=== PATIENT | male | born 1990 | race Caucasian/White ===

== ENCOUNTER 2016-11-21 09:02 | Inpatient (IN) | payer MEDICAID ==
[~2016-11-21] VITALS: Ht 162.6 cm; Wt 73.5 kg
[2016-11-21] VITALS (7 sets, daily range): BP systolic 91–124; BP diastolic 43–75
[~2016-11-21 09:02] MED LIST: ALBUTEROL1.25 MG/3; BACL GT; BACLOFEN10 MG; COLACE100 MG GT; FLEET ENEMA135 ML; KEPPRA1000 M1 GT; LAC PO; LAXATIVE5 M1 PO; LEVAQUIN750 MG GT; METOCLOPRAM5 MG/5 M1 GT; MONTELUKAST SOD10 M1 PO; MYL80 PO; NEXIUM40 MG GT; OCENS; PHECLUD GT; POLYETHYLENE GL1 PO1 GT; PROVENTIL0.09 MG/A1; ROB1 GT; SYMBICORT1 AE2; TYLENOL EXTRA500 M2 PO; VAL250 GT
[2016-11-21] MEDS ORDERED: ALBUTEROL SULFAT3 ML NEB ×2 (09:26→09:33)
[2016-11-21] MEDS ORDERED: BACLOFEN10 MG GT (09:27)
[2016-11-21] MEDS ORDERED: GLYCOPYRROLATE1 M1 GT (09:27)
[2016-11-21] MEDS ORDERED: KEPPRA1000 M1 GT (09:28)
[2016-11-21] MEDS ORDERED: LACTULOSE10 GM/152 PO (09:28)
[2016-11-21] MEDS ORDERED: METOCLOPRAM5 MG/5 M3 GT (09:29)
[2016-11-21] MEDS ORDERED: NEXIUM40 MG GT (09:30)
[2016-11-21] MEDS ORDERED: SINGULAIR10 MG GT (09:30)
[2016-11-21] MEDS ORDERED: POLYETHYLE17 GM/Dos4 PO (09:30)
[2016-11-21] MEDS ORDERED: SYMBICORT1 AE3 INH (09:31)
[2016-11-21] MEDS ORDERED: SALINE MIST45 ML (09:31)
[2016-11-21] MEDS ORDERED: VALPROIC ACID250 MG GT (09:32)
[2016-11-21] MEDS ORDERED: TYLENOL EXTRA500 M3 GT (09:32)
[2016-11-21] MEDS ORDERED: BISAC-EVAC10 MG RC (09:33)
[2016-11-21] MEDS ORDERED: FLEET ENEMA135 ML RC (09:33)
[2016-11-21] MEDS ORDERED: PROVENTIL0.09 MG/A1 (09:34)
[2016-11-21] MEDS ORDERED: EXPECTORAN100 MG/5 M GT (09:34)
[2016-11-21] MEDS ORDERED: GAS RELIEF 8080 MG PO (09:35)
[2016-11-21] MEDS ORDERED: NUTREN (09:36)
[2016-11-21 10:14] LABS: CARBON DIOXIDE 25.7 mmol/L (21-32); CHLORIDE SERUM 102 mmol/L (98-107); CREATININE SERUM 0.9 mg/dL (0.7-1.3); GFR1 > 60 mL/min; GLUCOSE SERUM 96 mg/dL (74-106); POTASSIUM SERUM 3.8 mmol/L (3.5-5.1); SODIUM SERUM 140 mmol/L (136-145)
[2016-11-21 10:18] LABS: RED CELL DISTRIBUTION WIDTH 13.2 % (11.5-14.5)
[2016-11-21 10:20] LABS: UA SPECIFIC GRAVITY 1.015 (1.005-1.035); microscopic required? YES; urine erythrocyte TRACE (NEGATIVE)
[2016-11-21 10:24] LABS: ALBUMIN 3.4 g/dL (3.4-5.0); ALKALINE PHOSPHATASE 115 U/L (46-116); ALT/SGPT 164 U/L (16-63); AST/SGOT 110 U/L (15-37); BILIRUBIN TOTAL 0.7 mg/dL (0.20-1.00); TOTAL PROTEIN, SERUM 7.8 g/dL (6.4-8.2)
[2016-11-21 10:26] LABS: BASOPHIL % 0 % (0-2); PLATELET COUNT 127 x10^3mcL (130-400)
[2016-11-21 10:31] LABS: CK-MB < 0.5 ng/mL (0-3.6); CREATINE KINASE 51 U/L (39-308)
[2016-11-21 13:59] LABS: CHOLESTEROL/HDL RATIO 1.9
[2016-11-21 14:04] LABS: FREE T4 1.23 ng/dL (0.76-1.46); FREE THYROXINE INDEX 2.8 ug/dL (1.4-4.5); T3 TOTAL 0.81 ng/mL; T4(THYROXINE) 8.6 ug/dL (4.7-13.3)
[2016-11-22 05:50] VITALS: BP 91/54
[2016-11-22 06:39] VITALS: BP 110/52
[2016-11-22 07:11] LABS: CALCIUM 8.1 mg/dL (8.5-10.1); CARBON DIOXIDE 25.2 mmol/L (21-32); CHLORIDE SERUM 107 mmol/L (98-107); CREATININE SERUM 0.6 mg/dL (0.7-1.3); GFR1 > 60 mL/min; GLUCOSE SERUM 121 mg/dL (74-106); MAGNESIUM 1.8 mg/dL (1.8-2.4); PHOSPHOROUS 2.5 mg/dL (2.5-4.9); POTASSIUM SERUM 3.5 mmol/L (3.5-5.1); SODIUM SERUM 138 mmol/L (136-145)
[2016-11-22 07:56] LABS: BASOPHIL % 0.3 % (0-2); RED CELL DISTRIBUTION WIDTH 13.2 % (11.5-14.5)
[2016-11-22 08:11] LABS: PLATELET COUNT 95 x10^3mcL (130-400)
[2016-11-22 09:16] VITALS: BP 102/64
[2016-11-22 13:36] VITALS: BP 98/59
[2016-11-22 17:01] VITALS: BP 100/64
[2016-11-22 21:22] VITALS: BP 104/67
[2016-11-23 05:46] VITALS: BP 111/70
[2016-11-23 07:03] LABS: BASOPHIL % 0.4 % (0-2); RED CELL DISTRIBUTION WIDTH 13.1 % (11.5-14.5)
[2016-11-23 07:09] LABS: PLATELET COUNT 102 x10^3mcL (130-400)
[2016-11-23 07:15] LABS: CALCIUM 8.7 mg/dL (8.5-10.1); CHLORIDE SERUM 108 mmol/L (98-107); CREATININE SERUM 0.6 mg/dL (0.7-1.3); GFR1 > 60 mL/min; GLUCOSE SERUM 129 mg/dL (74-106); POTASSIUM SERUM 3.6 mmol/L (3.5-5.1); SODIUM SERUM 144 mmol/L (136-145)
[2016-11-23 10:00] VITALS: BP 107/69
[2016-11-23 14:42] VITALS: BP 100/62
[2016-11-23 18:08] VITALS: BP 96/55
[2016-11-23 21:01] VITALS: BP 119/72
[2016-11-24 06:27] LABS: CALCIUM 8.4 mg/dL (8.5-10.1); CARBON DIOXIDE 28.7 mmol/L (21-32); CHLORIDE SERUM 109 mmol/L (98-107); CREATININE SERUM 0.5 mg/dL (0.7-1.3); GFR1 > 60 mL/min; GLUCOSE SERUM 119 mg/dL (74-106); PHOSPHOROUS 3.9 mg/dL (2.5-4.9); POTASSIUM SERUM 3.4 mmol/L (3.5-5.1); SODIUM SERUM 144 mmol/L (136-145)
[2016-11-24 06:35] VITALS: BP 93/59
[2016-11-24 06:48] LABS: BASOPHIL % 0.4 % (0-2); PLATELET COUNT 110 x10^3mcL (130-400); RED CELL DISTRIBUTION WIDTH 13.1 % (11.5-14.5)
[2016-11-24 10:54] VITALS: BP 102/68
[2016-11-24 17:23] VITALS: BP 107/65
[2016-11-24 20:59] VITALS: BP 102/70
[2016-11-25 06:30] VITALS: BP 106/59
[2016-11-25 06:39] LABS: BASOPHIL % 0.6 % (0-2); RED CELL DISTRIBUTION WIDTH 13.1 % (11.5-14.5)
[2016-11-25 06:55] LABS: PLATELET COUNT 121 x10^3mcL (130-400)
[2016-11-25 07:06] LABS: CALCIUM 8.6 mg/dL (8.5-10.1); CARBON DIOXIDE 27.1 mmol/L (21-32); CHLORIDE SERUM 106 mmol/L (98-107); CREATININE SERUM 0.5 mg/dL (0.7-1.3); GFR1 > 60 mL/min; GLUCOSE SERUM 101 mg/dL (74-106); PHOSPHOROUS 3.5 mg/dL (2.5-4.9); POTASSIUM SERUM 3.5 mmol/L (3.5-5.1); SODIUM SERUM 144 mmol/L (136-145)
[2016-11-25 09:47] VITALS: BP 106/68
[2016-11-25 13:21] VITALS: BP 107/65
[2016-11-25 17:50] VITALS: BP 108/76
[2016-11-25 21:40] VITALS: BP 115/67
[2016-11-26 05:30] LABS: BASOPHIL % 0.6 % (0-2); PLATELET COUNT 148 x10^3mcL (130-400); RED CELL DISTRIBUTION WIDTH 12.7 % (11.5-14.5)
[2016-11-26 05:46] LABS: CALCIUM 9.2 mg/dL (8.5-10.1); CHLORIDE SERUM 105 mmol/L (98-107); CREATININE SERUM 0.6 mg/dL (0.7-1.3); GFR1 > 60 mL/min; GLUCOSE SERUM 113 mg/dL (74-106); MAGNESIUM 2.1 mg/dL (1.8-2.4); PHOSPHOROUS 3.8 mg/dL (2.5-4.9); POTASSIUM SERUM 3.9 mmol/L (3.5-5.1); SODIUM SERUM 141 mmol/L (136-145)
[2016-11-26 05:56] VITALS: BP 100/56
[2016-11-26 21:49] VITALS: BP 102/61
[2016-11-27 05:56] VITALS: BP 96/62
[2016-11-27 06:23] LABS: BASOPHIL % 0.2 % (0-2); PLATELET COUNT 179 x10^3mcL (130-400); RED CELL DISTRIBUTION WIDTH 12.9 % (11.5-14.5)
[2016-11-27 08:01] LABS: CALCIUM 9.5 mg/dL (8.5-10.1); CARBON DIOXIDE 29.8 mmol/L (21-32); CHLORIDE SERUM 104 mmol/L (98-107); CREATININE SERUM 0.6 mg/dL (0.7-1.3); GFR1 > 60 mL/min; GLUCOSE SERUM 84 mg/dL (74-106); MAGNESIUM 2.1 mg/dL (1.8-2.4); PHOSPHOROUS 3.6 mg/dL (2.5-4.9); POTASSIUM SERUM 4.5 mmol/L (3.5-5.1); SODIUM SERUM 142 mmol/L (136-145)
[2016-11-27 10:16] VITALS: BP 93/41
[2016-11-27 14:06] VITALS: BP 99/64
[2016-11-27 19:07] VITALS: BP 91/63
[2016-11-27 21:13] VITALS: BP 98/58
[2016-11-28 05:34] VITALS: BP 103/55
[2016-11-28 07:16] LABS: BASOPHIL % 0.4 % (0-2); PLATELET COUNT 175 x10^3mcL (130-400); RED CELL DISTRIBUTION WIDTH 13.1 % (11.5-14.5)
[2016-11-28 07:22] LABS: CALCIUM 9.2 mg/dL (8.5-10.1); CHLORIDE SERUM 104 mmol/L (98-107); CREATININE SERUM 0.7 mg/dL (0.7-1.3); GFR1 > 60 mL/min; GLUCOSE SERUM 93 mg/dL (74-106); PHOSPHOROUS 3.1 mg/dL (2.5-4.9); POTASSIUM SERUM 4.1 mmol/L (3.5-5.1); SODIUM SERUM 141 mmol/L (136-145)
[2016-11-28 09:55] VITALS: BP 89/67
[2016-11-28 18:40] VITALS: BP 121/50
[2016-11-28 21:25] VITALS: BP 102/55
[2016-11-29 05:57] VITALS: BP 106/61
[2016-11-29 06:40] LABS: CALCIUM 8.9 mg/dL (8.5-10.1); CARBON DIOXIDE 25.4 mmol/L (21-32); CHLORIDE SERUM 105 mmol/L (98-107); CREATININE SERUM 0.5 mg/dL (0.7-1.3); GFR1 > 60 mL/min; GLUCOSE SERUM 115 mg/dL (74-106); POTASSIUM SERUM 3.7 mmol/L (3.5-5.1); SODIUM SERUM 139 mmol/L (136-145)
[2016-11-29 07:20] LABS: BASOPHIL % 0.3 % (0-2); PLATELET COUNT 169 x10^3mcL (130-400); RED CELL DISTRIBUTION WIDTH 12.8 % (11.5-14.5)
[2016-11-29 08:00] VITALS: BP 99/60
[2016-11-29 17:20] VITALS: BP 144/49
[2016-11-29 21:35] VITALS: BP 117/73
[2016-11-30] VITALS (7 sets, daily range): BP systolic 86–126; BP diastolic 51–68; Ht 162.6 cm; Wt 73.5 kg
[2016-12-01 06:36] VITALS: BP 105/56
[2016-12-01 07:22] LABS: CARBON DIOXIDE 26.6 mmol/L (21-32); CHLORIDE SERUM 105 mmol/L (98-107); CREATININE SERUM 0.5 mg/dL (0.7-1.3); GFR1 > 60 mL/min; GLUCOSE SERUM 96 mg/dL (74-106); MAGNESIUM 2.2 mg/dL (1.8-2.4); PHOSPHOROUS 3.3 mg/dL (2.5-4.9); POTASSIUM SERUM 4.4 mmol/L (3.5-5.1); SODIUM SERUM 138 mmol/L (136-145)
[2016-12-01 07:30] LABS: BASOPHIL % 0.9 % (0-2); PLATELET COUNT 188 x10^3mcL (130-400); RED CELL DISTRIBUTION WIDTH 13.1 % (11.5-14.5)
[2016-12-01 10:06] VITALS: BP 130/61
[2016-12-01 17:59] VITALS: BP 98/66
[2016-12-01 19:50] VITALS: BP 124/76
[2016-12-02 06:24] VITALS: BP 104/69
[2016-12-02 06:53] LABS: BASOPHIL % 0.7 % (0-2); PLATELET COUNT 187 x10^3mcL (130-400); RED CELL DISTRIBUTION WIDTH 13.2 % (11.5-14.5)
[2016-12-02 07:00] LABS: CALCIUM 8.9 mg/dL (8.5-10.1); CARBON DIOXIDE 28.9 mmol/L (21-32); CHLORIDE SERUM 105 mmol/L (98-107); CREATININE SERUM 0.6 mg/dL (0.7-1.3); GFR1 > 60 mL/min; GLUCOSE SERUM 95 mg/dL (74-106); MAGNESIUM 2.1 mg/dL (1.8-2.4); PHOSPHOROUS 3.5 mg/dL (2.5-4.9); SODIUM SERUM 141 mmol/L (136-145)
[2016-12-02 10:55] VITALS: BP 96/49
[2016-12-02 17:39] VITALS: BP 177/80
[2016-12-02 18:40] VITALS: BP 86/57
[2016-12-02 21:07] VITALS: BP 97/62
[2016-12-03 05:38] VITALS: BP 103/55
[2016-12-03 06:29] LABS: CALCIUM 8.9 mg/dL (8.5-10.1); CARBON DIOXIDE 27.5 mmol/L (21-32); CHLORIDE SERUM 105 mmol/L (98-107); CREATININE SERUM 0.5 mg/dL (0.7-1.3); GFR1 > 60 mL/min; GLUCOSE SERUM 80 mg/dL (74-106); PHOSPHOROUS 2.9 mg/dL (2.5-4.9); POTASSIUM SERUM 4.3 mmol/L (3.5-5.1); SODIUM SERUM 140 mmol/L (136-145)
[2016-12-03 07:45] LABS: PLATELET COUNT 194 x10^3mcL (130-400); RED CELL DISTRIBUTION WIDTH 12.2 % (11.5-14.5)
[2016-12-03 09:55] LABS: BAND NEUTROPHIL 0 % (0-10); BASOPHIL 0 % (0-2); MONOCYTE 11 % (0-7); SEGMENTED NEUTROPHILS 22 % (37-75)
[2016-12-03 09:57] LABS: PLATELET MORPHOLOGY LARGE PLATELET SEEN; rbc morphology (normal/abnorm) NORMAL (NORMAL)
[2016-12-03 10:00] VITALS: BP 100/56
[2016-12-03 17:45] VITALS: BP 102/61
[2016-12-03 21:55] VITALS: BP 98/58
[2016-12-04 06:24] LABS: BASOPHIL % 0.4 % (0-2); PLATELET COUNT 185 x10^3mcL (130-400); RED CELL DISTRIBUTION WIDTH 13.1 % (11.5-14.5)
[2016-12-04 06:39] LABS: CALCIUM 8.8 mg/dL (8.5-10.1); CHLORIDE SERUM 105 mmol/L (98-107); CREATININE SERUM 0.5 mg/dL (0.7-1.3); GFR1 > 60 mL/min; GLUCOSE SERUM 88 mg/dL (74-106); MAGNESIUM 2.2 mg/dL (1.8-2.4); PHOSPHOROUS 2.9 mg/dL (2.5-4.9); SODIUM SERUM 140 mmol/L (136-145)
[2016-12-04 07:12] VITALS: BP 103/67
[2016-12-04 09:18] VITALS: BP 98/55
[2016-12-04] MEDS ORDERED: PROVENTIL0.09 MG/A1 INH (11:18)
[2016-12-04] MEDS ORDERED: TYLENOL EXTRA500 M3 GT (11:19)
[2016-12-04] MEDS ORDERED: SALINE MIST45 ML NS (11:20)
[2016-12-04] MEDS ORDERED: NUTREN 1.5250 ML PO (11:21)
[2016-12-04 13:13] VITALS: BP 98/55
== END 2016-12-04 15:45 | DRG 720 ==
LOC: ED 09:02 → DU 12:41 → MU 12:41 → DU 13:53 → MU 11-27 06:49
PROVIDERS: Emergency Medicine; Family Medicine; ADMIT Family Medicine
DX: A41.51 Sepsis due to Escherichia coli [E. coli] (principal); J96.01 Acute respiratory failure with hypoxia; N17.0 Acute kidney failure with tubular necrosis; R65.21 Severe sepsis with septic shock; N31.9 Neuromuscular dysfunction of bladder, unspecified; G80.0 Spastic quadriplegic cerebral palsy; R13.10 Dysphagia, unspecified; G40.909 Epilepsy, unspecified, not intractable, without status epilepticus; H50.00 Unspecified esotropia; E87.6 Hypokalemia; F79 Unspecified intellectual disabilities; Z16.12 Extended spectrum beta lactamase (ESBL) resistance; Z16.24 Resistance to multiple antibiotics
CPT/HCPCS: 36600; 82962; 83880; 84439; J1885; J2185; J2543; J3490; J7030; J7042; J7620; J8597

== ENCOUNTER 2016-12-19 12:31 | Inpatient (IN) | payer MEDICAID ==
[~2016-12-19] VITALS: Ht 162.6 cm; Wt 69.9 kg
[~2016-12-19 12:31] MED LIST changes: +ALBUTEROL SULFAT3 ML NEB; +BACLOFEN10 MG GT; +BISAC-EVAC10 MG RC; +EXPECTORAN100 MG/5 M GT; +FLEET ENEMA135 ML RC; +GAS RELIEF 8080 MG PO; +GLYCOPYRROLATE1 M1 GT; +LACTULOSE10 GM/152 PO; +METOCLOPRAM5 MG/5 M3 GT; +NUTREN; +NUTREN 1.5250 ML PO; +POLYETHYLE17 GM/Dos4 PO; +PROVENTIL0.09 MG/A1 INH; +SALINE MIST45 ML; +SALINE MIST45 ML NS; +SINGULAIR10 MG GT; +SYMBICORT1 AE3 INH; +TYLENOL EXTRA500 M3 GT; +VALPROIC ACID250 MG GT
[2016-12-19 13:33] LABS: BASOPHIL % 0.2 % (0-2); RED CELL DISTRIBUTION WIDTH 13.1 % (11.5-14.5)
[2016-12-19 13:39] LABS: PLATELET COUNT 116 x10^3mcL (130-400)
[2016-12-19 13:42] LABS: CALCIUM 9.6 mg/dL (8.5-10.1); CARBON DIOXIDE 28.1 mmol/L (21-32); CHLORIDE SERUM 101 mmol/L (98-107); CREATININE SERUM 0.9 mg/dL (0.7-1.3); GFR1 > 60 mL/min; GLUCOSE SERUM 163 mg/dL (74-106); POTASSIUM SERUM 4.2 mmol/L (3.5-5.1); SODIUM SERUM 138 mmol/L (136-145)
[2016-12-19 13:47] LABS: ALBUMIN 3.7 g/dL (3.4-5.0); ALKALINE PHOSPHATASE 122 U/L (46-116); ALT/SGPT 54 U/L (16-63); AST/SGOT 31 U/L (15-37); BILIRUBIN TOTAL 0.49 mg/dL (0.20-1.00); C REACTIVE PROTEIN 3.5 mg/dL (<=0.9); FREE T4 1.18 ng/dL (0.76-1.46); FREE THYROXINE INDEX 2.7 ug/dL (1.4-4.5); T4(THYROXINE) 8.5 ug/dL (4.7-13.3); TOTAL PROTEIN, SERUM 8.2 g/dL (6.4-8.2)
[2016-12-19 13:49] LABS: T3 TOTAL 1.09 ng/mL
[2016-12-19 14:08] LABS: CK-MB < 0.5 ng/mL (0-3.6); CREATINE KINASE 172 U/L (39-308)
[2016-12-19 14:25] LABS: ERYTHROCYTE SED RATE 12 mm/hr (0-15)
[2016-12-19 14:31] LABS: microscopic required? YES; urine erythrocyte TRACE (NEGATIVE)
[2016-12-19 17:39] VITALS: BP 90/62
[2016-12-19 17:56] LABS: AMYLASE 84 U/L (25-115); LIPASE 133 IU/L (73-393)
[2016-12-19 18:04] VITALS: BP 90/62
[2016-12-19 19:00] VITALS: BP 100/60
[2016-12-19 21:33] VITALS: BP 95/71
[2016-12-19 23:55] VITALS: BP 95/71
[2016-12-20] VITALS (9 sets, daily range): BP systolic 94–107; BP diastolic 48–80
[2016-12-20 06:26] LABS: RED CELL DISTRIBUTION WIDTH 13.5 % (11.5-14.5)
[2016-12-20 07:08] LABS: CALCIUM 7.9 mg/dL (8.5-10.1); CARBON DIOXIDE 22.8 mmol/L (21-32); CHLORIDE SERUM 107 mmol/L (98-107); CREATININE SERUM 0.6 mg/dL (0.7-1.3); GFR1 > 60 mL/min; GLUCOSE SERUM 88 mg/dL (74-106); MAGNESIUM 1.5 mg/dL (1.8-2.4); PHOSPHOROUS 3.1 mg/dL (2.5-4.9); POTASSIUM SERUM 3.2 mmol/L (3.5-5.1); SODIUM SERUM 143 mmol/L (136-145)
[2016-12-20 07:36] LABS: PLATELET COUNT 83 x10^3mcL (130-400)
[2016-12-20 10:36] LABS: BAND NEUTROPHIL 13 % (0-10); BASOPHIL 0 % (0-2); MONOCYTE 5 % (0-7); SEGMENTED NEUTROPHILS 75 % (37-75)
[2016-12-20 10:37] LABS: PLATELET MORPHOLOGY PLATELETS DECREASED; rbc morphology (normal/abnorm) NORMAL (NORMAL)
[2016-12-21] VITALS (8 sets, daily range): BP systolic 89–108; BP diastolic 54–64
[2016-12-21 07:14] LABS: RED CELL DISTRIBUTION WIDTH 13.5 % (11.5-14.5)
[2016-12-21 08:00] LABS: CALCIUM 8.1 mg/dL (8.5-10.1); CARBON DIOXIDE 24.8 mmol/L (21-32); CHLORIDE SERUM 108 mmol/L (98-107); CREATININE SERUM 0.6 mg/dL (0.7-1.3); GFR1 > 60 mL/min; GLUCOSE SERUM 118 mg/dL (74-106); MAGNESIUM 2.3 mg/dL (1.8-2.4); PHOSPHOROUS 1.7 mg/dL (2.5-4.9); POTASSIUM SERUM 3.5 mmol/L (3.5-5.1); SODIUM SERUM 140 mmol/L (136-145)
[2016-12-21 08:46] LABS: PLATELET COUNT 52 x10^3mcL (130-400)
[2016-12-21 11:02] LABS: BAND NEUTROPHIL 4 % (0-10); METAMYELOCTE 2 % (0-2); MONOCYTE 15 % (0-7); SEGMENTED NEUTROPHILS 58 % (37-75)
[2016-12-21 11:03] LABS: PLATELET MORPHOLOGY PLATELETS DECREASED; rbc morphology (normal/abnorm) NORMAL (NORMAL)
[2016-12-22 05:39] VITALS: BP 106/72
[2016-12-22 06:27] LABS: RED CELL DISTRIBUTION WIDTH 13.6 % (11.5-14.5)
[2016-12-22 06:39] LABS: PLATELET COUNT 58 x10^3mcL (130-400)
[2016-12-22 06:44] LABS: CALCIUM 8.2 mg/dL (8.5-10.1); CARBON DIOXIDE 29.6 mmol/L (21-32); CHLORIDE SERUM 107 mmol/L (98-107); CREATININE SERUM 0.5 mg/dL (0.7-1.3); GFR1 > 60 mL/min; GLUCOSE SERUM 90 mg/dL (74-106); POTASSIUM SERUM 3.3 mmol/L (3.5-5.1); SODIUM SERUM 141 mmol/L (136-145)
[2016-12-22 08:30] LABS: MONOCYTE 16 % (0-7); SEGMENTED NEUTROPHILS 65 % (37-75); rbc morphology (normal/abnorm) NORMAL (NORMAL)
[2016-12-22 10:00] VITALS: BP 97/70
[2016-12-22 14:34] VITALS: BP 97/70
[2016-12-22 18:08] VITALS: BP 94/46
[2016-12-22 23:07] VITALS: BP 141/54
[2016-12-23 05:34] VITALS: BP 117/75
[2016-12-23 06:25] LABS: CALCIUM 7.9 mg/dL (8.5-10.1); CARBON DIOXIDE 25.5 mmol/L (21-32); CHLORIDE SERUM 108 mmol/L (98-107); CREATININE SERUM 0.6 mg/dL (0.7-1.3); GFR1 > 60 mL/min; GLUCOSE SERUM 89 mg/dL (74-106); POTASSIUM SERUM 3.4 mmol/L (3.5-5.1); SODIUM SERUM 143 mmol/L (136-145)
[2016-12-23 08:35] LABS: PLATELET COUNT 89 x10^3mcL (130-400); RED CELL DISTRIBUTION WIDTH 13.9 % (11.5-14.5)
[2016-12-23 08:58] VITALS: BP 107/63
[2016-12-23 09:56] LABS: BAND NEUTROPHIL 3 % (0-10); BASOPHIL 0 % (0-2); MONOCYTE 23 % (0-7); SEGMENTED NEUTROPHILS 40 % (37-75)
[2016-12-23 09:57] LABS: rbc morphology (normal/abnorm) NORMAL (NORMAL)
[2016-12-23 13:37] VITALS: BP 101/62
[2016-12-23 16:36] VITALS: BP 112/74
[2016-12-23 16:44] LABS: MAGNESIUM 1.7 mg/dL (1.8-2.4); PHOSPHOROUS 2.4 mg/dL (2.5-4.9)
[2016-12-23 19:30] VITALS: BP 120/82
[2016-12-24 05:43] VITALS: BP 126/57
[2016-12-24 06:09] LABS: CALCIUM 8.5 mg/dL (8.5-10.1); CARBON DIOXIDE 27.6 mmol/L (21-32); CHLORIDE SERUM 104 mmol/L (98-107); CREATININE SERUM 0.5 mg/dL (0.7-1.3); GFR1 > 60 mL/min; GLUCOSE SERUM 92 mg/dL (74-106); MAGNESIUM 2.3 mg/dL (1.8-2.4); POTASSIUM SERUM 3.7 mmol/L (3.5-5.1); SODIUM SERUM 141 mmol/L (136-145)
[2016-12-24 06:24] LABS: RED CELL DISTRIBUTION WIDTH 13.6 % (11.5-14.5)
[2016-12-24 07:52] LABS: PLATELET COUNT 123 x10^3mcL (130-400)
[2016-12-24 10:14] VITALS: BP 114/66
[2016-12-24 12:25] VITALS: BP 101/64
[2016-12-24 13:51] LABS: BAND NEUTROPHIL 3 % (0-10); SEGMENTED NEUTROPHILS 40 % (37-75)
[2016-12-24 13:52] LABS: METAMYELOCTE 1 % (0-2); MONOCYTE 22 % (0-7); PLATELET MORPHOLOGY PLATELETS DECREASED; rbc morphology (normal/abnorm) NORMAL (NORMAL)
[2016-12-24 17:26] VITALS: BP 110/75
[2016-12-24 21:45] VITALS: BP 107/70
[2016-12-25 05:52] VITALS: BP 109/76
[2016-12-25 06:03] LABS: CARBON DIOXIDE 28.1 mmol/L (21-32); CHLORIDE SERUM 104 mmol/L (98-107); CREATININE SERUM 0.5 mg/dL (0.7-1.3); GFR1 > 60 mL/min; GLUCOSE SERUM 101 mg/dL (74-106); POTASSIUM SERUM 4.1 mmol/L (3.5-5.1); SODIUM SERUM 140 mmol/L (136-145)
[2016-12-25 06:10] LABS: BASOPHIL % 0.3 % (0-2); PLATELET COUNT 173 x10^3mcL (130-400); RED CELL DISTRIBUTION WIDTH 13.8 % (11.5-14.5)
[2016-12-25 09:35] VITALS: BP 96/64
[2016-12-25 17:14] VITALS: BP 91/61
[2016-12-25 21:38] VITALS: BP 104/60
[2016-12-26 05:39] VITALS: BP 101/57
[2016-12-26 09:19] VITALS: BP 122/76; BP 151/64
[2016-12-26 17:34] VITALS: BP 129/78
[2016-12-26 21:59] VITALS: BP 91/55
[2016-12-27 06:50] VITALS: BP 94/45
[2016-12-27 06:56] LABS: BASOPHIL % 0.5 % (0-2); PLATELET COUNT 199 x10^3mcL (130-400); RED CELL DISTRIBUTION WIDTH 13.6 % (11.5-14.5)
[2016-12-27 07:24] LABS: CALCIUM 8.7 mg/dL (8.5-10.1); CARBON DIOXIDE 27.1 mmol/L (21-32); CHLORIDE SERUM 106 mmol/L (98-107); CREATININE SERUM 0.4 mg/dL (0.7-1.3); GFR1 > 60 mL/min; GLUCOSE SERUM 92 mg/dL (74-106); MAGNESIUM 2.3 mg/dL (1.8-2.4); POTASSIUM SERUM 4.6 mmol/L (3.5-5.1); SODIUM SERUM 140 mmol/L (136-145)
[2016-12-27 10:25] VITALS: BP 97/57
[2016-12-27 17:21] VITALS: BP 94/60
[2016-12-27 20:37] VITALS: BP 103/66
[2016-12-28 05:24] VITALS: BP 101/61
[2016-12-28 06:20] LABS: BASOPHIL % 0.6 % (0-2); PLATELET COUNT 317 x10^3mcL (130-400); RED CELL DISTRIBUTION WIDTH 13.5 % (11.5-14.5)
[2016-12-28 06:27] LABS: CARBON DIOXIDE 27.7 mmol/L (21-32); CHLORIDE SERUM 106 mmol/L (98-107); CREATININE SERUM 0.5 mg/dL (0.7-1.3); GFR1 > 60 mL/min; GLUCOSE SERUM 87 mg/dL (74-106); MAGNESIUM 2.2 mg/dL (1.8-2.4); PHOSPHOROUS 3.6 mg/dL (2.5-4.9); POTASSIUM SERUM 4.3 mmol/L (3.5-5.1); SODIUM SERUM 140 mmol/L (136-145)
[2016-12-28 09:38] VITALS: BP 100/55
[2016-12-28 11:28] LABS: BILIRUBIN DIRECT 0.08 mg/dL (0.0-0.2); BILIRUBIN TOTAL 0.2 mg/dL (0.20-1.00); TOTAL PROTEIN, SERUM 7.5 g/dL (6.4-8.2)
[2016-12-28 11:30] LABS: ALBUMIN 2.8 g/dL (3.4-5.0)
[2016-12-28 13:00] VITALS: BP 112/68
[2016-12-28 18:14] VITALS: BP 112/69
[2016-12-28 22:21] VITALS: BP 103/59
[2016-12-29] VITALS (7 sets, daily range): BP systolic 93–109; BP diastolic 44–69
[2016-12-29 06:16] LABS: BASOPHIL % 0.3 % (0-2); PLATELET COUNT 303 x10^3mcL (130-400); RED CELL DISTRIBUTION WIDTH 13.3 % (11.5-14.5)
[2016-12-29 06:38] LABS: CALCIUM 8.5 mg/dL (8.5-10.1); CARBON DIOXIDE 29.3 mmol/L (21-32); CHLORIDE SERUM 104 mmol/L (98-107); CREATININE SERUM 0.6 mg/dL (0.7-1.3); GFR1 > 60 mL/min; GLUCOSE SERUM 85 mg/dL (74-106); MAGNESIUM 1.7 mg/dL (1.8-2.4); PHOSPHOROUS 3.4 mg/dL (2.5-4.9); POTASSIUM SERUM 4.1 mmol/L (3.5-5.1); SODIUM SERUM 140 mmol/L (136-145)
[2016-12-30 05:54] VITALS: BP 115/60
[2016-12-30 06:12] LABS: PLATELET COUNT 328 x10^3mcL (130-400); RED CELL DISTRIBUTION WIDTH 13.6 % (11.5-14.5)
[2016-12-30 07:28] LABS: BAND NEUTROPHIL 0 % (0-10); BASOPHIL 0 % (0-2); MONOCYTE 5 % (0-7); SEGMENTED NEUTROPHILS 84 % (37-75)
[2016-12-30 09:10] VITALS: BP 123/78
[2016-12-30 17:40] VITALS: BP 108/73
[2016-12-30 20:22] VITALS: BP 106/66
[2016-12-30 22:20] VITALS: BP 100/57
[2016-12-31 05:37] VITALS: BP 112/68
[2016-12-31 06:26] LABS: CALCIUM 8.4 mg/dL (8.5-10.1); CARBON DIOXIDE 31.7 mmol/L (21-32); CHLORIDE SERUM 103 mmol/L (98-107); CREATININE SERUM 0.5 mg/dL (0.7-1.3); GFR1 > 60 mL/min; GLUCOSE SERUM 86 mg/dL (74-106); PHOSPHOROUS 2.8 mg/dL (2.5-4.9); POTASSIUM SERUM 3.9 mmol/L (3.5-5.1); SODIUM SERUM 140 mmol/L (136-145)
[2016-12-31 06:28] LABS: BASOPHIL % 0.3 % (0-2); PLATELET COUNT 330 x10^3mcL (130-400); RED CELL DISTRIBUTION WIDTH 13.6 % (11.5-14.5)
[2016-12-31 09:20] VITALS: BP 108/72
[2016-12-31 13:27] LABS: microscopic required? YES; urine erythrocyte 1+ (NEGATIVE)
[2016-12-31 18:00] VITALS: BP 121/69
[2016-12-31 21:09] VITALS: BP 115/77
[2017-01-01] VITALS (11 sets, daily range): BP systolic 87–115; BP diastolic 56–69; Ht 162.6 cm; Wt 69.9 kg
[2017-01-01 06:03] LABS: BASOPHIL % 0.4 % (0-2); PLATELET COUNT 355 x10^3mcL (130-400); RED CELL DISTRIBUTION WIDTH 13.2 % (11.5-14.5)
[2017-01-01 06:09] LABS: CALCIUM 8.1 mg/dL (8.5-10.1); CARBON DIOXIDE 30.7 mmol/L (21-32); CHLORIDE SERUM 105 mmol/L (98-107); CREATININE SERUM 0.5 mg/dL (0.7-1.3); GFR1 > 60 mL/min; GLUCOSE SERUM 111 mg/dL (74-106); MAGNESIUM 2.1 mg/dL (1.8-2.4); PHOSPHOROUS 3.2 mg/dL (2.5-4.9); POTASSIUM SERUM 3.5 mmol/L (3.5-5.1); SODIUM SERUM 140 mmol/L (136-145)
[2017-01-02 06:17] LABS: CALCIUM 8.6 mg/dL (8.5-10.1); CARBON DIOXIDE 31.1 mmol/L (21-32); CHLORIDE SERUM 105 mmol/L (98-107); CREATININE SERUM 0.5 mg/dL (0.7-1.3); GFR1 > 60 mL/min; GLUCOSE SERUM 129 mg/dL (74-106); PHOSPHOROUS 3.5 mg/dL (2.5-4.9); POTASSIUM SERUM 3.8 mmol/L (3.5-5.1); SODIUM SERUM 142 mmol/L (136-145)
[2017-01-02 06:33] VITALS: BP 92/55
[2017-01-02 06:33] LABS: BASOPHIL % 0.6 % (0-2); PLATELET COUNT 350 x10^3mcL (130-400); RED CELL DISTRIBUTION WIDTH 13.2 % (11.5-14.5)
[2017-01-02 09:42] VITALS: BP 92/63
[2017-01-02 11:56] LABS: BILIRUBIN DIRECT 0.14 mg/dL (0.0-0.2); BILIRUBIN TOTAL 0.48 mg/dL (0.20-1.00); TOTAL PROTEIN, SERUM 6.5 g/dL (6.4-8.2)
[2017-01-02 11:57] LABS: ALBUMIN 2.2 g/dL (3.4-5.0)
[2017-01-02 13:53] VITALS: BP 91/59
[2017-01-02 17:32] VITALS: BP 103/68
[2017-01-02 19:35] VITALS: BP 109/55
[2017-01-02 21:34] VITALS: BP 104/71
[2017-01-03 05:56] VITALS: BP 106/65
[2017-01-03 06:07] LABS: BASOPHIL % 0.5 % (0-2)
[2017-01-03 06:39] LABS: PLATELET COUNT 431 x10^3mcL (130-400)
[2017-01-03 06:44] LABS: CALCIUM 8.9 mg/dL (8.5-10.1); CARBON DIOXIDE 27.8 mmol/L (21-32); CHLORIDE SERUM 103 mmol/L (98-107); CREATININE SERUM 0.5 mg/dL (0.7-1.3); GFR1 > 60 mL/min; GLUCOSE SERUM 119 mg/dL (74-106); MAGNESIUM 2.5 mg/dL (1.8-2.4); PHOSPHOROUS 3.6 mg/dL (2.5-4.9); SODIUM SERUM 142 mmol/L (136-145)
[2017-01-03 10:19] VITALS: BP 106/63
[2017-01-03 14:33] VITALS: BP 105/64
[2017-01-03 17:56] VITALS: BP 91/47
[2017-01-03 19:42] VITALS: BP 96/63
[2017-01-04 05:01] VITALS: BP 96/63
[2017-01-04 07:26] LABS: BASOPHIL % 0.7 % (0-2); RED CELL DISTRIBUTION WIDTH 13.6 % (11.5-14.5)
[2017-01-04 07:40] LABS: CALCIUM 9.3 mg/dL (8.5-10.1); CARBON DIOXIDE 32.8 mmol/L (21-32); CHLORIDE SERUM 102 mmol/L (98-107); CREATININE SERUM 0.5 mg/dL (0.7-1.3); GFR1 > 60 mL/min; GLUCOSE SERUM 106 mg/dL (74-106); MAGNESIUM 2.1 mg/dL (1.8-2.4); PHOSPHOROUS 4.9 mg/dL (2.5-4.9); PLATELET COUNT 455 x10^3mcL (130-400); POTASSIUM SERUM 4.1 mmol/L (3.5-5.1); SODIUM SERUM 140 mmol/L (136-145)
[2017-01-04 08:55] VITALS: BP 96/63
[2017-01-04 10:08] VITALS: BP 106/56
[2017-01-04 13:26] VITALS: BP 100/66
[2017-01-04 17:56] VITALS: BP 101/66
[2017-01-04 21:08] VITALS: BP 98/63
[2017-01-05 05:30] VITALS: BP 92/50
[2017-01-05 06:18] LABS: BASOPHIL % 0.9 % (0-2); RED CELL DISTRIBUTION WIDTH 13.3 % (11.5-14.5)
[2017-01-05 06:29] LABS: CALCIUM 9.2 mg/dL (8.5-10.1); CARBON DIOXIDE 31.8 mmol/L (21-32); CHLORIDE SERUM 102 mmol/L (98-107); CREATININE SERUM 0.5 mg/dL (0.7-1.3); GFR1 > 60 mL/min; GLUCOSE SERUM 99 mg/dL (74-106); MAGNESIUM 2.2 mg/dL (1.8-2.4); PHOSPHOROUS 3.9 mg/dL (2.5-4.9); POTASSIUM SERUM 3.8 mmol/L (3.5-5.1); SODIUM SERUM 139 mmol/L (136-145)
[2017-01-05 06:33] LABS: PLATELET COUNT 415 x10^3mcL (130-400)
[2017-01-05 10:20] VITALS: BP 98/56
[2017-01-05 17:27] VITALS: BP 92/60
[2017-01-05 20:37] VITALS: BP 96/58
[2017-01-06 05:56] VITALS: BP 91/59
[2017-01-06 09:38] VITALS: BP 96/54
[2017-01-06 15:56] VITALS: BP 96/54
[2017-01-06] MEDS ORDERED: TYLENOL EXTRA500 M3 GT (16:15)
== END 2017-01-06 17:50 | DRG 710 ==
LOC: ED 12:31 → DU 15:05 → MU 16:43 → DU 17:05 → MU 12-22 09:35
PROVIDERS: Family Medicine; Specialist; Surgery; ADMIT Family Medicine
PROC: 0FT44ZZ Resection of Gallbladder, Percutaneous Endoscopic Approach (ICD-10-PCS; principal; 2016-12-28 13:30)
PROC: 0F9030Z Drainage of Liver with Drainage Device, Percutaneous Approach (ICD-10-PCS; 2017-01-01)
DX: A41.51 Sepsis due to Escherichia coli [E. coli] (principal); N17.0 Acute kidney failure with tubular necrosis; J96.00 Acute respiratory failure, unspecified whether with hypoxia or hypercapnia; E43 Unspecified severe protein-calorie malnutrition; K75.0 Abscess of liver; K80.10 Calculus of gallbladder with chronic cholecystitis without obstruction; E83.42 Hypomagnesemia; K82.1 Hydrops of gallbladder; N31.9 Neuromuscular dysfunction of bladder, unspecified; R65.20 Severe sepsis without septic shock; K44.9 Diaphragmatic hernia without obstruction or gangrene; G80.1 Spastic diplegic cerebral palsy; G40.909 Epilepsy, unspecified, not intractable, without status epilepticus; H50.00 Unspecified esotropia; E87.6 Hypokalemia; K21.9 Gastro-esophageal reflux disease without esophagitis; Z93.1 Gastrostomy status; Z16.12 Extended spectrum beta lactamase (ESBL) resistance; Z68.23 Body mass index [BMI] 23.0-23.9, adult
CPT/HCPCS: 32557; 36600; 78226; 83880; 84439; 87804; 97110-GP; 97530-GP; A9537; C1729; C9113; G0378; J0278; J0696; J1642; J1644; J1885; J1940; J2001; J2060; J2185; J2250; J2270; J2405; J2543; J2704; J2710; J3010; J3370; J3475; J3490; J3535; J7030; J7040; J7050; J7120; J7620; J8597; P9045; Q0092

== ENCOUNTER 2017-04-17 00:45 | Inpatient (IN) | payer MEDICAID ==
[2017-04-17] VITALS (7 sets, daily range): BP systolic 85–117; BP diastolic 38–61
[~2017-04-17] VITALS: Ht 157.5 cm; Wt 64.9 kg
--- NOTE | 2017-04-17 01:26 | NUR ---
PT BIB [facility] AND [facility] GARCIA FROM [facility] WITH C/O PT WITH FEVER AND COUGH. PER MEDICS, FACILITY REPORTED TO PT WITH HX OF PNA AND HAS BEEN ADMITTED TO HOSPITAL FOR PNA IN THE PAST. PER MEDICS, FACILITY CALLED WHEN PT NOTED WITH FEVER BEGINNING AROUND 10PM AND CALLED 911 WHEN PT FEVER REACHED 100.4. MEDICS REPORT, PT WITH TEMP OF 100.9 EN [address], WITH TACHY 130, HYPOTENSIVE, RONCHI TO ALL JONES, WITH BS OF 130. PER MEDICS, FACILITY STAFF STATE TO PT MENTATION WNL.
[2017-04-17 02:29] LABS: CALCIUM 8.5 mg/dL (8.5-10.1); CARBON DIOXIDE 24.7 mmol/L (21-32); CHLORIDE SERUM 101 mmol/L (98-107); CREATININE SERUM 0.6 mg/dL (0.7-1.3); GFR1 > 60 mL/min; GLUCOSE SERUM 95 mg/dL (74-106); SODIUM SERUM 136 mmol/L (136-145)
[2017-04-17 02:33] LABS: ALKALINE PHOSPHATASE 122 U/L (46-116); ALT/SGPT 23 U/L (16-63); AST/SGOT 28 U/L (15-37); BILIRUBIN TOTAL 0.27 mg/dL (0.20-1.00); LIPASE 194 IU/L (73-393); MAGNESIUM 1.8 mg/dL (1.8-2.4); TOTAL PROTEIN, SERUM 7.9 g/dL (6.4-8.2)
[2017-04-17 02:35] LABS: ALBUMIN 3.1 g/dL (3.4-5.0)
--- NOTE | 2017-04-17 02:57 | NUR ---
SPOKE WITH DESIREE MERAZ (PHARMACEUTICAL ANALYST) REGARDING CARE OF PT.
[2017-04-17 03:04] LABS: BASOPHIL % 0.2 % (0-2); RED CELL DISTRIBUTION WIDTH 14.4 % (11.5-14.5)
[2017-04-17 03:05] LABS: PLATELET COUNT 92 x10^3mcL (130-400)
--- NOTE | 2017-04-17 03:32 | NUR ---
PT OFF OF FLOOR WITH RADIOLOGY.
--- NOTE | 2017-04-17 04:55 | NUR ---
PT GIVEN BED BATH AFTER LARGE LOOSE STOOL NOTED ASSISTED BY MARCELLA PALMER AND CHARACTER IMPERSONATOR.
--- NOTE | 2017-04-17 05:25 | NUR ---
REPORT GIVEN TO JADE NORTON.
[2017-04-17 05:28] LABS: microscopic required? YES; urine erythrocyte TRACE (NEGATIVE)
[2017-04-17 05:56] LABS: T3 TOTAL 1.11 ng/mL
--- NOTE | 2017-04-17 06:15 | NUR ---
PT SUCTIONED AFTER NOTING CLEAR PHLEGM WHEN PT WAS COUGHING.
--- NOTE | 2017-04-17 06:15 | NUR ---
PT AWAKE AND NON VERBAL. DOES NOT FOLLOW COMMANDS. ON 4L NC, SPO2 94%. PATIENTS TEMP 102.4 COOLING MEASURES IMPLEMENTED. ON TELE # 19, SINUS TACHYCARDIA ON THE MONITOR. BUE AND BLE CONTRACTED. MADE PT COMFORTABLE. PLACED CALL LIGHT WITH IN REACH. WILL ENDORSE TO THE AM NURSE ACCORDINGLY.
[2017-04-17 06:23] LABS: CHOLESTEROL/HDL RATIO 6.6
[2017-04-17 06:26] LABS: FREE T4 1.02 ng/dL (0.76-1.46); FREE THYROXINE INDEX 2.4 ug/dL (1.4-4.5); T4(THYROXINE) 6.8 ug/dL (4.7-13.3)
--- NOTE | 2017-04-17 07:48 | NUR ---
RECEIVED PT LAYING IN BED AWAKE. PT IS NONVERBAL AND EYES CLOSED. HAS 4L VIA NC FLOWING. IV TO L HAND APPEARS PATNENT AND IS INFUSING WELL. NO APPARENT SIGNS OF ACUTE DISTRESS NOTED AT THIS TIME. BED IN LOWEST POSITION. WILL CONTINUE TO MONITOR FREQUENTLY FOR SAFETY.
--- NOTE | 2017-04-17 10:57 | NUR ---
MORNIGN MEDS GIVEN. GT TUBE APPEARS PATENT AND FLUSHING WELL. GIVEN 240ML FOR MEDICATION, AND AN ADDITIONAL 240 FOR FLUSH. <10ML OF RESIDUAL PRIOR TO FLUSH AND MEDICATION. PT APPEARS TO HAVE TOLERATED IT WELL. HOB ELEVATED 45 DEGREES AT THIS TIME TO DECREASE RISK OF ASPIRATION. IV ZOSYN INFUSING WELL. WILL CONTINUE TO MONITOR
[2017-04-17 11:32] LABS: RED CELL DISTRIBUTION WIDTH 14.3 % (11.5-14.5)
[2017-04-17 11:38] LABS: BASOPHIL % 0 % (0-2); PLATELET COUNT 106 x10^3mcL (130-400)
[2017-04-17 11:55] LABS: CALCIUM 8.4 mg/dL (8.5-10.1); CHLORIDE SERUM 102 mmol/L (98-107); CREATININE SERUM 0.6 mg/dL (0.7-1.3); GFR1 > 60 mL/min; GLUCOSE SERUM 83 mg/dL (74-106); SODIUM SERUM 139 mmol/L (136-145)
[2017-04-17 12:06] LABS: POTASSIUM SERUM 3.7 mmol/L (3.5-5.1)
--- NOTE | 2017-04-17 13:00 | NUR ---
PT BP WAS 85/[address] WHITESIDE WAS PAGED. WAS GIVEN 250 BOLUS FLUSH WITH NOON MEDICATION. <10ML OF RESIDUAL. GT TUBE APPEARS PATENT AND IS FLUSHING WELL. DIET ORDER ALSO NEEDED FOR PT. WILL PAGE GATE DR. WHITESIDE
--- NOTE | 2017-04-17 13:12 | NUR ---
D/T CT ABD AND PELVIS RESULTS STATING RECTAL FECAL IMPACTION, PT WILL BE GIVEN LACTULOSE PRN VIA GT TUBE, WITH 240ML FLUID BOLUS. PAGE GATED DR. WHITESIDE IN REGARDS TO BP AND DIET ORDER. AWAITING RESPONSE. CHARGE NURSE AWARE. WILL CONTINUE TO MONITOR
--- NOTE | 2017-04-17 13:22 | NUR ---
RECEIVED CALL BACK FROM DR. WHITESIDE AND HE IS AWARE OF BP AND THE NEED FOR GT TUBE DIET ORDER.
--- NOTE | 2017-04-17 14:50 | NUR ---
PT HAD A LARGE BM. WAS CLEANED UP BY PRIMARY NURSE AND STORE CONSULTANT. PT WAS REPOSITIONED, AND IS CURRENTLY RESTING CALMLY, NO APPARENT SIGNS OF ACUTE DISTRESS NOTED. WILL CONTINUE TO MONITOR
--- NOTE | 2017-04-17 17:30 | NUR ---
PT BP 82/38. PT GIVEN 250ML FLUSH VIA GT TUBE. AWAITING FEEDING FROM KITCHEN TO START ISOSOURCE. PAGED DR. WHITESIDE
--- NOTE | 2017-04-17 17:50 | NUR ---
PT HAS TEMP OF 101. COOLING MEASURES INITIATED (COLD PACKS, COOL WASH CLOTH, TOOK OFF EXCESS COVERS, TURNED AC ON) CALLED OVER TO PHARMACY TO CONVERT PO TYLENOL TABS TO LIQUID FORM.
--- NOTE | 2017-04-17 18:17 | NUR ---
PT GIVEN TYLENOL PRN VIA GT TUBE FEEDING FOR TEMP OF 101. COOLING MEASURES IN PLACE. WILL CONTINUE TO MONITOR
--- NOTE | 2017-04-17 18:54 | NUR ---
PT RESTING IN BED. FEEDING RUNNING AT 10ML/HR. IV INFUSING WELL. COOLING [id number] IN PLACE. BED IN LOWEST POSITION. WILL ENDORSE CARE TO ON COMING NURSE
--- NOTE | 2017-04-17 19:15 | NUR ---
RECEIVED THE REPORT FROM AM RN, PT START THE FEEDING AT 1800, AT 10ML/HR, WILL INCREASE THE FEEDING RATE AT 2200 PER ORDER. WILL CONTINUE TO MONITOR THE PT.
--- NOTE | 2017-04-17 20:25 | NUR ---
PT OPEN EYE, BUT NON VERBAL, UNABLE TO FOLLOW COMMAND, LUNG SOUND RHONCHI FARRAH, PT IS ON 3L/MIN O2 VIA NC. PO2 94%, PT APPEAR HYPERVENTILATION, PT IS ON TELE 19, ST, NO S/S OF CHEST PAIN, BOWEL SOUND PRESENT ALL 4 QUADRANTS, G-TUBE IS IN PLACE, PT IS ON G TUBE FEEDING, ISOSOURCE RUN AT 10ML/HR, HOB IS ELEVATED, PEDAL PULS PRESENT BOTH FEET, NO EDEMA, PT ALL EXTREMITIES ARE CONTACTED, PT NEED TOTAL CARE, IV AT LEFT HAND, NO LEAKING, NO INFILTRATION. CHECKED THE B/P 99/46 MAP 64, PER REQUEST, MADE AWARE, WILL CONTINUE TO MONITOR THE PT.
--- NOTE | 2017-04-17 22:18 | NUR ---
PT RESIDUAL IS 50ML AT THIS MOMENT, INCREAES THE FEEDING RATE TO 20ML/HR. WILL CONTINUE TO MONITOR THE PT.
--- NOTE | 2017-04-18 02:00 | NUR ---
RECHECK PT RESIDUAL, 40 ML RESIDUAL NOTED, INCREASE THE FEEDING RATE TO 30ML/HR, PER ORDER, WILL CONTINUE TO MONITOR THE PT.
--- NOTE | 2017-04-18 05:05 | NUR ---
PT IS AWAKE, NON VERBAL, NO S/S OF RESPIRATORY DISTRESS, NO S/S OF PAIN, PT STILL ON G TUBE FEED AT 30ML/HR AT THIS MOMENT, HOB IS ELEVATED, IV AT LEFT HAND, NO LEAKING, NO INFILTRATION. ALL ADLS ASSIST, ALL NEED MET, CALL LIGHT IN REACH, WILL CONTINUE TO MONITOR.
--- NOTE | 2017-04-18 06:10 | NUR ---
RECHECK PT RESIDUAL, 0 ML RESIDUAL AT THIS TIME, INCREASE THE FEEDING RATE TO 45ML/HR, WILL CONTINUE TO MONITOR THE PT.
[2017-04-18 06:17] VITALS: BP 100/55
[2017-04-18 06:44] LABS: RED CELL DISTRIBUTION WIDTH 14.6 % (11.5-14.5)
--- NOTE | 2017-04-18 07:25 | NUR ---
PT SEEN AWAKE, NO VERBAL. PT STAYED CALM AND COMFORTABLE AT THIS TIME. PT BREATHING ON O2 3L VIA NC, EVEN, MILD HYPERVENTILATED NOTED. PT IS G-TUBE FEEDING: ISOSOURCE, INFUSING AT 45ML/HR, H2O 130ML FLASH Q4HR. IV SITE PATENT, INTACT. IVF INFUSING WELL.
[2017-04-18 07:39] LABS: CALCIUM 7.4 mg/dL (8.5-10.1); CARBON DIOXIDE 23.3 mmol/L (21-32); CHLORIDE SERUM 108 mmol/L (98-107); CREATININE SERUM 0.5 mg/dL (0.7-1.3); GFR1 > 60 mL/min; GLUCOSE SERUM 89 mg/dL (74-106); MAGNESIUM 1.9 mg/dL (1.8-2.4); PHOSPHOROUS 2.1 mg/dL (2.5-4.9); POTASSIUM SERUM 3.4 mmol/L (3.5-5.1); SODIUM SERUM 137 mmol/L (136-145)
[2017-04-18 08:10] LABS: PLATELET COUNT 83 x10^3mcL (130-400)
[2017-04-18 08:36] VITALS: BP 106/49
--- NOTE | 2017-04-18 09:00 | NUR ---
PT IS ON G-TUBE FEEDING. RESIDUAL CHECK < 15 ML. CONTINUE CURRENT FEEDING RATE 45ML/HR WITH 130ML H2O FLUSH Q4H.
[2017-04-18 10:28] LABS: BAND NEUTROPHIL 12 % (0-10); BASOPHIL 0 % (0-2); MONOCYTE 12 % (0-7); SEGMENTED NEUTROPHILS 62 % (37-75)
[2017-04-18 10:29] LABS: PLATELET MORPHOLOGY PLATELETS DECREASED
[2017-04-18 10:30] LABS: rbc morphology (normal/abnorm) ABNORMAL (NORMAL)
--- NOTE | 2017-04-18 12:30 | NUR ---
CHECKED PT'S G-TUB FEEDING RESIDUAL 160ML, HOLD FEEDING. WILL RECHECK IN HOUR.
[2017-04-18 12:55] VITALS: BP 114/64
--- NOTE | 2017-04-18 14:11 | NUR ---
RECHECKED PT'S G-TUBE FEEDING RESIDUAL < 15ML. RESUME FEEDING.
[2017-04-18 17:27] VITALS: BP 103/63
--- NOTE | 2017-04-18 18:22 | NUR ---
PT IS AWAKE, ALERT RESTING ON BED. NO DISTRESSED NOTED. PT BREATHING ON O2 3L VIA NC, EVEN, UNLABORED. CHANGE FEEDING TUBE AND ISOSOURCE BAG. PT'S RESIDUAL CHECKED <15ML. TUBE FEEDING RUNNING AT 45ML/HR. IV SITE PATENT, INTACT. IVF INFUSING WELL.
--- NOTE | 2017-04-18 19:31 | NUR ---
PT IS AWAKE, BUT NON VERBAL, UNABLE TO FOLLOW COMMAND, LUNG SOUND RHONCHI FARRAH, PT IS ON 3L/MIN O2 VIA NC. PO2 95%, NO RESPIRAOTRY DISTRESS AT THIS TIME, PT IS ON TELE 19, ST, NO S/S OF CHEST PAIN, BOWEL SOUND PRESENT ALL 4 QUADRANTS, G-TUBE IS IN PLACE, PT IS ON G TUBE FEEDING, ISOSOURCE RUN AT 45ML/HR, AND FLUSH 130ML H2O EVERY 4 HRS, NO RESIDUAL NOTED AT THIS TIME, HOB IS ELEVATED, PEDAL PULS PRESENT BOTH FEET, NO EDEMA, PT ALL EXTREMITIES ARE CONTACTED, PT NEED TOTAL CARE, TURN AND RESPOSITION PT EVERY 2 HOURS PROTOCAL, IV AT LEFT HAND, NO LEAKING, NO INFILTRATION.WILL CONTINUE TO MONITOR THE PT.
[2017-04-18 20:36] VITALS: BP 122/69
--- NOTE | 2017-04-19 05:02 | NUR ---
PT IS AWAKE, NON VERBAL, NO RESPIRATORY DISTRESS, NO S/S OF PAIN OR DISCOMFORT, CONTINUE ON G TUBE FEED 45ML/HR, NO RESIDUAL NOTED AT THIS TIME, HOB IS ELEVATED, IV AT LEFT HAND, NO LEAKING, NO INFILTRATION. ALL ADLS ASSIST, ALL NEED MET, CALL LIGHT IN REACH, WILL CONTINUE TO MONITOR.
[2017-04-19 05:44] VITALS: BP 107/68
--- NOTE | 2017-04-19 07:26 | NUR ---
PT IS NON VERBAL, AWAKE, UNABLE TO FOLLOW COMMAND, NO RESPIRATORY DISTRESS, LUNG SOUND RHONCHI BLE, PT IS 3L/MIN O2 VIA NC, PO2 95%, PT IS ON TELE 19, ST, NO S/S OF CHEST PAIN, BOWEL SOUND PRESENT ALL 4 QUADRANTS, NO DISTENTION, NO TENDER. PT IS ON G TUBE FEED, 45ML/HR, HOB IS ELEVATED, PEDAL PULSE PRESENT BOTH FEET, NO EDEMA NOTED, IV AT LEFT HAND, NO LEAKING, NO SWELLING, ALL ADLS ASSIST, ALL NEED MET, CALL LIGHT IN REACH, WILL CNOTINUE TO MONITOR.
[2017-04-19 08:02] LABS: RED CELL DISTRIBUTION WIDTH 14.4 % (11.5-14.5)
[2017-04-19 08:20] LABS: CALCIUM 7.8 mg/dL (8.5-10.1); CARBON DIOXIDE 25.6 mmol/L (21-32); CHLORIDE SERUM 106 mmol/L (98-107); CREATININE SERUM 0.5 mg/dL (0.7-1.3); GFR1 > 60 mL/min; GLUCOSE SERUM 89 mg/dL (74-106); MAGNESIUM 1.9 mg/dL (1.8-2.4); PHOSPHOROUS 2.7 mg/dL (2.5-4.9); POTASSIUM SERUM 3.2 mmol/L (3.5-5.1); SODIUM SERUM 141 mmol/L (136-145)
[2017-04-19 08:34] LABS: PLATELET COUNT 80 x10^3mcL (130-400)
[2017-04-19 10:26] VITALS: BP 116/77
[2017-04-19 11:37] LABS: ATYPICAL LYMPH 3 %; BAND NEUTROPHIL 4 % (0-10); BASOPHIL 0 % (0-2); MONOCYTE 27 % (0-7); SEGMENTED NEUTROPHILS 30 % (37-75)
[2017-04-19 11:38] LABS: rbc morphology (normal/abnorm) ABNORMAL (NORMAL)
[2017-04-19 11:39] LABS: PLATELET MORPHOLOGY PLATELETS DECREASED
--- NOTE | 2017-04-19 13:31 | NUR ---
DR. FUNEZ AWARE OF G TUBE WOUND POSITIVE FOR E. COLI, ESBL, MDRO AND MODERATE YEAST. PT ON CONTACT ISOLATION. WILL CONTINUE TO MONITOR.
[2017-04-19 13:48] VITALS: BP 107/64
--- NOTE | 2017-04-19 15:43 | NUR ---
Initial Nutrition Assessment Dx: Sepsis Unknown source, Cough, Hypoxia PMHx: Profound developmental delay, Cerebral Palsy with spactic quadriplegia, G-tube for feeding and medications, Seizure disorder, Esotropia, Asthma, Partial Vision Impairment, Constipation, Neurogenic bladder PSHx: G-Tube placement Labs: K 3.2L, BG 89, BUN 4L, Cr:0.5L, Alb 3.1L, Ca 7.8L, TG 182H, HDL 16L, A1C 5.3, H/H 12.7/38L, Ammonia 45H (same x2 days), WBC: 5.3, Lactic Acid: 1.9, Temp: 99F Meds: Cephulac, Dulcolax, KCl,Lactinex, Mylicon, Prilosec, Reglan, Robinul, NS IV, Zofran, Current Nutrition Support/Diet order: TF Isosource at 45 rate ml/hr via G-tube. Free water flush 130ml q 4hr TF intake: (04/18) 990mL I/O: 4170mL/ 9mL (+4161mL) Residuals: (04/17) 0mL, (04/18) 90mL Ht: 62in Wt: 143lb BMI: 26.2kg/m2 (Overweight) IBW: 118 lb %IBW: 121% Wt history: 137lb (December 2016 admission weight) Age: 26 y/o M Food Allergies: None, per pt chart Skin: Intact. Elvis 15 Edema: None GI: Last BM 04/17-loose(Due to medication) Nurse trigger: Tube feeding Pt admitted with possible aspiration pneumonia masked by dehydration. Per Bed Huddles (04/19) pt has a history of MDRO and ESBL. Per progress note (04/18) pt had several large bowel movements on the night of 04/17, no fever now and stable BP, pt is non-verbal, if pneumonia worsens possible intubation, on aspiration precautions, pt has generalized enteritis. biology intern visited pt who was sleeping, no family members present. TF Isosource was noted to be running at goal rate of 45ml per hour, this regimen provides 1080mL=total volume, 1620 total kcals, 73g total protein, and free water flush 130ml q 4 hr. Problems with: V: No D: Yes C: No Recent wt change: 6 lb (4months) %wt change: 4% weight gain Vitamin/Supplement use: Unable to obtain Diet at home: [facility]-unable to obtain, no information in pt chart Physical activity: Bed bound, bilateral lower extremities contracted Education: Not appropriate due to pt non-verbal and no family in room. Estimated Nutritional Needs Based on: Actual Body Weight 143lb, 65kg Energy: 7823-0658 kcal/d (25-30 kcal/kg for Maintenance) Protein: 65g/d (1.0 g/kg for Maintenance) Fluid: 1625ml/d (1ml/kcal) or per doctor Nutrition Diagnosis: No nutrition diagnosis at this time. Intervention: 1. Continue TF Isosource 1.5, advance 10ml q4hrs to goal rate 45ml/hr per doctor. This regimen provides 1620kcal (99% of kcal needs) and 73g protein (112% of protein needs). Free water flush 135 ml q 4hrs. Monitor/ Evaluate: Goal: TF nutrition support to offer at least 80% of estimated needs, TF tolerance Monitor: Enteral feeding intake, residuals, and tolerance, Labs, GI function F/U in 3-5 days as Moderate risk 04/22-
[2017-04-19 15:49] VITALS: Ht 157.5 cm; Wt 64.9 kg
[2017-04-19 17:45] VITALS: BP 100/63
--- NOTE | 2017-04-19 17:48 | NUR ---
RESIDUAL 200 ML, REPLACED. TUBE FEEDING HELD FOR 1 HOUR. WILL REASSESS IN 1 HOUR.
--- NOTE | 2017-04-19 19:01 | NUR ---
RESIDUAL STILL 200 ML. WILL HOLD TUBE FEEDING 1 MORE HOUR. HOB ELEVATED. PT IN NO ACUTE DISTRESS. WILL ENDORSE TO INCOMING SHIFT.
--- NOTE | 2017-04-19 20:00 | NUR ---
RECEIVED PT FROM PREVIOUS SHIFT NURSE. PT AOX1, NON-VERBAL. MED SURG PT. PULSES PRESENT, NO EDEMA NOTED. CRACKLES HEARD UPON LUNG AUSCULATION, ON 3L NC. NO SOB/ DIFFICULTY BREATHING NOTED. BOWEL SOUNDS ACTIVE. INCONTINENT. GENERALIZED WEAKNESS. B/L UPPER EXTREMITIES CONTRACTED, BED BOUND. REDNESS TO BUTTOCKS. IV IN L.HAND, INTACT AND PATENT. BED IN LOWEST POSITION. CALL LIGHT WITHIN REACH. WILL CONTINUE TO MONITOR.
--- NOTE | 2017-04-19 20:46 | NUR ---
RESIDUAL 50ML, REPLACED. TUBE FEEDING RESTARTED. HOB ELEVATED. NO ACUTE DISTRESS NOTED. WILL CONTINUE TO MONITOR.
[2017-04-19 21:56] VITALS: BP 102/68
--- NOTE | 2017-04-20 02:59 | NUR ---
PT RESTING IN BED. RR EVEN AND UNLABORED. NO ACUTE DISTRESS NOTED. BED IN LOWEST POSITION. CALL LIGHT WITHIN REACH. WILL CONTINUE TO MONITOR.
[2017-04-20 06:06] VITALS: BP 99/63
[2017-04-20 06:12] LABS: CALCIUM 8.3 mg/dL (8.5-10.1); CARBON DIOXIDE 26.9 mmol/L (21-32); CHLORIDE SERUM 110 mmol/L (98-107); CREATININE SERUM 0.5 mg/dL (0.7-1.3); GFR1 > 60 mL/min; GLUCOSE SERUM 79 mg/dL (74-106); POTASSIUM SERUM 3.8 mmol/L (3.5-5.1); SODIUM SERUM 148 mmol/L (136-145)
--- NOTE | 2017-04-20 06:41 | NUR ---
PT HAD LARGE, LOOSE BM DURING NIGHT.
[2017-04-20 06:53] LABS: BASOPHIL % 0.5 % (0-2)
[2017-04-20 06:56] LABS: PLATELET COUNT 100 x10^3mcL (130-400); RED CELL DISTRIBUTION WIDTH 15.1 % (11.5-14.5)
--- NOTE | 2017-04-20 07:35 | NUR ---
RECEIVED PT IN NO ACUTE DISTRESS. AWAKE, NON-VERBAL. RESP EVEN AND UNLABORED ON 3L NC. NO SOB NOTED. G TUBE IN PLACE. TF AT 45 ML/HR. IVF INFUSING. HOB ELEVATED. BED IN LOWEST POSITION, CALL LIGHT WITHIN REACH. WILL CONTINUE TO MONITOR.
[2017-04-20 10:00] VITALS: BP 94/59
[2017-04-20 15:33] VITALS: BP 94/59
[2017-04-20 18:24] VITALS: BP 91/61
--- NOTE | 2017-04-20 19:54 | NUR ---
AWAKE AND ALERT, NON VERBAL. TRACKS. HOB ELEVATED 30 DEG. UPPER SIDE RAILS IN RAISED POSITION. PADDED SIDE RAILS, HX OF SPASTIC QUADRIPLEGIA. BREATHING EVEN AND UNLABORED ON 2LPM OF O2 VIA NC. LUNG SOUNDS DIMINISHED. RR 18/MIN. MED SURG PT. GASTROSTOMY TUBE IN PLACE, SURROUNDING SKIN INTACT. G TUBE SITE DRESSING CDI. ON G TUBE FEEDING AT 45ML/HR. GASTRIC RESIDUAL 10ML, REPLACED. PASSED LOOSE STOOL, ON LACTULOSE. HYGIENE NEEDS ATTENDED TO. SLIGHT REDNESS TO BUTTOCKS AND LEFT INNER THIGH. Z GUARD APPLIED. PLACED ON AIR MATTRESS, TURNED AND REPOSITIONED. IVF OF NS AT 100ML/HR. FEET OFFLOADED FROM BED WITH PILLOWS.
[2017-04-20 21:26] VITALS: BP 91/52
--- NOTE | 2017-04-20 22:44 | NUR ---
PASSED LOOSE STOOL, YELLOW IN COLOR. NO STRONG ODOR. HYGIENE NEEDS ATTENDED TO. Z GUARD APPLIED TO BUTTOCKS AND INNER THIGHS. HOB KEPT ELEVATED 30 DEG. TURNED AND REPOSITIONED.
--- NOTE | 2017-04-20 23:43 | NUR ---
EYES CLOSED, HOB KEPT ELEVATED 30 DEG. SIDE RAILS KEPT PADDED AND RAISED. BREATHING EVEN AND UNLABORED. GASTRIC RESIDUAL CHECKED, 10ML, REPLACED. IV TUBINGS CHANGED.
--- NOTE | 2017-04-21 02:03 | NUR ---
TURNED AND REPOSITIONED. HOB KEPT ELEVATED 30 DEG. GASTRIC RESIDUAL < 5 ML, REPLACED. NO INFILTRATION NOTED TO IV SITE TO LEFT HAND. REMOVED GAUZE DRESSING OVER G TUBE. CLEANSED WITH NS, PATTED DRY WITH STERILE GAUZE. NEW STERILE GAUZE DRESSING APPLIED, SECURE WITH TAPE.
[2017-04-21 05:28] VITALS: BP 124/70
--- NOTE | 2017-04-21 06:45 | NUR ---
PASSED LOOSE STOOL. HYGIENE NEEDS ATTENDED TO, ORAL CARE DONE. TURNED AND REPOSITIONED. HOB KEPT ELEVATED 30 DEG. KEPT ON CONTACT ISOLATION. NO REDNESS NOTED TO HEELS, STILL WITH SLIGHT REDNESS TO BUTTOCKS, Z GUARD APPLIED. STILL ON IVF OF NS 100ML/HR.
[2017-04-21 07:04] LABS: BASOPHIL % 0.6 % (0-2)
[2017-04-21 07:17] LABS: PLATELET COUNT 111 x10^3mcL (130-400); RED CELL DISTRIBUTION WIDTH 14.9 % (11.5-14.5)
--- NOTE | 2017-04-21 07:20 | NUR ---
PT AWAKE NON-VERBAL.NO SIGNS OF PAIN.LUNG SOUND DIM.PT NON-TELE.ON [id number] ISOSOURCE AT 45 ML/HR INFUSING WELL.RESIDUAL CHECKED=0.HOB AT 30 DEG ANGLE FOR ASPIRATION PRECAUTION.SIDE RAILS PADDED FOR SEIZURE PRECATION.IVF NS GOING AT 100 ML/HR INFUSING WELL.ON AIR MATRESS AND Q 2 HOUR TURN TO PROTECT SKIN INTEGRITY.PT QUADRIPLEGIC.BILAT SCD'S ON.ON CONTACT ISOLATION FOR E-COLI,ESBL MDRO AND MOD YEAST ON G-TUBE.WILL CONTINUE TO MONITOR.
[2017-04-21 07:24] LABS: CALCIUM 8.5 mg/dL (8.5-10.1); CARBON DIOXIDE 29.9 mmol/L (21-32); CHLORIDE SERUM 109 mmol/L (98-107); CREATININE SERUM 0.6 mg/dL (0.7-1.3); GFR1 > 60 mL/min; GLUCOSE SERUM 96 mg/dL (74-106); POTASSIUM SERUM 3.8 mmol/L (3.5-5.1); SODIUM SERUM 147 mmol/L (136-145)
--- NOTE | 2017-04-21 08:40 | NUR ---
AND MEDICINE TEAM CAME TO SEE PT.DISCUSS THE PLAN OF CARE AND WILL CONSULT FOR THE FECAL IMPACTION.PT ALREADY HAD A LOOSE AND LARGE BM LAST NIGHT PER NOC RN'S REPORT.
[2017-04-21 10:30] VITALS: BP 108/54
--- NOTE | 2017-04-21 15:00 | NUR ---
PT COMFORTABLE NO SIGNS OF DISCOMFORT.
[2017-04-21 17:31] VITALS: BP 103/46
--- NOTE | 2017-04-21 18:23 | NUR ---
NO SIGNIFICANT CHANGE NOTED.WILL ENDORSE TO NEXT SHIFT.
--- NOTE | 2017-04-21 20:32 | NUR ---
AWAKE NON VERBAL, NOT IN DISTRESS LUNGS DIM BILAT BASES NO COUGHING O2 @ 2L/MIN NC, GTUBE FEEDING ISOSOURCE @ 45CC/HR HOB ELEVATED, ASPIRATION PREC OBSERVED, IVF NS INFUSING @ 100CC/HR IV ACCESS LT HAND PATENT NON INFIL, REPOSITIONED TO COMFORT, PT IS QUADRIPLEGIC, INCONTINENT BOWEL AND BLADDER NO EPISODE OF DIARRHEA DURING THIS ASSESSMENT KEEP DRY AND CLEAN, SCD'S ON FOR DVT PROPHYLAXIS, SHIFT ASSESSMENT DONE, CONT TO MONITOR AND PROCEED TO CURRENT PLAN OF CARE.
[2017-04-21 21:12] VITALS: BP 113/67
--- NOTE | 2017-04-22 01:00 | NUR ---
ASLEEP TOLERATED GTUBE FEEDING WELL NO GASTRIC RESIDUAL, HOB ELEVATED, OBSERVED SEIZURE PREC, NO S/SX OF PAIN, REPOSITIONED TO COMFORT, CHECKED AT INTERVALS.
[2017-04-22 05:52] VITALS: BP 100/58
[2017-04-22 06:38] LABS: BASOPHIL % 0.5 % (0-2)
[2017-04-22 06:41] LABS: PLATELET COUNT 111 x10^3mcL (130-400); RED CELL DISTRIBUTION WIDTH 14.6 % (11.5-14.5)
--- NOTE | 2017-04-22 06:49 | NUR ---
AM CARE DONE, PT HAS NO BM DURING THE SHIFT, DUE MEDS GIVEN, HOB ELEVATED, TOLERATED GTUBE FEEDING, CONT TO MONITOR.
[2017-04-22 07:01] LABS: CALCIUM 8.2 mg/dL (8.5-10.1); CHLORIDE SERUM 111 mmol/L (98-107); CREATININE SERUM 0.5 mg/dL (0.7-1.3); GFR1 > 60 mL/min; GLUCOSE SERUM 96 mg/dL (74-106); SODIUM SERUM 148 mmol/L (136-145)
--- NOTE | 2017-04-22 08:07 | NUR ---
AWAKE AND ALERT, TRACKS, NONVERBAL, UNDER NO APPARENT DISTRESS, G-TUBE INFUSING ISOSOURCE AT 45ML/HR W/FWF 130ML Q4HRS, IV AT L/HAND INFUSING NS AT 100ML/HR, REORIENTED TO ROOM AND CALL LIGHT, WILL CONTINUE TO PROVIDE CARE.
[2017-04-22 09:06] VITALS: BP 116/78
--- NOTE | 2017-04-22 13:17 | NUR ---
NOON MEDS TOLERATED WITHOUT GI DISTRESS, 30ML RESIDUAL NOTED AND REPLACED, PT IS SUPINE AT THIS TIME, UNDER NO APPARENT DISTRESS, WILL CONTINUE TO PROVIDE CARE.
[2017-04-22 17:33] VITALS: BP 102/56
--- NOTE | 2017-04-22 19:18 | NUR ---
POSITIONED FOR COMFORT, NO GRIMMACING OR MOANING NOTED, TRACKS, SMILES INTERMITENTLY WHEN HIS NAME IS CALLED, TOLERATING G-TUBE FEEDINGS WIHTOUT GI DISTRESS, HAD X3 LOOSE BM'S, IS ON LACTULOSE, G-TUBE SITE CLEAN AND DRY, NO OTHER SIGNIFICANT CHANGES NOTED, CARE ENDORSED TO NIGHT NURSE.
--- NOTE | 2017-04-22 20:21 | NUR ---
RECEIVED IN BED AWAKE NON VERBAL DEVELOPMENTALLY DELAYED NOT IN DISTRESS CONTINUOUS 02 @ 2L/MIN NC SATURATING 96% LUNGS DIM AT THE BASES NO COUGHING OR CHEST CONGESTION, ASPIRATION PREC HOB ELEVATED, GTUBE FEEDING ISOSOURCE INFUSING @ 45CC/HR NO GASTRIC RESIDUAL, IVF INFUSING @ 100CC/HR IV ACCESS @ LH PATENT NON INFIL, REPOSITIONED TO COMFORT, NO LOOSE STOOL AT THIS TIME, HAS 3 EPISODES OF LOOSE STOOL FROM PREC SHIFT PER REPORT LACTULOSE STARTED THIS MORNING, PT WITH NO S/SX OF PAIN OR DISCOMFORTS, LOW AIRLOSS MATTRESS UTILIZED SHIFT ASSESSMENT DONE, CONT TO MONITOR AND PROCEED TO CURRENT PLAN OF CARE.
[2017-04-22 21:59] VITALS: BP 98/58
--- NOTE | 2017-04-23 05:52 | NUR ---
NO SIGNIFICANT CHANGES DURING THE SHIFT, AFEBRILE LOLLY GTUBE FEEDING WELL, HOB ELEVATED, IVF INFUSING WELL, STILL ON CONTACT ISOLATION, KEEP DRY AND CLEAN, REPOSITIONED TO COMFORT, NO EPISODES OF LOOSE STOOL, CONT TO MONITOR.
[2017-04-23 06:04] LABS: BASOPHIL % 0.6 % (0-2); PLATELET COUNT 133 x10^3mcL (130-400)
[2017-04-23 06:21] LABS: CALCIUM 8.6 mg/dL (8.5-10.1); CARBON DIOXIDE 25.6 mmol/L (21-32); CHLORIDE SERUM 111 mmol/L (98-107); CREATININE SERUM 0.5 mg/dL (0.7-1.3); GFR1 > 60 mL/min; GLUCOSE SERUM 85 mg/dL (74-106); POTASSIUM SERUM 3.9 mmol/L (3.5-5.1); SODIUM SERUM 147 mmol/L (136-145)
[2017-04-23 06:22] VITALS: BP 109/71
[2017-04-23 06:38] LABS: RED CELL DISTRIBUTION WIDTH 14.9 % (11.5-14.5)
--- NOTE | 2017-04-23 08:00 | NUR ---
AWAKE,ALERT ,NON VERBAL ,PROFOUND MENTALLY DELAYED,TOTAL CARE RENDERED. BEDBOUND CONTRACTED FARRAH. UPPER AND LOWER EXT.ON AIR LOSS MATTRESS,REPOSITION Q 2 HRS FOR COMFORT.CONT. GT- FEEDING ISOSOURCE AT 45 CC/ HR AND LOLLY. WELL CHECKED FOR RESIDUAL NO RESIDUAL NOTED.HOB ELEVATED AT ALL TIMES ASP. PRECAUTIONS.ON SEIZURES PRECAUTIONS,NO SEIZURES ACTIVITY NOTED.INCONT. OF URINE.KEEP CLEAN AND DRY .CONT.IV FLUIDS AND IV ANTIBIOTIC ORDERED.NO ACUTE RESP. DISTRESS NOTED. WILL CONT. PLAN OF CARE.
[2017-04-23 09:05] VITALS: BP 120/63
--- NOTE | 2017-04-23 09:30 | NUR ---
DR. SHAFER HERE W/ OTHER MEDICAL STAFF MADE ROUNDS AND UPDATED PT. PLAN OF CARE.
[2017-04-23 10:27] VITALS: BP 120/63
[2017-04-23 17:22] VITALS: BP 118/66
--- NOTE | 2017-04-23 18:46 | NUR ---
NO SIEZURES ACTIVITY NOTED THE WHOLE DAY. NO ACUTE DISTRESS NOTED. ,GT FEEDING LOLLY. WELL, NO N/V, HOB ELEVATED AT ALL TIMES.REPOSITION Q 2 HRS FOR COMFORT. BM X 3 ON LACTULOSE MEDS. ORDERED .INCONT. OF URINE AND BM KEEP CLEAN AND DRY.
--- NOTE | 2017-04-23 20:03 | NUR ---
RECEIVED PT IN BED,AWAKE AMD ALERT. NON VERBAL. UNABLE TO FOLLOW COMMANDS. ON SEIZURE PREC. NO ACTIVITY NOTED AT THIS TIME. RESP. EVEN AND UNLABORED. ON ROOM AIR, NO DISTRESS NOTED. ON GT FEEDING, ISOSOURCE AT 45ML/HR, LOLLY. WELL. NO N/V NOTED. NO RESIDUAL NOTED AT THIS TIME. IVF, NS AT 100ML/HR, INTACT AND INFUSING VIA RH, SITE CLEAR. TURNED AND REPOSITIONED FOR COMFORT. KEPT COMFORTABLE. NO TELE. NO EVIDENCE OF ANY DISCOMFORT. WILL CONTINUE TO MONITOR.
[2017-04-23 22:21] VITALS: BP 121/65
--- NOTE | 2017-04-23 23:27 | NUR ---
TURNED AND REPOSITIONED Q2HRS AND PRN. DUE MEDS GIVEN ORDERED, LOLLY. WELL. LOLLY. GT FEEDING. WILL CONTINUE TO MONITOR.
[2017-04-24 06:35] VITALS: BP 115/65
--- NOTE | 2017-04-24 06:41 | NUR ---
AFEBRILE AND VITAL SIGNS STABLE.RESP. EVEN AND UNLABORED.NO DISTRESS NOTED. DUE MEDS GIVEN ORDERED, LOLLY. WELL. IVF INTACT AND INFUSING WELL, SITE CLEAR. LOLLY, GT FEEDING, LOLLY. WELL. NO RESIDUAL NOTED.TOTAL CARE, ALL NEEDS ATTENDED TO. TURNED AND REPOSITIONED Q2HRS AND PRN.ISOLATION PREC. MAINTAINED.NO SEIZURE ACTIVITY NOTED. WILL ENDORSE TO INCOMING NURSE.
[2017-04-24 06:45] LABS: CALCIUM 8.9 mg/dL (8.5-10.1); CARBON DIOXIDE 27.8 mmol/L (21-32); CHLORIDE SERUM 109 mmol/L (98-107); CREATININE SERUM 0.5 mg/dL (0.7-1.3); GFR1 > 60 mL/min; GLUCOSE SERUM 106 mg/dL (74-106); POTASSIUM SERUM 3.8 mmol/L (3.5-5.1); SODIUM SERUM 143 mmol/L (136-145)
[2017-04-24 07:02] LABS: BASOPHIL % 0.5 % (0-2); PLATELET COUNT 154 x10^3mcL (130-400); RED CELL DISTRIBUTION WIDTH 14.9 % (11.5-14.5)
--- NOTE | 2017-04-24 07:50 | NUR ---
PATIENT IS AWAKE AND NON VERBAL. PATIENT IS PROFOUND DEVELOPMENTALLY DELAYED. SEIZURE PRECAUTIONS IN PLACE ORDERED. MED SURG PT. PULSES PALPABLE. SCDS ARE APPLIED BILATERALLY TO LOWER EXTREMTIIES. LUNG SOUNDS DIMINISHED IN THE LOWER LOBES. GT IN PLACE WITH DRESSING CDI. GT FEEDING RUNNING ORDERED. NO RESIDUAL. TOLERATING FEEDINGS WELL. PT IS BOWEL AND BLADDER INCONTINENT. LARGE AMOUNT OF URINE VOIDED. PATIENT WAS CHANGED AND IS NOW CLEAN AND DRY. QUAD WITH CONTRACTED UPPER AND LOWER EXTREMITIES BILATERALLY. REDNESS TO THE GROIN AND BUTTOCKS NOTED. WILL CONTINUE TO MONITOR. NO SIGNS OF RESPIRATORY DISTRESS. DENIES CHEST PAIN. IV FLUIDS INFUSING WELL. CALL LIGHT WITHIN REACH. WILL CONTINUE PLAN OF CARE.
--- NOTE | 2017-04-24 09:00 | NUR ---
DR ELDER AND OTHER MEDICAL STAFF MADE ROUNDS. WILL UPDATE PATIENT PLAN OF CARE.
[2017-04-24 09:21] VITALS: BP 130/76
--- NOTE | 2017-04-24 11:26 | NUR ---
PT IS RESTING COMFORTABLY IN BED. PT IS CLEAN AND DRY AT THIS TIME. CALL LIGHT IS WITHIN REACH. WILL CONTINUE TO MONITOR.
--- NOTE | 2017-04-24 11:30 | NUR ---
TURNED AND REPOSITIONED Pt EVERY 2 HRS. G TUBE INTACT AND DRSG CDI. WILL CONT TO MONITOR.
--- NOTE | 2017-04-24 13:52 | NUR ---
Follow-up Nutrition Assessment- Dx: sepsis unknown source, cough, hypoxia. PMHx: profound developmental delay, cerebral palsy with spastic quadriplegia, g-tube for feeding and medications, seizure disorder, estropia, asthma, partial vision impairment, constipation, neurogenic bladder. Labs: (04/24/17) Cr 0.5 L, Ammonia 41 H Meds: norco, reglan, sodium chl 0.9%, zosyn. Current Nutrition Support: TF Isosource 1.5 at 45 mL/hr via gastrostomy tube. Water Flush: 130 mL Q4h. TF Intake: 04/24/17 1080 mL, 04/23/17 990 mL, 04/22/17 810 mL, 04/21/17 1012 mL, 04/19/17 990 mL. I/O: 04/24/17 3980 mL/0 mL (+3980 mL), 04/23/17 4110 mL/0 mL (+4110 mL), 04/22/17 3760 mL/0 mL (+3760 mL), 04/21/17 4092 mL/4 mL (+4088 mL), 04/20/17 2955 mL/9 mL (+2947 mL), 04/19 4170 mL/1 mL (+4169 mL) GTF Residuals: 0 mL (this morning, 04/24/17) Skin: mellissa 13, redness to groin and buttocks Edema: none noted GI: Incontinent Last BM: 04/23/17 x 3, 04/22/17 x 3 + pericare, 04/21/17 x 1 Current TF Regimen provides 1080 mL total volume, 1620 total kcal, 73 total protein. Current enteral feeding meets 99% est kcal, >100% est protein needs; adequate. RDN spoke with RN, RN reports 5 mL residual, pt continues to tolerate current enteral feeding, no distress or discomfort. Estimated Nutritional Needs unchanged from prior assessment: Based on Actual Body Weight of 143 lbs, 65 kg. Energy: 8583-4103 kcal/d (25-30 kcal/kg for maintenance) Protein: 65 gm/d (1 gm/kg for maintenance) Fluid: 1625 mL/d (1 mL/kcal) or per MD Nutrition Diagnosis No new nutrition diagnosis at this time. Intervention 1. Continue current enteral feeding as tolerated. Monitor/Evaluate Goal: TF nutrition support to offer at least 80% of estimated needs, TF tolerance. Monitor: Enteral feeding intake, residuals, and tolerance, labs, GI function. F/U in 3-5 days as MR on 04/27-.
--- NOTE | 2017-04-24 15:15 | NUR ---
PT WAS CLEANED UP OF BOWEL AND URINE INCONTINENCE AND ALL BED LINENS WERE CHANGED. PT IS RESTING COMFORTABLY. WILL CONTINUE TO MONITOR.
--- NOTE | 2017-04-24 16:00 | NUR ---
REPOSITIONED Q 2 HRS FOR COMFORT ,INCONT. OF URINE KEEP CLEAN AND DRY,GT SITE DRESSING CHANGED .CONTACT ISOLATION MAINTAINED .
[2017-04-24 17:46] VITALS: BP 125/65
--- NOTE | 2017-04-24 19:37 | NUR ---
GOT A TELEPHONE ORDER FROM DR SOLITARIO TO P[place] PEREYRA.
--- NOTE | 2017-04-24 19:46 | NUR ---
REC'D PT FROM DAY NURSE. AWAKE, ALERT, AND NONVERBAL. NO SIGNS OF ACUTE DISTRESS NOTED. HOB ELEVATED 30 DEGREE. UPPER SIDE RAILS IN RAISED POSITION WITH PADDED SIDE RAILS FOR SEIZURE PRECAUTION. PT IS QUADRIPLEGIC. LUNG SOUNDS ARE DIMINISHED BUT CTA. BREATH SOUNDS ARE EVEN AND UNLABORED. NO SOB. ON RA. G TUBE IN PLACE. DRSG CDI. REDNESS IN THE GROIN AND BUTTOCKS NOTED. AIR MATTRESS NOTED. IV INTACT AND PATENT INFUSING @ 100 ML/HR. BED IN LOWEST POSITION. CALL LIGHT WITHIN REACH. WILL CONT TO MONITOR AND PROCEED TO CURRENT PLAN OF CARE.
[2017-04-24 20:46] VITALS: BP 106/48
--- NOTE | 2017-04-24 23:30 | NUR ---
TURNED AND REPOSITIONED Pt EVERY 2 HOURS. G TUBE INTACT AND DRSG CDI. WILL CONT TO MONITOR.
--- NOTE | 2017-04-25 01:35 | NUR ---
STARTED ON 2 L OF BOLUS.
[2017-04-25 05:18] VITALS: BP 111/68
--- NOTE | 2017-04-25 06:12 | NUR ---
PT PERIODICALLY SLEPT THROUGHOUT THE SHIFT. NO SIGNS OF ACUTE DISTRESS OR SIGNIFICANT CHANGES NOTED. BREATH SOUND ARE EVEN AND UNLABORED. CLEAN, TURNED AND REPOSTIONED. G TUBE IN PLACE AND DRSG CDI. ALL NEEDS MET AND ATTENDED TO. IV INTACT AND PATENT INFUSING WELL. WILL ENDORSE ALL CONTINUITY CARE TO ONCOMING NURSE.
--- NOTE | 2017-04-25 08:30 | NUR ---
PT. WAS AWAKE AND ALERT; NONVERBAL. CONTINUED G-TUBE FEEDING AT 45CC AND RECEHCK FOR PLACEMENT AND RESIDUAL OBTAIN 10CC AND REPLACED BACK; HOB ELEVATED AT ALL TIMES; NO NAUSEA/VOMITING; PT. INCONTINENT OF URINE AND BM; KEEP CLEAN AND DRY. PT. ON SEIZURE PRECAUTION; NO SEIZURE ACTIVITY NOTED AT THIS TIME; PT.APPEARS CALM AND SHOWS NO SIGNS OF ACUTE DISTRESS. CONTINUE PT. PLAN OF CARE.
--- NOTE | 2017-04-25 09:35 | NUR ---
DR. ELDER AND OTHER MEDICAL STAFF MADE ROUNDS AND UPDATED PT. PLAN OF CARE.
[2017-04-25 10:00] VITALS: BP 99/61
[2017-04-25 12:28] VITALS: BP 90/57
[2017-04-25 12:46] VITALS: BP 99/61
[2017-04-25 12:52] VITALS: BP 99/61
--- NOTE | 2017-04-25 14:00 | NUR ---
DENIES ANY PAIN NO SEIZURES ACTIVITY NOTED. INCONT. OF URINE AND BM KEEP CLEAN AND DRY.DR. ESPARZA HERE AND SEEN THE PT. W/ ORDERS OK PT. TO GO HOME TODAY . AWAITING FOR TRANSPORTATION .
[2017-04-25] MEDS ORDERED: MIRUD PO (15:07)
--- NOTE | 2017-04-25 15:30 | NUR ---
PT. WENT HOME BACK TO BOARD IN CARE FACILITY PER W/C ACC. W/ HIS HIDE WASHER W/ CAR TRANSPORTATION. NO ACUTE DISTRESS NOTED. DISCHARGE INSTRUCTION GIVEN AND DISCUSSED TO PT. BLOW MACHINE TENDER STARCH SPRAYING AND VERBALIZED UNDERSTANDING OF INSTRUCTIONS GIVEN.ESCORTED BY JIMMIE IN THE LOBBY.
== END 2017-04-25 15:19 | DRG 137 ==
LOC: ED 00:45 → MU 04:17 → DU 04:17 → MU 04-19 10:26
PROVIDERS: Emergency Medicine; Student in an Organized Health Care Education/Training Program; ADMIT Family Medicine
DX: J69.0 Pneumonitis due to inhalation of food and vomit (principal); N17.0 Acute kidney failure with tubular necrosis; E44.0 Moderate protein-calorie malnutrition; Z99.81 Dependence on supplemental oxygen; R13.10 Dysphagia, unspecified; E87.5 Hyperkalemia; E86.0 Dehydration; J44.1 Chronic obstructive pulmonary disease with (acute) exacerbation; N31.9 Neuromuscular dysfunction of bladder, unspecified; K56.41 Fecal impaction; G80.1 Spastic diplegic cerebral palsy; K21.9 Gastro-esophageal reflux disease without esophagitis; G40.909 Epilepsy, unspecified, not intractable, without status epilepticus; H50.00 Unspecified esotropia; K52.9 Noninfective gastroenteritis and colitis, unspecified; M62.50 Muscle wasting and atrophy, not elsewhere classified, unspecified site; Z93.1 Gastrostomy status; R62.50 Unspecified lack of expected normal physiological development in childhood; Z68.26 Body mass index [BMI] 26.0-26.9, adult
CPT/HCPCS: 83880; 84439; J2543; J3480; J3490; J3535; J7030; J7040; J7620; J8597; Q0092

== ENCOUNTER 2017-06-23 21:49 | Inpatient (IN) | payer SELFPAY ==
[~2017-06-23] VITALS: Ht 167.6 cm; Wt 68.9 kg
[~2017-06-23 21:49] MED LIST changes: +MIRUD PO
--- NOTE | 2017-06-23 21:59 | NUR ---
PT BIB [facility] AND [facility] TO ED WITH C/O PT SOB FROM CARE FACILITY, [facility]. PER MEDICS, PT WAS NOTED WITH DIFFICULTY BREATHING S/P SHOWER THAT WAS GIVEN TO PATIENT. PT WITH HX OF CP, MR,ASHTMA AND SEIZURE, AND WAS GIVEN 1 BREATHING TX AT FACILITY BY STAFF WITHOUT RELIEF OF SOB. PER MEDICS PT O2 SATURATION AT 84% ON RA AND WAS PLACED ON NON-REBREATHER WHICH INCREASED O2 SATURATION TO 97%. 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 ERICKA COMPETED BY DR MEDINA AT THE BEDSIDE.
--- NOTE | 2017-06-23 22:55 | NUR ---
PT NOTED WITH SOILED DIAPER WITH URINE AND STOOL. CLEANED AND CHANGED INTO CLEAN DRY DIAPER.
[2017-06-23 23:07] LABS: CARBON DIOXIDE 32.2 mmol/L (21-32); CHLORIDE SERUM 102 mmol/L (98-107); CREATININE SERUM 0.5 mg/dL (0.7-1.3); GFR1 > 60 mL/min; GLUCOSE SERUM 79 mg/dL (74-106); POTASSIUM SERUM 3.9 mmol/L (3.5-5.1); SODIUM SERUM 139 mmol/L (136-145)
[2017-06-23 23:11] LABS: ALKALINE PHOSPHATASE 113 U/L (46-116); ALT/SGPT 49 U/L (16-63); AST/SGOT 41 U/L (15-37); BILIRUBIN TOTAL 0.3 mg/dL (0.20-1.00); LIPASE 184 IU/L (73-393); TOTAL PROTEIN, SERUM 7.9 g/dL (6.4-8.2)
[2017-06-23 23:18] LABS: BASOPHIL % 0.3 % (0-2); PLATELET COUNT 130 x10^3mcL (130-400); RED CELL DISTRIBUTION WIDTH 14.1 % (11.5-14.5)
[2017-06-23 23:22] LABS: ALBUMIN 3.2 g/dL (3.4-5.0)
--- NOTE | 2017-06-24 00:16 | NUR ---
BREATHING TREATMENT IN PROGRESS.
--- NOTE | 2017-06-24 01:13 | NUR ---
PT REPOSITIONED TO COMFORT, NO S/S OF PAIN AT THIS TIME. PT WITH O2 SATURATIONS OF 92-93% ON RA.
--- NOTE | 2017-06-24 01:19 | NUR ---
SECOND BAG OF IV FLUIDS STARTED AT THIS TIME.
--- NOTE | 2017-06-24 01:46 | NUR ---
SPOKE WITH [facility] TO UPDATE ON PT STATUS.
--- NOTE | 2017-06-24 02:00 | NUR ---
PT MEDICATED PER ORDER. SEE EMAR. NO S/S OF ADV RXNS AT THIS TIME. PT IS AWAKE AND TRACKS INTERMITTENTLY. PT REMAINS ON MONITOR, NO ACUTE DSITRESS NOTED AT THIS TIME.
--- NOTE | 2017-06-24 02:50 | NUR ---
PT NOTED WITH SOILED DIAPER WITH URINE, PT CLEANED AND CHANGED INTO CLEAN AND DRY DIAPER, REPOSITIONED TO COMFORT, REMAINS ON MONITOR AND IN VIEW FROM NURSES STATION.
--- NOTE | 2017-06-24 03:30 | NUR ---
PT RESTING, NO DISTRESS NOTED, RESP EVEN AND UNLABORED, OPENS EYES TO TACTILE AND VERBAL STIMULI. PT REMAINS ON MONITOR AND IN VIEW FROM NURSES STATION.
--- NOTE | 2017-06-24 04:24 | NUR ---
PT MEDICATED PER ORDER. SEE EMAR
--- NOTE | 2017-06-24 04:45 | NUR ---
REPORT GIVEN TO RN JD TO ASSUME CARE OF PT.
[2017-06-24 05:11] LABS: microscopic required? NO
[2017-06-24 05:17] LABS: urine erythrocyte NEGATIVE (NEGATIVE)
--- NOTE | 2017-06-24 05:20 | NUR ---
PT TRANSFERRED TO TELE BED 212B VIA [facility] ON STAIN [facility]KER WITH CIERRA NOWAK AND EMT MARCELLA AT PT SIDE. PT TRANSFERRED WITHOUT INCIDENCE.
--- NOTE | 2017-06-24 05:30 | NUR ---
PT ADMITTED VIA [facility] ACCOMPANIED BY NURSE. AWAKE AND ALERT. NONVERBAL. ON O2 6L VIA O2 MASK. NOTED WITH SLIGHTLY LABORED BREATHING. RT PROTOCOL. TRANSFERRED TO BED WITH TOTAL ASSIST. HOB ELEVATED. ON SEIZURE PRECAUTIONS. ON TELE 24, ST. ABD SOFT AND FLAT. BOWEL SOUNDS ACTIVE. GT SITE PATENT AND CDI. NO S/S OF INFECTION NOTED. IV TO LEFT HAND PATENT AND INTACT. IV NS INFUSING WELL. NO S/S OF INFECTION NOTED. NOTED BLANCHABLE REDNESS TO RIGHT ELBOW. SKIN INTACT. NO EDEMA NOTED. PULSES PALPABLE. WEDGE IN BETWEEN CONTRACTED BLE. NO S/S OF PAIN AT THIS TIME. WILL CONTINUE TO MONITOR.
--- NOTE | 2017-06-24 06:36 | NUR ---
CALLED [facility] AND SPOKE TO [facility] NEUROSURGERY RESEARCH DIRECTOR TO INQUIRE ABOUT FLU VACCINE, STATED PATIENT DIDNT GET FLU VACCINE YET BUT IS DUE ON June.
[2017-06-24 07:40] VITALS: BP 108/66
--- NOTE | 2017-06-24 07:45 | NUR ---
PATIENT AWAKE AND ALERT, NONVERBAL, SZ PRECAUTIONS IN PLACE. TELE #24, NSR, HR 71. PULSES PRESENT AND EQUAL, NO EDEMA NOTED. LUNG SOUNDS DIMINSHED TO AUSCULTATION, ON 6L OXIMIZER, BREATHING EVEN AND UNLABORED. BS ACTIVE, ABD SOFT AND NONDISTENDED, G TUBE IN PLACE, CDI. INCONTINENT OF URINE. BLE CONTRACTED, WEDGE BETWEEN LEGS, BED BOUND, PLACED ON AIR MATRESS. BLANCHABLE REDNESS TO RIGHT ELBOW. NO INDICATION OF PAIN AT THIS TIME. IV TO L HAND, WNL, INFUSING NS @100
[2017-06-24 10:27] VITALS: BP 102/60
--- NOTE | 2017-06-24 10:58 | NUR ---
TUBE FEEDING INTIATED NEUTRIN 1.5 AT 10 ML/HR. ASPIRATION AND SEIZURE PRECAUTIONS IN PLACE. MEDS GIVEN VIA PEG, RISIDUAL LESS THAN 10 ML
--- NOTE | 2017-06-24 11:30 | NUR ---
SPOKE TO MINI FROM [facility], SAID IT IS OK TO GIVE THE FLU VACCINE FOR THIS PATIENT AND SAID SHE WOULD WOULD LET THE NURSE AT THE FACILITY KNOW
--- NOTE | 2017-06-24 13:58 | NUR ---
MEDS GIVEN VIA G TUBE, RESIDUAL LESS THAN 10. TOLERATED WELL
--- NOTE | 2017-06-24 14:04 | NUR ---
Initial Nutrition Assessment Dx: Hypoxia, Pneuonitis vs aspiratioin pneumonia PMHx: Profound Developmental Delay,Cerebral Palsy with spastic quadriplegia Gastrostomy tube for feeding and medications,Seizure Disorder,Esotropia,Asthma Partial Vision Impairment,Constipation andNeurogenic Bladder, per previous H&P (04/2017) PSHx:G-tube placement Labs: (06/23) B, Alb:3.2L, Meds: Colace, Dulcolax, Keppra, Lactulose, Miralax, Prilosec, Reglan, NS IV, Zofran Current Nutrition Support: Nutren 1.5 at goal 40ml/hr. ProSource 1 packet daily TF intake: TF has not yet been started Residuals: TF has not bneen started I/O:none recorded Ht: 66in, 5'6" Wt: 155#, 70.3kg BMI: 25kg/m2 (normal weight) IBW: 142#, 64.5kg %IBW: 109% Adjusted BW: Quadraplegic:128#58kg UBW:unable to obtain Weight hx: (04/2017 )143# Age:27 y/o Food Allergies:None, per pts chart Skin: blanchable redness to righ elbow Elvis:10 Edema:None GI: active bowel sounds Last BM: none recorded, pt was just admitted Nursing Trigger: TF/TPN Pt admitted with Hypoxia 2/2 Pneumonitis vs aspiration pneumonia. CT of chest and thorax showed no evidence of PE, per H&P. Spoke to Dr. Palomares this morning about TF recommendations and Dr. Palomares input orders. During visit, observed pt laying in bed with TF of IsoSource running at 10ml/hr. Per RN, she just started TF earlier this morning and has not advanced rate yet. Per RN, no N/V/D/C. Problem with: N: No V: No D: No C:No Problems with: Chewing+Swallowing: Yes, pt with G-tube Recent wt change:+12# wt gain in past 2 months %wt change:-8% Vitamin/Supplement use:unable to obtain Special diet at home:[employer]: pt on G-tube feedings Physical activity:Bed bound Education: not appropriate due to pt being non-verbal with no family at bedside. Estimated Nutritional Needs Based on adjusted IBW:58kg Energy: 1450-1740kcal/d (25-30kcal/kg for pneumonia) Protein: 58-70g/d (1-1.2g/kg for pneumonia) Fluid:8686-6387 ml/d (1 ml/kcal) or per doctor Nutrition Diagnosis 1. Inadequate enteral nutrition support related to low TF rate as evidenced by only meeting 21% caloric needs and 23% protein needs. Intervention 1. Recommend IsoSource 1.5, advance 10ml q4hrs to goal rate 50ml/hr, free water flush 130ml q6hr. This provides 1800kcal, 82g pro and 1437ml free water daily. This meets 103% caloric needs and 117% pro needs. Monitor/Evaluate Goal: TF to meet at least 80% of est needs with tolerance Monitor: TF intake/tolerance, GRV Labs, GI function F/U in 2-3 days as high risk:06/26-
--- NOTE | 2017-06-24 14:07 | NUR ---
1. Recommend IsoSource 1.5, advance 10ml q4hrs to goal rate 50ml/hr, free water flush 130ml q6hr. This provides 1800kcal, 82g pro and 1437ml free water daily. This meets 103% caloric needs and 117% pro needs.
--- NOTE | 2017-06-24 15:03 | NUR ---
IV LEAKING TO LEFT AHND, IV D/C, CATHETER INTACT. WILL RESTART NEW IV
--- NOTE | 2017-06-24 15:32 | NUR ---
IV INSERTED TO LEFT HAND, FLUSHES WELL. ADVANCED FEEDING TO 20 ML/HR. CALM AND COOPERATIVE, NO DISTRESS NOTED
[2017-06-24 17:21] VITALS: BP 113/44
--- NOTE | 2017-06-24 18:50 | NUR ---
FLU VACCINE GIVEN TO PATIENT IN RIGHT ARM, IM. PATIENT TURNED AND CLEANED, 1 BM, SOFT AND BROWN. MEDS GIVEN, LES THAN 10 ML RISIDUAL
--- NOTE | 2017-06-24 19:21 | NUR ---
REPORT GIVEN TO ONCOMING NURSE. TUBE FEEDING INCREASED TO 30ML/HR. BREATHING EVEN AND UNLABORED, NO SOB NOTED
[2017-06-24 20:00] VITALS: BP 105/71
--- NOTE | 2017-06-24 20:00 | NUR ---
PATIENT RECEIVED IN BED AWAKE, ALERT, NON VERBAL, MOANS AT TIMES. NO RESP. DISTRESS BREATHING EVEN AND UNLABORED BS FINE CRACKLES BASES, ON 6LVIA OXIMIZER, SAT 98%,NO INDICATION OF CHEST PAINS, TELE#24 NSR ,HR=63BPM, RHYTHM REGULAR. ABDOMEN SOFT NON DISTENDED ACTIVE BS , RECEIVING GTUBE FEEDING OF NUTREN 1.5 RATE NOW AT 30 ML/HR WAS CHANGED AT 1900 BY AM NURSE,GOAL AT 50 ML/HR, FLUSHED WITH WATER 150 ML/HR Q6HRS, CHECKED RESIDULA NEGATIVE, SITE CLEAR WITH DRESSING,TOLERATING FEEDING. INCONTINENT OF B&B PER AM NURSE DRY THIS TIME. PATIENT TOTAL CARE, AIR MATRESS, PADDED RAILS , CONTRACTED BUE AND BLE.WITH HX; SZ NO SZ ACTIVITY THIS TIME. NO S/S OF PAIN. SAFETY/FALL /SZ PRECAUTIONS MAINTAINED. CONTACT ISOLATION FOR HX; ESBL GT SITE OBSERVED. WILL CONTINUE TO MONITOR.
[2017-06-24 21:01] VITALS: BP 101/60
--- NOTE | 2017-06-24 21:43 | NUR ---
SCHEDULED MEDS ADMINISTERED VIA [employer].
--- NOTE | 2017-06-24 22:46 | NUR ---
HS CARE RENDERED, INCONTINENT OF URINE, CLEANED AND KEPT DRY, TURNED AND REPOSITIONED, RE-APPLIED WEDGE IN BETWEEN LEGS. NO S/S OF PAIN NOR DISTRESS. RT CHANGED FROM OXIMIZER TO NASAL CANNULA AT 2LNC, SAT 98%. NO RESP. DISTRESS. GT CARE DONE. SAFETY /SZ/FALL PRECAUTIONS MAINTAINED. WILL CONTINUE TO MONITOR.
--- NOTE | 2017-06-25 | NUR ---
PATIENT REMAINED NON VERBAL BUT AWAKEN WITH TACTILE STIMULI.
--- NOTE | 2017-06-25 00:01 | NUR ---
GTUBE FEEDING AND TUBING CHANGED, ADJUSTED RATE TO 40 ML/HR PER ORDER. CHECKED RESIDUAL HAD 30 ML REPLACED. PATIENT TURNED AND REPOSITIONED. NO RESP. DISTRESS. NSR ON THE MONITOR. NO S/S OF PAIN NO DISTRESS. SAFETY MAINTAINED. WILL CONTINUE TO MONITOR.
--- NOTE | 2017-06-25 02:03 | NUR ---
PATIENT SLEEPING EASILY AWWKEN WITH TACTILE STIMULI, PATIENT INCONTINENT OF UA ,CLEANED AND KEPT DRY, TURNED AND REPOSITIONED. NO RESP. DISTRESS, O2 MAINTAINED, KEPT HOB ELEVATED, TOLERATING FEEDING AT 40 ML/HR. SR ON THE MONITOR. NO SZ ACTIVITY. WILL CONTINUE TO MONITOR.
--- NOTE | 2017-06-25 03:17 | NUR ---
ENDORSED CONTINUITY OF CARE TO CIERRA GOMEZ
--- NOTE | 2017-06-25 03:20 | NUR ---
REPORT RECEIVED FROM MICHELLE-RN, PT SEEN, ASLEEP BUT EASILY AROUSABLE, OPEN EYES BUT NON-VERBAL, SZ PRECAUTION IN PLACE, ON O2 2L VIA NC WITH NO RESP DISTRESS OR SOB NOTED, IVF INFUSING WELL, TOLERATING G-TUBE FEEDING WITH ISOSOURCE @ 40 ML/HR, NO RESIDUAL NOTED, INCREASING TO THE GOAL 50 ML/HR, HOB, SIDE RAILS UP, NO DISTRESS NOTED, WILL KEEP TO MONITOR.
[2017-06-25 05:44] VITALS: BP 92/53
--- NOTE | 2017-06-25 06:50 | NUR ---
PT NO BM DURING THE SHIFT, MORNING BED BATH GIVEN, TOLERATING WELL WITH G-TUBE FEEDING, HOB, PT RE-POSITIONED, SIDE RAILS UP, SZ PRECAUTION IN PLACE, WILL KEEP TO MONITOR.
[2017-06-25 07:07] LABS: BASOPHIL % 0.4 % (0-2); CALCIUM 9.1 mg/dL (8.5-10.1); CARBON DIOXIDE 29.2 mmol/L (21-32); CHLORIDE SERUM 104 mmol/L (98-107); CREATININE SERUM 0.5 mg/dL (0.7-1.3); GFR1 > 60 mL/min; GLUCOSE SERUM 109 mg/dL (74-106); MAGNESIUM 1.8 mg/dL (1.8-2.4); POTASSIUM SERUM 4.1 mmol/L (3.5-5.1); RED CELL DISTRIBUTION WIDTH 13.7 % (11.5-14.5); SODIUM SERUM 140 mmol/L (136-145)
[2017-06-25 07:08] LABS: PLATELET COUNT 115 x10^3mcL (130-400)
--- NOTE | 2017-06-25 08:56 | NUR ---
PATIENT SEEN BY DR MATAMOROS AND STAFF AND PLAN OF CARE CONTINUES INDICATED. PATIENTS BOARD AND MARKETING DIRECTOR ASSISTED LIVING CALLED FOR UPDATE BUT SO FAR NO DISCHARGE PLANNED FOR TODAY YET NOTED. PATIENT IS WITH DIMINISHE BREATH SOUNDS AND BOWEL SOUNDS ARE HYPOACTIVE AT THIS TIME. CONTINUED ON IV ANTIBIOTICS AND G TUBE FEEDING WITH MEDICATIONS GIVEN THROUGH THE G TUBE CRUSHED. PATIENT HAS BEEN INCONTINENT OF URINE AND WITH HISTORY OF SPASICITY AND CONTRACTED UPPER AND LOWER EXTREMITIES WITH WEDGES IN PLACE AND POSITIONED FREQUENTLY INDICATED. PATIENT HAS NO VERBALIZATION AND NEEDS ARE ANTICIPATED. ISOLATION MAINTAINED FOR HISTORY OF MRSA AND ESBL. VITALS AT THIS TIME AT 97.1, 62, 18, 92/53, 69 MAP, 99%. POSSIBLE ATELECTAIS OR PNEUMONIA WAS NOTED ON THE CHEST XRAY. PATIET HAS OPACTICITES TO THE LOWER LUNG. PATIENT AHS NOTED TRIGLYCERIDE OF 182, PHOS AT 5.0, OIS AT 230.7, SA02 AT 98.1. PATIENT DOES NOT APPEAR IN ANY ACUTE REPIRATORY DISTRESS AT THIS TIME.
[2017-06-25 09:39] VITALS: BP 87/54
--- NOTE | 2017-06-25 10:00 | NUR ---
PATIET CONTINUED ON G TUBE FEEDING TOLERATE WELL AND NO SAYDA CAITON OF RESPIRATORY DISTRESS AT THIS TIME.
[2017-06-25 14:00] VITALS: BP 96/56
--- NOTE | 2017-06-25 15:00 | NUR ---
GAVE ALL MEDICATIONS VIA THE G TUBE AND REMAINS PATIENT. NO ADVERSE REACTION TO THE CLEOCIN NOTED. WILL CONTINUE TO MONITOR.
[2017-06-25 17:56] VITALS: BP 96/59
--- NOTE | 2017-06-25 18:20 | NUR ---
PATIENT POSITIONED AND GIVEN HIS MEDICATION VIA THE G TUBE. PATIENT TOLERATED WELL AND MINIMAL RESIDUAL NOTED. PATIENT HAS NO ORDER FOR G TUBE SWAB AT THIS TIME. WILL REQUEST INDICATED.
--- NOTE | 2017-06-25 19:40 | NUR ---
REC'D PT FROM DAY NURSE. PT LAYING IN BED. NONVERBAL. UNABLE TO ASSESS ORIENTATION. REORIENTED TO SELF, PLACE, TIME, AND SITUATION. PERRLA, PUPILS DILATED. NYSTAGMUS. FOLLOWS SOME COMMANDS (OPENED MOUTH AND SQUEEZED FINGERS WHEN ASKED). SZ PREC IN PLACE. TELE 24. NO S/SX OF CP. NO SIGNS OF DISTRESS NOTED. BREATHING EVEN/UNLABORED ON 2L O2 VIA NC, SPO2 95%. ABD SOFT/DISTENDED. BOWEL SOUNDS ACTIVE. GT INSERTION SITE TO LUQ, WNL. TUBE FEEDING INFUSING @ 50 ML/HR. NO GRIMACE WITH PALPATION. NO S/SX OF N/V. INCONTINENT. CONTRACTURES TO BUE/BLE. GEN WEAKNESS. AIR MATTRESS IN PLACE. BUE FLOATED WITH PILLOWS. BLE FLOATED WITH SOFT DEVICES. NO S/SX OF PAIN 0/10 FLACC. PT LAYING CALMLY WATCHING TV. IV TO LH PATENT AND INFUSING, SITE WNL. CALL LIGHT WITHIN REACH, BED AT LOWEST POSITION, BED ALARM ON, CONTACT PREC IN PLACE. WILL CONTINUE TO MONITOR.
[2017-06-25 20:52] VITALS: BP 101/62
--- NOTE | 2017-06-25 21:23 | NUR ---
ISOSOURCE TUBE FEEDING INFUSING @ 50 ML/HR TO GT. HELD. 5ML RESIDUAL REPLACED . DUE MEDS GIVEN. TUBE FEEDING CONTINUED. PT RESTING IN BED WATCHING TV. BREATHING EVEN/UNLABORED ON 2L O2 VIA NC. HOB UP. WILL CONTINUE TO MONITOR.
--- NOTE | 2017-06-26 02:31 | NUR ---
ISOSOURCE TUBE FEEDING CHANGED. 1 ML RESIDUAL, REPLACED. TUBE FEEDING INFUSING AT 50 ML/HR WITH 130 ML H2O FLUSH Q6HR. PT RESTING IN BED WATCHING TV. SMILING. HOB UP. NO SIGNS OF DISTRESS NOTED. BREATHING EVEN/UNLABORED ON 2L O2 VIA NC. CALL LIGHT WITHIN REACH, BED AT LOWEST POSITION, BED ALARM ON. WILL CONTINUE TO MONITOR.
[2017-06-26 05:34] VITALS: BP 99/61
--- NOTE | 2017-06-26 06:25 | NUR ---
PT RESTING IN BED WITH EYES CLOSED. NO SIGNS OF DISTRESS NOTED. BREATHING EVEN/UNLABORED ON 2L O2 VIA NC, SPO2 94%. SHALLOW RESPIRATIONS. PT HAD A LARGE, WATERY, SEEDY STOOL. PT CLEANED, GOWN AND LINENS CHANGED. REPOSITIONED AND MADE COMFORTABLE. BLE FLOATED WITH DEVICES. BUE FLOATED WITH PILLOWS. HOB UP. ISOSOURCE TUBE FEEDING INFUSING @ 50 ML/HR. 2 ML RESIDUAL, REPLACED. NO SIGNFICANT CHANGES DURING SHIFT. CALL LIGHT WITHIN REACH, BED AT LOWEST POSITION, BED ALARM ON. WILL ENDORSE TO DAY NURSE.
[2017-06-26 07:04] LABS: BASOPHIL % 0.3 % (0-2); RED CELL DISTRIBUTION WIDTH 14.1 % (11.5-14.5)
[2017-06-26 07:16] LABS: PLATELET COUNT 121 x10^3mcL (130-400)
[2017-06-26 07:24] LABS: CALCIUM 9.3 mg/dL (8.5-10.1); CARBON DIOXIDE 30.1 mmol/L (21-32); CHLORIDE SERUM 103 mmol/L (98-107); CREATININE SERUM 0.7 mg/dL (0.7-1.3); GFR1 > 60 mL/min; GLUCOSE SERUM 104 mg/dL (74-106); PHOSPHOROUS 4.9 mg/dL (2.5-4.9); POTASSIUM SERUM 4.5 mmol/L (3.5-5.1); SODIUM SERUM 139 mmol/L (136-145)
--- NOTE | 2017-06-26 08:59 | NUR ---
RECEIVED PATIENT WHO IS NOT ANIMATED YESTERDAY AT THIS TIME. PATIENT IS WITH DIMINISHED BREATH SOUNDS AND BOWEL SOUNDS ACTIVE. HE HAD BEEN AWAKE MOST OF THE NIGHT PER THE [employer]DLE SCHOOL READING TEACHER AND HAD NO INDICATION OF RESPIRATORY DISTRESS BUT DID HAVE SEVERAL STOOLS LAST NIGHT AND NOTED INCONTINENCE OF THE URINE WELL. PATIENT HAS BEEN WITH THE WEDGES FOR POSITIONING AND ON AN AIR MATTRESS AND HE HAS NO NEW SKIN BREAKDOWN AND GOOD KJ CARE GIVEN. CONTINUED ON G TUBE FEEDING AND RUNNING AT 50CC PER HOUR AND MINIMAL TO NO RESIDUAL REPORTED. PATIENT DOES NOT APPEAR WITH ANY NAUSEA OR ISSUES WITH ASPIRATION AND HOB UP INDICATED WITH FEEDING AND ON HOLD WHEN CHANGING OR POSITION IS DONE. PATIENT IN ISOLATION FOR ESBL AND E COLI HISTORY. SWAB WAS SENT TO THE LAB FOR CULTURE AND AWAITING RESULTS OF THE G TUBE SWAB. NO COUGH OR NASAL CONGESTION IS HEARD. TRACE EDEMA NOTED TO THE CONTRACTED LOWER EXTREMITES AND UPPER ARE CONTRACTED IN THE SPASTIC POSITION AND HE IS DIFFICULT TO REPOSITION DE TO HIS STIFFNESS. IV INTACT AND PATIENT CONTINUED ON CLEOCIN AND LEVAQUIN AND NO ADVERSE REACTION NOTED. VITALS ARE STABLE AND AT 98.5, 77, 20, 99/61, 91, 71, 95% 2 LITERS. URINE WITH FEW BACTERIA AND PATIENT WITH CHEST XRAY AT BILATERA LUNG OPACITIES, POSSIBLE ASPIRTION PNUEMONIA OR ATELECTASIS. PATIENT AHS BEEN NSR ON THE MONITOR. HX OF REOCCURING ADMISSIONS DUE TO ASPIRATION. FROM [facility]. PATIENT ON RT PROTOCAL INDICATED.
[2017-06-26 09:34] VITALS: BP 106/62
--- NOTE | 2017-06-26 13:56 | NUR ---
IV NOT FLUSHING AND RESTARTED INDICATED. PATIENT TOLERATED WELL.
[2017-06-26 14:06] VITALS: BP 104/61
--- NOTE | 2017-06-26 16:52 | NUR ---
PATIENT IS SLEEPY BUT ARROUSABLE AT THIS TIME. IV RESTARTED AND RUNNING WELL. PATIENT HAS BEEN NPO AND THE FEEDING TOLERATED WELL. CONTINUED ON FEEDING AND FREE FLUIDS AND MEDICATION SAS ORDERED.
[2017-06-26 17:26] VITALS: BP 108/59
--- NOTE | 2017-06-26 20:00 | NUR ---
PT RESTING IN BED WITH FOAM WEDGES SUPPORTING BILAT LE, PT DEMONSTRATING SPASTIC MOVEMENT OF EXTREMITIES. CONTACT ISOLATION FOR E. COLI FOUND ON G TUNE IN PAST. RESP SHALLOW AND SYMMETRICAL, ON 2L NC. LUNG SOUNDS DIMINISHED BILAT NO S/S OF RESP DISTRESS AT THIS TIME. TUBE FEEDING VIZ G TUBE, 50ML ISOSOURCE, FREE H20 FLUSH 130ML Q6H, RESIDUAL 20ML, RETURNED TO PT. TELE #24, NSR W/ PVC HR 85. PT NONVERBAL, UNABLE TO ASSESS ORIENTATION, CALM DEMEANOR. IV TO RT FA @ 100ML/HR, NO REDNESS, SWELLING PRESENT AT THIS TIME. IV SITE COVERED WITH BERTO BANDAGE TO REMAIN STABILIZED. BED IN LOWEST POSITION, FREQUENT ROOM CHECKS CONDUCTED, WILL CONTINUE TO MONITOR.
[2017-06-26 21:36] VITALS: BP 111/59
--- NOTE | 2017-06-26 22:03 | NUR ---
PATIENT CHANGED, CLEANED, AND REPOSITIONED AT THIS TIME. WILL CONTINUE TO MONITOR.
--- NOTE | 2017-06-27 02:49 | NUR ---
PT SLEEPING IN BED, TUBE FEEDING BAG AND TUBING CHANGED. BED IN LOWEST POSITION, CALL LIGHT WITHIN REACH, WILL CONTINUE TO MONITOR.
--- NOTE | 2017-06-27 05:22 | NUR ---
PT SLEEPING IN BED, RESP EVEN AND UNLABORED. NO S/S OF RESP DISTRESS AT THIS TIME. PT ON 2L NC, NO S/S SOB OR COUGH PRESENT DURING SHIFT. IV SITE TO RT FOREARM INFUSING NS AT 100ML/HR. PT RECEIVING TUBE FEEDINGS ISOSOURCE 1.5 VIA G TUBE @ 50ML/HR, FLUSH 130ML/HR Q6H, RESIDUAL REMAINED LESS THAN 20ML THROUGHOUT SHIFT; RETURNED BACK TO PT. FEEDING TUBE BAG AND TUBING CHANGED, IV BAG, TUBING AND SECONDARY TUBING CHANGED. PT SUPPORTED IN BED WITH FOAM WEDGES BROUGHT FROM OUTSIDE CARE FACILITY. PT APPEARED TO BE RELAXED IN BED WITH MINIMAL INTERRUPTIONS. ANTIBIOTICS (LEVAQUIN & CLEOCIN) ADMINISTERED PER ORDER, NO S/S OF ASE. TURNED Q2H, CHANGED REGULARLY. CALL LIGHT WITHIN REACH, PT NEAR NURSING STATION, BED IN LOWEST POSITION, WILL CONTINUE TO MONITOR.
[2017-06-27 06:42] VITALS: BP 99/48
--- NOTE | 2017-06-27 07:20 | NUR ---
PT IS ON ISOLATION FOR HX OF ESBL IN G-TUBE. PT BREATHING ON O2 2L VIA NC, EVEN, UNLABORED. PT IS NON-VERBAL, RESTING COMFORTABLE AT THIS TIME. PT IS ON ISO SOURCE G-TUBE FEEDING. INFUSING AT 50ML/HR. KEEP PT'S HEAD OF BED UP ON 30 DEGREE.IV SITE PATENT,INTACT. IVF INFUSING WELL.
--- NOTE | 2017-06-27 09:00 | NUR ---
PT'S RESIDUAL CHECK 50 ML. RESUME FEEDING.
[2017-06-27 09:50] VITALS: BP 103/50
--- NOTE | 2017-06-27 12:58 | NUR ---
RESIDUAL CHECK <20ML. PT IS AWAKE, ALERT, RESTING COMFORTABLE ON THE BED.
[2017-06-27 14:13] VITALS: BP 111/51; BP 155/56
--- NOTE | 2017-06-27 16:00 | NUR ---
Follow Up Nutrition Assessment Dx: Hypoxia, Pneumonitis PMHx: Profound Developmental Delay, Cerebral Palsy with spastic quadriplegia, Gastrostomy tube for feeding and medications, Seizure Disorder, Esotropia, Asthma, Partial Vision Impairment, Constipation, Neurogenic Bladder (Information obtained per previous H&P documentation 04/2017) Labs: BG 104; (06/23) ALB 3.2 L, AST 41 H Meds: Ativan, Colace, dulcolax, lactinex, lactulose, miralax, Prilosec, reglan, NS IV, Zofran, heparin Current Nutrition Support: TF Isosource 1.5 at 10 ml/hr, increase 10 ml Q4h to goal 50 ml/hr, ProSource, Free Water Flush: 130 ml Q6h via G-tube TF Intakes: (06/25) 960 ml; (06/26) 1200 ml; (06/27) 600 ml - Pt received average 1080 ml past 2 days, providing 1620 kcal (100% of kcal goal) and 73 gm protein (104% of protein goal) Residuals: (06/24) 0 ml; (06/25) 5 ml; (06/26) 20 ml, 50 ml, <100 ml I/O: 4250/22 (+4228 ml) NGT Output: (06/26) 10 ml Weights: (06/25) 155 lb, 70 kg. Adjusted BW: (Quadriplegic) 128 lb, 58 kg. Skin: Blanchable redness to R elbow. Elvis 11. No pressure injuries noted in chart. Edema: None GI: Active bowel sounds. Last BM x1 06/27. Noted pt on Colace, dulcolax, lactulose, miralax. Stool Output: (06/26) x1 Problem with: N: None. V: None. D: None. C: None. Per doctor's progress note 06/27, no acute events overnight, pt non-verbal at baseline; Pt with acute respiratory hypoxia likely secondary to aspiration pneumonia vs pneumonitis. Per nursing notes, pt on isolation for ESBL in G-tube. Pt seen non-verbal, sleeping soundly, TF Isosource 1.5 seen infusing at goal 50 ml/hr. Noted per chart review, pt tolerating TF well with minimal residuals. Current TF regimen provides 1860 kcal (107% of kcal goal), 97 gm protein (139% of protein goal), 1437 ml free water daily. Noted excessive protein intakes. Page [place] Dr. Kwan with recommendations. Estimated Nutritional Needs Based on Adjusted BW 128 lb, 58 kg. Energy: 0933-5566 kcal/day (25-30 kcal/kg for Pneumonia) Protein: 58-70 gm/day (1-1.2 gm/kg for Pneumonia) Fluid: 9697-9344 ml/day (1 ml/kcal for Maintenance) or per doctor Nutrition Diagnosis 1. Inadequate enteral nutrition support related to low 0TF rate as evidenced by only meeting 21% caloric needs and 23% protein needs -- * Resolved 2. Excessive protein intakes related to additional protein modular products as evidenced by pt meeting 139% of protein goal through tube feeding with ProSource Intervention 1. Continue TF Isosource 1.5 at 10 ml/hr, increase 10 ml Q4h to goal 50 ml/hr, Free Water Flush: 130 ml Q6h via G-tube per doctor. 2. Recommend D/C ProSource modular packet. Noted that pt receiving excessive protein intakes at this time (139% of protein goal). Monitor/Evaluate Previous Goal: TF intakes to meet at least 80% of estimated needs with tolerance - Met Goal: TF intakes to meet >80% of estimated needs with tolerance Monitor: TF intake/tolerance, residuals, Labs, GI function F/U in 3-5 days as MODERATE risk (06/30-07/02)
[2017-06-27 17:27] VITALS: BP 97/48
--- NOTE | 2017-06-27 17:28 | NUR ---
RESIDUAL CHECK < 15 ML. REMAINING HOB UP 30 DEGREE. PT IS ALERT, AWAKE. REST COMFORT ON BED. RT BED SIDE, BREATHING TREATMENT DONE. O2 SAT 98% ON/OFF O2 2L VIA NC.
--- NOTE | 2017-06-27 19:45 | NUR ---
PT AWAKE IN BED WATCHING TV. PT IS NONVERBAL DEV. DISABLED. PT FOLLOWS VISITORS WITH EYES AND MAKES EYE CONTACT. RESP EVEN AND UNLABORED. RECEIVING O2 AT 2L NC, NO S/S OF RESP DISTRESS AT THIS TIME. IV INFUSING TO RTFR, APPEARS TO BE INFILTRATED, IV FLUIDS PUT ON HOLD AT THIS TIME. SKIN IS FIRM AROUND IV SITE OPPOSE TO COMPARISON ON OTHER FOREARM. WILL BEGIN A NEW IV JOVANI. G TUBE REMAINS PATENT WITH 0 RESIDUAL, WILL CONTINUE TO MONITOR. DRESSING AROUND REMAINS CDI. PT RECEIVING ISOSOURCE 1.5 @ 50ML/HR FREE FLUCH 130ML Q6H, WILL CHECK RESIDUAL PRN. BOWEL SOUNDS ACTIVE, SAFETY AND COMFORT MEASURES PROVIDED, PT HAS FOAM WEDGE BETWEEN LEGS TO KEEP RADHIKA PROMINENCES PROTECTED. CALL LIGHT WITHIN REACH, BED IN LOWEST POSITON, WILL CONTINUE TO MONITOR. CONTINUE TO MONITOR.
--- NOTE | 2017-06-27 20:45 | NUR ---
NEW IV STARTED TO RTFA, PATENT AND INFUSING NS @ 100ML/HR. DHARMESH. CONTINUE TO MONITOR.
[2017-06-27 21:40] VITALS: BP 105/34
--- NOTE | 2017-06-27 22:00 | NUR ---
NEURO CHECK: PT ASLEEP IN BED, NO S/S OF ALTERED STATUS. RESTING WELL, RESP EVEN AND UNLABORED. EASY TO AROUSE, UPON TURNING BEDSIDE LIGHT ON, PT MOVED BLANKET TO COVER EYES. RETRACTS TO LIGHT PAIN STIMULATION. WILL CONTINUE TO MONITOR.
--- NOTE | 2017-06-28 03:00 | NUR ---
PATIENT'S PLAN OF CARE WAS DISCUSSED AND REVIEWED WITH PHARMACY ANCILLARY:CIERRA BUSTILLOS.
--- NOTE | 2017-06-28 03:00 | NUR ---
I HAVE REVIEWED THE DATA COLLECTION BY [facility] (NAME):DUTCH BUSTILLOS. ENTERED ON (DATE/TIME): I CONCUR WITH THE DATA AND ANY EXCEPTIONS OR COMMENTS ARE LISTED BELOW:
--- NOTE | 2017-06-28 05:30 | NUR ---
PT SLEEPING IN BED, APPEARS TO BE FREE OF PAIN, CALM DEMEANOR AT THIS TIME. PT HAS FOAM WEDGES TO PROTECT BONY PROMINENCES, LAYING ON LEFT SIDE. RESP EVEN AND UNLABORED, W/O S/S OF RESP DISTRESS. RECEIVING 02 @ 2L NC. IV SITE PATENT TO RTFA, IV INFUSING AT 100ML/HR. PT RECEIEVED LEVAQUIN X1 AND CLEOCIN X2 DURING SHIFT PER ORDER. PT RECEIVING G TUBE FEEDINGS: ISOSOURCE 1.5 @ 50ML/HR, FLUSH 130ML Q6H, G TUBE LOCATED TO LEFT LOWER ABD. DRESSING REMAINS CDI. PT HAD MINIIMAL SPASTIC MOVEMENTS DURING SHIFT, WAS ABLE TO FOLLOW WITH EYES WHEN APPROACHING AND MOVING FROM SIDE TO SIDE. ABLE TO MAKE EYE CONTACT AT TIMES, NONVERBAL. SAFETY AND COMFORT MEASURES PROVIDED, CALL LIGHT WITHIN REACH, BED IN LOWEST POSITION, WILL CONTINUE TO MONITOR.
[2017-06-28 07:06] VITALS: BP 97/67
--- NOTE | 2017-06-28 07:40 | NUR ---
PT IS NONVERBAL, NO RESPIRATORY DISTRESS NOTED, OPENS EYES SPONTANEOUSLY, AWAKE, ALERT, IN NO APPARANT PAIN, SEIZURE PADS ON BED FOR SEIZURE PRECAUTIONS, HOB ELEVATED, ASPIRATION PRECAUTIONS, TELE 24, BUE PULSES MODERATE AND EQUAL, BLE PULSES WEAK AND EQUAL, SCDS ON, 2 L NC, BOWEL SOUNDS ACTIVE, G TUBE TO L ABD, SITE WNL, RECEIVING TUBE FEEDINGS OF ISOSOURCE @ 50 ML/HR WITH FLUSH 130 ML/HR, VOIDING, INCONTINENT, CONTRACTED EXTREMITIES, WEDGES FOR BLE ON AIR MATTRESS, SKIN INTACT, IV IN RFA WITH NS @ 100 ML/HR, SITE WNL.
[2017-06-28 09:22] VITALS: BP 109/43
--- NOTE | 2017-06-28 10:10 | NUR ---
PT RESTING IN BED, NO RESPIRATORY DISTRESS NOTED, IN NO APPARANT PAIN, OPENS EYES SPONTANEOUSLY, ALERT. RESIDUAL: 20 ML.
--- NOTE | 2017-06-28 12:41 | NUR ---
PT RESTING IN BED, NO RESPIRATORY DISTRESS NOTED, RECEIVING BREATHING TREATMENT, IN NO APPARANT PAIN.
--- NOTE | 2017-06-28 13:32 | NUR ---
PT RESTING IN BED, NO RESPRIATORY DISTRESS NOTED, IN NO APPARANT PAIN.
[2017-06-28 14:31] VITALS: BP 99/62
--- NOTE | 2017-06-28 15:25 | NUR ---
PT RESTING IN BED, NO RESPIRATORY DISTRESS NOTED, IN NO APPARANT PAIN.
--- NOTE | 2017-06-28 16:00 | NUR ---
ASSISTED DRYING ROOM OPERATOR TO CLEAN PT AFTER HE URINATED CLEAR YELLOW URINE. BED LINENS AND GOWN CHANGED. PT PULLED UP AND REPOSITIONED. NO RESPIRATORY DISTRESS NOTED, IN NO APPARANT PAIN.
--- NOTE | 2017-06-28 17:07 | NUR ---
PT RESTING IN BED, NO RESPIRATORY DISTRESS NOTED, MILD TEMP 99.7.
[2017-06-28 17:15] VITALS: BP 114/64
--- NOTE | 2017-06-28 17:30 | NUR ---
PT GIVEN TYLENOL FOR MILD TEMP 99.7 AND MILD DISCOMFORT, NO RESPRIATORY DISTRESS NOTED.
--- NOTE | 2017-06-28 18:42 | NUR ---
PT RESTING IN BED, NO RESPIRATORY DISTRESS NOTED, IN NO APPARANT PAIN. BED LINENS AND GOWN CLEAN AND DRY.
--- NOTE | 2017-06-28 19:45 | NUR ---
PT IS NONVERBAL, UNABLE TO FOLLOW COMMANDS OR MAKE NEEDS KNOWN. PT IS ABLE TO OPEN EYES SPONTANEOUSLY AND TO VERBAL STIMULUS. SZ PRECAUTIONS AND ASPIRATION PRECAUTIONS IN PLACE. TLEE #24, NSR AT 70, NO S/S OF PAIN OBSERVED. WEAK PEDAL PULSES TO BLE. LUNG SOUNDS DIMINISHED AT FARRAH BASES, ON 02 2L NC, NO RESP DISTRESS OBSERVED. ABD SOFT AND NONDISTENDED, BOWEL SOUNDS ACTIVE. G TUBE TO ABD, INFUSING ISOSOURCE @ 50 ML/HR, WITH FLUSH OF 130 ML Q6H. G TUBE RESIDUAL-10 ML; FEEDING INFUSING WELL. PT IS INCONTINENT OF URINE. PT ON AIR MATTRESS AND IS BEDBOUND. CONTRACTURES NOTED TO EXTREMITIES. BUE HAS A FLEXED POSUTRE; OCCASIONAL SPASTIC MOVEMENTS NOTED TO BLE, WEDGES TO BLE. SKIN IS WNL. IVF INFUSING WELL TO RFA, NS @ 40 ML/HR. BED IN LOWEST SETTING SIDE RAILS UP, CALL LIGHT WITHIN REACH. WILL CONTINUE TO MONITOR.
[2017-06-28 20:09] VITALS: BP 105/59
--- NOTE | 2017-06-29 00:43 | NUR ---
PT ASLEEP AT THIS TIME AND CAN BE HEARD SNORING. BREATHING IS EVEN AND UNLABORED, NO RESP DISTRESS NOTED, NO SIGNS OF PAIN OBSERVED. TUBE FEEDING INFUSING WELL TO G TUBE; IVF INFUSING WELL TO RFA. WILL CONTINUE TO MONITOR.
[2017-06-29 05:56] VITALS: BP 92/46
--- NOTE | 2017-06-29 06:31 | NUR ---
PT SLEPT WELL THROUGHOUT THE NIGHT. NO SIGNS OF PAIN OR FACIAL GRIMACE OBSERVED. PT REPOSITIONED AND CHANGED. SEIZURE PRECAUTIONS AND ASPIRATION PRECAUTIONS MAINTAINED. NO SEIZURE ACTIVITY NOTED. PT ON 02 2L NC, 02 SAT-96%, 02 SAT ON RA RANGES FROM 91-95%. NO RESP DISTRESS NOTED. RESIDUAL FROM G TUBE AT THIS TIME IS LESS THAN 10 ML. TUBE FEEDING INFUSING WELL @ 50 ML/HR WITH FLUSH OF 130 ML Q6H. IVF INFUSING WELL TO RFA, NS @ 40 ML/HR. BED IN LOWEST SETTING, SIDE RAILS UP, CALL LIGHT WITHIN REACH. WILL ENDORSE CARE TO AM NURSE.
--- NOTE | 2017-06-29 07:41 | NUR ---
PT RESTING IN BED, NONVERBAL, OPENS EYES SPONTANEOUSLY, AWAKE, ALERT, MAKES EYE CONTACT, SEIZURE PADS ON BED FOR SEIZURE PRECAUTIONS, HOB ELEVATED FOR ASPIRATION PRECAUTIONS, TELE 24, NSR, BLE PULSES WEAK, NO EDEMA PRESENT, RECEIVING HEPARIN SQ, LUNG SOUNDS DIMINISHED, 2L NC, BOWEL SOUNDS ACTIVE, G TUBE L ABD WITH TUBE FEEDINGS OF ISOSOURCE @ 50 ML/HR, RESIDUAL: 40 ML, INCONTINENT, CONTRACTED EXTREMITIES, WEDGES FOR BLE, AIR MATTRESS PRESENT, SKIN INTACT, IV IN RFA WITH NS @ 40 ML/HR, SITE WNL.
[2017-06-29 09:31] VITALS: BP 102/68
--- NOTE | 2017-06-29 09:51 | NUR ---
PT RESTING IN BED, NO RESPRIATORY DISTRESS NOTED, IN NO APPARANT PAIN. PT URINATED YELLOW URINE, ASSISTED CHEESE WEIGHER IN CHANGING PT LINENS AND GOWN. PT PULLED UP AND REPOSITIONED.
[2017-06-29] MEDS ORDERED: LEVAQUIN750 MG GT ×2 (10:29→14:50)
[2017-06-29] MEDS ORDERED: CLEOCIN HCL300 MG GT ×3 (10:30→14:50)
[2017-06-29] MEDS ORDERED: LAC GT ×2 (10:31→14:50)
--- NOTE | 2017-06-29 11:13 | NUR ---
PT RESTING IN BED, NO RESPIRATORY DISTRESS NOTED, IN NO APPARANT PAIN.
[2017-06-29 11:28] VITALS: BP 102/68
--- NOTE | 2017-06-29 13:30 | NUR ---
IV REMOVED, CATHETER INTACT, PT HAD LARGE SOFT BM, LINENS AND GOWN CHANGED. G TUBE CLAMPED. AWAITING CAREGIVER FOR PICKUP.
--- NOTE | 2017-06-29 13:49 | NUR ---
DISCHARGE INSTRUCTIONS GIVEN TO CAREGIVER MINI JAVED, VERBALIZED UNDERSTANDING. PT OFF UNIT VIA WHEELCHAIR WITH ALL BELONGINGS ESCORTED BY FABRIC MACHINE OPERATOR AND CAREGIVER.
== END 2017-06-29 13:42 | DRG 177 ==
LOC: ED 21:49 → DU 06-24 04:24
PROVIDERS: Emergency Medicine; ADMIT Family Medicine
DX: J69.0 Pneumonitis due to inhalation of food and vomit (principal); J96.01 Acute respiratory failure with hypoxia; N17.0 Acute kidney failure with tubular necrosis; E44.0 Moderate protein-calorie malnutrition; Z68.24 Body mass index [BMI] 24.0-24.9, adult; K21.9 Gastro-esophageal reflux disease without esophagitis; J45.909 Unspecified asthma, uncomplicated; G80.9 Cerebral palsy, unspecified; G40.909 Epilepsy, unspecified, not intractable, without status epilepticus; E83.39 Other disorders of phosphorus metabolism
CPT/HCPCS: 83880; 90658; J1644; J1956; J2060; J3490; J3535; J7030; J7613; J7620; J7626; J8597; Q9967

== ENCOUNTER 2017-08-18 22:18 | Inpatient (IN) | payer MEDICAID ==
[~2017-08-18] VITALS: Ht 167.6 cm; Wt 68.5 kg
[~2017-08-18 22:18] MED LIST changes: +CLEOCIN HCL300 MG GT; +LAC GT
--- NOTE | 2017-08-18 22:27 | NUR ---
DR. BUENO IN TO SEE PT FOR MSE
--- NOTE | 2017-08-18 22:28 | NUR ---
REC'D PT BIBA, FROM [facility], PER EMT, PT VOMITED X1, WITH FEVER. NOTED G TUBE INTACT. BREATHING E/U, NO SOB NOTED. WILL CONTINUE TO MONITOR
--- NOTE | 2017-08-18 22:40 | NUR ---
PT HAD LARGE SOFT BM, PROVIDED [facility] CARE.
[2017-08-18 23:01] LABS: BASOPHIL % 0.1 % (0-2); PLATELET COUNT 130 x10^3mcL (130-400); RED CELL DISTRIBUTION WIDTH 13.5 % (11.5-14.5)
[2017-08-18 23:20] LABS: CALCIUM 8.9 mg/dL (8.5-10.1); CARBON DIOXIDE 30.1 mmol/L (21-32); CHLORIDE SERUM 101 mmol/L (98-107); CREATININE SERUM 0.6 mg/dL (0.7-1.3); GFR1 > 60 mL/min; GLUCOSE SERUM 88 mg/dL (74-106); POTASSIUM SERUM 4.1 mmol/L (3.5-5.1); SODIUM SERUM 139 mmol/L (136-145)
[2017-08-18 23:25] LABS: CK-MB 0.5 ng/mL (0-3.6)
[2017-08-18 23:36] LABS: ALBUMIN 3.5 g/dL (3.4-5.0); ALKALINE PHOSPHATASE 116 U/L (46-116); ALT/SGPT 65 U/L (16-63); AST/SGOT 46 U/L (15-37); BILIRUBIN TOTAL 0.5 mg/dL (0.20-1.00)
[2017-08-18 23:38] LABS: TOTAL PROTEIN, SERUM 8.6 g/dL (6.4-8.2)
--- NOTE | 2017-08-19 00:30 | NUR ---
PT HAD LARGE LOOSE BM, PROVIDED [facility] CARE. ON 2L VIA NC, BREATHING E/U, NO SOB NOTED. WILL CONTINUE TO MONITOR
--- NOTE | 2017-08-19 02:09 | NUR ---
PT IN BED IN POSITION OF COMFORT, ON 2 L NC, REMAINED CONNECTED TO FULL CM. NO SIGNS OF DISTRESS NOTED AT THIS TIME.
--- NOTE | 2017-08-19 02:52 | NUR ---
PERFORMED STRAIGHT CATH, 200 ML CLEAR YELLOW URINE IN RETURN
--- NOTE | 2017-08-19 03:05 | NUR ---
UNABLE TO OBTAIN MED REC; PT NONVERBAL
--- NOTE | 2017-08-19 03:17 | NUR ---
INITIATED ABX PER MD ORDER; SEE EMAR
--- NOTE | 2017-08-19 03:32 | NUR ---
REPORT GIVEN TO DANYELL TO ASSUME CARE
--- NOTE | 2017-08-19 03:33 | NUR ---
PT GOING TO ROOM 205B
--- NOTE | 2017-08-19 03:49 | NUR ---
PT EN ROUTE TO TELE UNIT
--- NOTE | 2017-08-19 04:00 | NUR ---
ADMITTED PT FROM ER FROM [facility] HOME WITH CC ELEVATED TEMP AND VOMITING X1.PT APHASIC.HX CP,RESPONSIVE TO VERBAL AND TACTILE STIMULI.REDNESS TO EYES MORE TO LEFT.CONTRACTURE TO BUE/BLE.GT CLAMPED.NO VOMITING AT THIS TIME.BP 106/77 MMHG,HR 121.LATEST TEMP @ 98.7F.O2 SAT @ 94% PLACED ON 2L/MIN VIA N/C.SEIZURE PRECAUTION MAINTAINED.PADDED RAILS IN PLACED.PLACED ON TELE # [address]BM X1 TO LARGE PASTY BROWNISH STOOL.GOOD PERICARE RENDERED.HX ESBL E.COLI.WILL PLACE ON CONTACT ISOLATION.WILL ANTICIPATE ALL NEEDS.WILL CONTINUE TO MONITOR.
[2017-08-19 04:07] LABS: microscopic required? NO
[2017-08-19 04:12] VITALS: BP 106/77
[2017-08-19 04:32] LABS: urine erythrocyte NEGATIVE (NEGATIVE)
[2017-08-19 04:50] LABS: T3 TOTAL 1.25 ng/mL
[2017-08-19 04:52] LABS: MAGNESIUM 1.8 mg/dL (1.8-2.4); PHOSPHOROUS 3.2 mg/dL (2.5-4.9)
[2017-08-19 04:53] LABS: CHOLESTEROL/HDL RATIO 3.1
[2017-08-19 05:00] LABS: FREE T4 1.03 ng/dL (0.76-1.46); FREE THYROXINE INDEX 3.2 ug/dL (1.4-4.5)
[2017-08-19 05:43] LABS: BASOPHIL % 0.2 % (0-2); RED CELL DISTRIBUTION WIDTH 13.3 % (11.5-14.5)
[2017-08-19 05:45] LABS: PLATELET COUNT 115 x10^3mcL (130-400)
[2017-08-19 05:50] LABS: CARBON DIOXIDE 28.4 mmol/L (21-32); CHLORIDE SERUM 101 mmol/L (98-107); CREATININE SERUM 0.6 mg/dL (0.7-1.3); GFR1 > 60 mL/min; GLUCOSE SERUM 87 mg/dL (74-106); MAGNESIUM 1.9 mg/dL (1.8-2.4); PHOSPHOROUS 3.6 mg/dL (2.5-4.9); SODIUM SERUM 137 mmol/L (136-145)
--- NOTE | 2017-08-19 06:45 | NUR ---
RECEIVED A CALL FROM [facility] AND SPOKE WITH WRECKING CRANE ENGINE OPERATOR.CONFIRMED RECEIVED FFLU VACCINE THIS SEASON BUT NO PNEUMONIA VACCINE GIVEN.LAST VACCINE NOTED WAS AT 09/24/11.WILL GIVE VACCINE . AWARE.
--- NOTE | 2017-08-19 07:30 | NUR ---
PT IS NON VERBAL, OPENS EYES SPONTANEOUSLY, IN NO APPARANT PAIN, PER NIGHT NURSE PT HAD EMESIS ONE TIME, TELE 30, ST, PULSES MODERATE AND EQUAL, NO EDEMA PRESENT, SCDS ON, 2L NC, WHEEZES, G TUBE CLAMPED, INCONTINENT, PRESSURE MATTRESS, SKIN INTACT, IV IN LH WITH NS @ 100 ML/HR, SITE WNL, ASPIRATION AND SEIZURE PRECAUTIONS, PLT 115, CR 0.6, BUN 19, CR 0.6, AST 46, ALT 65.
--- NOTE | 2017-08-19 08:00 | NUR ---
PER DR NEVES, TUBE FEEDING TO BE HELD UNTIL PT NO LONGER NAUSEATED.
[2017-08-19 09:30] VITALS: BP 98/72
--- NOTE | 2017-08-19 10:34 | NUR ---
PT RESTING IN BED, NO RESPIRATORY DISTRESS NOTED, PT FLAILING ARMS AND LEGS IF IN PAIN, TYLENOL GIVEN. ZOFRAN GIVEN FOR NAUSEA AND TO PREVENT EMESIS. DR NEVES NOTIFIED THAT TUBE FEEDING ORDER IS INCOMPLETE AND THAT PT IS STILL NAUSEATED.
--- NOTE | 2017-08-19 11:53 | NUR ---
PT RESTING IN BED, NO RESPIRATORY DISTRESS NOTED, IN NO APPARANT PAIN.
[2017-08-19 12:21] VITALS: BP 93/53
--- NOTE | 2017-08-19 13:11 | NUR ---
PT RESTING IN BED, NO RESPIRATORY DISTRESS NOTED, IN NO APPARANT PAIN. NO EMESIS AT THIS TIME.
--- NOTE | 2017-08-19 14:08 | NUR ---
PT RESTING IN BED, NO EMESIS OR NAUSEA AT THIS TIME, NO RESPIRATORY DISTRESS NOTED, IN NO APAPRANT PAIN. DR NEVES NOTIFIED AND STATED HE WOULD ASSESS PT TO DETERMINE IF TUBE FEEDING CAN BEGIN.
--- NOTE | 2017-08-19 15:58 | NUR ---
PT RESTING IN BED, NO RESPRIATORY DISTRESS NOTED, IN NO APPARANT PAIN.
--- NOTE | 2017-08-19 17:27 | NUR ---
Initial Nutrition Assessment Dx: SIRS, bronchitis PMHx: Profound MR,CP with spastic quadraplegia,G-tube,Seizure disorder,Estropia Asthma,partial vision impariment,constpiation and nuerogenic bladder and Incontient PSHx: G-tube placement. Labs: (08/19) B, Cr:0.6L, (08/18) AST:46H, ALT:65H, HDL:37L Meds: Colace, Dulcolax, Keppra, Lactinex, Lactulose, Prilosec, Reglan, NS IV, Zofran Current Nutrition Support: No TF order TF intake: pt has not started TF I/O: (08/19) 200/200ml Residuals: Pt has not started TF Ht:66in, 5'6" Wt:153#, 69.65kg BMI:24.8kg/m2 (normal) IBW: 142#, 65kg %IBW: 107% UBW:unable to obtain Weight hx: (08/28) 165#, 75kg (11/2016) 136#, 62kg (12/2016) 137#62kg, (06/2017)155#, 70.3kg Quadrapalegic: -10-15% of IBW: 121-128# (55-58kg) Age:27 y/o male Food Allergies:N/A Skin: intact Elvis:12 Edema:None GI:watery stool, pt on Lactulose Last BM:08/19 Nursing Trigger: unable to ingest diet for age, TF/TPN Nutrition consult: pt takes Nutren 1.5 Pt admitted with fever and vomiting x 1 day, per H&P. Per bed huddle this morning, pt is being treated for aspiration pneumonia and will stay for continued IV antibiotics. During visit, observed pt laying in bed with no family at bedside. Spoke to RN who reports pt's TF has not been started due to pt with nausea and vomiting this morning. Pt has not had an episode of emesis since this morning. Spoke to Dr. Nur about starting TF at a low rate and advancing at a slow rate due to pt with N/V. Doctor agreeable and input recommendations. Problem with: N: Yes V: No D: Yes C:No Problems with: Chewing+ Swallowing: Yes, pt with G-tube Current appetite: N/A Recent wt change:-2# wt loss within 2 months %wt change:1.2% Vitamin/Supplement use:No Special diet at home:Nutren 1.5 Physical activity: pt bed-ridden Education: not approriate due to pt with being non-verbal Estimated Nutritional Needs Based on adjusted body weight 58kg for quadraplegic Energy: 1450-1740kcal/d (25-30kcal/kg maintenance) Protein:58-70g/d (1-1.2g/kg for Pneumonia) Fluid: 1450-1740ml/d (1 ml/kcal) or per doctor Nutrition Diagnosis 1. Increased protein needs related to pulmonary dysfunction as evidenced by pt with aspiration PNA. Intervention 1. Recommend initate TF of Nutren 1.5 @ 10ml/hr, increase 10 ml q6hr to goal 45ml/hr, free water flush: 100ml q4hr. This provides 1620kcal (meets 100% caloric needs) and 73g protein (meets 104% protein needs) and 1425ml free water daily. Monitor/Evaluate Goal: TF to meet 75% est needs with tolerance Monitor: TF intake/tolerance, Labs, GI function F/U in 2-3 days as high risk:08/21-
--- NOTE | 2017-08-19 17:53 | NUR ---
TUBE INITIATED: NUTREN 1.5 @ 10 ML/HR, GOAL : 45 ML/HR, H20 FLUSH 100 ML Q 4 HR, FEEDING TO BE HELD IF RESIDUAL 250 ML. RESIDUAL CHECKED: 0 ML. PT RESTING IN BED, NO RESPIRATORY DISTRESS NOTED, IN NO APPARANT PAIN.
[2017-08-19 18:14] VITALS: BP 132/58
--- NOTE | 2017-08-19 18:22 | NUR ---
PT RESTING IN BED, NO RESPRIATORY DISTRESS NOTED, IN NO APPARANT PAIN, TUBE FEEDING NUTREN 1.5 @ 10 ML/HR.
[2017-08-19 19:10] VITALS: BP 110/52
--- NOTE | 2017-08-19 19:10 | NUR ---
RECEIVED PT AWAKE,EYES OPEN AND TRACKS.APASHIC.BREATHING EASY AND NON-LABORED.02 @ 3L/MIN VIA N/C.O2 SAT @ 96%BP 110/52 MMHG,HR 93.LATEST TEMP @ 97.7F.NUTREN 1.5 FEEDING @ 10 ML/HR,NO RESIDUAL NOTED.HOB KEPT ELEVATED.CONTRACTURE TO BUE/BLE.ON SEIZURE PRECAUTION.PADDED RAILS IN PLACED AIR MATTRESS IN PLACED.ON CONTACT ISOLATION FOR HX ESBL/ECOLI.WILL ANTICIPATE ALL NEEDS.WILL CONTINUE TO MONITOR.
--- NOTE | 2017-08-19 23:50 | NUR ---
INCREASED GTFEEDING TO 20 ML/HR.NO RESIDUAL NOTED.HOB KEPT ELEVATED.WILL CONTINUE TO MONITOR.
--- NOTE | 2017-08-20 04:44 | NUR ---
PT SLEPT WELL.AFEBRILE.BREATHING EASY AND NON-LABORED.NO VOMITING NOTED.TOLERATED GTFEEDING,CURRENTLY RUNNING @ 20 ML/HR.NO RESIDUAL NOTED.HOB KEPT ELEVATED.NO ASE NOTED FROM ROCEPHIN AND FLAGYL IV ATB.ALL NEEDS MET.GOODHANDWASHING TECHNIQUE OBSERVED.WILL CONTINUE TO MONITOR.
--- NOTE | 2017-08-20 06:00 | NUR ---
NO RESIDUAL.INCREASE GT FEEDING TO 30 ML/HR,BEDBATH DONE.CHANGED ALL LINENS.HOB KEPT ELEVATED.LATEST TEMP @ 98.0F.WILL ENDORSE TO AM NURSE,
[2017-08-20 06:03] VITALS: BP 111/61
[2017-08-20 07:19] LABS: RED CELL DISTRIBUTION WIDTH 13.6 % (11.5-14.5)
--- NOTE | 2017-08-20 07:45 | NUR ---
RECEIVED THE PATIENT AWAKE BUT NON-VERBAL. THE PATIENT LOOKED TOWARD THE SIDE WHERE HE HEARD THE VOICE. NO INDICATION OF NAUSEA/VOMITING, SHORTNESS OF BREATH OR PAIN. OCCASIONAL LABORED BREATHING NOTED. IVF NS VIA H/L TO RIGHT HAND. TELE # 36 READS SINUS RHYTHMS AT THIS TIME. GT FEEDING WITH NUTREN 1.5 AT 30CC/HR. RESIDUAL CHECKED 0. PATIENT WAS ON AIR MATTRESS. CALL LIGHT WITHIN REACH. SIDE RAILS UP X3 AND PADDED FOR SEIZURE PRECAUTION.
[2017-08-20 08:18] LABS: PLATELET COUNT 88 x10^3mcL (130-400)
--- NOTE | 2017-08-20 09:04 | NUR ---
DR. MATAMOROS AND THE TEAM WERE MAKING ROUND TO SEE THE PATIENT.
[2017-08-20 09:59] LABS: BAND NEUTROPHIL 0 % (0-10); BASOPHIL 0 % (0-2); MONOCYTE 21 % (0-7); SEGMENTED NEUTROPHILS 55 % (37-75)
[2017-08-20 10:00] LABS: PLATELET MORPHOLOGY PLATELETS DECREASED
[2017-08-20 10:21] LABS: CALCIUM 9.1 mg/dL (8.5-10.1); CARBON DIOXIDE 30.5 mmol/L (21-32); CHLORIDE SERUM 102 mmol/L (98-107); CREATININE SERUM 0.7 mg/dL (0.7-1.3); GFR1 > 60 mL/min; GLUCOSE SERUM 98 mg/dL (74-106); POTASSIUM SERUM 4.3 mmol/L (3.5-5.1); SODIUM SERUM 137 mmol/L (136-145)
[2017-08-20 10:39] VITALS: BP 93/49
[2017-08-20 10:45] VITALS: BP 95/52
--- NOTE | 2017-08-20 11:55 | NUR ---
THE RESIDUAL CHECK WAS 0. THE TUBE FEEDING RATE WAS INCREASED TO 40 CC/HR ORDERED.
--- NOTE | 2017-08-20 16:10 | NUR ---
RESIDUAL CHECKED 0. THE PATIENT TOLERATED WELL WITH GT FEEDING.
--- NOTE | 2017-08-20 16:43 | NUR ---
REPORT GIVEN TO CIERRA BEDOLLA.
--- NOTE | 2017-08-20 16:45 | NUR ---
RECEIVED PATIENT NON-VERBRAL. CONDITION NO SIGNIFICANT CHANGE. GT FEEDING AT 40CC/HR, RESIDULA =0. IV TO R HAND PATENT. CONTACT ISOLATION.
[2017-08-20 17:27] VITALS: BP 114/60
--- NOTE | 2017-08-20 19:40 | NUR ---
RECEIVED REPORT FROM DAY SHIFT RN. PT RESTING WITH EYES CLOSED. OPENS EYES TO VERBAL AND TACTILE STIMULUS. NO SOB ON O2 3L NC. NO S/S OF PAIN. NO DISTRESS NOTED. IV ON RIGHT HAND, NS INFUSING. ON NUTREN 1.5 GTUBE FEEDING AT 45 ML/HR. NO RESIDUAL. FREE H20 FLUSH AT 100 ML Q4H. SAFETY MEASURES IN PLACE. BED IN LOWEST POSITION. SIDE RAIL PADS IN PLACE. WILL ANTICIPATE NEEDS.
[2017-08-20 21:07] VITALS: BP 108/62
--- NOTE | 2017-08-20 23:30 | NUR ---
TYLENOL GIVEN FOR FEVER.
[2017-08-21 06:03] VITALS: BP 94/60
--- NOTE | 2017-08-21 06:45 | NUR ---
PT SLEPT WELL DURING SHIFT. NO S/S OF PAIN. NO RESP DISTRESS ON 3L NC. NO SEIZURES NOTED. SAFETY MEASURES MAINTAINED. BED IN LOWEST POSITION. SIDE RAIL PADS IN PLACE. ALL NEEDS ATTENDED TO. WILL ENDORSE CONTINUITY OF CARE TO ONCOMING RN.
[2017-08-21 07:18] LABS: RED CELL DISTRIBUTION WIDTH 13.4 % (11.5-14.5)
[2017-08-21 07:22] LABS: PLATELET COUNT 103 x10^3mcL (130-400)
[2017-08-21 07:24] LABS: CALCIUM 8.8 mg/dL (8.5-10.1); CARBON DIOXIDE 29.3 mmol/L (21-32); CHLORIDE SERUM 106 mmol/L (98-107); CREATININE SERUM 0.5 mg/dL (0.7-1.3); GFR1 > 60 mL/min; GLUCOSE SERUM 108 mg/dL (74-106); POTASSIUM SERUM 3.8 mmol/L (3.5-5.1); SODIUM SERUM 143 mmol/L (136-145)
--- NOTE | 2017-08-21 07:50 | NUR ---
RC'D PT RESTING IN BED WITH NO APPARENT SIGNS OF DISTRESS. PROFOUND MENTAL RETARDATION. SEIZURE PRECAUTIONS IN PLACE. PT NONVERBAL BUT RESPONDS TO STIMULI. MED-SURG. NO APPARENT SIGNS OF DISTRESS. PALP PULSES, NO EDEMA NOTED. RESPIRATIONS SLIGHTLY LABORED. LUNGS DIM IN BASES. PT ON 3L O2 VIA NC. ABDOMEN SOFT AND NONTENDER. GTUBE PRESENT WITH NUTREN FEEDING RUNNING AT 45ML/HR. NO RESIDUAL NOTED. ACTIVE BS.AYALA CATHETER IN PLACE, YELLOW URINE NOTED. TOTAL CARE PT. NON-AMBULATORY, BUE/BLE CONTRACUTRES. AIR MATTRESS IN PLACE. SKIN W/D/I. NO APPARENT SIGNS OF PAIN AT THIS TIME. IV PATENT AND INFUSING. BED IN LOW POSITION. CALL LIGHT IN REACH. WILL CONTINUE TO MONITOR.
--- NOTE | 2017-08-21 09:50 | NUR ---
AM MORNING MEDS GIVEN. PT TOLERATED WELL. NO RESIDUAL NOTED. RESPIRATIONS EQUAL AND SLIGHTLY LABORED. PT ON 3L O2 VIA NC. BED IN LOW POSITION. WILL CONTINUE TO MONITOR.
[2017-08-21 10:07] VITALS: BP 105/86
--- NOTE | 2017-08-21 11:13 | NUR ---
PT RESTING IN BED WITH NO APPARENT SIGNS OF DISTRESS. IV PATENT AND INFUSING. WILL CONTINUE TO MONITOR.
[2017-08-21 11:16] VITALS: Ht 167.6 cm; Wt 68.5 kg
--- NOTE | 2017-08-21 13:05 | NUR ---
AFTERNOON MEDS GIVEN. PT TOLERATED WELL. NO RESIDUAL NOTED. NO APPARENT SIGNS OF DISCOMFORT. 3L O2 NC IN PLACE. SEIZURE PRECAUTIONS IN PLACE. AIR MATTRESS NOTED. WILL CONTINUE TO MONITOR.
--- NOTE | 2017-08-21 13:38 | NUR ---
Follow-up Nutrition Assessment Dx:SIRS, Broncshitis Labs: (08/21) B, Cr:0.5L, Meds: Colace, Dulcolax, Keppra, Lactinex, Lactulose, Reglan, NS IV, Zofran Current Nutrition Support: TF intake: (08/20) 195ml (08/21) 990ml Residuals: (08/19)0ml (08/20)0ml (08/21) 0ml I/O: (08/19) 200/200 (08/20) 2745/2741 (+1ml) (08/21) 3840/3840ml Weights: (08/19) 153#, 69.65kg (08/21) 158.1# note: with air mattress, equipment and blankets on bed Skin: intact Edema: None Last BM: 08/19 Per progress note 08/20, no acute events overnight. Pt will likely stay over the weekend for IV antibiotics. During visit, observed pt laying in bed with no family at bedside. TF running as ordered: Nutren 1.5@ 45ml/hr, free water flush:100ml q4hr. Spoke to RN, who reports pt with 0ml resdiuals and no BM today. Estimated Nutritional Needs Based on adjusted body weight 58kg for quadraplegic Energy: 1450-1740kcal/d (25-30kcal/kg maintenance) Protein:58-70g/d (1-1.2g/kg for Pneumonia) Fluid: 1450-1740ml/d (1 ml/kcal) or per doctor Nutrition Diagnosis 1. Increased protein needs related to pulmonary dysfunction as evidenced by pt with aspiration PNA (ongoing) Intervention 1. Recommend continue with TF of Nutren 1.5 @ goal 45ml/hr, free water flush: 100ml q4hr. This provides 1620kcal (meets 100% caloric needs) and 73g protein (meets 104% protein needs) and 1425ml free water daily. Monitor/Evaluate Previous goal: TF to meet 75% est needs with tolerance Goal: TF to meet 75% est needs with tolerance Monitor: TF intake/tolerance, Labs, GI function F/U in 3-5 days as moderate risk:08/24-14
--- NOTE | 2017-08-21 15:18 | NUR ---
TITRATED Pt TO 2L N/C. WILL CONTINUE TO TITRATE TO KEEP SPO2 >90% PER ORDER.
[2017-08-21 16:25] LABS: MONOCYTE 20 % (0-7)
[2017-08-21 16:26] LABS: PLATELET MORPHOLOGY PLATELETS DECREASED; SEGMENTED NEUTROPHILS 48 % (37-75); rbc morphology (normal/abnorm) NORMAL (NORMAL)
[2017-08-21 18:01] VITALS: BP 100/59
--- NOTE | 2017-08-21 19:02 | NUR ---
PT RESTING IN BED WITH NO APPARENT SIGNS OF DISTRESS. SEIZURE PRECAUTIONS IN PLACE. NONVERBAL BUT RESPONSIVE TO STIMULI. RESPIRATIONS SLIGHTLY LABORED. ON 3L O2 VIA NC. MED-SURG. GTUBE FEEDING RUNNING NUTREN AT 45ML/HR. NO RESIDUAL NOTED. PT TOLERATED MEDS WELL. AIR MATTRESS IN PLACE. IV PATENT AND INFUSING. BED IN LOW POSITION. CALL LIGHT IN REACH. WILL ENDORSE TO PROTECTOR PLATE ATTACHER RN.
--- NOTE | 2017-08-21 19:40 | NUR ---
RECEIVED REPORT FROM DAY SHIFT RN. PT RESTING COMFORTABLY. PT WITH PROFOUND MENTAL RETARDATION. NONVERBAL. RESPONDS TO VERBAL AND TACTILE STIMULI. NO SOB ON 2L NC. NO S/S PAIN. NO DISTRESS NOTED. GTUBE FEEDING, NUTREN 1.5 AT 45 ML/HR. IV ON PERRY, NS INFUSING. AIR MATTRESS AND SIDE RAIL PADS IN PLACE. BED IN LOWEST POSITION. WILL ANTICIPATE NEEDS.
[2017-08-21 20:58] VITALS: BP 113/63
--- NOTE | 2017-08-21 22:37 | NUR ---
ASSUMED CARE OF PT AT THIS TIME. PT AWAKE W/ LATEX FASHIONS DESIGNER AT BEDSIDE. PT APPEARS CALM AND NOT IN ANY DISTRESS. WILL CONTINUE W/ CARE.
--- NOTE | 2017-08-21 22:39 | NUR ---
ENDORSED CONTINUITY OF CARE TO CIERRA CORONADO.
--- NOTE | 2017-08-22 00:10 | NUR ---
PT ASLEEP BUT EASILY AROUSABLE TO VERBAL AND TACTILE STIMULI. NO NEURO CHANGES NOTED. G-T RESIDUAL CHECKED BUT NONE OBTAINED.
--- NOTE | 2017-08-22 05:11 | NUR ---
PT SLEPT THROUGH THE NIGHT. HE HAD NO EPISODE OF SOB OR RESP. DISTRESS. NO NEURO CHANGES. NO EPISODE OF SZ. PT HAD NO C/O PAIN. GT FEEDING INFUSING AT 45 CC/HR W/ NO RESIDUALS NOTED. IVF INFUSING AT 100 CC/HR VIA SIMIN. ALL NEEDS ATTENDED TO. CONTACT ISOLATION MAINTAINED.
[2017-08-22 06:00] VITALS: BP 105/52
[2017-08-22 07:39] LABS: BASOPHIL % 0.4 % (0-2); RED CELL DISTRIBUTION WIDTH 13.6 % (11.5-14.5)
[2017-08-22 07:44] LABS: CALCIUM 9.5 mg/dL (8.5-10.1); CARBON DIOXIDE 27.5 mmol/L (21-32); CHLORIDE SERUM 108 mmol/L (98-107); CREATININE SERUM 0.6 mg/dL (0.7-1.3); GFR1 > 60 mL/min; GLUCOSE SERUM 90 mg/dL (74-106); POTASSIUM SERUM 4.7 mmol/L (3.5-5.1); SODIUM SERUM 142 mmol/L (136-145)
[2017-08-22 07:57] LABS: PLATELET COUNT 116 x10^3mcL (130-400)
--- NOTE | 2017-08-22 08:00 | NUR ---
ALERT/AWAKE. MENTAL RETARDED. QUADRIPLEGIC. HANDS AND LEGS CONTRACTED. BED BOUND AND TOTAL CARE NEEDED. NON-VERBRAL. NO S/S OF PAIN. BREATHING SOUND DIMINISHED FARRAH. O2 SAT 94% ON RA AND IMPROVED TO 97% ON 2L VIA N/C. P= 78. ABD FLAT/SOFT. BOWEL SOUND ACTIVE. ON G-T FEEDING OF NUTREN 1.5 AT 45CC/HR WITH WATER FLASH 100CC/Q4H. RESIDUAL CHECK 30CC, REPLACED. B/B INCONT. SKIN INTACT. NO OPENED WOUND. ON AIR MATTRESS, WILL BE REPOSITIONED Q2H AND PRN. SZ PRECAUTION. CONTACT ISOLATION IN PLACE.
--- NOTE | 2017-08-22 10:30 | NUR ---
DR. LOUISE AND DR. BAI MADE MORNING ROUND.
[2017-08-22 10:34] VITALS: BP 104/70; BP 105/52
[2017-08-22 14:38] VITALS: BP 102/53
[2017-08-22 17:31] VITALS: BP 135/73
--- NOTE | 2017-08-22 18:44 | NUR ---
CONDITION STABLE. O2 SAT 95% ON RA. NO RESP DISTRESS. TOLERATED GT FEEDING RESIDUAL CHECK = 0. B/B INCONT; HAD PLENTY AMOUNT OF URINE OUTPUT. HAD A LARGE AMOUNT OF BM THIS SHIFT. ENDORSED CARE TO [facility] NURSE.
--- NOTE | 2017-08-22 19:50 | NUR ---
RECEIVED REPORT FROM DAY SHIFT RN. PT RESTING COMFORTABLY. NO SOB ON ROOM AIR. BREATHING EVEN AND UNLABORED. NO S/S OF DISTRESS NOTED. IV ON PERRY, FLAGYL INFUSING. GTUBE FEEDING, NUTREN AT 45 ML/HR. SAFETY MEASURES IN PLACE. BED IN LOWEST POSITION. SIDE RAIL PADS AND SCD'S IN PLACE. WILL CONTINUE TO MONITOR AND ANTICIPATE NEEDS.
[2017-08-22 20:32] VITALS: BP 109/58
[2017-08-23 05:37] VITALS: BP 106/59
--- NOTE | 2017-08-23 07:00 | NUR ---
PT SLEPT WELL DURING SHIFT. NO SOB ON ROOM AIR. NO DISTRESS NOTED. TOLERATING TUBE FEEDING. NO RESIDUAL. SAFETY MEASURES MAINTAINED. ALL NEEDS ATTENDED TO. WILL ENDORSE CONTINUITY OF CARE TO ONCOMING RN.
--- NOTE | 2017-08-23 07:39 | NUR ---
PATIENT IS RESTING IN BED. PATIENT IS ALERT BUT NON VERBAL, UNABLE TO ASSESS ORIENTATION AT THIS TIME. PATIENT IS ON SEIZURE PRECAUTIONS. PATIENT IS MEDICAL SURGICAL. SCDS ARE IN PLACE. PATIENTS LUNGS ARE DIMINISHED IN BASES. PATIENTS BOWELS ARE ACTIVE AND PRESENT. PATIENT IS TOTAL CARE, UNABLE TO FOLLOW VERBAL COMMANDS. PATIENT IS ON AIR MATTRESS. PATIENT HAS BUE AND BLE CONTRACTURES. PATIENT IS NOT SHOWING ANY NON VERBAL SIGNS OF PAIN AT THIS TIME. PATIENT HAS NS INFUSING TO PERRY AT 50 ML/HR, SITE WNL. CALL LIGHT IS WITHIN REACH, SIDE RAILS ARE UP AND BED IS LOCKED WITH ALARM ON.
--- NOTE | 2017-08-23 08:25 | NUR ---
PLACEMENT OF G TUBE VERIFIED BY AUSCULTATING FOR AIR. CHECKED FOR RESIDUALS, NONE NOTED. PATIENT TOLERATED MEDICATIONS. PATIENT UNABLE TO MAKE NEEDS KNOWN. PATIENT IS INCONTINENT. PERICARE PROVIDED. CALL LIGHT IS WITHIN REACH, SEIZURE PRECAUTIONS ARE IN PLACE, BED IS LOCKED AND IN LOW POSITION.
[2017-08-23 09:54] VITALS: BP 106/53
--- NOTE | 2017-08-23 09:56 | NUR ---
RESIDUALS CHECKED, NONE NOTED. PATIENT TOLERATED MORNING MEDICATIONS. PATIENT ON KEPPRA, PILLS NOT SUPPOSE TO BE CRUSHED. PHARMACY NOTIFIED, PHARMACIST VERBALIZED GO AHEAD AND GIVE ORDERED, WILL CHANGE MEDICATIONS. DOCTOR PURA MADE AWARE. CALL LIGHT IS WITHIN REACH.
--- NOTE | 2017-08-23 11:00 | NUR ---
MANI IS ON HOME OXYGEN, REASSESSED OXYGEN SATURATION WAS 84 AND DROPPING. APPLIED NASAL CANNULA AT 4L, OBSERVED 86, 88 THEN FINALLY 100, TITRATED DOWN TO 2 L. PATIENT NOW AT 96% AND SHOWING NO SIGNS OF DISTRESS.
[2017-08-23] MEDS ORDERED: LEVAQUIN750 MG GT (11:16)
[2017-08-23 11:31] VITALS: BP 106/53
--- NOTE | 2017-08-23 12:05 | NUR ---
IV MEDICATION ADMINISTERED ORDERED. PATIENT PULLED OFF NASAL CANNULA, OXYGEN 90% ON ROOM AIR, OXYGEN VIA NASAL CANNULA 2 L REAPPLIED.
--- NOTE | 2017-08-23 14:36 | NUR ---
FACILITY UNABLE TO PROVIDE PORTABLE OXYGEN PER CASE MANAGEMENT. TRANSPORT CREAM RIPENER SCHEDULED BETWEEN 3PM AND 4PM.
--- NOTE | 2017-08-23 14:50 | NUR ---
REPORT GIVEN TO MINI JAVED, FACILITY QUALITY ASSURANCE SUPERVISOR FINAL FROM [facility] AND RN MEGAN REGARDING DISCHARGE INSTRUCTIONS AND SBAR ON CLIENTS CURRENT CONDITION. MINI AND MEGAN VERBALIZED UNDERSTANDING.
--- NOTE | 2017-08-23 16:09 | NUR ---
PATIENTS TRANSPORT IN TO TRANSPORT PATIENT TO BOARD AND CARE. IV REMOVED, CATHETER INTACT. FEEDING DISCONTINUED AND FLUSHED WITH 30 ML ROOM TEMPWATER. PATIENT HAD 1 LOOSE BM. PATIENT CHANGED AND PLACED IN CLEAN GOWN. PATIENT IS NON VERBAL RN DARRELL VERIFIED THAT PATIENT IS UNABLE TO SIGN. GAVE REPORT TO [facility]ARD AND CARE MINI Shah AND MEGAN NORTON. PATIENT HAS LEFT FLOOR WITH TRANSPORT COMPANY.
== END 2017-08-23 16:18 | DRG 720 ==
LOC: ED 22:18 → DU 08-19 03:06 → MU 08-20 11:47
PROVIDERS: Emergency Medicine; Student in an Organized Health Care Education/Training Program; ADMIT Family Medicine
DX: A41.9 Sepsis, unspecified organism (principal); N17.0 Acute kidney failure with tubular necrosis; J69.0 Pneumonitis due to inhalation of food and vomit; E87.2 Acidosis; F72 Severe intellectual disabilities; G80.0 Spastic quadriplegic cerebral palsy; D69.6 Thrombocytopenia, unspecified; R65.20 Severe sepsis without septic shock; N31.9 Neuromuscular dysfunction of bladder, unspecified; R74.0 Nonspecific elevation of levels of transaminase and lactic acid dehydrogenase [LDH]; H50.00 Unspecified esotropia; J45.909 Unspecified asthma, uncomplicated; K59.09 Other constipation; G40.909 Epilepsy, unspecified, not intractable, without status epilepticus; Z93.1 Gastrostomy status; Z99.3 Dependence on wheelchair; Z68.24 Body mass index [BMI] 24.0-24.9, adult
CPT/HCPCS: 36600; 83880; 84439; 87804; 90732; J0696; J2405; J2543; J3490; J3535; J7030; J7620; J8597; Q0092

== ENCOUNTER 2017-09-08 21:42 | Inpatient (IN) | payer MEDICAID ==
[~2017-09-08] VITALS: Ht 167.6 cm; Wt 66.9 kg
[2017-09-08 22:00] VITALS: Ht 167.6 cm; Wt 66.9 kg
[2017-09-08 23:30] LABS: BASOPHIL % 0.4 % (0-2); PLATELET COUNT 144 x10^3mcL (130-400); RED CELL DISTRIBUTION WIDTH 13.1 % (11.5-14.5)
[2017-09-08 23:42] LABS: CALCIUM 8.9 mg/dL (8.5-10.1); CARBON DIOXIDE 28.5 mmol/L (21-32); CHLORIDE SERUM 104 mmol/L (98-107); CREATININE SERUM 0.5 mg/dL (0.7-1.3); GFR1 > 60 mL/min; GLUCOSE SERUM 86 mg/dL (74-106); POTASSIUM SERUM 3.6 mmol/L (3.5-5.1); SODIUM SERUM 141 mmol/L (136-145)
[2017-09-08 23:52] LABS: ALKALINE PHOSPHATASE 96 U/L (46-116); ALT/SGPT 23 U/L (16-63); AST/SGOT 18 U/L (15-37); BILIRUBIN TOTAL 0.4 mg/dL (0.20-1.00); TOTAL PROTEIN, SERUM 7.4 g/dL (6.4-8.2)
[2017-09-08 23:53] LABS: ALBUMIN 3.3 g/dL (3.4-5.0)
[2017-09-09] VITALS (8 sets, daily range): BP systolic 94–124; BP diastolic 44–78
[2017-09-09 02:21] LABS: PHOSPHOROUS 4.6 mg/dL (2.5-4.9)
[2017-09-09 07:47] LABS: BASOPHIL % 0.2 % (0-2); PLATELET COUNT 135 x10^3mcL (130-400); RED CELL DISTRIBUTION WIDTH 13.3 % (11.5-14.5)
[2017-09-09 08:04] LABS: CALCIUM 8.8 mg/dL (8.5-10.1); CHLORIDE SERUM 106 mmol/L (98-107); CREATININE SERUM 0.6 mg/dL (0.7-1.3); GFR1 > 60 mL/min; GLUCOSE SERUM 92 mg/dL (74-106); POTASSIUM SERUM 4.1 mmol/L (3.5-5.1); SODIUM SERUM 142 mmol/L (136-145)
[2017-09-10 04:58] VITALS: BP 112/71
[2017-09-10 08:11] LABS: BASOPHIL % 0.2 % (0-2); RED CELL DISTRIBUTION WIDTH 13.2 % (11.5-14.5)
[2017-09-10 08:13] LABS: PLATELET COUNT 122 x10^3mcL (130-400)
[2017-09-10 09:40] VITALS: BP 90/59
[2017-09-10 13:25] VITALS: BP 96/64
[2017-09-10 21:20] VITALS: BP 100/45
[2017-09-11 05:42] VITALS: BP 115/73
[2017-09-11 07:07] LABS: BASOPHIL % 0.4 % (0-2); PLATELET COUNT 140 x10^3mcL (130-400); RED CELL DISTRIBUTION WIDTH 13.4 % (11.5-14.5)
[2017-09-11 07:15] LABS: CALCIUM 9.4 mg/dL (8.5-10.1); CARBON DIOXIDE 29.9 mmol/L (21-32); CHLORIDE SERUM 103 mmol/L (98-107); CREATININE SERUM 0.7 mg/dL (0.7-1.3); GFR1 > 60 mL/min; GLUCOSE SERUM 89 mg/dL (74-106); POTASSIUM SERUM 4.3 mmol/L (3.5-5.1); SODIUM SERUM 135 mmol/L (136-145)
[2017-09-11 09:12] VITALS: BP 99/41
[2017-09-11 16:20] VITALS: BP 116/69
[2017-09-11 22:37] VITALS: BP 117/48
[2017-09-12 05:46] VITALS: BP 106/60
[2017-09-12 08:31] VITALS: BP 110/71
[2017-09-12 11:39] LABS: BASOPHIL % 0.3 % (0-2); RED CELL DISTRIBUTION WIDTH 13.4 % (11.5-14.5)
[2017-09-12 11:42] LABS: PLATELET COUNT 114 x10^3mcL (130-400)
[2017-09-12 11:53] LABS: CALCIUM 8.9 mg/dL (8.5-10.1); CARBON DIOXIDE 23.1 mmol/L (21-32); CHLORIDE SERUM 104 mmol/L (98-107); CREATININE SERUM 0.6 mg/dL (0.7-1.3); GFR1 > 60 mL/min; GLUCOSE SERUM 118 mg/dL (74-106); MAGNESIUM 2.1 mg/dL (1.8-2.4); PHOSPHOROUS 4.1 mg/dL (2.5-4.9); POTASSIUM SERUM 3.6 mmol/L (3.5-5.1); SODIUM SERUM 139 mmol/L (136-145)
[2017-09-12 18:39] VITALS: BP 116/56
[2017-09-12 23:06] VITALS: BP 113/69
[2017-09-13 06:43] VITALS: BP 93/56
[2017-09-13 09:00] VITALS: BP 101/54
[2017-09-13 16:40] VITALS: BP 106/59
[2017-09-13 22:02] VITALS: BP 99/61
[2017-09-14 05:13] VITALS: BP 90/53
[2017-09-14 06:50] LABS: CALCIUM 9.3 mg/dL (8.5-10.1); CARBON DIOXIDE 26.8 mmol/L (21-32); CHLORIDE SERUM 106 mmol/L (98-107); CREATININE SERUM 0.6 mg/dL (0.7-1.3); GFR1 > 60 mL/min; GLUCOSE SERUM 109 mg/dL (74-106); PHOSPHOROUS 4.5 mg/dL (2.5-4.9); POTASSIUM SERUM 3.7 mmol/L (3.5-5.1); SODIUM SERUM 141 mmol/L (136-145)
[2017-09-14 07:04] LABS: BASOPHIL % 0.3 % (0-2); PLATELET COUNT 116 x10^3mcL (130-400); RED CELL DISTRIBUTION WIDTH 12.8 % (11.5-14.5)
[2017-09-14 09:50] VITALS: BP 96/47
[2017-09-14] MEDS ORDERED: VAS TOP (13:29)
[2017-09-14] MEDS ORDERED: KEN10 TOP (13:35)
[2017-09-14] MEDS ORDERED: LEVAQUIN750 MG PO (13:39)
[2017-09-14] MEDS ORDERED: CLEOCIN HCL300 MG PO (13:40)
[2017-09-14] MEDS ORDERED: LAC NG (13:41)
[2017-09-14 16:18] VITALS: BP 96/47
== END 2017-09-14 16:27 | DRG 137 ==
LOC: ED 21:42 → DU 09-09 01:31 → MU 09-09 01:31 → DU 09-09 03:02 → MU 09-10 04:41
PROVIDERS: Emergency Medicine; Family Medicine; Student in an Organized Health Care Education/Training Program
DX: J69.0 Pneumonitis due to inhalation of food and vomit (principal); N17.0 Acute kidney failure with tubular necrosis; F72 Severe intellectual disabilities; G80.0 Spastic quadriplegic cerebral palsy; E44.1 Mild protein-calorie malnutrition; E87.1 Hypo-osmolality and hyponatremia; N31.9 Neuromuscular dysfunction of bladder, unspecified; E86.0 Dehydration; G40.909 Epilepsy, unspecified, not intractable, without status epilepticus; K59.09 Other constipation; J45.909 Unspecified asthma, uncomplicated; H50.00 Unspecified esotropia; F88 Other disorders of psychological development; Z93.1 Gastrostomy status; Z99.3 Dependence on wheelchair; Z68.28 Body mass index [BMI] 28.0-28.9, adult
CPT/HCPCS: 82962; 83880; 87804; J0456; J1956; J2543; J3370; J3490; J7030; J7050; J7620; J7633; J8597; Q0092

== ENCOUNTER 2017-10-19 18:51 | Inpatient (IN) | payer MEDICAID ==
[~2017-10-19] VITALS: Ht 167.6 cm; Wt 70.8 kg
[~2017-10-19 18:51] MED LIST changes: +CLEOCIN HCL300 MG PO; +KEN10 TOP; +LAC NG; +LEVAQUIN750 MG PO; +VAS TOP
[2017-10-19 20:18] LABS: CALCIUM 9.1 mg/dL (8.5-10.1); CARBON DIOXIDE 31.1 mmol/L (21-32); CHLORIDE SERUM 100 mmol/L (98-107); CREATININE SERUM 0.6 mg/dL (0.7-1.3); GFR1 > 60 mL/min; GLUCOSE SERUM 60 mg/dL (74-106); POTASSIUM SERUM 3.5 mmol/L (3.5-5.1); SODIUM SERUM 138 mmol/L (136-145)
[2017-10-19 20:29] LABS: ALKALINE PHOSPHATASE 111 U/L (46-116); ALT/SGPT 83 U/L (16-63); AST/SGOT 75 U/L (15-37); BILIRUBIN TOTAL 0.47 mg/dL (0.20-1.00); TOTAL PROTEIN, SERUM 8.2 g/dL (6.4-8.2)
[2017-10-19 20:33] LABS: CK-MB < 0.5 ng/mL (0-3.6); CREATINE KINASE 60 U/L (39-308)
[2017-10-19 20:36] LABS: ALBUMIN 3.3 g/dL (3.4-5.0)
[2017-10-19 20:55] LABS: RED CELL DISTRIBUTION WIDTH 12.7 % (11.5-14.5)
[2017-10-19 20:58] LABS: PLATELET COUNT 127 x10^3mcL (130-400)
[2017-10-19 21:13] LABS: UA SPECIFIC GRAVITY <=1.005 (1.005-1.035); microscopic required? YES; urine erythrocyte TRACE (NEGATIVE)
[2017-10-19 21:20] LABS: BAND NEUTROPHIL 0 % (0-10); BASOPHIL 0 % (0-2); MONOCYTE 20 % (0-7); SEGMENTED NEUTROPHILS 45 % (37-75); rbc morphology (normal/abnorm) ABNORMAL (NORMAL)
[2017-10-20] VITALS (7 sets, daily range): BP systolic 94–108; BP diastolic 53–70; Ht 167.6 cm; Wt 70.8 kg
[2017-10-20 03:50] LABS: MAGNESIUM 2.1 mg/dL (1.8-2.4); PHOSPHOROUS 3.4 mg/dL (2.5-4.9)
[2017-10-20 03:53] LABS: CHOLESTEROL/HDL RATIO 2.9
[2017-10-20 03:57] LABS: FREE T4 1.04 ng/dL (0.76-1.46); FREE THYROXINE INDEX 2.4 ug/dL (1.4-4.5); T4(THYROXINE) 7.2 ug/dL (4.7-13.3)
[2017-10-20 03:58] LABS: T3 TOTAL 1.09 ng/mL
[2017-10-20 06:48] LABS: RED CELL DISTRIBUTION WIDTH 12.8 % (11.5-14.5)
[2017-10-20 07:00] LABS: CALCIUM 8.8 mg/dL (8.5-10.1); CARBON DIOXIDE 27.7 mmol/L (21-32); CHLORIDE SERUM 108 mmol/L (98-107); CREATININE SERUM 0.6 mg/dL (0.7-1.3); GFR1 > 60 mL/min; GLUCOSE SERUM 130 mg/dL (74-106); PHOSPHOROUS 3.3 mg/dL (2.5-4.9); PLATELET COUNT 106 x10^3mcL (130-400); POTASSIUM SERUM 4.4 mmol/L (3.5-5.1); SODIUM SERUM 144 mmol/L (136-145)
[2017-10-20 07:57] LABS: BAND NEUTROPHIL 13 % (0-10); BASOPHIL 0 % (0-2); MONOCYTE 9 % (0-7); SEGMENTED NEUTROPHILS 49 % (37-75)
[2017-10-20 07:58] LABS: PLATELET MORPHOLOGY PLATELETS DECREASED
[2017-10-21 06:24] VITALS: BP 138/90
[2017-10-21 06:44] LABS: RED CELL DISTRIBUTION WIDTH 13.3 % (11.5-14.5)
[2017-10-21 07:30] VITALS: BP 94/42
[2017-10-21 07:38] LABS: PLATELET COUNT 94 x10^3mcL (130-400)
[2017-10-21 08:26] LABS: CALCIUM 8.2 mg/dL (8.5-10.1); CARBON DIOXIDE 26.9 mmol/L (21-32); CHLORIDE SERUM 107 mmol/L (98-107); CREATININE SERUM 0.6 mg/dL (0.7-1.3); GFR1 > 60 mL/min; GLUCOSE SERUM 104 mg/dL (74-106); MAGNESIUM 1.8 mg/dL (1.8-2.4); PHOSPHOROUS 3.7 mg/dL (2.5-4.9); POTASSIUM SERUM 3.4 mmol/L (3.5-5.1); SODIUM SERUM 144 mmol/L (136-145)
[2017-10-21 10:57] LABS: BAND NEUTROPHIL 11 % (0-10); BASOPHIL 0 % (0-2); MONOCYTE 12 % (0-7); SEGMENTED NEUTROPHILS 42 % (37-75)
[2017-10-21 10:59] LABS: PLATELET MORPHOLOGY PLATELETS DECREASED
[2017-10-21 11:30] VITALS: BP 105/61
[2017-10-21 16:35] VITALS: BP 101/62
[2017-10-21 20:25] VITALS: BP 101/51
[2017-10-22 05:46] VITALS: BP 101/71
[2017-10-22 06:57] LABS: BASOPHIL % 0.3 % (0-2); RED CELL DISTRIBUTION WIDTH 13.1 % (11.5-14.5)
[2017-10-22 07:00] LABS: PLATELET COUNT 113 x10^3mcL (130-400)
[2017-10-22 07:38] LABS: CALCIUM 8.5 mg/dL (8.5-10.1); CARBON DIOXIDE 29.1 mmol/L (21-32); CHLORIDE SERUM 105 mmol/L (98-107); CREATININE SERUM 0.6 mg/dL (0.7-1.3); GFR1 > 60 mL/min; GLUCOSE SERUM 68 mg/dL (74-106); MAGNESIUM 1.9 mg/dL (1.8-2.4); PHOSPHOROUS 4.8 mg/dL (2.5-4.9); POTASSIUM SERUM 4.1 mmol/L (3.5-5.1); SODIUM SERUM 142 mmol/L (136-145)
[2017-10-22 09:22] VITALS: BP 98/67
[2017-10-22 13:48] VITALS: BP 104/58
[2017-10-22 17:18] VITALS: BP 95/68
[2017-10-22 20:54] VITALS: BP 114/73
[2017-10-23 05:23] VITALS: BP 90/51
[2017-10-23 07:34] LABS: BASOPHIL % 0.4 % (0-2); PLATELET COUNT 137 x10^3mcL (130-400); RED CELL DISTRIBUTION WIDTH 13.1 % (11.5-14.5)
[2017-10-23 07:40] LABS: CALCIUM 9.2 mg/dL (8.5-10.1); CARBON DIOXIDE 27.8 mmol/L (21-32); CHLORIDE SERUM 105 mmol/L (98-107); CREATININE SERUM 0.5 mg/dL (0.7-1.3); GFR1 > 60 mL/min; GLUCOSE SERUM 100 mg/dL (74-106); MAGNESIUM 2.2 mg/dL (1.8-2.4); PHOSPHOROUS 4.7 mg/dL (2.5-4.9); POTASSIUM SERUM 4.1 mmol/L (3.5-5.1); SODIUM SERUM 140 mmol/L (136-145)
[2017-10-23 07:58] VITALS: BP 99/61
[2017-10-23 13:31] VITALS: BP 90/53
[2017-10-23 17:10] VITALS: BP 100/57
[2017-10-23 20:57] VITALS: BP 102/54
[2017-10-24 05:12] VITALS: BP 93/51
[2017-10-24 06:21] LABS: BASOPHIL % 0.5 % (0-2); PLATELET COUNT 146 x10^3mcL (130-400); RED CELL DISTRIBUTION WIDTH 12.9 % (11.5-14.5)
[2017-10-24 06:50] LABS: CALCIUM 8.9 mg/dL (8.5-10.1); CARBON DIOXIDE 30.7 mmol/L (21-32); CHLORIDE SERUM 101 mmol/L (98-107); CREATININE SERUM 0.7 mg/dL (0.7-1.3); GFR1 > 60 mL/min; GLUCOSE SERUM 81 mg/dL (74-106); MAGNESIUM 2.1 mg/dL (1.8-2.4); PHOSPHOROUS 4.6 mg/dL (2.5-4.9); POTASSIUM SERUM 4.3 mmol/L (3.5-5.1); SODIUM SERUM 137 mmol/L (136-145)
[2017-10-24 09:36] VITALS: BP 98/37
[2017-10-24] MEDS ORDERED: LEVAQUIN750 MG GT (10:58)
[2017-10-24] MEDS ORDERED: CLEOCIN HCL300 MG GT (10:59)
[2017-10-24] MEDS ORDERED: LAC GT (11:00)
[2017-10-24 11:30] VITALS: BP 98/37
== END 2017-10-24 14:20 | disposition home or self-care (01) | DRG 720 ==
LOC: ED 18:51 → DU 10-20 00:07 → MU 10-23 10:49
PROVIDERS: Emergency Medicine Emergency Medical Services; Family Medicine; Student in an Organized Health Care Education/Training Program
DX: A41.9 Sepsis, unspecified organism (principal); N17.0 Acute kidney failure with tubular necrosis; J96.00 Acute respiratory failure, unspecified whether with hypoxia or hypercapnia; J69.0 Pneumonitis due to inhalation of food and vomit; Z68.31 Body mass index [BMI] 31.0-31.9, adult; G80.1 Spastic diplegic cerebral palsy; Z88.8 Allergy status to other drugs, medicaments and biological substances; J45.909 Unspecified asthma, uncomplicated; K21.9 Gastro-esophageal reflux disease without esophagitis; G40.909 Epilepsy, unspecified, not intractable, without status epilepticus; H50.00 Unspecified esotropia; K59.09 Other constipation; E44.0 Moderate protein-calorie malnutrition; E87.6 Hypokalemia; E83.51 Hypocalcemia; N31.9 Neuromuscular dysfunction of bladder, unspecified; Z88.0 Allergy status to penicillin; Z88.1 Allergy status to other antibiotic agents; Z93.1 Gastrostomy status; Z79.899 Other long term (current) drug therapy
CPT/HCPCS: 31720; 36600; 83880; 84439; J0171; J1200; J1956; J2543; J2930; J3480; J3490; J7030; J7040; J7620; J7633; J8597; Q0092

== ENCOUNTER 2018-02-01 21:39 | Emergency (ER) | payer MEDICAID ==
[~2018-02-01] VITALS: Ht 170.2 cm; Wt 77.1 kg
[2018-02-01 21:50] VITALS: Ht 170.2 cm; Wt 77.1 kg
[2018-02-01 22:59] LABS: BASOPHIL % 0.3 % (0-2); PLATELET COUNT 137 x10^3mcL (130-400); RED CELL DISTRIBUTION WIDTH 12.7 % (11.5-14.5)
[2018-02-01 23:18] LABS: CALCIUM 8.9 mg/dL (8.5-10.1); CARBON DIOXIDE 27.3 mmol/L (21-32); CHLORIDE SERUM 104 mmol/L (98-107); CREATININE SERUM 0.6 mg/dL (0.7-1.3); GFR1 > 60 mL/min; GLUCOSE SERUM 135 mg/dL (74-106); POTASSIUM SERUM 3.7 mmol/L (3.5-5.1); SODIUM SERUM 140 mmol/L (136-145)
[2018-02-01 23:23] LABS: ALKALINE PHOSPHATASE 131 U/L (46-116); ALT/SGPT 49 U/L (16-63); AST/SGOT 31 U/L (15-37); BILIRUBIN TOTAL 0.4 mg/dL (0.20-1.00); HDL CHOLESTEROL 41 mg/dL (40-60); TOTAL PROTEIN, SERUM 7.4 g/dL (6.4-8.2)
[2018-02-01 23:24] LABS: microscopic required? YES; urine erythrocyte TRACE (NEGATIVE)
[2018-02-01 23:24] LABS: ALBUMIN 3.1 g/dL (3.4-5.0); CHOLESTEROL 117 mg/dL (<200)
[2018-02-02 02:47] VITALS: BP 105/61
== END 2018-02-02 02:47 | disposition home or self-care (01) ==
LOC: ED 21:39
PROVIDERS: Emergency Medicine
DX: J20.9 Acute bronchitis, unspecified (principal); F79 Unspecified intellectual disabilities; J45.909 Unspecified asthma, uncomplicated; Z88.0 Allergy status to penicillin
CPT/HCPCS: 83880; J7030

== ENCOUNTER 2018-02-06 13:43 | Inpatient (IN) | payer MEDICAID ==
[~2018-02-06] VITALS: Ht 167.6 cm; Wt 72.1 kg
[~2018-02-06 13:43] MED LIST changes: +NUTREN 1.5250 ML GT; -NUTREN 1.5250 ML PO
[2018-02-06 13:49] VITALS: Ht 167.6 cm; Wt 72.1 kg
[2018-02-06 15:57] LABS: BASOPHIL % 0.1 % (0-2)
[2018-02-06 16:02] LABS: PLATELET COUNT 108 x10^3mcL (130-400)
[2018-02-06 16:03] LABS: CALCIUM 9.3 mg/dL (8.5-10.1); CARBON DIOXIDE 25.3 mmol/L (21-32); CHLORIDE SERUM 103 mmol/L (98-107); CREATININE SERUM 0.6 mg/dL (0.7-1.3); GFR1 > 60 mL/min; GLUCOSE SERUM 95 mg/dL (74-106); POTASSIUM SERUM 3.9 mmol/L (3.5-5.1); SODIUM SERUM 138 mmol/L (136-145)
[2018-02-06 16:07] LABS: ALBUMIN 3.5 g/dL (3.4-5.0); ALKALINE PHOSPHATASE 127 U/L (46-116); ALT/SGPT 43 U/L (16-63); AST/SGOT 31 U/L (15-37); BILIRUBIN TOTAL 0.7 mg/dL (0.20-1.00); TOTAL PROTEIN, SERUM 8.1 g/dL (6.4-8.2)
[2018-02-06 16:51] LABS: microscopic required? YES; urine erythrocyte TRACE (NEGATIVE)
[2018-02-06 17:08] LABS: MAGNESIUM 2.1 mg/dL (1.8-2.4); PHOSPHOROUS 3.2 mg/dL (2.5-4.9)
[2018-02-06 17:09] VITALS: BP 139/73
[2018-02-06 17:27] LABS: T3 TOTAL 1.18 ng/mL
[2018-02-06 17:32] LABS: FREE T4 0.98 ng/dL (0.76-1.46); FREE THYROXINE INDEX 2.6 ug/dL (1.4-4.5); T4(THYROXINE) 7.5 ug/dL (4.7-13.3)
[2018-02-06 20:23] VITALS: BP 107/62
[2018-02-06] MEDS ORDERED: DEPAKOTE500 MG GT (21:14)
[2018-02-06] MEDS ORDERED: REG50I GT (21:18)
[2018-02-06] MEDS ORDERED: GLYCOPYRROLATE1 M1 GT (21:19)
[2018-02-07 05:26] VITALS: BP 105/50
[2018-02-07 06:55] LABS: CALCIUM 8.9 mg/dL (8.5-10.1); CARBON DIOXIDE 28.4 mmol/L (21-32); CHLORIDE SERUM 105 mmol/L (98-107); CREATININE SERUM 0.6 mg/dL (0.7-1.3); GFR1 > 60 mL/min; GLUCOSE SERUM 115 mg/dL (74-106); HDL CHOLESTEROL 52 mg/dL (40-60); MAGNESIUM 2.2 mg/dL (1.8-2.4); PHOSPHOROUS 3.3 mg/dL (2.5-4.9); POTASSIUM SERUM 3.4 mmol/L (3.5-5.1); SODIUM SERUM 142 mmol/L (136-145); TRIGLYCERIDES 69 mg/dL (<150)
[2018-02-07 06:58] LABS: CHOLESTEROL 89 mg/dL (<200); CHOLESTEROL/HDL RATIO 1.7
[2018-02-07 07:04] LABS: BASOPHIL % 0.3 % (0-2); RED CELL DISTRIBUTION WIDTH 12.9 % (11.5-14.5)
[2018-02-07 07:05] LABS: PLATELET COUNT 110 x10^3mcL (130-400)
[2018-02-07 08:59] VITALS: BP 98/70
[2018-02-07 12:16] VITALS: BP 104/65
[2018-02-07 17:15] VITALS: BP 93/50
[2018-02-07 21:03] VITALS: BP 110/64
[2018-02-08 05:20] VITALS: BP 101/57
[2018-02-08 06:35] LABS: BASOPHIL % 0.3 % (0-2); RED CELL DISTRIBUTION WIDTH 12.8 % (11.5-14.5)
[2018-02-08 06:59] LABS: CALCIUM 9.1 mg/dL (8.5-10.1); CARBON DIOXIDE 26.2 mmol/L (21-32); CHLORIDE SERUM 110 mmol/L (98-107); CREATININE SERUM 0.6 mg/dL (0.7-1.3); GFR1 > 60 mL/min; GLUCOSE SERUM 162 mg/dL (74-106); MAGNESIUM 2.1 mg/dL (1.8-2.4); PHOSPHOROUS 3.9 mg/dL (2.5-4.9); POTASSIUM SERUM 3.8 mmol/L (3.5-5.1); SODIUM SERUM 143 mmol/L (136-145)
[2018-02-08 07:48] LABS: PLATELET COUNT 104 x10^3mcL (130-400)
[2018-02-08 09:54] VITALS: BP 98/57
[2018-02-08 14:05] VITALS: BP 100/65
[2018-02-08 17:18] VITALS: BP 100/57
[2018-02-08 20:47] VITALS: BP 92/55
[2018-02-09 01:18] VITALS: BP 101/55
[2018-02-09 04:45] VITALS: BP 104/58
[2018-02-09 07:52] LABS: RED CELL DISTRIBUTION WIDTH 13.1 % (11.5-14.5)
[2018-02-09 08:26] LABS: PLATELET COUNT 125 x10^3mcL (130-400)
[2018-02-09 09:31] VITALS: BP 116/74
[2018-02-09 10:06] LABS: MONOCYTE 2 % (0-7); PLATELET MORPHOLOGY PLATELETS DECREASED; SEGMENTED NEUTROPHILS 39 % (37-75); rbc morphology (normal/abnorm) ABNORMAL (NORMAL)
[2018-02-09 17:15] VITALS: BP 91/50
[2018-02-09 22:14] VITALS: BP 133/47
[2018-02-10 04:37] VITALS: BP 98/58
[2018-02-10 09:00] VITALS: BP 93/61
[2018-02-10 17:02] VITALS: BP 86/53
[2018-02-10 22:36] VITALS: BP 105/63
[2018-02-11 04:44] VITALS: BP 101/55
[2018-02-11 09:06] VITALS: BP 103/63
[2018-02-11 12:19] VITALS: BP 92/65
[2018-02-11 17:10] VITALS: BP 101/58; BP 112/72
[2018-02-11 21:04] VITALS: BP 109/64
[2018-02-12 05:38] VITALS: BP 94/63
[2018-02-12 06:47] LABS: CALCIUM 8.6 mg/dL (8.5-10.1); CHLORIDE SERUM 105 mmol/L (98-107); CREATININE SERUM 0.5 mg/dL (0.7-1.3); GFR1 > 60 mL/min; GLUCOSE SERUM 99 mg/dL (74-106); POTASSIUM SERUM 3.7 mmol/L (3.5-5.1); SODIUM SERUM 141 mmol/L (136-145)
[2018-02-12 06:58] LABS: BASOPHIL % 0.4 % (0-2); PLATELET COUNT 154 x10^3mcL (130-400); RED CELL DISTRIBUTION WIDTH 13.3 % (11.5-14.5)
[2018-02-12 09:01] VITALS: BP 109/61
[2018-02-12] MEDS ORDERED: VALLUD GT (09:41)
[2018-02-12 12:39] VITALS: BP 109/61
[2018-02-12 12:47] VITALS: BP 111/63
[2018-02-12 12:49] VITALS: BP 109/61
== END 2018-02-12 14:30 | DRG 137 ==
LOC: ED 13:43 → MU 16:23 → DU 16:23 → MU 02-09 06:37
PROVIDERS: Emergency Medicine; Family Medicine; Student in an Organized Health Care Education/Training Program
DX: J69.0 Pneumonitis due to inhalation of food and vomit (principal); N17.0 Acute kidney failure with tubular necrosis; D69.6 Thrombocytopenia, unspecified; J45.901 Unspecified asthma with (acute) exacerbation; N30.90 Cystitis, unspecified without hematuria; F73 Profound intellectual disabilities; G90.8 Other disorders of autonomic nervous system; N31.9 Neuromuscular dysfunction of bladder, unspecified; E86.0 Dehydration; E87.6 Hypokalemia; K59.00 Constipation, unspecified; H50.00 Unspecified esotropia; G80.1 Spastic diplegic cerebral palsy; G40.909 Epilepsy, unspecified, not intractable, without status epilepticus; Z68.23 Body mass index [BMI] 23.0-23.9, adult; Z93.1 Gastrostomy status
CPT/HCPCS: 36600; 76770; 83880; 84439; J1956; J2405; J2920; J2930; J3490; J3535; J7030; J7620; Q0092

== ENCOUNTER 2018-02-16 20:44 | Inpatient (IN) | payer MEDICAID ==
[~2018-02-16] VITALS: Ht 162.6 cm; Wt 69.4 kg
[~2018-02-16 20:44] MED LIST changes: +DEPAKOTE500 MG GT; +REG50I GT; +VALLUD GT
[2018-02-16 20:49] VITALS: Ht 162.6 cm; Wt 69.4 kg
[2018-02-16 21:26] LABS: BASOPHIL % 0.3 % (0-2); PLATELET COUNT 137 x10^3mcL (130-400); RED CELL DISTRIBUTION WIDTH 12.9 % (11.5-14.5)
[2018-02-16 21:51] LABS: CREATINE KINASE 38 U/L (39-308)
[2018-02-16 21:56] LABS: CARBON DIOXIDE 28.2 mmol/L (21-32); CHLORIDE SERUM 104 mmol/L (98-107); SODIUM SERUM 141 mmol/L (136-145)
[2018-02-16 21:57] LABS: ALBUMIN 3.3 g/dL (3.4-5.0); CREATININE SERUM 0.6 mg/dL (0.7-1.3); GFR1 > 60 mL/min; GLUCOSE SERUM 75 mg/dL (74-106); TOTAL PROTEIN, SERUM 7.9 g/dL (6.4-8.2)
[2018-02-16 21:58] LABS: ALKALINE PHOSPHATASE 115 U/L (46-116); ALT/SGPT 59 U/L (16-63); AST/SGOT 29 U/L (15-37); BILIRUBIN TOTAL 0.39 mg/dL (0.20-1.00); CALCIUM 9.2 mg/dL (8.5-10.1)
[2018-02-16 22:13] LABS: CK-MB < 0.5 ng/mL (0-3.6)
[2018-02-16 23:16] LABS: microscopic required? YES; urine erythrocyte NEGATIVE (NEGATIVE)
[2018-02-17] VITALS (8 sets, daily range): BP systolic 98–119; BP diastolic 58–80
[2018-02-17 00:04] LABS: MAGNESIUM 1.9 mg/dL (1.8-2.4); PHOSPHOROUS 3.5 mg/dL (2.5-4.9)
[2018-02-17 00:10] LABS: CHOLESTEROL/HDL RATIO 3.4
[2018-02-17 00:14] LABS: T3 TOTAL 1.36 ng/mL
[2018-02-17 00:18] LABS: FREE T4 1.18 ng/dL (0.76-1.46); FREE THYROXINE INDEX 3.3 ug/dL (1.4-4.5); T4(THYROXINE) 9.3 ug/dL (4.7-13.3)
[2018-02-17 06:54] LABS: CALCIUM 8.7 mg/dL (8.5-10.1); CARBON DIOXIDE 27.3 mmol/L (21-32); CHLORIDE SERUM 102 mmol/L (98-107); CREATININE SERUM 0.7 mg/dL (0.7-1.3); GFR1 > 60 mL/min; GLUCOSE SERUM 128 mg/dL (74-106); MAGNESIUM 1.6 mg/dL (1.8-2.4); POTASSIUM SERUM 4.1 mmol/L (3.5-5.1); RED CELL DISTRIBUTION WIDTH 13.1 % (11.5-14.5); SODIUM SERUM 138 mmol/L (136-145)
[2018-02-17 07:00] LABS: BASOPHIL % 0 % (0-2); PLATELET COUNT 123 x10^3mcL (130-400)
[2018-02-18 05:37] VITALS: BP 97/52
[2018-02-18 05:56] LABS: RED CELL DISTRIBUTION WIDTH 12.9 % (11.5-14.5)
[2018-02-18 06:22] LABS: CALCIUM 8.7 mg/dL (8.5-10.1); CARBON DIOXIDE 28.2 mmol/L (21-32); CHLORIDE SERUM 106 mmol/L (98-107); CREATININE SERUM 0.6 mg/dL (0.7-1.3); GFR1 > 60 mL/min; GLUCOSE SERUM 155 mg/dL (74-106); MAGNESIUM 1.8 mg/dL (1.8-2.4); PHOSPHOROUS 2.9 mg/dL (2.5-4.9); POTASSIUM SERUM 4.1 mmol/L (3.5-5.1); SODIUM SERUM 143 mmol/L (136-145)
[2018-02-18 06:35] LABS: BASOPHIL % 0 % (0-2); PLATELET COUNT 121 x10^3mcL (130-400)
[2018-02-18 10:33] VITALS: BP 96/40
[2018-02-18 11:33] VITALS: BP 96/40
== END 2018-02-18 13:10 | DRG 137 ==
LOC: ED 20:44 → DU 23:30
PROVIDERS: Emergency Medicine; Family Medicine
DX: J69.0 Pneumonitis due to inhalation of food and vomit (principal); J96.00 Acute respiratory failure, unspecified whether with hypoxia or hypercapnia; N17.0 Acute kidney failure with tubular necrosis; J45.901 Unspecified asthma with (acute) exacerbation; N31.9 Neuromuscular dysfunction of bladder, unspecified; E44.1 Mild protein-calorie malnutrition; E83.42 Hypomagnesemia; Z93.1 Gastrostomy status; G80.9 Cerebral palsy, unspecified; N39.0 Urinary tract infection, site not specified; K21.9 Gastro-esophageal reflux disease without esophagitis; K59.09 Other constipation; G40.909 Epilepsy, unspecified, not intractable, without status epilepticus; Z68.29 Body mass index [BMI] 29.0-29.9, adult; Z88.1 Allergy status to other antibiotic agents
CPT/HCPCS: 36600; 83880; 84439; J1956; J2930; J3475; J3490; J7030; J7620; J7626; J8597; Q0092

== ENCOUNTER 2018-02-23 23:03 | Inpatient (IN) | payer MEDICAID ==
[~2018-02-23] VITALS: Ht 162.6 cm; Wt 69.5 kg
[2018-02-23 23:22] VITALS: Ht 162.6 cm; Wt 69.5 kg
[2018-02-24 00:17] LABS: BASOPHIL % 0.2 % (0-2); RED CELL DISTRIBUTION WIDTH 13.5 % (11.5-14.5)
[2018-02-24 00:25] LABS: ALKALINE PHOSPHATASE 106 U/L (46-116); ALT/SGPT 19 U/L (16-63); AST/SGOT 12 U/L (15-37); BILIRUBIN TOTAL 0.5 mg/dL (0.20-1.00); CALCIUM 8.5 mg/dL (8.5-10.1); CARBON DIOXIDE 31.3 mmol/L (21-32); CHLORIDE SERUM 102 mmol/L (98-107); CREATININE SERUM 0.7 mg/dL (0.7-1.3); GFR1 > 60 mL/min; GLUCOSE SERUM 96 mg/dL (74-106); LIPASE 129 IU/L (73-393); POTASSIUM SERUM 3.9 mmol/L (3.5-5.1); SODIUM SERUM 138 mmol/L (136-145); TOTAL PROTEIN, SERUM 7.1 g/dL (6.4-8.2)
[2018-02-24 00:56] LABS: PLATELET COUNT 128 x10^3mcL (130-400)
[2018-02-24 03:24] LABS: UA SPECIFIC GRAVITY <=1.005 (1.005-1.035); microscopic required? YES; urine erythrocyte TRACE (NEGATIVE)
[2018-02-24 04:33] LABS: AMPHETAMINE QUAL UR NONE DETECTED (See below)
[2018-02-24 04:33] LABS: PHOSPHOROUS 1.7 mg/dL (2.5-4.9)
[2018-02-24 04:35] LABS: CHOLESTEROL/HDL RATIO 2.2
[2018-02-24 04:38] LABS: T3 TOTAL 1.01 ng/mL
[2018-02-24 04:42] LABS: FREE T4 1.04 ng/dL (0.76-1.46); FREE THYROXINE INDEX 2.3 ug/dL (1.4-4.5); T4(THYROXINE) 6.7 ug/dL (4.7-13.3)
[2018-02-24 04:58] VITALS: BP 115/61
[2018-02-24 09:51] VITALS: BP 92/37
[2018-02-24 12:21] VITALS: BP 113/63
[2018-02-24 17:20] VITALS: BP 102/66
[2018-02-24 20:03] VITALS: BP 119/68
[2018-02-25 05:43] VITALS: BP 107/66
[2018-02-25 07:08] LABS: CALCIUM 8.6 mg/dL (8.5-10.1); CARBON DIOXIDE 25.4 mmol/L (21-32); CHLORIDE SERUM 108 mmol/L (98-107); CREATININE SERUM 0.6 mg/dL (0.7-1.3); GFR1 > 60 mL/min; GLUCOSE SERUM 111 mg/dL (74-106); MAGNESIUM 1.9 mg/dL (1.8-2.4); PHOSPHOROUS 4.1 mg/dL (2.5-4.9); POTASSIUM SERUM 4.1 mmol/L (3.5-5.1); SODIUM SERUM 142 mmol/L (136-145)
[2018-02-25 07:10] LABS: BASOPHIL % 0.4 % (0-2); RED CELL DISTRIBUTION WIDTH 13.2 % (11.5-14.5)
[2018-02-25 07:34] LABS: PLATELET COUNT 126 x10^3mcL (130-400)
[2018-02-25 09:28] VITALS: BP 130/71
[2018-02-25 12:48] VITALS: BP 110/70
[2018-02-25 16:36] VITALS: BP 150/69
[2018-02-25 20:50] VITALS: BP 100/70
[2018-02-26 05:48] VITALS: BP 114/71
[2018-02-26 06:51] LABS: CALCIUM 8.7 mg/dL (8.5-10.1); CARBON DIOXIDE 26.9 mmol/L (21-32); CHLORIDE SERUM 108 mmol/L (98-107); CREATININE SERUM 0.6 mg/dL (0.7-1.3); GFR1 > 60 mL/min; GLUCOSE SERUM 100 mg/dL (74-106); MAGNESIUM 1.8 mg/dL (1.8-2.4); PHOSPHOROUS 4.2 mg/dL (2.5-4.9); POTASSIUM SERUM 3.9 mmol/L (3.5-5.1); SODIUM SERUM 145 mmol/L (136-145)
[2018-02-26 07:18] LABS: BASOPHIL % 0.4 % (0-2); PLATELET COUNT 130 x10^3mcL (130-400); RED CELL DISTRIBUTION WIDTH 13.1 % (11.5-14.5)
[2018-02-26 10:58] VITALS: BP 115/76
[2018-02-26 13:23] VITALS: BP 97/50
[2018-02-26 17:41] VITALS: BP 112/74; BP 112/76
[2018-02-26 21:36] VITALS: BP 92/52
[2018-02-27 05:42] VITALS: BP 95/55
[2018-02-27 06:36] LABS: BASOPHIL % 0.5 % (0-2); PLATELET COUNT 149 x10^3mcL (130-400); RED CELL DISTRIBUTION WIDTH 13.3 % (11.5-14.5)
[2018-02-27 07:00] LABS: CALCIUM 8.5 mg/dL (8.5-10.1); CARBON DIOXIDE 32.6 mmol/L (21-32); CHLORIDE SERUM 107 mmol/L (98-107); CREATININE SERUM 0.6 mg/dL (0.7-1.3); GFR1 > 60 mL/min; GLUCOSE SERUM 80 mg/dL (74-106); MAGNESIUM 1.8 mg/dL (1.8-2.4); PHOSPHOROUS 4.1 mg/dL (2.5-4.9); POTASSIUM SERUM 4.4 mmol/L (3.5-5.1); SODIUM SERUM 144 mmol/L (136-145)
[2018-02-27 09:46] VITALS: BP 94/76
[2018-02-27 13:40] VITALS: BP 103/57
[2018-02-27 16:28] VITALS: BP 120/53
[2018-02-27 20:31] VITALS: BP 114/85
[2018-02-28 06:00] VITALS: BP 124/49
[2018-02-28 06:23] LABS: BASOPHIL % 0.5 % (0-2); PLATELET COUNT 145 x10^3mcL (130-400); RED CELL DISTRIBUTION WIDTH 13.3 % (11.5-14.5)
[2018-02-28 06:40] LABS: CALCIUM 8.5 mg/dL (8.5-10.1); CARBON DIOXIDE 29.8 mmol/L (21-32); CHLORIDE SERUM 108 mmol/L (98-107); CREATININE SERUM 0.6 mg/dL (0.7-1.3); GFR1 > 60 mL/min; GLUCOSE SERUM 79 mg/dL (74-106); MAGNESIUM 1.9 mg/dL (1.8-2.4); PHOSPHOROUS 3.5 mg/dL (2.5-4.9); POTASSIUM SERUM 4.2 mmol/L (3.5-5.1); SODIUM SERUM 143 mmol/L (136-145)
[2018-02-28 09:30] VITALS: BP 111/67
[2018-02-28 17:48] VITALS: BP 106/57
[2018-02-28 21:06] VITALS: BP 107/64
[2018-03-01 05:38] VITALS: BP 105/63
[2018-03-01 07:25] LABS: BASOPHIL % 0.3 % (0-2); PLATELET COUNT 142 x10^3mcL (130-400); RED CELL DISTRIBUTION WIDTH 13.2 % (11.5-14.5)
[2018-03-01 07:29] LABS: CALCIUM 8.5 mg/dL (8.5-10.1); CARBON DIOXIDE 26.8 mmol/L (21-32); CHLORIDE SERUM 107 mmol/L (98-107); CREATININE SERUM 0.5 mg/dL (0.7-1.3); GFR1 > 60 mL/min; GLUCOSE SERUM 97 mg/dL (74-106); PHOSPHOROUS 3.4 mg/dL (2.5-4.9); POTASSIUM SERUM 4.5 mmol/L (3.5-5.1); SODIUM SERUM 141 mmol/L (136-145)
[2018-03-01 09:12] VITALS: BP 107/64
[2018-03-01 14:19] VITALS: BP 100/61
[2018-03-01] MEDS ORDERED: LAC GT (17:19)
[2018-03-01] MEDS ORDERED: PREMIERPRO RX ME1 GM IV (17:21)
[2018-03-01 17:31] VITALS: BP 107/70
[2018-03-01 17:39] VITALS: BP 107/70
== END 2018-03-01 20:29 | DRG 720 ==
LOC: ED 23:03 → DU 02-24 03:44 → MU 02-27 19:39
PROVIDERS: Emergency Medicine; Family Medicine
DX: A41.9 Sepsis, unspecified organism (principal); E44.0 Moderate protein-calorie malnutrition; G80.0 Spastic quadriplegic cerebral palsy; E83.39 Other disorders of phosphorus metabolism; N39.0 Urinary tract infection, site not specified; R31.9 Hematuria, unspecified; B96.20 Unspecified Escherichia coli [E. coli] as the cause of diseases classified elsewhere; R06.03 Acute respiratory distress; K21.9 Gastro-esophageal reflux disease without esophagitis; N31.9 Neuromuscular dysfunction of bladder, unspecified; N39.498 Other specified urinary incontinence; R15.9 Full incontinence of feces; K59.09 Other constipation; F79 Unspecified intellectual disabilities; G40.909 Epilepsy, unspecified, not intractable, without status epilepticus; H50.00 Unspecified esotropia; Z68.27 Body mass index [BMI] 27.0-27.9, adult; Z16.24 Resistance to multiple antibiotics; Z16.12 Extended spectrum beta lactamase (ESBL) resistance; Z93.1 Gastrostomy status
CPT/HCPCS: 83880; 84439; J1956; J2185; J3490; J7030; J7040; J7620; J7626; J8597; Q0092

== ENCOUNTER 2018-05-01 17:14 | Inpatient (IN) | payer MEDICAID ==
[~2018-05-01] VITALS: Ht 165.1 cm; Wt 72.0 kg
[~2018-05-01 17:14] MED LIST changes: +PREMIERPRO RX ME1 GM IV
[2018-05-01 18:22] LABS: BASOPHIL % 0.2 % (0-2); RED CELL DISTRIBUTION WIDTH 13.1 % (11.5-14.5)
[2018-05-01 18:33] LABS: CALCIUM 9.2 mg/dL (8.5-10.1); CARBON DIOXIDE 31.8 mmol/L (21-32); CHLORIDE SERUM 102 mmol/L (98-107); CREATININE SERUM 0.8 mg/dL (0.7-1.3); GFR1 > 60 mL/min; GLUCOSE SERUM 106 mg/dL (74-106); POTASSIUM SERUM 3.5 mmol/L (3.5-5.1); SODIUM SERUM 142 mmol/L (136-145)
[2018-05-01 18:34] LABS: PLATELET COUNT 105 x10^3mcL (130-400)
[2018-05-01 18:38] LABS: ALBUMIN 3.9 g/dL (3.4-5.0); ALKALINE PHOSPHATASE 120 U/L (46-116); ALT/SGPT 22 U/L (16-63); AST/SGOT 23 U/L (15-37); BILIRUBIN TOTAL 0.68 mg/dL (0.20-1.00); TOTAL PROTEIN, SERUM 8.9 g/dL (6.4-8.2)
[2018-05-01] MEDS ORDERED: GLYCOPYRROLATE1 M1 GT (19:50)
[2018-05-01] MEDS ORDERED: KEPPRA1000 M1 GT (19:50)
[2018-05-01 20:24] LABS: microscopic required? YES; urine erythrocyte 1+ (NEGATIVE)
[2018-05-01 23:13] VITALS: BP 112/76
[2018-05-01 23:36] LABS: FREE T4 1.02 ng/dL (0.76-1.46); FREE THYROXINE INDEX 2.1 ug/dL (1.4-4.5); T4(THYROXINE) 6.9 ug/dL (4.7-13.3)
[2018-05-01 23:45] LABS: MAGNESIUM 1.9 mg/dL (1.8-2.4); PHOSPHOROUS 2.5 mg/dL (2.5-4.9)
[2018-05-01 23:47] LABS: CHOLESTEROL/HDL RATIO 2.4
[2018-05-02] LABS: T3 TOTAL 1.08 ng/mL
[2018-05-02 00:15] VITALS: Ht 165.1 cm; Wt 72.0 kg
[2018-05-02 03:30] VITALS: BP 112/76
[2018-05-02 05:57] VITALS: BP 104/64
[2018-05-02 06:10] LABS: BASOPHIL % 0.1 % (0-2); RED CELL DISTRIBUTION WIDTH 12.8 % (11.5-14.5)
[2018-05-02 06:28] LABS: CALCIUM 8.5 mg/dL (8.5-10.1); CARBON DIOXIDE 24.5 mmol/L (21-32); CHLORIDE SERUM 108 mmol/L (98-107); CREATININE SERUM 0.6 mg/dL (0.7-1.3); GFR1 > 60 mL/min; GLUCOSE SERUM 132 mg/dL (74-106); POTASSIUM SERUM 3.7 mmol/L (3.5-5.1); SODIUM SERUM 141 mmol/L (136-145)
[2018-05-02 06:40] LABS: PLATELET COUNT 105 x10^3mcL (130-400)
[2018-05-02 09:01] VITALS: BP 94/53
[2018-05-02 09:25] LABS: AMPHETAMINE QUAL UR NONE DETECTED (See below)
[2018-05-02 16:59] VITALS: BP 109/66
[2018-05-02 20:00] VITALS: BP 90/50
[2018-05-02 20:58] VITALS: BP 101/65
[2018-05-03 06:02] VITALS: BP 112/63
[2018-05-03 06:40] LABS: CALCIUM 8.8 mg/dL (8.5-10.1); CARBON DIOXIDE 25.4 mmol/L (21-32); CHLORIDE SERUM 107 mmol/L (98-107); CREATININE SERUM 0.9 mg/dL (0.7-1.3); GFR1 > 60 mL/min; GLUCOSE SERUM 112 mg/dL (74-106); MAGNESIUM 2.1 mg/dL (1.8-2.4); PHOSPHOROUS 3.5 mg/dL (2.5-4.9); POTASSIUM SERUM 3.6 mmol/L (3.5-5.1); SODIUM SERUM 142 mmol/L (136-145)
[2018-05-03 07:15] LABS: RED CELL DISTRIBUTION WIDTH 12.9 % (11.5-14.5)
[2018-05-03 07:23] LABS: PLATELET COUNT 122 x10^3mcL (130-400)
[2018-05-03 09:15] VITALS: BP 109/55
[2018-05-03 09:45] LABS: ATYPICAL LYMPH 2 %; BAND NEUTROPHIL 10 % (0-10); BASOPHIL 0 % (0-2); MONOCYTE 7 % (0-7); MYELOCYTE 1 % (0-2); SEGMENTED NEUTROPHILS 72 % (37-75)
[2018-05-03 09:46] LABS: rbc morphology (normal/abnorm) NORMAL (NORMAL)
[2018-05-03 20:00] VITALS: BP 109/62
[2018-05-04 05:32] VITALS: BP 102/54
[2018-05-04 07:06] LABS: BASOPHIL % 0.4 % (0-2); RED CELL DISTRIBUTION WIDTH 13.1 % (11.5-14.5)
[2018-05-04 07:14] LABS: PLATELET COUNT 53 x10^3mcL (130-400)
[2018-05-04 09:00] VITALS: BP 115/62
[2018-05-04 09:08] LABS: CALCIUM 8.3 mg/dL (8.5-10.1); CARBON DIOXIDE 28.5 mmol/L (21-32); CHLORIDE SERUM 105 mmol/L (98-107); CREATININE SERUM 0.4 mg/dL (0.7-1.3); GFR1 > 60 mL/min; GLUCOSE SERUM 160 mg/dL (74-106); MAGNESIUM 1.9 mg/dL (1.8-2.4); PHOSPHOROUS 3.8 mg/dL (2.5-4.9); POTASSIUM SERUM 4.1 mmol/L (3.5-5.1); SODIUM SERUM 141 mmol/L (136-145)
[2018-05-04 18:00] VITALS: BP 114/63
[2018-05-04 20:41] VITALS: BP 102/66
[2018-05-05 05:18] VITALS: BP 122/49
[2018-05-05 06:18] LABS: CALCIUM 8.8 mg/dL (8.5-10.1); CHLORIDE SERUM 104 mmol/L (98-107); CREATININE SERUM 0.5 mg/dL (0.7-1.3); GFR1 > 60 mL/min; GLUCOSE SERUM 113 mg/dL (74-106); POTASSIUM SERUM 3.7 mmol/L (3.5-5.1); SODIUM SERUM 138 mmol/L (136-145)
[2018-05-05 06:27] LABS: BASOPHIL % 0.3 % (0-2); RED CELL DISTRIBUTION WIDTH 12.9 % (11.5-14.5)
[2018-05-05 06:42] LABS: PLATELET COUNT 65 x10^3mcL (130-400)
[2018-05-05 08:32] VITALS: BP 122/49
[2018-05-05 08:44] VITALS: BP 104/62
[2018-05-05] MEDS ORDERED: PREDNISONE20 MG PO ×2 (10:09→10:10)
[2018-05-05] MEDS ORDERED: PEP20 GT (10:09)
[2018-05-05] MEDS ORDERED: LAC GT (10:09)
[2018-05-05] MEDS ORDERED: PREDNISONE10 MG PO (10:10)
[2018-05-05] MEDS ORDERED: LEVAQUIN750 MG PO (10:12)
[2018-05-05 12:49] VITALS: BP 104/62
== END 2018-05-05 17:46 | DRG 720 ==
LOC: ED 17:14 → MU 21:15
PROVIDERS: Emergency Medicine; Family Medicine; Internal Medicine
DX: A41.9 Sepsis, unspecified organism (principal); N17.0 Acute kidney failure with tubular necrosis; J96.01 Acute respiratory failure with hypoxia; J69.0 Pneumonitis due to inhalation of food and vomit; E87.2 Acidosis; D69.59 Other secondary thrombocytopenia; D68.69 Other thrombophilia; F73 Profound intellectual disabilities; J45.901 Unspecified asthma with (acute) exacerbation; G80.0 Spastic quadriplegic cerebral palsy; R65.20 Severe sepsis without septic shock; K21.9 Gastro-esophageal reflux disease without esophagitis; R13.10 Dysphagia, unspecified; F79 Unspecified intellectual disabilities; G40.909 Epilepsy, unspecified, not intractable, without status epilepticus; Z68.28 Body mass index [BMI] 28.0-28.9, adult; Z93.1 Gastrostomy status
CPT/HCPCS: 36600; 83880; 84439; C9113; J1940; J1956; J2920; J2930; J3490; J7030; J7620; Q0092

== ENCOUNTER 2018-05-09 20:29 | Inpatient (IN) | payer MEDICAID ==
[~2018-05-09] VITALS: Ht 162.6 cm; Wt 70.1 kg
[~2018-05-09 20:29] MED LIST changes: +PEP20 GT; +PREDNISONE10 MG PO; +PREDNISONE20 MG PO
[2018-05-09 20:55] VITALS: Ht 162.6 cm; Wt 70.1 kg
[2018-05-09 21:45] LABS: BASOPHIL % 0.4 % (0-2); PLATELET COUNT 150 x10^3mcL (130-400); RED CELL DISTRIBUTION WIDTH 12.8 % (11.5-14.5)
[2018-05-09 21:59] LABS: CALCIUM 8.9 mg/dL (8.5-10.1); CARBON DIOXIDE 32.4 mmol/L (21-32); CHLORIDE SERUM 100 mmol/L (98-107); CREATININE SERUM 0.7 mg/dL (0.7-1.3); GFR1 > 60 mL/min; GLUCOSE SERUM 70 mg/dL (74-106); POTASSIUM SERUM 3.2 mmol/L (3.5-5.1); SODIUM SERUM 139 mmol/L (136-145)
[2018-05-09 22:03] LABS: ALBUMIN 3.2 g/dL (3.4-5.0); ALKALINE PHOSPHATASE 97 U/L (46-116); ALT/SGPT 24 U/L (16-63); AST/SGOT 10 U/L (15-37); BILIRUBIN TOTAL 0.4 mg/dL (0.20-1.00)
[2018-05-09 22:13] LABS: CK-MB < 0.5 ng/mL (0-3.6); CREATINE KINASE 29 U/L (39-308)
[2018-05-09 23:46] LABS: microscopic required? YES; urine erythrocyte NEGATIVE (NEGATIVE)
[2018-05-09] MEDS ORDERED: LACTULOSE10 GM/152 PO (23:47)
[2018-05-09] MEDS ORDERED: POLYETHYLE17 GM/Dos4 PO (23:48)
[2018-05-09] MEDS ORDERED: NEXIUM40 MG PO (23:48)
[2018-05-10] VITALS (7 sets, daily range): BP systolic 104–116; BP diastolic 52–77
[2018-05-10 00:05] LABS: MAGNESIUM 2.2 mg/dL (1.8-2.4); PHOSPHOROUS 2.5 mg/dL (2.5-4.9)
[2018-05-10 07:36] LABS: BASOPHIL % 0.1 % (0-2); PLATELET COUNT 142 x10^3mcL (130-400); RED CELL DISTRIBUTION WIDTH 11.7 % (11.5-14.5)
[2018-05-10 07:44] LABS: CALCIUM 9.4 mg/dL (8.5-10.1); CARBON DIOXIDE 26.6 mmol/L (21-32); CHLORIDE SERUM 106 mmol/L (98-107); CREATININE SERUM 0.7 mg/dL (0.7-1.3); GFR1 > 60 mL/min; GLUCOSE SERUM 130 mg/dL (74-106); MAGNESIUM 2.4 mg/dL (1.8-2.4); PHOSPHOROUS 3.5 mg/dL (2.5-4.9); POTASSIUM SERUM 4.6 mmol/L (3.5-5.1); SODIUM SERUM 145 mmol/L (136-145)
[2018-05-11 05:49] VITALS: BP 95/60
[2018-05-11 09:17] VITALS: BP 95/59
[2018-05-11 12:41] VITALS: BP 104/46
[2018-05-11 17:09] VITALS: BP 94/49
[2018-05-11 20:53] VITALS: BP 104/53
[2018-05-12 05:00] VITALS: BP 102/59
[2018-05-12 07:32] LABS: CALCIUM 8.4 mg/dL (8.5-10.1); CARBON DIOXIDE 28.2 mmol/L (21-32); CHLORIDE SERUM 107 mmol/L (98-107); CREATININE SERUM 0.5 mg/dL (0.7-1.3); GFR1 > 60 mL/min; GLUCOSE SERUM 156 mg/dL (74-106); MAGNESIUM 2.1 mg/dL (1.8-2.4); PHOSPHOROUS 3.2 mg/dL (2.5-4.9); POTASSIUM SERUM 3.7 mmol/L (3.5-5.1); SODIUM SERUM 143 mmol/L (136-145)
[2018-05-12 07:34] LABS: BASOPHIL % 0.4 % (0-2); PLATELET COUNT 125 x10^3mcL (130-400); RED CELL DISTRIBUTION WIDTH 12.6 % (11.5-14.5)
[2018-05-12 07:36] VITALS: BP 114/71
[2018-05-12 11:25] VITALS: BP 109/56
[2018-05-12 11:44] VITALS: BP 101/65
[2018-05-12 18:36] VITALS: BP 101/56
[2018-05-12 19:56] VITALS: BP 101/56
[2018-05-13 04:50] VITALS: BP 97/50
[2018-05-13 07:06] LABS: BASOPHIL % 0.2 % (0-2); PLATELET COUNT 133 x10^3mcL (130-400); RED CELL DISTRIBUTION WIDTH 12.7 % (11.5-14.5)
[2018-05-13 07:17] LABS: CALCIUM 8.5 mg/dL (8.5-10.1); CARBON DIOXIDE 30.8 mmol/L (21-32); CHLORIDE SERUM 104 mmol/L (98-107); CREATININE SERUM 0.6 mg/dL (0.7-1.3); GFR1 > 60 mL/min; GLUCOSE SERUM 190 mg/dL (74-106); MAGNESIUM 2.2 mg/dL (1.8-2.4); PHOSPHOROUS 3.9 mg/dL (2.5-4.9); POTASSIUM SERUM 3.9 mmol/L (3.5-5.1); SODIUM SERUM 140 mmol/L (136-145)
[2018-05-13 09:44] VITALS: BP 115/68
[2018-05-13 12:59] VITALS: BP 98/56
[2018-05-13 17:35] VITALS: BP 101/56
[2018-05-13 21:04] VITALS: BP 107/68
[2018-05-14] VITALS (7 sets, daily range): BP systolic 85–106; BP diastolic 43–62
[2018-05-14 06:25] LABS: CALCIUM 8.7 mg/dL (8.5-10.1); CARBON DIOXIDE 34.6 mmol/L (21-32); CHLORIDE SERUM 101 mmol/L (98-107); CREATININE SERUM 0.7 mg/dL (0.7-1.3); GFR1 > 60 mL/min; GLUCOSE SERUM 206 mg/dL (74-106); MAGNESIUM 2.3 mg/dL (1.8-2.4); PHOSPHOROUS 4.3 mg/dL (2.5-4.9); POTASSIUM SERUM 4.3 mmol/L (3.5-5.1); SODIUM SERUM 141 mmol/L (136-145)
[2018-05-14 06:28] LABS: BASOPHIL % 0.2 % (0-2); RED CELL DISTRIBUTION WIDTH 12.7 % (11.5-14.5)
[2018-05-14 06:30] LABS: PLATELET COUNT 126 x10^3mcL (130-400)
[2018-05-14] MEDS ORDERED: LASIX20 MG GT (10:17)
[2018-05-14] MEDS ORDERED: PREDNISONE50 MG GT (10:17)
== END 2018-05-14 20:42 | DRG 137 ==
LOC: ED 20:29 → MU 22:56 → DU 22:56 → EDBEDREQSVC 23:21 → DU 05-10 00:26
PROVIDERS: Emergency Medicine; Family Medicine; Internal Medicine
DX: J15.5 Pneumonia due to Escherichia coli (principal); J96.01 Acute respiratory failure with hypoxia; N17.0 Acute kidney failure with tubular necrosis; E44.0 Moderate protein-calorie malnutrition; J45.901 Unspecified asthma with (acute) exacerbation; F73 Profound intellectual disabilities; G80.0 Spastic quadriplegic cerebral palsy; R13.10 Dysphagia, unspecified; N31.9 Neuromuscular dysfunction of bladder, unspecified; R15.9 Full incontinence of feces; R80.9 Proteinuria, unspecified; E87.6 Hypokalemia; G40.909 Epilepsy, unspecified, not intractable, without status epilepticus; Z68.28 Body mass index [BMI] 28.0-28.9, adult; Z79.52 Long term (current) use of systemic steroids; Z93.1 Gastrostomy status; Z16.12 Extended spectrum beta lactamase (ESBL) resistance
CPT/HCPCS: 31720; 36600; C9113; J0132; J1580; J1940; J1956; J2920; J2930; J3480; J7030; J7512; J7620; J7626; J8597

== ENCOUNTER 2018-08-08 21:20 | Inpatient (IN) | payer MEDICAID ==
[~2018-08-08] VITALS: Ht 172.7 cm; Wt 73.2 kg
[~2018-08-08 21:20] MED LIST changes: +LASIX20 MG GT; +NEXIUM40 MG PO; +PREDNISONE50 MG GT
[2018-08-08 21:23] VITALS: Ht 172.7 cm; Wt 73.2 kg
[2018-08-08 22:26] LABS: CARBON DIOXIDE 28.2 mmol/L (21-32); CHLORIDE SERUM 101 mmol/L (98-107); CREATININE SERUM 0.5 mg/dL (0.7-1.3); GFR1 > 60 mL/min; GLUCOSE SERUM 73 mg/dL (74-106); POTASSIUM SERUM 3.8 mmol/L (3.5-5.1); SODIUM SERUM 139 mmol/L (136-145)
[2018-08-08 22:31] LABS: ALBUMIN 3.3 g/dL (3.4-5.0); ALKALINE PHOSPHATASE 101 U/L (46-116); ALT/SGPT 42 U/L (16-63); AST/SGOT 39 U/L (15-37); BILIRUBIN TOTAL 0.6 mg/dL (0.20-1.00); TOTAL PROTEIN, SERUM 7.9 g/dL (6.4-8.2)
[2018-08-08] MEDS ORDERED: MONTELUKAST SOD10 M1 GT (22:55)
[2018-08-08] MEDS ORDERED: POLYETHYLENE GL GT (22:57)
[2018-08-08] MEDS ORDERED: SYMBICORT1 AE3 INH (22:58)
[2018-08-08] MEDS ORDERED: VALPROIC A250 MG/5 M GT (22:59)
[2018-08-08] MEDS ORDERED: KEPPRA100 MG/M1 GT (23:00)
[2018-08-08] MEDS ORDERED: VALPROIC ACID1 ML GT (23:01)
[2018-08-08 23:47] LABS: BASOPHIL % 0.3 % (0-2); PLATELET COUNT 149 x10^3mcL (130-400); RED CELL DISTRIBUTION WIDTH 13.4 % (11.5-14.5)
[2018-08-09 02:52] LABS: T3 TOTAL 1.64 ng/mL
[2018-08-09 02:56] LABS: MAGNESIUM 1.9 mg/dL (1.8-2.4); PHOSPHOROUS 4.1 mg/dL (2.5-4.9)
[2018-08-09 03:08] LABS: CHOLESTEROL/HDL RATIO 3.5
[2018-08-09 03:51] LABS: FREE T4 1.36 ng/dL (0.76-1.46); FREE THYROXINE INDEX 3.6 ug/dL (1.4-4.5); T4(THYROXINE) 10.1 ug/dL (4.7-13.3)
[2018-08-09 04:21] VITALS: BP 95/72
[2018-08-09 04:54] LABS: microscopic required? NO
[2018-08-09 05:29] LABS: BASOPHIL % 0.2 % (0-2); RED CELL DISTRIBUTION WIDTH 13.3 % (11.5-14.5)
[2018-08-09 05:32] LABS: urine erythrocyte NEGATIVE (NEGATIVE)
[2018-08-09 05:32] LABS: PLATELET COUNT 125 x10^3mcL (130-400)
[2018-08-09 05:42] LABS: CALCIUM 8.7 mg/dL (8.5-10.1); CARBON DIOXIDE 27.5 mmol/L (21-32); CHLORIDE SERUM 106 mmol/L (98-107); CREATININE SERUM 0.7 mg/dL (0.7-1.3); GFR1 > 60 mL/min; GLUCOSE SERUM 147 mg/dL (74-106); POTASSIUM SERUM 4.2 mmol/L (3.5-5.1); SODIUM SERUM 144 mmol/L (136-145)
[2018-08-09 13:20] VITALS: BP 107/73
[2018-08-09 16:33] VITALS: BP 103/58
[2018-08-09 21:20] VITALS: BP 103/50
[2018-08-10 05:03] VITALS: BP 117/67
[2018-08-10 06:59] LABS: BASOPHIL % 0.1 % (0-2); PLATELET COUNT 136 x10^3mcL (130-400); RED CELL DISTRIBUTION WIDTH 13.3 % (11.5-14.5)
[2018-08-10 07:32] LABS: CARBON DIOXIDE 28.4 mmol/L (21-32); CHLORIDE SERUM 105 mmol/L (98-107); CREATININE SERUM 0.7 mg/dL (0.7-1.3); GFR1 > 60 mL/min; GLUCOSE SERUM 138 mg/dL (74-106); MAGNESIUM 2.2 mg/dL (1.8-2.4); PHOSPHOROUS 4.5 mg/dL (2.5-4.9); POTASSIUM SERUM 3.9 mmol/L (3.5-5.1); SODIUM SERUM 141 mmol/L (136-145)
[2018-08-10 09:29] VITALS: BP 107/50
[2018-08-10 14:21] VITALS: BP 99/67
[2018-08-10 17:14] VITALS: BP 99/52
[2018-08-10 21:10] VITALS: BP 95/56
[2018-08-11 05:50] VITALS: BP 96/49
[2018-08-11 06:52] LABS: BASOPHIL % 0.1 % (0-2); PLATELET COUNT 129 x10^3mcL (130-400)
[2018-08-11 07:10] LABS: CALCIUM 8.5 mg/dL (8.5-10.1); CHLORIDE SERUM 105 mmol/L (98-107); CREATININE SERUM 0.6 mg/dL (0.7-1.3); GFR1 > 60 mL/min; GLUCOSE SERUM 119 mg/dL (74-106); MAGNESIUM 2.2 mg/dL (1.8-2.4); PHOSPHOROUS 3.5 mg/dL (2.5-4.9); POTASSIUM SERUM 3.5 mmol/L (3.5-5.1); SODIUM SERUM 145 mmol/L (136-145)
[2018-08-11 10:12] VITALS: BP 123/48
[2018-08-11] MEDS ORDERED: PREDNISONE20 MG PO ×2 (11:25→12:00)
[2018-08-11] MEDS ORDERED: IPRATROPIUM BROM3 M2 HHN (12:00)
[2018-08-11 13:58] VITALS: BP 130/70
[2018-08-11 15:43] VITALS: BP 126/60
== END 2018-08-11 17:38 | DRG 133 ==
LOC: ED 21:20 → DU 08-09 01:37
PROVIDERS: Emergency Medicine; Family Medicine; General Practice
DX: J96.01 Acute respiratory failure with hypoxia (principal); N17.0 Acute kidney failure with tubular necrosis; J18.9 Pneumonia, unspecified organism; E44.0 Moderate protein-calorie malnutrition; F73 Profound intellectual disabilities; J45.901 Unspecified asthma with (acute) exacerbation; G80.0 Spastic quadriplegic cerebral palsy; N31.9 Neuromuscular dysfunction of bladder, unspecified; R13.10 Dysphagia, unspecified; N39.498 Other specified urinary incontinence; G40.909 Epilepsy, unspecified, not intractable, without status epilepticus; K59.00 Constipation, unspecified; Z93.1 Gastrostomy status; Z68.27 Body mass index [BMI] 27.0-27.9, adult
CPT/HCPCS: 36600; 83880; 84439; J2920; J2930; J7030; J7613; J7620; Q0092

== ENCOUNTER 2018-09-10 09:13 | Inpatient (IN) | payer MEDICAID ==
[~2018-09-10] VITALS: Ht 162.6 cm; Wt 69.9 kg
[~2018-09-10 09:13] MED LIST changes: +IPRATROPIUM BROM3 M2 HHN; +KEPPRA100 MG/M1 GT; +MONTELUKAST SOD10 M1 GT; +POLYETHYLENE GL GT; +VALPROIC A250 MG/5 M GT; +VALPROIC ACID1 ML GT
--- NOTE | 2018-09-10 09:30 | NUR ---
AWAKE ALERT, BROUGHT IN BY PARAMEDICS STATED PT STARTED TO COUGH POST G.TUBE FEEDING , ON ARRIVAL NOT IN RESP. DISTRESS, TACYPNEIC RATE 32/MINUTE,BREATH SOUNDS CLEAR. CARDIAC MONITORIN ST,,GTUBE BAG ATTACHED TO GT SENT WITH PT,EMPTY,
--- NOTE | 2018-09-10 10:13 | NUR ---
IV ESTABLISHED,MEDICATED WITH SOLUMEDROL AND IV FLUIDS STARTED
[2018-09-10 10:15] LABS: BASOPHIL % 0.4 % (0-2); RED CELL DISTRIBUTION WIDTH 13.1 % (11.5-14.5)
[2018-09-10 10:17] LABS: CALCIUM 9.3 mg/dL (8.5-10.1); CHLORIDE SERUM 103 mmol/L (98-107); CREATININE SERUM 0.8 mg/dL (0.7-1.3); GFR1 > 60 mL/min; GLUCOSE SERUM 104 mg/dL (74-106); POTASSIUM SERUM 3.9 mmol/L (3.5-5.1); SODIUM SERUM 143 mmol/L (136-145)
[2018-09-10 10:21] LABS: ALKALINE PHOSPHATASE 100 U/L (46-116); ALT/SGPT 32 U/L (16-63); AST/SGOT 19 U/L (15-37); BILIRUBIN TOTAL 0.5 mg/dL (0.20-1.00); TOTAL PROTEIN, SERUM 7.8 g/dL (6.4-8.2)
[2018-09-10 10:24] LABS: ALBUMIN 3.3 g/dL (3.4-5.0)
[2018-09-10] MEDS ORDERED: SYMBICORT1 AE3 INH (10:28)
[2018-09-10] MEDS ORDERED: NUTREN 1.5250 ML GT (10:34)
[2018-09-10 10:35] LABS: PLATELET COUNT 127 x10^3mcL (130-400)
[2018-09-10] MEDS ORDERED: NEXIUM40 MG GT (10:36)
[2018-09-10] MEDS ORDERED: CUVPOSA1 MG/5 ML GT (10:37)
[2018-09-10] MEDS ORDERED: LACTULOSE10 GM/152 PO (10:38)
--- NOTE | 2018-09-10 10:47 | NUR ---
LACTIC ACID 2.9, CIERRA ESPARZA INFORMED.
[2018-09-10 11:27] LABS: microscopic required? NO
--- NOTE | 2018-09-10 11:40 | NUR ---
IN AND OUT URINARY CTH, URINE SENT TO LAB. CLEAR URINE DRAINED
[2018-09-10 12:15] LABS: UA SPECIFIC GRAVITY 1.015 (1.005-1.035); urine erythrocyte NEGATIVE (NEGATIVE)
[2018-09-10 13:20] LABS: CHOLESTEROL/HDL RATIO 2.7
[2018-09-10 13:22] VITALS: BP 123/73
[2018-09-10 13:24] LABS: T3 TOTAL 1.34 ng/mL
--- NOTE | 2018-09-10 13:24 | NUR ---
RECEIVED PT FROM ED VIA MOHAMUDERBERNADINE, CAME IN DUE TO SOB. PT IS ALERT AND AWAKE, APHASIC, DOES NOT FOLLOW SIMPLE COMMANDS. NO SEIZURE ACTIVITY NOTED. NO SOB, LUNG SOUND CTA, O2 SAT=96%, ON 2LPM/NC. NO S/S OF CHEST PAIN/PRESSURE, SINUS TACHYCARDIA ON THE MONITOR, HR AT 114 ON THE MONITOR. W/ TRACE EDEMA ON BILATERAL FEET. NO S/S OF ABDOMINAL DISCOMFORT. BOWEL SOUNDS ACTIVE. W/ PEG TUBE ON THE ABDOMEN, ISRAELI 20, CLAMPED. NO S/S OF REDNESS ON THE EPG TUBE SITE. W/ AYALA CATHETER ISRAELI 16 DRAINING W/ YELLOW COLORED URINE. BEDBOUND PATIENT. VERY LIMITED ROM ON BUE AND PASSIVE ROM ON BLE. HEELS ELEVATED W/ PILLOW. W/ SCABS ON THE RUE AND RIGHT FOOT. RECEIVED PT FROM ED W/ LEVAQUIN ONGOING. IV SITE ON THE LEFT WRIST IS PATENT AND INTACT. PADDED SIDE RAILS UPX3. CALL LIGHT ON REACH. HOB ELEVATED AT 40 DEG. PRIMARY NURSE JOVITA AT BEDSIDE FOR CONTINUITY OF CARE
[2018-09-10 13:31] LABS: FREE T4 1.11 ng/dL (0.76-1.46); FREE THYROXINE INDEX 3.4 ug/dL (1.4-4.5)
[2018-09-10 13:47] VITALS: BP 98/54
[2018-09-10 13:49] VITALS: Ht 162.6 cm; Wt 69.9 kg
--- NOTE | 2018-09-10 14:24 | NUR ---
dr. marroquin is pagegated to made aware that lactic acid-2.4
--- NOTE | 2018-09-10 18:09 | NUR ---
PT AWAKE AND ALERT. APPEARS IN NO ACUTE DISTRESS. RESP EVEN AUND UNLABORED ON 2L 02 NC. 02 SAT 96% AYALA CATH IN PLACE WITH YELLOW COLORED URINE. SEIZURE PRECAUTIONS IN PLACE. IV INTACT AND PATENT. SIDE RAILS UPX3. WILL BE ENDORSED.
[2018-09-10 18:47] VITALS: BP 107/60
--- NOTE | 2018-09-10 19:32 | NUR ---
RECEIVED PT FROM PREVIOUS SHIFT NURSE. PT AWAKE, NONVERBAL. SEIZURE PRECAUTIONS IN PLACE. TELE #33, ST, HR 101. DENIES CP/PRESSURE. PULSES PALPABLE, BLE TRACE EDEMA NOTED. LUNG SOUNDS CLEAR ON 2L NC. NO SOB/DIFFICULTY BREATHING NOTED. BOWEL SOUNDS ACTIVE. AYALA IN PLACE, YELLOW OUTPUT NOTED. PT QUADRIPLEGIC. AIR MATTRESS IN PLACE. SCABS NOTED TO R. HAND AND R. FOOT. IV TO L. WRIST, INTACT AND PATENT. BED IN LOWEST POSITION. CALL LIGHT WITHIN REACH. WILL CONTINUE TO MONITOR.
[2018-09-10 20:46] VITALS: BP 115/61
--- NOTE | 2018-09-10 21:52 | NUR ---
PEG AUSCULTATED FOR PLACEMENT. NO RESIDUAL.
--- NOTE | 2018-09-10 23:09 | NUR ---
STARTED PATIENT ON COOL AEROSOL MIST WITH MOM AT BEDSIDE.
--- NOTE | 2018-09-11 03:15 | NUR ---
PT RESTING IN BED. RR EVEN AND UNLABORED. NO ACUTE DISTRESS NOTED. CALL LIGHT WITHIN REACH. BED IN LOWEST POSITION. WILL CONTINUE TO MONITOR.
[2018-09-11 05:33] VITALS: BP 111/63
[2018-09-11 06:28] LABS: CALCIUM 8.6 mg/dL (8.5-10.1); CARBON DIOXIDE 29.5 mmol/L (21-32); CHLORIDE SERUM 106 mmol/L (98-107); CREATININE SERUM 0.6 mg/dL (0.7-1.3); GFR1 > 60 mL/min; GLUCOSE SERUM 121 mg/dL (74-106); MAGNESIUM 2.1 mg/dL (1.8-2.4); PHOSPHOROUS 3.3 mg/dL (2.5-4.9); POTASSIUM SERUM 3.8 mmol/L (3.5-5.1); SODIUM SERUM 143 mmol/L (136-145)
[2018-09-11 06:46] LABS: BASOPHIL % 0.1 % (0-2); RED CELL DISTRIBUTION WIDTH 13.3 % (11.5-14.5)
--- NOTE | 2018-09-11 07:30 | NUR ---
PT ENDORSE TO ME THIS MORNING. LAYING IN BED, AWAKE/ NON VERBAL. SEZ PREC INPLACE. HOB ELEVATED. BREATHING EVEN AND UNLABORED ON 2L NC, NO ACUTE RESP DISTRESS OR SOB NOTED. TELE 33 SR NOTED, HR 80. NO SIGN OF CHEST PAIN OR PRESSURE NOTED. REMAINS ON DROPLET PREC, DUE TO MDRO/ESBL. PEG TUBE INTACT AND PATENT/ ZERO RESIDUAL NOTED. AYALA INTACT AND PATENT, 250 ML/HR DARK URNINE NOTED. BED BOUND/ AIR MATTRESS INPLACE, QUADRIPLEGIA. R HAND AND R FOOT SCABES NOTED . CALL LIGHT IN REACH/ BED IN LOW POSITION BY NURSING STATION. WILL CONTINUE PLAN OF CARE.
[2018-09-11 07:46] LABS: PLATELET COUNT 112 x10^3mcL (130-400)
[2018-09-11 08:05] VITALS: BP 107/63
[2018-09-11 11:41] VITALS: BP 112/50
--- NOTE | 2018-09-11 13:37 | NUR ---
PER DR. LUIS ORDERS, STARTED FEEDING AT 20ML/HR, Q 4 HRS/ FLUSH AT 150ML/HR. ZERO RESIDUAL NOTED. PT TOLERATING WELL. WILL CONTINUE PLAN OF CARE.
--- NOTE | 2018-09-11 14:37 | NUR ---
Initial Nutrition Assessment- Jung Maldonado 246T-B Dx: SOB PMHx: cerebral palsy with spastic quadriplegia, bed-bound and non-verbal at baseline,epilepsy asthma PSHx: PEG placement Labs:(09/11) BH, (09/10) Lactic acid:2.4H Meds:Colace, Keppra, Lactulose, Lasix, Mirialax, Prilosec, Reglan, NS IV, Solumedrol, Zofran Diet: no diet order placed O Intake:N/A , pt with GT Ht:64in, 5'4" Wt:154#, 69.853kg BMI: 26.4kg/m2 (overweight) IBW:130#,59kg %IBW: 118% UBW: unable to obtain Adjusted bw for quadraplegic: 117#, 53kg Age: 28 y/o male Food Allergies:NKFA Skin:scabs to right hand and right foot Elvis:14 Edema: BLE GI: active bowel soudns Last BM: no BM noted Nutrition Consult: TF Pt admitted from [facility] for increased work of breathing with associated SOB x 1 day. Pt is pending pulmonary consult, per H&P. During visit, pt was seen asleep on air matress with no family at bedside. Per pt's chart, pt receives Nutren 1.5 at 67ml/hr x 15hrs , starting at 1500 with FWF 250ml given 3x/day (0700/1500/2200). Spoke to Dr. Garcia about TF recomemndations and doctor agreeable. Problem with: N/V/D/C:No Problems with: Chewing:/Swallowing: Yes, pt with G-tube Current appetite: N/A due to pt with G-tube Recent wt change:unable to assess due to inaccurate wt due to pt placed on air mattress when admitted %wt change:N/A Vitamin/Supplement use: Lactulose, Reglan, Special diet at home: Nutren 1.5 at 67ml/hr Physical activity:none, quadraplegic Education: unable to provide due to pt cognitively impaired Estimated Nutritional Needs Based on body adjusted body weight for quadraplegics 53kg Energy:1325-1590kcal/d (25-30kcal/kg for maintenance) Protein: 53-64g/d (1-1.2g/kg for preservation of LBM) ) Fluid: 1325-1590ml/d (1 ml/kcal) or per doctor Nutrition Diagnosis 1. Inadequate enteral infusion rate related to current TF as evidenced by meeting <75%. 2. [id number] GI function related to pt with hx constipation as evidenced by no BM noted since admit. Intervention 1.Recommend Jevity 1.2 at 20ml/hr, increase 10ml/hr to goal 55ml/hr, FWF:100ml q 4hr. This provides 1584kcal, 73g protein and 1665ml fluid daily. This meets 99% caloric needs and 114% protein needs. Monitor/Evaluate Goal: initiation of TF Monitor: TF intake/tolerance, Labs, GI function, wts and skin F/U in 2-3 days as high risk:09/13-2
[2018-09-11 16:49] VITALS: BP 105/48
--- NOTE | 2018-09-11 18:14 | NUR ---
NO ACUTE CHANGES AT THIS TIME. NO ACUTE RESP DISTRESS OR SOB NOTED.REMAINS ON 2L NC. CONTINUES ON JEVITY 1.2 AT 20 ML/HR/ TOLERATING WELL. AYALA INTACT AND PATENT,DARK URINE NOTED. IV TO THE L WRIST INTACT AND PATENT/ HEPLOCKED. CALL LIGHT IN REACH. BED IN LOW POSITION. BY NURSING STATION. WILL ENDORSE TO INCOMING RN.
--- NOTE | 2018-09-11 19:45 | NUR ---
RECEIVED PT FROM PREVIOUS SHIFT NURSE. PT AWAKE, NONVERBAL. NO S/S SAMANIEGO/DIZZINESS. TELE #33, NSR. NO S/S CP/PRESSURE. PULSES PALPABLE, BLE TRACE EDEMA NOTED. LUNG SOUNDS CLEAR, ON 2L NC. NO S/S SOB/DIFFICULTY BREATHING. BOWEL SOUNDS ACTIVE. AYALA IN PLACE, DARK YELLOW OUTPUT NOTED. PT QUADRIPLEGIC ON AIR MATTRESS. SCABS NOTED TO R. HAND, R. FOOT. IV TO L. WRIST, INTACT AND PATENT. BED IN LOWEST POSITION. CALL LIGHT WITHIN REACH. WILL CONTINUE TO MONITOR.
--- NOTE | 2018-09-11 20:30 | NUR ---
NO RESIDUAL AFTER AUCULTATION OF PEG. FEEDING INCREASED TO 30 ML/H.
[2018-09-11 21:46] VITALS: BP 93/55
--- NOTE | 2018-09-12 00:30 | NUR ---
RESIDUAL CHECKED, LESS THAN 5ML OUT, REPLACED. TUBE FEED INCREASED TO 40 ML/H PER ORDERS. WILL CONTINUE TO MONITOR.
--- NOTE | 2018-09-12 04:12 | NUR ---
PT RESTING IN BED. RR EVEN AND UNLABORED. NO ACUTE DISTRESS NOTED. CALL LIGHT WITHIN REACH. WILL CONTINUE TO MONITOR.
--- NOTE | 2018-09-12 04:30 | NUR ---
RESIDUAL LESS THAN 5ML. TUBE FEEDING INCREASED TO 50 ML/H. WILL CONTINUE TO MONITOR.
--- NOTE | 2018-09-12 05:26 | NUR ---
RESIDUAL LESS THAN 5ML. TUBE FEEDING INCREASED TO 50 ML/H. WILL CONTINUE TO MONITOR.
[2018-09-12 06:22] VITALS: BP 85/63
[2018-09-12 07:11] LABS: BASOPHIL % 0.1 % (0-2)
[2018-09-12 07:12] LABS: PLATELET COUNT 119 x10^3mcL (130-400)
[2018-09-12 07:22] LABS: CALCIUM 8.9 mg/dL (8.5-10.1); CARBON DIOXIDE 29.4 mmol/L (21-32); CHLORIDE SERUM 103 mmol/L (98-107); CREATININE SERUM 0.7 mg/dL (0.7-1.3); GFR1 > 60 mL/min; GLUCOSE SERUM 134 mg/dL (74-106); MAGNESIUM 2.1 mg/dL (1.8-2.4); PHOSPHOROUS 4.2 mg/dL (2.5-4.9); POTASSIUM SERUM 3.3 mmol/L (3.5-5.1); SODIUM SERUM 140 mmol/L (136-145)
--- NOTE | 2018-09-12 08:00 | NUR ---
PATIENT AWAKE, LYING TO RT SIDE HOB AND BLE'S ELEVATED. SZ PREC. NO S/S OF PAIN OR DISCOMFORT. LUNGS CTA. NO RESP DISTRESS NOTED ON RA. BREATHING E/U. PEG IN PLACE, BOWEL SOUNDS ACTIVE. RESIDUAL CHECKED 5ML ARAUZ-COLORED, REPLACED. JEVITY RUNNING AT 50ML/HR INCREASED TO 55ML/HR PER DR ORDER. IV ACCESS TO LT ARM SITE WNL. DRY SCABS NOTED TO EXTREMITIES, POLE MAKER. CLOSELY MONITORING.
[2018-09-12 09:37] VITALS: BP 107/49
--- NOTE | 2018-09-12 13:17 | NUR ---
RESIDUAL RECHECKED, 5ML ARAUZ COLORED, REPLACED. JEVITY CONTINUING AT 55ML/HR WITH 100ML H20 FLUSH Q4H. PER ELECTRICAL WORKER, PATIENT HAD BM BEFORE NOON, SOFT AND BROWN, LARGE AMOUNT. AYALA STILL IN PLACE, YELLOW URINE TO GRAVITY. PATIENT REPOSITIONED. WILL CONT TO MONITOR.
[2018-09-12 13:48] VITALS: BP 100/58
[2018-09-12 17:02] VITALS: BP 92/45
--- NOTE | 2018-09-12 20:00 | NUR ---
LATE ENTRY: PT. AWAKE, ALERT, NON-VERBAL FOLLOWS W/ EYES AT TIMES, ESPECIALLY WHEN HIS NAME IS CALLED. BREATH SOUNDS DIMINISHED, SOME FINE CRACKLES SCATTERED THROUGHOUT FARRAH LUNG JONES, RESP. EVEN, UNLABORED. PT. ON 2L/NC. ABD. SOFT AND ROUND, BOWEL SOUNDS ACTIVE. PEG TUBE IN-SITU. TUBE FEEDING, JEVITY AT 55CC/HR. LESS THAN 10CC RESIDUAL NOTED AND RETURNED. IV SITE HEPLOCKED, FLUSHING WELL. TRACE EDEMA TO BLE. PEDAL PULSES MODERATE. F/C DRAINING WELL TO GRAVITY YELLOW URINE. HOB 35 DEGREES. PT. ON AIR LOSS MATTRESS.
[2018-09-12 21:46] VITALS: BP 94/58
--- NOTE | 2018-09-13 00:22 | NUR ---
PT. TURNED AND REPOSITIONED PER PROTOCOL. TOLERATING TF. NO RESP. DISTRESS. CALL LIGHT WITIHIN REACH.
[2018-09-13 04:56] VITALS: BP 130/96
[2018-09-13 06:28] LABS: BASOPHIL % 0.3 % (0-2); RED CELL DISTRIBUTION WIDTH 12.8 % (11.5-14.5)
--- NOTE | 2018-09-13 06:37 | NUR ---
PT. SLEPT INTERMITTENTLY THROUGHOUT NIGHT. NO RESP. DISTRESS. TOLERATED TUBE FEEDING, NO RESIDUAL NOTED THIS AM. IV SITE INTACT. CALL LIGHT WITHIN REACH. WILL ENDORSE PT. CARE TO INCOMING NURSE.
[2018-09-13 06:39] LABS: PLATELET COUNT 128 x10^3mcL (130-400)
[2018-09-13 06:40] LABS: CALCIUM 8.4 mg/dL (8.5-10.1); CARBON DIOXIDE 33.6 mmol/L (21-32); CHLORIDE SERUM 105 mmol/L (98-107); CREATININE SERUM 0.6 mg/dL (0.7-1.3); GFR1 > 60 mL/min; GLUCOSE SERUM 171 mg/dL (74-106); MAGNESIUM 2.3 mg/dL (1.8-2.4); POTASSIUM SERUM 3.6 mmol/L (3.5-5.1); SODIUM SERUM 145 mmol/L (136-145)
--- NOTE | 2018-09-13 07:11 | NUR ---
RECEIVED REPORT FROM RICHARD NORTON. PT RETING COMFORTABLY ON AIR MATTRESS WITH SEIZURE PRECAUTIONS IN PLACE. IV TO LT WRIST IS PATENT AND INTACT. NO REDNES OR PAIN. TELE # [address] NO INDICATION OF CHEST PAIN.PT ON O2 2L NC. O DISTRESS NOTED. ALL QUESTIONS AND CONCERNS ADDRESSED.
--- NOTE | 2018-09-13 09:22 | NUR ---
IN TO ADMINISTER MEDICATION (SEE eMAR). PT RESTING COMFORTABLY IN BED. TUBE FEEDING HELD AND RESIDUAL CHECKED <5 ML. TUBE FEED JEVITY 1.2 BOTTLE CHANGED ALONG WITH TUBING. RATE CONTINUED AFTER MED ADMINISTRATION @ 55ML/HR WITH 100ML FLUSH Q4H.
[2018-09-13 09:28] VITALS: BP 114/74
--- NOTE | 2018-09-13 12:21 | NUR ---
IN TO ADMINISTER MEDICATION (SEE eMAR) TUBE FEEDING HELD AND RESIDUAL CHECKED <5 ML. TUBE FEED RESUMED @ 55ML/HR WITH 100ML FLUSH Q4H.
[2018-09-13 12:57] VITALS: BP 93/45
--- NOTE | 2018-09-13 16:27 | NUR ---
Follow-up Nutrition Assessment: Jung Maldonado 246T-B Dx: SOB Labs: (09/13) BH, BUN:20H, Cr:0.6L, Ca:8.4L Meds: Colace, Keppra, Lactulose, Lasix, Current Nutrition Suppoort: Jevity 1.2 @ 55ml/hr, FWF:100ml q 4hr via G-tube TF intake: (09/12)680ml (09/13)1310ml TF intake x 2 days:1194kcal GRV: (09/12) <5ml(09/13)0ml I/O: (09/11) 400/1550 (-1150ml)(09/12)1070/875 (+195ml)(09/13) 1962/2300(-338ml) Weights: (09/11)69.853kg (09/13) 70kg Note: pt is on an air matress and bed with multiple equipment Skin: scattered Edema: None Last BM: 09/12 Per progress note 09/12, no acute events overnight and pt's breathing rate is improving. Spoke to CIERRA Petersen, pt is at goal with 0ml GRV. Plan per REHABILITATION SERVICES AIDE, is to discharge tomorrow. Estimated Nutritional Needs based on adjusted bw for quadraplegics:53kg Energy: 1325-1590kcal/day (25-30kcal/kg for maintenace) Protein: 53-64g/day (1-1.2g/kg for preservation of LBS) Fluid: 1325-1590ml/day (1ml/kcal) or per doctor Nutrition Diagnosis 1. Inadequate infusion rate related to current TF as evidenced by meeting <75% (met) 2. Altered GI function related to hx constpation as evidenced by no BM noted since admit (resolved, BM on 09/12). Intervention 1. Recommend continue with Jevity 1.2 at goal 55ml/hr, FWF:100ml q 4hr. This provides 1584kcal, 73g protein and 1665ml fluid daily. This meets 99% caloric needs and 114% protein needs. Monitor/Evaluate Previous goal: TF intake at least 75% of estimated needs Goal: TF intake at least 75% of estimated needs (met) Monitor: TF intake/tolerance, Labs, GI function F/U in 2-3 days as high risk:3-4
--- NOTE | 2018-09-13 16:52 | NUR ---
IN TO ADMINISTER MEDICATION (SEE eMAR).
[2018-09-13 17:35] VITALS: BP 108/60
--- NOTE | 2018-09-13 18:50 | NUR ---
PT RESTING COMFORTABLY ON AIR MATTRESS WITH SEIZURE PRECAUTIONS IN PLACE. TUBE FEED INFUSING JEVITY 1.2 @ 55ML/HR WITH 100ML FLUSH Q4H. RESIDUAL <5ML WHENCHECKED THROUGHOUT THE DAY. PT ON O2 2L NC. NO DISTRESS NOTED. IV TO LT WRIST IS PATENT AND INTACT. NO REDNESS OR PAIN. TELE # [address] NO INDICATION OF CHEST PAIN. WILL ENDORSE ALL CARE TO ONCOMING NURSE.
--- NOTE | 2018-09-13 20:00 | NUR ---
LATE ENTRY: PT. AWAKE, ALERT, ABLE TO FOLLOW W/ EYES AT TIMES. HE IS APHASIC AND W/ HX OF CEREBRAL PALSY. BUE W/ SLIGHT CONTRACTURES. BLE FOOT DROP NOTED. BREATH SOUNDS CLEAR THROUGHOUT LUNG JONES, RESP. EVEN, UNLABORED. ON 2L/NC. BLL SLIGHTLY DIMINISHED. NO SOB NOTED. ABD. SOFT AND ROUND. PEG TUBE IN SITU W/ JEVITY TF AT 55CC/HR. BOWEL SOUNDS ACTIVE. F/ DRAINING WELL TO GRAVITY. IV SITE HEPLOCKED. HOB 35 DEGREES.
--- NOTE | 2018-09-13 21:47 | NUR ---
NEW IV SITE ESTABLISHED, 22 GAUGE. FLUSHING WELL. SITE SECURED W/ KERLEX WRAP.
[2018-09-13 21:56] VITALS: BP 118/61
[2018-09-14 06:21] LABS: CALCIUM 8.7 mg/dL (8.5-10.1); CARBON DIOXIDE 34.9 mmol/L (21-32); CHLORIDE SERUM 103 mmol/L (98-107); CREATININE SERUM 0.6 mg/dL (0.7-1.3); GFR1 > 60 mL/min; GLUCOSE SERUM 103 mg/dL (74-106); POTASSIUM SERUM 3.8 mmol/L (3.5-5.1); SODIUM SERUM 143 mmol/L (136-145)
[2018-09-14 06:50] VITALS: BP 104/63
--- NOTE | 2018-09-14 06:58 | NUR ---
AM BATH GIVEN. AYALA CARE COMPLETED. PT. TOLERATED TF THROUGHOUT NIGHT. RESIDUAL LESS THAN 10CC. PEG TUBE IN-SITU. IV SITE INTACT. HOB 35 DEGREES. CALL LIGHT WITHIN REACH, WILL ENDORSE PT. CARE TO INCOMING NURSE.
--- NOTE | 2018-09-14 07:20 | NUR ---
RECEIVED PT FROM NOC CIERRA RAMOS. PT FOUND AWAKE. NO S/S OF ACUTE DISTRESS. UNABLE TO ASSESS ORIENTATION, PT HX: CEREBRAL PALSY WITH QUADRAPLEGIA. SEIZURE PREC. IN PLACE. EYES FOLLOW STIMULI AT TIMES. PUPILS EQUAL, ROUND, SLUGGISH REACTION, SIZE 4 BILATERALLY. PT NON-VERBAL. CALM AT THIS TIME. NO S/S OF PAIN. NO SOB ON 2LNC. RR EVEN/UNLABORED. CHEST EXPANSION SYMMETRICAL. NO S/S OF CHEST PAIN. AYALA IN TACT DRAINING WANG/CLOUDY URINE. PEG TO IN PLACE TO LEFT ABD. <3CC RESIDUAL OUTPUT. PT RECEIVING JEVITY 55CC/HR. AIR MATTRESS IN PLACE. PT TURNED TO RIGHT SIDE. IV WNL TO RFA, NO REDNESS, NO SWELLING, NO INFITLRATION. PATENT, SALINE LOCKED. BED IN LOW POSITION. CALL LIGHT WITHIN REACH. PT ON DROPLET PREC. FOR HX OF MDRO SPUTUM. PT IN ROOM CLOSE TO NURSES STATION. FALL PREC. IN PLACE. WILL CONT. TO MONITOR.
--- NOTE | 2018-09-14 10:00 | NUR ---
TUBE FEEDING CHANGED, NEW JEVITY BAG STARTED, 55CC/HR, 0 RESIDUAL OUTPUT. PERICARE PROVIDED, ONE SMALL BROWN FORMED BM. BLANCHABLE REDNESS NOTED TO BUTTOCKS, HYDRAGUARD APPLIED. SMALL CLOSED SCAB/ABRASION NOTED TO BUTTOCKS. PERFORMING ARTS TECHNICIANS, NO DRAINAGE. LINEN CHANGED. PT REPOSITIONED. HOB ELEVATED >45 DEGREES. PT ON 2LNC. NO SOB. RR EVEN/UNLABORED. NO S/S OF ACUTE RESP. DISTRESS. IV WNL TO RFA, NO REDNESS, NO SWELLING, NO INFILTRATION. SALINE LOCKED. PT CALM/COOPERATIVE AT THIS TIME. BED IN LOW POSITION. CALL LIGHT WITHIN REACH. WILL CONT. TO MONITOR.
[2018-09-14 10:49] VITALS: BP 107/62
--- NOTE | 2018-09-14 12:28 | NUR ---
RESIDUAL OUTPUT 45CC. PEG TUBE IN TACT. NO N/V. NO SOB ON 2LNC. PT REPOSITIONED. AYALA INTACT DRAINING CLOUDY/WANG URINE. IV WNL TO RFA, SALINE LOCKED. PATENT. BED IN LOW POSITION. HOB ELEVATED >45 DEGREES. NO S/S OF CHEST PAIN. CALL LIGHT WITHIN REACH. SZ PREC IN PLACE. AIR MATTRESS IN PLACE. PT IN ROOM CLOSE TO NURSES STATION. FALL PREC. IN PLACE. WILL CONT. TO MONITOR.
[2018-09-14] MEDS ORDERED: PRE20 PO ×2 (14:39→14:40)
[2018-09-14] MEDS ORDERED: PREDNISONE20 MG PO ×2 (14:39→14:40)
[2018-09-14 15:08] VITALS: BP 107/62
--- NOTE | 2018-09-14 15:12 | NUR ---
PT O2 SAT 92% ON ROOM AIR. NO S/S OF ACUTE RESP. DISTRESS. RR EVEN/UNLABORED. CHEST EXPANSION SYMMETRICAL. NO S/S OF SOB ON ROOM AIR. LINEN CHANGED, HYDRAGUARD APPLIED TO BUTTOCKS, SEE CHART FOR PICTURE. AYALA EMPTIED, URINE WANG/CLOUDY, OUTPUT 275CC. AYALA CARE PROVIDED. PT REPOSITIONED. HOB ELEVATED >45 DEGREES. TUBE FEEDING RUNNING 55CC/HR. IV WNL TO RFA, NO REDNESS, NO SWELLING, NO INFILTRATION. SALINE LOCKED. BED IN LOW POSITION. CALL LIGHT WITHIN REACH. WILL CONT. TO MONITOR.
[2018-09-14 15:36] VITALS: BP 99/62
--- NOTE | 2018-09-14 15:51 | NUR ---
PT BEING DISCHARGED TO [facility]. AYALA REMOVED, CATHETER IN TACT. TOLERATED ACTIVITY WELL. NO SOB ON ROOM AIR. NO S/S OF ACUTE DISTRESS. NO S/S OF PAIN. IV REMOVED FROM RFA, NO REDNESS, NO SWELLING, NO INFILTRATION. SITE WNL. CATHETER IN TACT. PRESSURE APPLIED. NSR ON TELE, TELE REMOVED. NO S/S OF CHEST PAIN. BED IN LOW POSITION. CALL LIGHT WITHIN REACH. WILL CONT. TO MONITOR.
--- NOTE | 2018-09-14 18:29 | NUR ---
PT DISCHARGED TO [facility]. ACCOMPANIED BY STAFF MEMBER FROM [facility] RHINA WILOSN AND JIMMIE HUNTER TO LOBBY. PT AWAKE, ALERT, UNABLE TO ASSESS ORIENTATION. NONVERBAL. NO SOB ON ROOM AIR. NO S/S OF ACUTE RESP. DISTRESS. CALM/COOPERATIVE AT THIS TIME. DISCHARGE EDUCATION PROVIDED TO RHINA WILSON, VERBALIZED UNDERSTANDING. VS STABLE. O2 SAT 97% ON ROOM AIR. RR EVEN/UNLABORED. PRESCRIPTION PROVIDED. BELONGINGS WITH PATIENT.
== END 2018-09-14 18:27 | DRG 141 ==
LOC: ED 09:13 → MU 12:37 → DU 12:37
PROVIDERS: Emergency Medicine; Family Medicine; ADMIT Internal Medicine
DX: J45.901 Unspecified asthma with (acute) exacerbation (principal); J96.01 Acute respiratory failure with hypoxia; N17.0 Acute kidney failure with tubular necrosis; E44.1 Mild protein-calorie malnutrition; D69.6 Thrombocytopenia, unspecified; D68.59 Other primary thrombophilia; E87.2 Acidosis; G80.0 Spastic quadriplegic cerebral palsy; Z93.1 Gastrostomy status; E86.0 Dehydration; E87.6 Hypokalemia; G40.909 Epilepsy, unspecified, not intractable, without status epilepticus; K21.9 Gastro-esophageal reflux disease without esophagitis; H50.00 Unspecified esotropia; Z68.26 Body mass index [BMI] 26.0-26.9, adult; Z74.01 Bed confinement status; Z79.52 Long term (current) use of systemic steroids
CPT/HCPCS: 36600; 82962; 83880; 84439; J1940; J1956; J2920; J2930; J7030; J7613; J7620; J8597; Q0092

== ENCOUNTER 2019-05-09 21:09 | Inpatient (IN) | payer MEDICAID ==
[~2019-05-09] VITALS: Ht 162.6 cm; Wt 67.6 kg
[~2019-05-09 21:09] MED LIST changes: +CUVPOSA1 MG/5 ML GT; +PRE20 PO
[2019-05-09 21:54] LABS: BASOPHIL % 0.2 % (0-2); PLATELET COUNT 159 x10^3mcL (130-400); RED CELL DISTRIBUTION WIDTH 13.1 % (11.5-14.5)
[2019-05-09 22:22] LABS: CALCIUM 8.3 mg/dL (8.5-10.1); CARBON DIOXIDE 21.5 mmol/L (21-32); CHLORIDE SERUM 101 mmol/L (98-107); CREATININE SERUM 0.6 mg/dL (0.7-1.3); GFR1 > 60 mL/min; GLUCOSE SERUM 186 mg/dL (74-106); POTASSIUM SERUM 3.8 mmol/L (3.5-5.1); SODIUM SERUM 137 mmol/L (136-145)
[2019-05-09 22:27] LABS: CK-MB 0.9 ng/mL (0-3.6)
[2019-05-09 22:38] LABS: ALBUMIN 3.5 g/dL (3.4-5.0); ALKALINE PHOSPHATASE 144 U/L (46-116); ALT/SGPT 189 U/L (16-63); AST/SGOT 276 U/L (15-37); BILIRUBIN TOTAL 1.8 mg/dL (0.20-1.00); TOTAL PROTEIN, SERUM 7.9 g/dL (6.4-8.2)
[2019-05-09 22:44] LABS: microscopic required? YES; urine erythrocyte NEGATIVE (NEGATIVE)
[2019-05-09 23:00] LABS: ERYTHROCYTE SED RATE 4 mm/hr (0-15)
[2019-05-09 23:02] LABS: C REACTIVE PROTEIN < 0.2 mg/dL (<=0.9)
[2019-05-09 23:44] LABS: MAGNESIUM 2.1 mg/dL (1.8-2.4); PHOSPHOROUS 4.6 mg/dL (2.5-4.9)
[2019-05-09 23:45] LABS: AMPHETAMINE QUAL UR NONE DETECTED (See below)
[2019-05-10 02:19] VITALS: BP 117/75
[2019-05-10 02:37] VITALS: BP 124/58
[2019-05-10 07:30] VITALS: BP 110/89
[2019-05-10 08:57] LABS: MAGNESIUM 1.9 mg/dL (1.8-2.4); PHOSPHOROUS 3.4 mg/dL (2.5-4.9)
[2019-05-10 08:58] LABS: ALKALINE PHOSPHATASE 114 U/L (46-116); ALT/SGPT 294 U/L (16-63); AST/SGOT 310 U/L (15-37); BILIRUBIN TOTAL 3.5 mg/dL (0.20-1.00); CALCIUM 7.8 mg/dL (8.5-10.1); CARBON DIOXIDE 19.9 mmol/L (21-32); CHLORIDE SERUM 106 mmol/L (98-107); CREATININE SERUM 0.6 mg/dL (0.7-1.3); GFR1 > 60 mL/min; GLUCOSE SERUM 119 mg/dL (74-106); POTASSIUM SERUM 4.4 mmol/L (3.5-5.1); SODIUM SERUM 141 mmol/L (136-145); TOTAL PROTEIN, SERUM 6.7 g/dL (6.4-8.2)
[2019-05-10 09:22] VITALS: Ht 162.6 cm; Wt 67.6 kg
[2019-05-10 09:42] LABS: RED CELL DISTRIBUTION WIDTH 13.1 % (11.5-14.5)
[2019-05-10 12:20] VITALS: BP 127/86
[2019-05-10 13:36] LABS: PLATELET MORPHOLOGY PLATELETS DECREASED
[2019-05-10 14:01] LABS: BAND NEUTROPHIL 1 % (0-10); BASOPHIL 0 % (0-2); MONOCYTE 4 % (0-7); SEGMENTED NEUTROPHILS 91 % (37-75); rbc morphology (normal/abnorm) ABNORMAL (NORMAL)
[2019-05-10 14:12] LABS: PLATELET COUNT 34 x10^3mcL (130-400)
[2019-05-10 18:22] VITALS: BP 123/86
[2019-05-10 21:02] VITALS: BP 135/88
[2019-05-11 06:07] VITALS: BP 124/84
[2019-05-11 07:22] LABS: RED CELL DISTRIBUTION WIDTH 13.7 % (11.5-14.5)
[2019-05-11 07:43] LABS: CALCIUM 7.6 mg/dL (8.5-10.1); CARBON DIOXIDE 23.6 mmol/L (21-32); CHLORIDE SERUM 110 mmol/L (98-107); CREATININE SERUM 0.7 mg/dL (0.7-1.3); GFR1 > 60 mL/min; GLUCOSE SERUM 163 mg/dL (74-106); POTASSIUM SERUM 3.4 mmol/L (3.5-5.1); SODIUM SERUM 144 mmol/L (136-145)
[2019-05-11 07:51] LABS: PLATELET COUNT 83 x10^3mcL (130-400)
[2019-05-11 09:26] VITALS: BP 135/86
[2019-05-11 13:24] VITALS: BP 125/90
[2019-05-11 14:21] LABS: BAND NEUTROPHIL 0 % (0-10); BASOPHIL 0 % (0-2); MONOCYTE 6 % (0-7); SEGMENTED NEUTROPHILS 90 % (37-75)
[2019-05-11 14:22] LABS: rbc morphology (normal/abnorm) NORMAL (NORMAL)
[2019-05-11 17:04] VITALS: BP 131/86
[2019-05-11 20:19] VITALS: BP 130/87
[2019-05-11 23:08] VITALS: BP 121/84
[2019-05-12 04:59] VITALS: BP 135/84
[2019-05-12 07:21] LABS: RED CELL DISTRIBUTION WIDTH 13.4 % (11.5-14.5)
[2019-05-12 07:32] LABS: ALKALINE PHOSPHATASE 89 U/L (46-116); ALT/SGPT 122 U/L (16-63); AST/SGOT 64 U/L (15-37); CALCIUM 7.7 mg/dL (8.5-10.1); CHLORIDE SERUM 109 mmol/L (98-107); CREATININE SERUM 0.7 mg/dL (0.7-1.3); GFR1 > 60 mL/min; GLUCOSE SERUM 131 mg/dL (74-106); POTASSIUM SERUM 3.2 mmol/L (3.5-5.1); SODIUM SERUM 147 mmol/L (136-145); TOTAL PROTEIN, SERUM 6.7 g/dL (6.4-8.2)
[2019-05-12 07:33] LABS: ALBUMIN 2.6 g/dL (3.4-5.0)
[2019-05-12 07:49] LABS: PLATELET COUNT 68 x10^3mcL (130-400)
[2019-05-12 09:30] VITALS: BP 126/79
[2019-05-12 09:53] LABS: BAND NEUTROPHIL 1 % (0-10); BASOPHIL 0 % (0-2); MONOCYTE 9 % (0-7); SEGMENTED NEUTROPHILS 90 % (37-75)
[2019-05-12 09:54] LABS: PLATELET MORPHOLOGY PLATELETS DECREASED; rbc morphology (normal/abnorm) ABNORMAL (NORMAL)
[2019-05-12 13:27] VITALS: BP 137/93
[2019-05-12 16:59] VITALS: BP 114/78
[2019-05-12 20:55] VITALS: BP 132/92
[2019-05-13 05:53] VITALS: BP 128/84
[2019-05-13 06:53] LABS: BASOPHIL % 0.2 % (0-2); RED CELL DISTRIBUTION WIDTH 13.6 % (11.5-14.5)
[2019-05-13 07:14] LABS: CALCIUM 7.8 mg/dL (8.5-10.1); CARBON DIOXIDE 28.7 mmol/L (21-32); CHLORIDE SERUM 116 mmol/L (98-107); CREATININE SERUM 0.5 mg/dL (0.7-1.3); GFR1 > 60 mL/min; GLUCOSE SERUM 129 mg/dL (74-106); SODIUM SERUM 152 mmol/L (136-145)
[2019-05-13 07:59] LABS: PLATELET COUNT 84 x10^3mcL (130-400)
[2019-05-13 08:20] VITALS: BP 112/79
[2019-05-13 09:18] VITALS: BP 112/79
[2019-05-13 12:12] VITALS: BP 111/68
[2019-05-13 16:55] VITALS: BP 112/68
[2019-05-13 20:34] VITALS: BP 119/71
[2019-05-14 05:11] VITALS: BP 124/61
[2019-05-14 07:00] LABS: CALCIUM 7.8 mg/dL (8.5-10.1); CARBON DIOXIDE 28.3 mmol/L (21-32); CHLORIDE SERUM 116 mmol/L (98-107); CREATININE SERUM 0.5 mg/dL (0.7-1.3); GFR1 > 60 mL/min; GLUCOSE SERUM 148 mg/dL (74-106); POTASSIUM SERUM 3.3 mmol/L (3.5-5.1); SODIUM SERUM 152 mmol/L (136-145)
[2019-05-14 07:51] LABS: BASOPHIL % 0.1 % (0-2); PLATELET COUNT 88 x10^3mcL (130-400); RED CELL DISTRIBUTION WIDTH 13.5 % (11.5-14.5)
[2019-05-14 07:59] VITALS: BP 108/64
[2019-05-14 12:40] VITALS: BP 111/70
[2019-05-14 17:02] VITALS: BP 105/68
[2019-05-14 21:13] VITALS: BP 107/67
[2019-05-15 05:12] VITALS: BP 111/56
[2019-05-15 06:56] LABS: BASOPHIL % 0.3 % (0-2); RED CELL DISTRIBUTION WIDTH 13.7 % (11.5-14.5)
[2019-05-15 07:01] LABS: CALCIUM 8.2 mg/dL (8.5-10.1); CARBON DIOXIDE 29.6 mmol/L (21-32); CHLORIDE SERUM 116 mmol/L (98-107); CREATININE SERUM 0.5 mg/dL (0.7-1.3); GFR1 > 60 mL/min; GLUCOSE SERUM 132 mg/dL (74-106); POTASSIUM SERUM 3.6 mmol/L (3.5-5.1); SODIUM SERUM 152 mmol/L (136-145)
[2019-05-15 07:33] LABS: PLATELET COUNT 115 x10^3mcL (130-400)
[2019-05-15 08:56] VITALS: BP 107/66
[2019-05-15 13:37] VITALS: BP 105/64
[2019-05-15 17:38] VITALS: BP 110/65
[2019-05-15 20:36] VITALS: BP 111/70
[2019-05-16 05:52] VITALS: BP 106/63
[2019-05-16 07:12] LABS: CALCIUM 8.2 mg/dL (8.5-10.1); CHLORIDE SERUM 112 mmol/L (98-107); CREATININE SERUM 0.6 mg/dL (0.7-1.3); GFR1 > 60 mL/min; GLUCOSE SERUM 142 mg/dL (74-106); POTASSIUM SERUM 3.5 mmol/L (3.5-5.1); SODIUM SERUM 149 mmol/L (136-145)
[2019-05-16 07:13] LABS: BASOPHIL % 0.3 % (0-2); PLATELET COUNT 147 x10^3mcL (130-400); RED CELL DISTRIBUTION WIDTH 13.5 % (11.5-14.5)
[2019-05-16 09:42] VITALS: BP 123/72
[2019-05-16 12:14] VITALS: BP 100/59
[2019-05-16 12:34] VITALS: BP 100/59
== END 2019-05-16 15:09 | DRG 720 ==
LOC: ED 21:09 → IC 22:55 → DU 22:55 → IC 05-10 00:38 → DU 05-10 16:08
PROVIDERS: Internal Medicine; Specialist; ADMIT Internal Medicine
DX: A41.9 Sepsis, unspecified organism (principal); J96.01 Acute respiratory failure with hypoxia; N17.0 Acute kidney failure with tubular necrosis; J69.0 Pneumonitis due to inhalation of food and vomit; J15.5 Pneumonia due to Escherichia coli; E83.51 Hypocalcemia; R13.10 Dysphagia, unspecified; F72 Severe intellectual disabilities; G80.0 Spastic quadriplegic cerebral palsy; K21.9 Gastro-esophageal reflux disease without esophagitis; H50.00 Unspecified esotropia; H54.3 Unqualified visual loss, both eyes; G40.909 Epilepsy, unspecified, not intractable, without status epilepticus; J45.909 Unspecified asthma, uncomplicated; Z93.1 Gastrostomy status; Z74.01 Bed confinement status; Z68.25 Body mass index [BMI] 25.0-25.9, adult; Z16.12 Extended spectrum beta lactamase (ESBL) resistance
CPT/HCPCS: 36600; A4628; G0378; J1940; J2060; J2185 ×2; J3370; J3490; J7030; J7050; J7613; J7620; J7633; J7644; Q0092

== ENCOUNTER 2019-09-03 08:58 | Inpatient (IN) | payer MEDICAID ==
[~2019-09-03] VITALS: Ht 165.1 cm; Wt 68.0 kg
--- NOTE | 2019-09-03 09:00 | NUR ---
PT BIBA FOR AOB AT FACILITY SINCE THIS MORNING STATING AT 88%. PER MEDIC GAVE X2 2.5MG ALBUTEROL, 0.5MG ATROVENT ON 15L NRM AND STAT IMPROVED TO 100%. PT ARRIVED WITH SPO2 98%, NOTED GTUBE RT UPPER ABDOMEN. PT HAS HX OF CP, FARRAH ARMS AND LEGS WITH CONTRACTION. PT IS UNABLE TO SPEAK, TRACKING NOTED. PERRLA NOTED. PT PLACED ON CM. VSS. UPON AUSULTATION FARRAH WHEEZING NOTED. NAIL BEDS HAVE NOTED CYANOSIS. PT IS SINUS TACHYCARDIA ON MONITOR. PT SKINS PINK,WARM AND DRY. VSS. WILL CONTINUE TO MONITOR.
--- NOTE | 2019-09-03 09:46 | NUR ---
MEDICATED PER EMAR.
--- NOTE | 2019-09-03 10:24 | NUR ---
RESP AT BEDSIDE.
--- NOTE | 2019-09-03 10:25 | NUR ---
RESP ATBEDSIDE FOR BREATHING TX.
[2019-09-03 10:26] LABS: CALCIUM 8.6 mg/dL (8.5-10.1); CARBON DIOXIDE 23.1 mmol/L (21-32); CHLORIDE SERUM 104 mmol/L (98-107); CREATININE SERUM 0.6 mg/dL (0.7-1.3); GFR1 > 60 mL/min; GLUCOSE SERUM 128 mg/dL (74-106); POTASSIUM SERUM 3.5 mmol/L (3.5-5.1); SODIUM SERUM 139 mmol/L (136-145)
[2019-09-03 10:30] LABS: ALBUMIN 3.4 g/dL (3.4-5.0); ALKALINE PHOSPHATASE 97 U/L (46-116); ALT/SGPT 30 U/L (16-63); AST/SGOT 25 U/L (15-37); BILIRUBIN TOTAL 0.91 mg/dL (0.20-1.00); HDL CHOLESTEROL 41 mg/dL (40-60); TOTAL PROTEIN, SERUM 7.8 g/dL (6.4-8.2)
[2019-09-03 10:33] LABS: CHOLESTEROL 111 mg/dL (<200)
[2019-09-03 10:41] LABS: UA SPECIFIC GRAVITY >=1.030 (1.005-1.035); microscopic required? YES; urine erythrocyte TRACE (NEGATIVE)
[2019-09-03] MEDS ORDERED: ALBUTEROL1.25 MG/3 (10:48)
--- NOTE | 2019-09-03 11:01 | NUR ---
ATTMEPTED TO CALL FACILITY FOR MORE PT INFORMATION, PER STAFF WITH RETURN CALL TO [facility] WITH INFORMATION.
[2019-09-03 11:04] LABS: BASOPHIL % 0.3 % (0-2); RED CELL DISTRIBUTION WIDTH 12.6 % (11.5-14.5)
[2019-09-03 11:08] LABS: PLATELET COUNT 102 x10^3mcL (130-400)
--- NOTE | 2019-09-03 11:18 | NUR ---
PT RESTING WITH VISIBLE CHEST RISE AND FALL. VSS. RESP E/U. WILL CONTINUE TO MONITOR. MEDICATED PER EMAR.
--- NOTE | 2019-09-03 11:24 | NUR ---
DESIREE MERAZ PLATE GAUGER CALLED [facility] AND INFORMED THAT PT IS A FULL CODE. PLATE GAUGER INFORMED THAT WE NEED THE PAPERWORK. DR. FU MADE AWARE.
--- NOTE | 2019-09-03 12:56 | NUR ---
REPORT GIVEN TILA RN TO ASSUME CARE OF PT.
--- NOTE | 2019-09-03 13:22 | NUR ---
RECEIVED PT VIA GURNEY FROM E/D, ACCOMPANIED BY RN AND TRANSPORTER. PT AWAKE, APHASIC, DOES NOT FOLLOW COMMANDS; SEIZURE PRECAUTIONS IN PLACE, PARTIAL VISION IMPAIRMENT - OU. ON TELE # 35, ST, HR 112, NO S/S CHEST PAIN OR DISCOMFORT NOTED. SCD BY BEDSIDE. FARRAH LUNGS EXP WHEEZE, CHEST RISING EVENLY, 15LPM NRBM, 97%, EPISODES OF DRY COUGHING, HOB UP. ABD SOFT, ROUND, NON-TENDER, NORMOACTIVE BOWEL SOUNDS X 4 QUADS, LAST BM 09/03/19, SOFT; HAS GT 22FR/15CC BALLOON, SITE W/ BLANCHABLE ERYTHEMA, COVERED W/ Z-GUARD/T-DRAIN. 16FR F/C INSTALLED 09/03/19, DRAINING CLEAR ORANGE URINE. GENERALIZED WEAKNESS, NOTED CONTRACTURE TO BLE/RUE, SPASTIC QUADRIPLEGIA, FALL RISK PROTOCOL IN PLACE. 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 IV SITES LH 20G CDI, RH 22G CDI. PT UNABLE TO PARTICIPATE IN ANY LEARNING ACTIVITY D/T LOC. PADDED SIDE RAILS UP X 2, BED IN LOW POSITION, CALL LIGHT WITHIN REACH. WILL ENDORSE TO CIERRA SIEGEL.
--- NOTE | 2019-09-03 13:40 | NUR ---
Total fluid resuscitation amount ordered for patient is 3000 mls. At time of admission/transfer to 1999, 2000 mls have infused. Last BP was 103/54 and CIERRA ADORNO is aware that BP will need to be reassessed after fluid infusion completed.
[2019-09-03 14:33] LABS: AMPHETAMINE QUAL UR NONE DETECTED (See below)
[2019-09-03 14:34] VITALS: BP 103/54
[2019-09-03 15:38] VITALS: BP 103/62
--- NOTE | 2019-09-03 16:10 | NUR ---
PT. IS BEING PLACED ON O2 AT 3L NC BY RESP. THERAPIST AT THIS TIME.
--- NOTE | 2019-09-03 17:43 | NUR ---
NOTED SMALL AMT. OF YELLOWISH DRAINAGE COMING OUT OF GT SITE RIGHT AT THE POINT OF INSERTION. DR. FLEMING WAS NOTIFIED OF THE ABOVE. DR. FLEMING STATED HE WILL LOOK INTO GI CONSULT TO SEE IF THE GT NEEDS TO BE FIXED.
[2019-09-03 18:02] VITALS: BP 115/73
[2019-09-03 19:00] VITALS: BP 107/60
--- NOTE | 2019-09-03 19:25 | NUR ---
RECEIVED PT IN BED AWAKE,ALERT BUT NON-VERBAL. PT W/ HX OF CP AND QUADRIPLEGIC. LUNG SOUNDS DIMINISHED. PT BREATHING LABORED. ON O2 AT 3L VIA N/C. BOWEL SOUNDS ACTIVE. W/ G-TUBE IN PLACE AND CLAMPED. DRESSING DRY AND INTACT AT THIS TIME. W/ AYALA CATH DRAINING WANG URINE. IVF NS INFUSING AT 125 ML/HR VIA LT HAND. W/ HL TO RT HAND. BEDRAILS UP. WILL CONTINUE W/ CARE.
[2019-09-03 21:22] VITALS: BP 114/69
--- NOTE | 2019-09-04 05:00 | NUR ---
AYALA CATH CARE DONE PER PROTOCOL.
[2019-09-04 05:30] VITALS: BP 132/78
--- NOTE | 2019-09-04 06:19 | NUR ---
PT ACCIDENTALLY PULLED OUT IV ON THE RT HAND.
--- NOTE | 2019-09-04 06:20 | NUR ---
PT AWAKE AT THIS TIME. HE IS COUGHING ON AND OFF. ON O2 AT 2L N/C AND SATTING 98%. PT APPEARS CALM AND DOES NOT APPEAR TO BE IN PAIN. AYALA CATH IN PLACE. PT HAD A MOD. SOFT BM. IF NS INFUSING WELL AT 125 CC/HR VIA LT HAND.
--- NOTE | 2019-09-04 07:00 | NUR ---
AWAKE, NON VERBAL. TRACKS WITH EYES SOMETIMES. TELE # 35 ST. LUNGS CONGESTED BILATERALLY. O2 SAT ON 2L NC 98%. IV SITE TO LEFT HAND BLEEDING AND INFILTRATED. REMOVED SALINE LOCK, ANGIO INTACT. AYALA CATH DRAINING WANG URINE TO BSD. TURNING Q 2 HOURS. COUGHING, CALLED RT FOR BREATHING TREATMENT.
[2019-09-04 07:48] LABS: PLATELET COUNT 97 x10^3mcL (130-400)
[2019-09-04 09:02] LABS: CALCIUM 8.3 mg/dL (8.5-10.1); CARBON DIOXIDE 27.7 mmol/L (21-32); CHLORIDE SERUM 109 mmol/L (98-107); CREATININE SERUM 0.5 mg/dL (0.7-1.3); GFR1 > 60 mL/min; GLUCOSE SERUM 90 mg/dL (74-106); POTASSIUM SERUM 3.8 mmol/L (3.5-5.1); SODIUM SERUM 145 mmol/L (136-145)
[2019-09-04 09:18] VITALS: BP 137/84
[2019-09-04 12:22] LABS: MONOCYTE 28 % (0-7); SEGMENTED NEUTROPHILS 54 % (37-75); rbc morphology (normal/abnorm) ABNORMAL (NORMAL)
[2019-09-04 12:23] LABS: PLATELET MORPHOLOGY PLATELETS DECREASED; tear drop cell (dacryocyte) 1+
--- NOTE | 2019-09-04 12:34 | NUR ---
DR GREENE REMOVED OLD GT, RE INSERTED A NEW GT FROM SAME SITE AT BEDSIDE.
[2019-09-04 13:32] VITALS: BP 109/58
--- NOTE | 2019-09-04 16:48 | NUR ---
[facility] PHARMACIST IS AWARE OF THE VANCO TROUGH OF 10.7, SHE WILL ADJUST NEXT DOSE.
[2019-09-04 17:01] VITALS: BP 102/66
--- NOTE | 2019-09-04 17:25 | NUR ---
Discount pharmacy card and list to low cost medical clinics given to patient by Mathew Cat.
--- NOTE | 2019-09-04 18:28 | NUR ---
NON VERBAL, EYES OPEN WITH TOUCH. TELE # [address] 103. GT FEEDING VITAL AF 1.2 AT 35 ML PER HOUR. AYALA CATH DRAINED 500 ML YELLOW URINE TO BSD. SCD BLE. TURNING Q 2 HOURS. O2 2L NC, O2 SAT 98%. NO SIGNS OF DISCOMFORT. IV SITE LEFT FOOT PATENT, CDI.
--- NOTE | 2019-09-04 19:30 | NUR ---
Received pt. at this time from day shift RN, currently awake, alert, and non-verbal at baseline. Pt. has no s/o distress and as per day shift nurse, coughs a litle when people walk in as a sign of anxiety or response to the people walking in. otherwise, pt. exhibits no signs of pain, discomofort, distress. Will continue to monitor pt. at this time.
[2019-09-04 20:20] VITALS: BP 93/66
[2019-09-04 20:53] VITALS: Ht 165.1 cm; Wt 68.0 kg
--- NOTE | 2019-09-04 20:54 | NUR ---
Called Air Saw Operator at this time to request for air mattress machine for pt. At this time, Air Saw Operator said that most of the machines are broken and Ms. Sheehan will look for one in a bit. Will continue to monitor pt. at this time.
--- NOTE | 2019-09-04 21:00 | NUR ---
Pt. at this time was changed and repositioned in bed. Pt. feeding increased to 40 mL at this time with the goal rate of 60. will continue to monitor.
--- NOTE | 2019-09-04 23:00 | NUR ---
Pt. feeding increased to 45 cc/hr at this time. Will continue to monitor.
--- NOTE | 2019-09-05 00:55 | NUR ---
Spoke to Dr. Summers at this time, w/ w/u of the Flush. Md. will change the order to flush q4h at this time. Will flush once order is put in and continue to monitor pt. Pt. at this time, is asleep, easily arousable using verbal stimuli. Pt. when awake is non-verbal, unable to make needs known, unable to follow commands. Pt. has no s/o distress at this time. Medications have been given as ordered, Will continue to monitor pt.
--- NOTE | 2019-09-05 02:03 | NUR ---
Administered IV ab(x) as ordered at this time. Flushed G-Tube with 100 mL At 0200 also. Will continue to monitor pt. and endorse to next shift.
--- NOTE | 2019-09-05 04:00 | NUR ---
Pt. feeding increased to 50 cc/hr at this time, will continue to monitor pt.
[2019-09-05 05:29] VITALS: BP 123/72
--- NOTE | 2019-09-05 06:17 | NUR ---
Pt. at this time is currently awake and respirations are at 28. , Dr. Summers made aware of this, recommended ABG, Dr. Summers said she will follow up with Dr. Phipps at this time. Pt. increasing in agitation starting around 3 or 4 am. At his time, Dr. phipps came into the room and assessed pt. MD. said that since O2 is okay, we will continue to monitor pt. Pt. also noted to have removed O2 NC 3-4 times throughout the shift, made aware also. Otherwise, Pt. stable, will change pt. and endorse to next shift RN.
[2019-09-05 06:28] LABS: BASOPHIL % 0.5 % (0-2); PLATELET COUNT 131 x10^3mcL (130-400); RED CELL DISTRIBUTION WIDTH 12.9 % (11.5-14.5)
[2019-09-05 06:42] LABS: CALCIUM 8.4 mg/dL (8.5-10.1); CARBON DIOXIDE 27.7 mmol/L (21-32); CHLORIDE SERUM 105 mmol/L (98-107); CREATININE SERUM 0.5 mg/dL (0.7-1.3); GFR1 > 60 mL/min; GLUCOSE SERUM 94 mg/dL (74-106); PHOSPHOROUS 3.5 mg/dL (2.5-4.9); POTASSIUM SERUM 3.3 mmol/L (3.5-5.1); SODIUM SERUM 142 mmol/L (136-145)
--- NOTE | 2019-09-05 06:48 | NUR ---
Pt. noted to have diarrhea on chux pad, will continue to monitor. Put feeding down to 45 mL / hr at this time. Pt. was noted to be restless, but after changing, pt. seems to be more calm at this time. Will continue to monitor pt and endorse to next shift RN.
--- NOTE | 2019-09-05 07:20 | NUR ---
RECEIVED PT FROM DIGITAL COMMUNITY MANAGER. PT AWAKE, ALERT. NON VERBAL. PT ON 2LNC WITH CONGESTION NOTED, NO RESP DISTRESS. PT ON TELE 35, NO CHEST PAIN NOTED. PERIPHERAL PULSES PALPABLE, NO EDEMA NOTED. IV ACCESS LLE (FOOT) CDI INFUSING NS AT 125ML/HR. ACTIVE BS NOTED. PT HAS GTUBE WITH VITAL 1.2 AT 45ML/HR. PT HAS H2O FLUSH 100ML Q4 HOURS. PT HAS AYALA CATHETER WITH YELLOW URINE DRAINING. PT BEDBOUND, TURN Q2 HOURS. PT HEELS OFFLOADED ON PILLOW. HOB AT 35 DEGREES. SAFETY MEASURES IN PLACE, BED LOW AND LOCKED. CALL LIGHT WITHIN REACH.
[2019-09-05 08:31] VITALS: BP 112/51
--- NOTE | 2019-09-05 08:44 | NUR ---
DUE MEDICATIONS ADMINISTERED. NO GASTRIC RESIDUAL NOTED. HOB AT 35 DEGREES. SAFETY MAINTAINED.
--- NOTE | 2019-09-05 09:50 | NUR ---
PT NOTED TO HAVE LOOSE STOOL AT THIS TIME. PT CLEANED AND REPOSITIONED WITH ENERGY CONSULTANT. ZGUARD APPLIED TO PERIANAL AREA. NO ISSUES NOTED TO SKIN. AIR MATRESS APPLIED UNDER PATIENT AT THIS TIME. HEELS OFFLOADED ON PILLOW.
--- NOTE | 2019-09-05 10:58 | NUR ---
PT POTASSIUM 3.3, DR ZHU AWARE.
[2019-09-05 12:36] VITALS: BP 106/61
--- NOTE | 2019-09-05 13:53 | NUR ---
PT IV TO LEFT FOOT OUT AT THIS TIME. NO BLEEDING NOTED. UNABLE TO GIVE IV REGLAN AT THIS TIME. WILL ATTEMPT NEW IV AND ADMINISTER DUE MEDICATIONS.
--- NOTE | 2019-09-05 14:18 | NUR ---
Initial Nutrition Assessment (): MOIZ WOOD 29/M Dx: Asthma, Sepsis, UTI PMHx: Cerebral Palsy, Spastic Quadriplegia, Epilepsy, Asthma, GERD, Gtube in place, bedbound and nonverbal at baseline PSHx: Gtube placement Labs: na 142, K 3.3 L, BG 94, BUN 7.0 , Cr 0.5 L, Alb 3.4 Ca 8.4 L, BNP 43.20 H, Hgb, 16.0 , HCT 47, PT 11.5 H, INR 1.1 PTT 28.0, Ketones 3+, Protein 1+ Meds: Colace, KCl, Lactulose, Levaquin, Merrem, MoM, Miralax, [place], Prilosec, Reglan, Robinul, Solu-medrol, Vancocin, Vancomycin, Zofran Diet: NPO; EN - Vital 1.2 @35 mL/hr to goal 60mL/hr (1440mL, 1728 kcal, 108g Pro, 1168mL H2O), adv 10mL/hr/day + FWF 100mL q4hrs (600mL) Ht: 65in Wt: 150# BMI: 25 Bed scale: 173.9# IBW: 136# %IBW: 110% UBW: unable to assess Age: 29 Food Allergies: NKFA Skin: intact Elvis: 12 Edema: None noted GI: Loose stool noted today Last BM: 09/05 RD Note (09/05): Visited patient bedside, awake but nonverbal; no family present at this time. Verified TF formula + rate - running to goal at this time. Pt reviewed during bed huddles, possible new Jtube placement being considered r/t mult recent hospital admissions 2/2 aspiration PNA. Pt also noted bedbound. Problem with: N/V/D/C: unable to assess Problems with: Chewing: unable to assess Swallowing: unable to assess Current appetite: unable to assess Recent wt change: unable to assess %wt change: unable to assess Vitamin/Supplement use: unable to assess Special diet at home: unable to assess Physical activity: unable to assess Nutrition education given (specify specific nutrition education and handout given): none given at this time Food-drug interactions? Education given? None given at this time. Estimated Nutritional Needs Based on current body weight (68kg) Energy: 1028-6531 kcal/day (25-30 kcal/kg for maintenance, chronic illness) Protein: 68-82 g/day (1.0-1.2 g/kg to preserve LBM) Fluid: 5662-5514 mL/day (1 mL/kcal), or per MD Nutrition Diagnosis: Altered GI function r/t aspiration PNA AEB new Jtube placement consideration r/t sepsis 2/2 mult aspiration PNA, mult recent admissions. Intervention 1. Continue current POC Monitor/Evaluate Goal: PO intake at least 75% of estimated needs Monitor: PO intake, Labs, GI function F/U in 2-3 days as risk HR 09/07-
--- NOTE | 2019-09-05 14:22 | NUR ---
Recommendation(s): 1. Continue current POC
--- NOTE | 2019-09-05 15:36 | NUR ---
NEW IV STARTED TO RIGHT FOOT. 24G, CDI INFUSING NS AT 1245ML/HR AT THIS TIME.
[2019-09-05 16:42] VITALS: BP 115/68
--- NOTE | 2019-09-05 17:50 | NUR ---
PT CLEANED AND REPOSITIONED WITH CONCERT SINGER. NO REDNESS NOTED TO PERIANAL AREA. ZGUARD APPLIED. DUE MEDICATIONS ADMINISTERED ORDERED. NO GASTRIC RESIDUAL NOTED. HOB AT 35 DEGREES. SAFETY MAINTAINED.
--- NOTE | 2019-09-05 18:41 | NUR ---
PT STABLE AT THIS TIME. ALL NEEDS TENDED TO THROUGHOUT SHIFT. WILL CONTINUE TO MONITOR AND ENDORSE CARE TO GENERATOR WORKER.
--- NOTE | 2019-09-05 20:00 | NUR ---
PT SEEN, RESTING IN BED, AWAKE BUT NON-VERBAL, HX OF CP AND MR, BREATHING EVEN AND UNLABORED, LUNG SOUNDS CONGESTED, ON O2 3L VIA NC, NO RESP DISTRESS NOTED, RT PROTOCOL, ON TELE#35 NSR, NO S&S OF CHEST PAIN, IVF TO RLE INFUSING WELL, PULSES PALPABLE, EDEMA NOTED TO BUE AND BLE, GENERALIZED WEAKNESS, BEDBOUND, TOTAL CARE, ON AIR MATTRESS, ABD SOFT AND ROUND WITH ACTIVE BS, NO BM AT THIS TIME, LAST BM 09/05/19, LOOSE STOOL, AYALA VIA GRAVITY DRAINING YELLOW URINE, TF WITH VITAL AF 1.2 @ 45 ML/HR, INCREASING 10 ML DAILY, ASP PRECAUTION IN PLACE, HOB, NO RESIDUAL NOTED. NO DISTRESS NOTED WILL KEEP TO MONITOR.
--- NOTE | 2019-09-05 21:00 | NUR ---
TF TURNED OFF AT THIS TIME PER MD ORDER.
[2019-09-05 21:34] VITALS: BP 131/81
--- NOTE | 2019-09-06 06:00 | NUR ---
TOTAL BEDBATH GIVEN, PT HAD LOOSE BM, GOOD KJ CARE GIVEN, FLEX BOOTS APPLIED TO BLE. ON O2 3L VIA NC WITH NO RESP DISTRESS OR SOB NOTED, IVF INFUSING WELL TO RLE. SZ PRECAUTION IN PLACE, RESUME TUBE FEEDING WITH VITAL AF 1.2@ 45 ML/HR. ASP PRECAUTION IN PLACE, HOB 45 DEGREE.
[2019-09-06 06:04] VITALS: BP 114/54
[2019-09-06 06:54] LABS: CALCIUM 9.1 mg/dL (8.5-10.1); CARBON DIOXIDE 26.1 mmol/L (21-32); CHLORIDE SERUM 103 mmol/L (98-107); CREATININE SERUM 0.4 mg/dL (0.7-1.3); GFR1 > 60 mL/min; GLUCOSE SERUM 116 mg/dL (74-106); POTASSIUM SERUM 3.9 mmol/L (3.5-5.1); SODIUM SERUM 139 mmol/L (136-145)
--- NOTE | 2019-09-06 07:18 | NUR ---
BEDSIDE REPORT GIVEN TO VAL-RN, ALL QUESTIONS ANSWERED AND CONCERNS ADDRESSED.
--- NOTE | 2019-09-06 07:30 | NUR ---
RECEIVED REPORT FROM NIGHT NURSE PATIENT SITTING UP IN BED WITH EYES CLOSED, NON VERBAL PATIENT HX OF CEREBRAL PALSY. NO S/S OF ANY RESPIRATORY DISTRESSNOTED. IV ON RLE INFUSING PATENT AND INTACT. AYALA CATHETER DRAINING TO GRAVITY CLEAR YELLOW URINE NOTED. ALL NEEDS ATTENDED TO AT THIS TIME. BED IN LOWEST POSITION CALL LIGHT WITHIN REACH. WILL CONTINUE TO MONITOR.
[2019-09-06 07:40] LABS: BASOPHIL % 0.2 % (0-2); RED CELL DISTRIBUTION WIDTH 12.6 % (11.5-14.5)
[2019-09-06 08:44] LABS: PLATELET COUNT 118 x10^3mcL (130-400)
[2019-09-06 08:50] VITALS: BP 113/71
--- NOTE | 2019-09-06 10:03 | NUR ---
PATIENT SITTING UP IN BED NO S/S OF ANY ACUTE DITRESS NOTED. ADMINISTERED SCEDULAED MEDS PER MAR , NO RESIDUAL VOL NOTED. PATIENT TOLERATED WELL THROUGH G TUBE ADMINISTRATION. NO ADVERSE REACTIONS NOTED. ALL NEEDS ADDRESSED AT THIS TIME. BED IN LOWEST POSITION CALL LIGHT WITHIN REACH. WILL CONTINUE TO MONITOR AND REPOSITION Q2H.
--- NOTE | 2019-09-06 11:00 | NUR ---
UP THE FEEDING 10 ML TO REACH 55ML PER DR ORDERS DAILY UP 10 ML TO GOAL OF 65. PATIENT TOLERATING WELL WILL CONTINUE TO MONITOR.
[2019-09-06 12:24] VITALS: BP 118/67
--- NOTE | 2019-09-06 14:20 | NUR ---
ADMINISTERED SCHEDULE MED PER NOV IVP PATIENT TOLERATED WELL. PATIENT REPOSITIONED . NO S/S OF ANY RESPIRATORY DISTRESS PATIENT ON 3L NC TOLERATING WELL. PATIENT TOLERATING FEEDING OF 55ML AT THIS TIME. PATIENT HOB AT 45 DEGREES . ALL NEEDS ATTENDED TO AT THIS TIME. BED IN LOWEST POSITION, SIDERAIL UP X2. WILL CONTINUE TO MONITOR.
[2019-09-06 16:52] VITALS: BP 120/69
--- NOTE | 2019-09-06 17:56 | NUR ---
REPOSITIONED PATIENT NO S/S OF ANY RESPIRATORY DISTREE AT THIS TIME. PATIENT ON 3L NC TOLERATING WELL. GTUBE INFUSING AT 55ML/HR TOLERATING WITH RESIDUAL OF 55ML. ALL NEEDS ATTENDED TO AT THIS TIME. BED IN LOWEST POSITION CALL LIGHT WITHIN REACH. WILL CONTINUE TO MONITOR.
--- NOTE | 2019-09-06 18:49 | NUR ---
PATIETN SITTING UP IN BED AT 45 DEGREES PATIENT HAD A BOWEL MOVEMONET. NO S/S OF ANY RESPIRATORY DISTESS OR CHEST PAIN. IV ON RLE PATENT AND INTACT NO REDNESS OR EDEMA INFUAING. GTUBE C/D/I AT 55 MIL/HR. AYALA CATHETER DRAINING TO GRAVITY CLEAR YELLOW URINE. TELE MONITOR 75 ATTACHED. PATIENT ON 3L NC TOLERATING WELL. ALL NEEDS ATTENDED TO AT THIS TIME. BED IN LOWEST POSITION CALL LIGHT WITHIN REACH. WILL ENDORSE CARE TO NIGHT NURSE.
--- NOTE | 2019-09-06 19:25 | NUR ---
Pt. received from day shift, currently awake in bed. Pt. is bed bound, non-verbal, and has cerebral palsy. Pt. is unable to make needs known and is unable to follow commands. Pt. able to track at times where voice is coming from, but otherwise, pt. arousable usign verbal stimuli. Pt. shows no signs of respiratory distress, congestion noted, no s/o distress also. Pt. ACCESS CLINICIAN w/ G-Tube feeding at 55 cc/hr, goal at 60 cc with gtube site dressing clean, and patent. Pt. IV site on R foot at this time, will continue to monitor, edema noted, flushing well, will ask another RN to verify patency. Pt. safety in check with call light place within reach, bed set at lowest position, will continue to monitor.
[2019-09-06 21:40] VITALS: BP 100/62
--- NOTE | 2019-09-06 22:01 | NUR ---
Medications administered at this time with flushing 30 cc prior to check placement. Feeding also stopped at 2100 as orsdered. Pt. at this time, currently awake, O2 was noted to be taken off, put back on. pt. has no s/o resepiratory distress and pt. is calm and awake. Pt. IV site noted to have some edema, but is still patent w/ no signs of redness or pt. localizing to pain when checking IV site. As per ROLL COATING MACHINE OPERATOR and as witnessed by RN, pt. has groaning / crying noises, but only does it for a second or two, and returns to normal. This happens when nothing is being done to pt. and just currently in room. Will continue to monitor pt. at this time.
--- NOTE | 2019-09-07 02:37 | NUR ---
Pt. currently asleep in bed, easily arousable using verbal stimuli. Pt. has no s/o distress, IV medications have been given as ordered. will continue to monitor pt. at this time. IV site patent w// NS running at 125 cc/hr.
[2019-09-07 05:07] VITALS: BP 137/92
[2019-09-07 06:46] LABS: CALCIUM 8.6 mg/dL (8.5-10.1); CARBON DIOXIDE 28.3 mmol/L (21-32); CHLORIDE SERUM 105 mmol/L (98-107); CREATININE SERUM 0.5 mg/dL (0.7-1.3); GFR1 > 60 mL/min; GLUCOSE SERUM 131 mg/dL (74-106); MAGNESIUM 2.1 mg/dL (1.8-2.4); PHOSPHOROUS 3.6 mg/dL (2.5-4.9); POTASSIUM SERUM 3.4 mmol/L (3.5-5.1); SODIUM SERUM 141 mmol/L (136-145)
--- NOTE | 2019-09-07 06:46 | NUR ---
Pt. asleep for most of the night, no s/o distress noted. IV flushed well when medication given and IV ran. Started feeding at 6 am this morning, running at 55 cc. Small residual noted, 5-10 cc when checked. Goal for tube feeding is 60 cc/hr. Pt. had no episode of BM throughout the night. Turned pt. q2h, currently on air mattress, changed chux and draw sheet at 0645 d/t it being it wrinkled on pt. Will continue to monitor pt. and endorse to next shift RN.
[2019-09-07 06:51] LABS: BASOPHIL % 0.3 % (0-2); RED CELL DISTRIBUTION WIDTH 12.9 % (11.5-14.5)
--- NOTE | 2019-09-07 07:00 | NUR ---
RECEIVED REPORT FROM NIGHT NURSE PATIENT SITTING UP IN BED WITH HOB AT 45 DEGREES ON 3L NC TOLERATING WELL. NO S/S OF ANY RESPIRATORY DISTRESS NOTED. AYALA CATHETER DRAINING TO GRAVITY WITH CLEAR YELLOW URINE. IV ON RLE PATENT AND INTACT. NO VERBAL PATIENT WITH HX OF CEREBRAL [place] AND QUADRIPELIGIA WILL MONITOR AND REPOSITION Q2H. ALL NEEDS ATTENDED TO AT THIS TIME. NO S/S OF ANY ACUTE DISTRESS. BED IN LOWEST POSITION. SIDE RAIL UP X2.
[2019-09-07 07:06] LABS: PLATELET COUNT 117 x10^3mcL (130-400)
--- NOTE | 2019-09-07 08:42 | NUR ---
SCREEN FOR LOW NANCI SCALE AT RISK CONTINUE PRESSURE ULCER PREVENTION INTERVENTIONS: -TURN AND REPOSITION PATIENT Q 2H OFFLOAD LEFT AND RIGHT HIPS -ASSESS AND MONITOR SKIN CONDITION DURING POSITION CHANGE -OFFLOAD BILATERAL HEELS BY PLACING PILLOWS UNDER CALVES AT ALL TIMES, UNLESS OTHERWISE CONTRAINDICATED -PRESSURE REDISTRIBUTION SURFACE THERAPY WITH PILLOWS/WEDGE POSITIONER -KEEP SKIN CLEAN AND DRY AT ALL TIMES.
[2019-09-07 08:55] VITALS: BP 105/66
--- NOTE | 2019-09-07 08:58 | NUR ---
PATIENT IN BED AT 40 DEGREE ANGLE INCREASED FEEDING TO GOAL OF 60ML/HR PATIENT TOLERATING WELL NO RESIDUAL VOL. IV SWOLLEN AROUND IV SITE NO REDNESS OR PAIN OBSERVED. SPOKE TO [facility] CHARGE NURSE SHE STATED "I WILL TALK TO DRS ABOUT HOLDING IV ANTIBIOTICS TIL WE CAN GET A CENTRAL LINE". PATIENT HAS HAD MULTIPLE STICKS AND VEINS ARE FRAGILE. WILL PROCEED DIRECTED BY . NO S/S OF ANY RESPIRATORY DISTRESS AT THIS TIME. PATIENT ON 3L NC TOLERATING WELL. LUNGS CTA . CONGESTION IN COUGH AND NASAL. ADMINISTERED SCHEDULED MED THROUGH G TUBE , TOLERATED WELL. NO ADVERSE REACTIONS NOTED. ALL NEEDS ATTENDED TO AT THIS TIME. SAFETY PRECAUTIONS IN PLACE. WILL CONTINUE TO MONITOR.
--- NOTE | 2019-09-07 09:30 | NUR ---
IV D/C'D ON RLE DUE TO EDEMA AT SITE. CATHETER INTACT DRESSING APPLIED. PATIENT TOLERATED WELL. PICC LINE ORDER PLACED ALL IV MEDS STOPPED TIL PICC LINE PLACEMENT PER DR ZHU. WILL CONTINUE WITH ORDERS PRESCRIBED.
[2019-09-07 11:52] VITALS: BP 113/69
--- NOTE | 2019-09-07 11:53 | NUR ---
SCREEN FOR LOW NANCI SCALE AT RISK SKIN INTACT, DRY AND CLEAN, BILATERAL HEELS BLANCHABLE REDNESS, HEEL RAISERS IN PLACE. GT, SITE KJ STOMA SKIN INTACT. CONTINUE PRESSURE ULCER PREVENTION INTERVENTIONS: -TURN AND REPOSITION PATIENT Q 2H OFFLOAD LEFT AND RIGHT HIPS -ASSESS AND MONITOR SKIN CONDITION DURING POSITION CHANGE -OFFLOAD BILATERAL HEELS BY PLACING PILLOWS UNDER CALVES AT ALL TIMES, UNLESS OTHERWISE CONTRAINDICATED -PRESSURE REDISTRIBUTION SURFACE THERAPY WITH PILLOWS/WEDGE POSITIONER -KEEP SKIN CLEAN AND DRY AT ALL TIMES.
--- NOTE | 2019-09-07 12:04 | NUR ---
Follow-up Nutrition Assessment: /B MOIZ WOOD HR Dx: Asthma, sepsis, UTI PMHx: cerebral palsy, spastic quadriplegia, asthma, epilepsy, mental retardation, G tube in place Labs: (09/07) BG 131H, K 3.4L, CREAT 0.5L, WBC 4.1L Meds: Colace, lactulose, milk of magnesia, miralax, norco, reglan, zofran Diet: Vital AF 1.2 @ 35 ml/hr, goal 60 ml/hr, advance 10 ml Q1H, FWF 100 cc Q4H PO Intake: NPO Weights: (09/03) 68 kg, (09/07) 70 kg I/Os: (09/06) 4545/2152 (6753) Skin: erythema to BL heels Elvis: 12 Edema: none GI: Last BM: 09/06 RD Note (09/07): Per patient's RN Stephanie, pt is tolerating Vital AF 1.2 @ 60 ml/hr without any residuals through G-tube. Patient does not have any N/V/D/C at this time. Per progress note (09/07), Plan for J-tube placement per GI. Still awaiting consent from patient's mother. No peripheral venous access, getting Picc-line. Estimated Nutritional Needs Based on body weight (68 kg) Energy: 4483-1830 kcal/day (25-30 kcal/kg for maintenance, chronic illness) Protein: 68-82 g/day (1.0-1.2 g/kg to preserve LBM) Fluid: 3606-0875 mL/day (1 mL/kcal) or per MD Nutrition Diagnosis: 1. Altered GI function related to multiple, frequent PNA as evidenced by new J tube placement consideration. (ongoing) Intervention: 1. Recommend continuing Vital AF 1.2 @ goal rate of 60 ml/hr, FWF 100 cc Q4H. This provides 1730 kcal and 108g protein. This meets 100% calorie and protein needs of the patient. Monitor/Evaluate: Goal: Have pt meet at least 75% of estimated needs Monitor: PO intake, Labs, GI function F/U in 2-3 days as high risk 09/09-
--- NOTE | 2019-09-07 12:09 | NUR ---
RT AT BEDSIDE ASSISSTED WITH NASAL SUCTION PATIENT MOVING AWAY FROM SUCTION WOULD NOT ALLOW SUCTION WILL RETRY LATER. CALMED PATIENT DOWN. CLEANED UP AFTER LOOSE STOOL AND REPOSITIONED PATIENT. ADMINISTERED SCHEDULED MED PATIENT TOLERATED WELL. ALL NEEDS ATTENDED TO AT THIS TIME. BED IN LOWEST POSITION SIDE RAILS UP X2. NO S/S OF ANY RESPIRATORY DISTRESS.
--- NOTE | 2019-09-07 13:45 | NUR ---
CALLED PICC RN [facility] AND SPOKE WITH DIEGO REGARDING PT. HAVING THE ORDER FOR MIDLINE INSERTION. DIEGO STATED THAT THE PICC LINE NURSE WILL COME OUT LATER THIS AFTERNOON TO SEE PT. ATTENDING NURSE VAL Mccormick (RN) MADE AWARE.
--- NOTE | 2019-09-07 15:40 | NUR ---
PATIENT AWAKE IN BED NO S/S OF ANY RESPIRATORY DISTRESS AT THIS TIME. PATIENT ON 3L NC TOLERATING WELL. ALL NEEDS ATTENDED TO AT THIS TIME. BED IN LOWEST POSITION SIDERAILS UP X2. WILL CONTINUE TO MONITOR.
[2019-09-07 17:03] VITALS: BP 103/54
--- NOTE | 2019-09-07 18:43 | NUR ---
PATIENT SITTING UP IN BED ON 2L NC NO S/S OF ANY REPIRATORY DISTRESS OR CHEST PRESSURE. TELE MONITOR 35 SHOWING NSR. GTUBE IN PLACE NO LEAKING THROUGHOUT SHIFT ON 60ML TOLERATING WELL NO RESIDUAL VOL. SPOKE TO DR COELLO REGUARDING J TUBE PLACEMENT PER DR COELLO TO KEEP NPO AFTER MIDNIGHT FOR POSSIBLE PLACEMENT. WILL ENDORSE TO NIGHT NURSE. NO IV ACCESS AWAITING PICC LINE PLACEMENT TONIGHT DR KRIS. AYALA CATHETER DRAINING TO GRAVITY CLEAR YELLOW URINE. ALL NEEDS ATTENDED TO AT THIS TIME. WILL ENDORSE CARE TO NIGHT NURSE.
--- NOTE | 2019-09-07 19:30 | NUR ---
Pt. received from day shift, currently resting in bed, awake, non-verbal and no s/o distress at this time. NO IV is running at this time, there is an order for PICC line, but there needs to be an order put in for consent to be gotten by nurse. Will talk to MD and also clarify J Tube order at this time. Otherwise, pt. is stable and will continue to monitor pt.
--- NOTE | 2019-09-07 19:47 | NUR ---
SPOKE TO PATIENTS MOM ON THE PHONE AND CONTAINED CONSENT FOR PICC OR MIDLINE CHRISTAL [place] WITNESSED THE CONSENT. AWAITING ORDER FOR LINE.
[2019-09-07 21:33] VITALS: BP 111/71
--- NOTE | 2019-09-08 | NUR ---
Pt is awake in received 100ml of water flush, has been turned. Not in distress.
--- NOTE | 2019-09-08 05:00 | NUR ---
Spoke to Dr. Summers, informed her that consent needed for PICC line insertion, will endorse to next shift to get consent signed. Will continue to monitor pt. at this time
[2019-09-08 06:18] LABS: BASOPHIL % 0.1 % (0-2); PLATELET COUNT 138 x10^3mcL (130-400); RED CELL DISTRIBUTION WIDTH 13.2 % (11.5-14.5)
[2019-09-08 06:23] VITALS: BP 107/67
--- NOTE | 2019-09-08 06:24 | NUR ---
PT. asleep throughout most of the night, didn't take out O2 NC throughout the night. No s/o chest pain, discomfort or pain, or restlessness. Air Mattress inflated, SCDS placed bilaterally, PEG tube dressing changed and site checked, clean and in tact. MD order placed to get consent for PICC line, will continue to monitor pt. until end of shift and endorse to next shift RN at this time.
[2019-09-08 07:01] LABS: CALCIUM 8.5 mg/dL (8.5-10.1); CARBON DIOXIDE 27.9 mmol/L (21-32); CHLORIDE SERUM 106 mmol/L (98-107); CREATININE SERUM 0.6 mg/dL (0.7-1.3); GFR1 > 60 mL/min; GLUCOSE SERUM 84 mg/dL (74-106); MAGNESIUM 1.9 mg/dL (1.8-2.4); PHOSPHOROUS 3.5 mg/dL (2.5-4.9); POTASSIUM SERUM 3.1 mmol/L (3.5-5.1); SODIUM SERUM 142 mmol/L (136-145)
--- NOTE | 2019-09-08 08:00 | NUR ---
HOB ELEVATED TO PREVENT ASPIRATION. NC 2L, NONVERBAL. GT FEED 60 CC HOUR. GT SITE INTACT. NO IV SITE. POSITIONSED WITH PILLOWS. SZ PRECAUTIONS IN PLACE. NO S/S PAIN. NO ATTEMPT AND UNABLE TO COMMUNICATE. WEARING SOFT BOOTS TO PREVENT SKIN BREAKDOWN ON FEET. CALL LIGHT WITHIN REACH. AYALA DRAINING DARK YELLOW URINE. PT WILL BE RECEIVING PICC LINE TODAYA TO CONTINUE IV ABX AND SOLUMEDROL.
--- NOTE | 2019-09-08 08:06 | NUR ---
SPOKE WITH PTS BROTHER ASKING HIM TO PLEASE CONTACT HIS MOTHER TO LET HER KNOW WE NEED CONSENT FOR PICC LINE. HE SAID HE WOULD TRY TO CONTACT HER. ALSO ATTEMPTED TO CALL JOSHUA PTS MOTHER AND LEFT MESSAGE TO CALL [facility].
[2019-09-08 08:31] VITALS: BP 110/79
--- NOTE | 2019-09-08 12:54 | NUR ---
SHARMAINE PICC LINE NURSE HERE TO INSERT PICC LINE. INSERTED WAITING FOR CXR TO CON FIRM PROPER PLACEMENT. TOLERATED WELL.
[2019-09-08 12:58] VITALS: BP 111/73
--- NOTE | 2019-09-08 15:02 | NUR ---
CXR SHOWED PICC LINE NEEDED TO BE RETRACTED 5-6 CM. BILL PICC LINE NURSE RETRACTED PICC LINE. OBTAINED NEWS ORDER OK TO USE PICC LINE.
[2019-09-08 16:15] VITALS: BP 126/77
--- NOTE | 2019-09-08 17:08 | NUR ---
CHANGED FEEDING BOTTLE AND TUBING, REPOSITIONED AND CLEANED UP AFTER BM.
--- NOTE | 2019-09-08 18:51 | NUR ---
ONGOING RT PROTOCOL. MERREM IV ABX. GT FEEDINGS 60 CC HOUR TOLERATED WELL. TOTAL CARE. ON AIR MATTRESS. VSS. AFEBRILE. GOOD URINE OUTPUT. WATERY STOOLS X 4. RECEIVED MIRALAX,LACTULOSE AND MOM. PICC LINE TO LEFT UPPER ARM INSERTED TODAY. DR. COELLO WAS GOING TO TRY TO CONTACT PTS MOTHER FOR CONSENT FOR J TUBE PLACEMENT. HOB ELEVATED. BED IN LOW POSITION.
[2019-09-08 19:55] VITALS: BP 138/89
--- NOTE | 2019-09-08 20:30 | NUR ---
Pt is in bed awake active in bed, no signs of distress. Continuing feeding with no signs of GI resuidual.
--- NOTE | 2019-09-09 04:38 | NUR ---
Pt is in bed sleeping, he is still receving 2L of NC. Not in distress, 100ml water flush.
[2019-09-09 06:10] VITALS: BP 151/72
[2019-09-09 06:52] LABS: BASOPHIL % 0.3 % (0-2); PLATELET COUNT 157 x10^3mcL (130-400)
[2019-09-09 06:58] LABS: CALCIUM 8.9 mg/dL (8.5-10.1); CARBON DIOXIDE 25.4 mmol/L (21-32); CHLORIDE SERUM 102 mmol/L (98-107); CREATININE SERUM 0.5 mg/dL (0.7-1.3); GFR1 > 60 mL/min; GLUCOSE SERUM 94 mg/dL (74-106); MAGNESIUM 2.2 mg/dL (1.8-2.4); PHOSPHOROUS 3.2 mg/dL (2.5-4.9); POTASSIUM SERUM 3.9 mmol/L (3.5-5.1); SODIUM SERUM 137 mmol/L (136-145)
--- NOTE | 2019-09-09 08:00 | NUR ---
HOB ELEVATED 40 DEGREES. NC 2L IN PLACE. PICC LINE TO LEFT UPPER ARM 2 PORTS PATENT. GT FEEDING INFUSING 60 CC HOUR. ABD SOFT. 10 CC RESIDUAL REPLACED. ON AIR MATTRESS. PADDED SR UP X 2 FOR SEIZURE PRECAUTIONS. AYALA DRAINING YELLOW URINE. HEEL RPOTECTORS BILAT. WEARING SCD'S. TOTAL CARE. REPOSITIONED WITH PILLOWS. NONVERBAL, EYES NONTRACKING. APPEARS TO BE RESTING COMFORTABLY.VSS.
[2019-09-09 08:08] VITALS: BP 104/63
[2019-09-09 11:25] VITALS: BP 109/58
[2019-09-09 16:57] VITALS: BP 120/72
--- NOTE | 2019-09-09 17:25 | NUR ---
PROVIDED AYALA CARE, ALLEN WIPES FOR PICC LINE, CHANGED GT TUBING AND FEED AND REPOSITIONED.
--- NOTE | 2019-09-09 19:09 | NUR ---
SLEEPING OFF AND ON. KEEPS TAKING NC OFF. CONTINUES ON RT PROTOCOL, SOLUMEDROL, MERREPENEM. NITAL 1.2 GT FEED 60 CC HOUR. TOTAL CARE. 3 LARGE WATERY STOOLS THIS SHIFT
--- NOTE | 2019-09-09 19:19 | NUR ---
HOB ELEVATED POSITIONED WITH PILLOWS. APPEARS COMFORTABLE. BED IN LOW POSITION. PADDED SR UP X 2. CALL LIGHT WITHIN REACH.
[2019-09-09 19:30] VITALS: BP 110/74
--- NOTE | 2019-09-09 19:30 | NUR ---
RECEIVED PT AWAKE,EYES OPEN,NON-VERBAL WITH HX CEREBRAL PALSY.BREATHING EASY AND NON-LABORED.COARSE CRACKLES ON AUSCULTATION.O2 @ 2L/MIN VIA N/C.O2 SAT @ 92%.ON GTFEEDING AND INFUSING WELL.NO RESIDUAL NOTED.HOB KEPT ELEVATED.BP 110/74 MMHG,HR 99.F/C TO YELLOW COLORED URINE.ON SEIZURE PRECAUTIONS.PADDED RAILS IN PLACED.BOTH HEELS ELEVATED WITH HEEL PROTECTORS.ON AIR MATTRESS.WILL ANTICIPATE ALL NEEDS.WILL CONTINUE TO MONITOR.
--- NOTE | 2019-09-10 04:41 | NUR ---
PT WITH ON AND OFF SLEEPING PATTERN.BREATHING EASY AND NON-LABORED.BREATHING TX GIVEN ORDERED.TOLERATED ROOMAIR ALL NIGHT.NO COUGHING NOTED.NO ASE NOTED FROM MERREM IV ATB.GT CLAMPED AT THIS TIME.WILL RESUME FEEDING @ 0600 ORDERED.ALL NEEDS MET.BM X2 TO WATERY STOOL.GOOD PERICARE RENDERED.WILL CONTINUE TO MONITOR.
[2019-09-10 05:36] VITALS: BP 100/65
[2019-09-10 06:48] LABS: BASOPHIL % 0.1 % (0-2); PLATELET COUNT 163 x10^3mcL (130-400); RED CELL DISTRIBUTION WIDTH 13.1 % (11.5-14.5)
--- NOTE | 2019-09-10 07:10 | NUR ---
RECEIVED PATIENT AWAKE/ALERT, OPEN EYES. UNABLE TO ASSESS. NONVERBAL. TELE #35 SR, HR 97 NOTED, SIMIN X2 LUMENS INTACT AND INFUSING NS @ 10ML/HR, GT INTACT WITH VITAL AF AT 60ML/HR, AYALA INTACT W/ YELLOW URINE NOTED. CONT TO MONITOR.
[2019-09-10 07:27] LABS: CALCIUM 9.1 mg/dL (8.5-10.1); CHLORIDE SERUM 102 mmol/L (98-107); CREATININE SERUM 0.5 mg/dL (0.7-1.3); GFR1 > 60 mL/min; GLUCOSE SERUM 113 mg/dL (74-106); POTASSIUM SERUM 4.3 mmol/L (3.5-5.1); SODIUM SERUM 137 mmol/L (136-145)
[2019-09-10 09:17] VITALS: BP 110/77
--- NOTE | 2019-09-10 10:08 | NUR ---
PATIENT AWAKE, OPEN EYES, NO DISTRESS NOTED, NON-PRODUCTIVE COUGH NOTED. GT RESIDUAL 2ML GAVE ALL MEDS VIA GT AND FLUSH WITH 60ML WATER, CONT GT FEEDING. MERREM 1GM IVPB INFUSING TO SIMIN PICC X 2 LUMENS, PATENT. SOLUMEDROL IVP ADMINISTERED. HOB ELEVATED, BLE WITH HEEL PROTECTORS. CONT TO MONITOR.
--- NOTE | 2019-09-10 11:16 | NUR ---
DR. COELLO SPOKE TO PATIENT'S MOTHER JOSHUA WOOD ON THE PHONE AND DISCUSS PLANNING FOR LAPAROSCOPIC POSSIBLE OPEN JEJUNOSTOMY TUBE PLACEMENT, RISKS EXPLAINED, CONSENT OBTAINED. NO FURTHER QUESTION. WILL BE DONE ON WEDNESDAY.
--- NOTE | 2019-09-10 11:53 | NUR ---
PATIENT AWAKE, NO DISTRESS NOTED, CONSTANTLY REMOVED O2, PUT BACK ON. SIMIN PICC LINE INTACT AND GT INTACT, CONT TO MONITOR.
[2019-09-10 12:04] VITALS: BP 113/68
--- NOTE | 2019-09-10 12:42 | NUR ---
PATIENT AWAKE/ALERT TOOK OFF O2, CHECK SAT 88% RT AT BEDSIDE GIVING BREATHING TX, WILL TAKE O2 TUBING TO CHEEK. MED GIVEN VIA GT, RESIDUAL 2ML. CONT TO MONITOR.
--- NOTE | 2019-09-10 15:07 | NUR ---
Follow-up Nutrition Assessment- Jung Maldonado [id number] Dx: SOB, Asthma, Sepsis UTI Labs: (09/10) BH, Meds: Colace, Merrem, Milk of Magnesia, Miralax, [place], Prilosec, Reglan, Singulair, Solumedrol, Tylenol, Valporic acid, Zofran Current Nutrition Support: Vital AF 1.2 at 60ml.hr, FWF: 100ml q 4hr via G-tube GRV: 09/10:0ml I/O: (09/09) 1410/2900(-1490ml) (09/10) 1650/2551 (-861ml) TF intake: (09/09) 720ml (09/10) 840ml Weights: (09/07) 70kg (09/10) 77kg pt on air mattress with equipment on bed Skin: erythema on BL heels Edema: None Last BM: 09/09 Per progress note 09/10, patient is to have Jtube placed during this admission instead of outpatient as patient continues to aspirate with g-tube. aware and has stated that the patient will need jtube prior to be discharged. to informed. Pt with 2ml GRV per RN and tolerating TF. Plan for laparascopic possible open jejunostomy tube placement. Estimated Nutritional Needs based on current admit weight: 68kg Energy: 1700-2040kcal/day (25-30kcal/kg for maintenance) Protein: 68-82g/day (1-1.2g/kg for preservation of LBM) Fluid: 1700-2040ml/day Nutrition Diagnosis 1. Altered GI function related to multiple frequent PNA as evidenced by pt pending J-tube placement. (ongoing) Intervention/RDN Recommendation(s): 1. Recommend continue Vital AF 1.2 at 60ml/hr FWF:100ml q 4hr to provide 1730kcal, 108g protein. This meets 100% caloric intake and 131% protein needs. Monitor/Evaluate Previous goal: TF intakes to meet at least 75% of estimated needs with acceptable tolerance within days (met) Goal: TF intakes to meet at least 75% of estimated needs with acceptable tolerance within days. Monitor: TF intake/tolerance, Labs, GI function, Skin integrity, Weights. F/U in 2-3 days as high risk (09/11-)
--- NOTE | 2019-09-10 15:07 | NUR ---
1. Recommend continue Vital AF 1.2 at 60ml/hr FWF:100ml q 4hr to provide 1730kcal, 108g protein. This meets >75% caloric and protein needs.
[2019-09-10 16:35] VITALS: BP 118/72
--- NOTE | 2019-09-10 16:42 | NUR ---
PATIENT REMAIN AWAKE, NO DISTRESS NOTED, O2 2LNC IN PLACE. TELE ST W/ HR 109 NOTED. GT AND SIMIN PICC LINE INTACT, REPLACE NEW TUBING AND FEEDING AT THIS TIME. CONT TO MONITOR
--- NOTE | 2019-09-10 18:04 | NUR ---
PATIENT REMAIN AWAKEN, NO DISTRESS NOTED. MERREM IVPB INFUSING AT 200ML/HR TO SIMIN PICC INTACT. MEDS GIVEN VIA GT INTACT AND PATENT, RESIDUAL 0ML NOTED. CONT TO MONITOR. REPOSITION AND HOB ELEVATED. BLE ELEVATED. CONT TO MONITOR.
[2019-09-10 19:15] VITALS: BP 105/61
--- NOTE | 2019-09-10 19:15 | NUR ---
RECEIVED PT AWAKE EYES OPEN,NON-VERBAL WITH HX CEREBRAL PALSY.ON SEIZURE PRECAUTIONS.PADDED RAILS IN PLACED.BREATHING EASY AND NON-LABORED.O2 @ 2L/MIN VIA N/C.O2 SAT @ 93%.COARSE CRACKLES ON AUSCULTATION.ON GT FEEDING VITAL AF @ 60 ML/HR.NO RESIDUAL NOTED.HOB KEPT ELEVATED.PICC LINE TO SIMIN WITH 2 PORTS FLUSHES WELL.WILL ANTICIPATE ALL NEEDS.WILL CONTINUE TO MONITOR.
--- NOTE | 2019-09-10 22:22 | NUR ---
BM TO WATERY STOOL.GOOD PERICARE RENDERED.Z GUARD TO BUTTOCKS AND GROIN AREA APPLIED.WILL CONTINUE TO MONITOR.
--- NOTE | 2019-09-11 04:39 | NUR ---
PT SLEPT WITH INTERVALS AND ABLE TO REMOVE NASAL CANNULA FROM HIS NOSE.CONSTANLY REINFORCED.BREATHING EASY AND NON-LABORED.O2 @ 2L/MIN VIA N/C.FEEDING OFF @ 2100 AND WILL RESUME AT 0600 ORDERED.BM X2 TO WATERY STOOL.GOOD PERICARE RENDERED.ICC LINE TO SIMIN WITH 2 PORTS FLUSHED WELL.ALL NEEDS ANTICIPATED.WILL CONTINUE TO MONITOR.
--- NOTE | 2019-09-11 05:37 | NUR ---
CHANGED GT DRESSING AND PICC LINE DRESSING ASEPTICALLY.STARTED GT FEEDING ORDERED.HOB KEPT ELEVATED.WILL CONTINUE TO MONITOR.
[2019-09-11 06:16] VITALS: BP 140/80
[2019-09-11 06:39] LABS: BASOPHIL % 0.1 % (0-2); PLATELET COUNT 156 x10^3mcL (130-400)
--- NOTE | 2019-09-11 07:00 | NUR ---
RECEIVED REPORT FROM NIGHT NURSE PATIENT SITTING UP IN BED WITH EYES CLOSED. NO S/S OF ANY RESPIRATORY DISTRESS CHEST RISE EQUAL AND UNLABORED ON 2L NC. G TUBE SECURE NO S/S OF ANY LEAKING OT INFECTION. PICC LINE IN SIMIN PATENT AND INTACT NO REDNESS OR EDEMA. NON VERBAL PATIENT WITH DX OF CEREBRAL PALSEY UN ABLE TO MAKE NEEDS KNOWN WILL MONITOR FREQUENTLY. REPOSITIONED AND ALL NEEDS ATTENDED TO AT THIS TIME. HOB AT 45 DEGREES BED IN LOWEST POSITION.WILL CONTINUE TO MONITOR.
[2019-09-11 07:12] LABS: CARBON DIOXIDE 29.2 mmol/L (21-32); CHLORIDE SERUM 103 mmol/L (98-107); CREATININE SERUM 0.5 mg/dL (0.7-1.3); GFR1 > 60 mL/min; GLUCOSE SERUM 82 mg/dL (74-106); POTASSIUM SERUM 3.3 mmol/L (3.5-5.1); SODIUM SERUM 139 mmol/L (136-145)
[2019-09-11 08:45] VITALS: BP 111/68
--- NOTE | 2019-09-11 09:23 | NUR ---
PATIENT SITTING UP IN BED G TUBE FEEDING INFUSING AT 60 ML, AYALA DRAINING TO GRAVITY YELLOW CLEAR URINE, ADMINISTERED SCHEDULED MEDS NO RESIDUAL VOLUME AT THIS TIME TOLERATING FEEDING AND MEDS WELL. SAFETY PRECAUTIONS IN PLACE. WILL CONTINUE TO MONITOR.
[2019-09-11 10:04] LABS: CALCIUM 8.8 mg/dL (8.5-10.1)
[2019-09-11 13:00] VITALS: BP 96/69
[2019-09-11 13:23] VITALS: BP 11/68
--- NOTE | 2019-09-11 13:53 | NUR ---
ADMINISTERED SCHEDULED MED PER MAR PATIENT TOLERATED WELL NO ADVERSE REACTIONS NOTED. REPOSITIONED PATIENT ALL NEEDS ATTENDED TO AT THIS TIME. SAFETY AND ASPIRATION PRECAUTIONS IN PLACE. WILL CONINUE TO MONITOR.
--- NOTE | 2019-09-11 16:00 | NUR ---
PATIENT HAD A LOOSES ARTIE CLEANED AND REPOSITIONED PATIENT. GTUBE IN LACE INFUSING WELL . PICC LINE PATENT AND INTACT INFUSING WELL. ALL NEEDS ATTENDED TO AT THIS TIME. HOB AT 45 DEGRESS. NO LEAKING FROM GTUBE. BED IN LOWEST POSITION CALL LIGHT WITHIN REACH. WILL CONTINUE TO MONITOR.
[2019-09-11 17:47] VITALS: BP 106/68
--- NOTE | 2019-09-11 18:52 | NUR ---
PATIENT SITTING UP IN BED AT 45 DEGREES PICC LINE PATENT AND INTACT NO REDNESS OR EDEMA. G TUBE INFUSING 60 ML TOLERATING WELL NO RESIDUAL VOL. AYALA CATHETER DRAINING TO GRAVITY DARK YELLOW URINE. REPOSITIONED AND CLEANED UP. TELE MONITOR 35 ATTATCHED. NO S/S OF ANY ACUTE DISTRESS. ON 2L NC CHEST RISE EQUAL AN UNLABORED. ALL NEEDS ATTENDED TO WILL ENDORSE CARE TO NIGHT NURSE.
--- NOTE | 2019-09-11 19:40 | NUR ---
REC'D PT FROM DAY NURSE. PT RESTING IN BED. NONVERBAL. UNABLE TO ASSESS ORIENTATION. DOES NOT FOLLOW COMMANDS. HX MR, CP, AND SZ. SZ PREC IN PLACE. TELE 35, ST. NO S/SX OF CP. RESP SHALLOW AND UNLABORED ON 2L O2 VIA NC WITH HUMIDIFIER, SPO2 99%. CONGESTED COUGH. NO EDEMA NOTED. ABD SOFT/ROUND. NO GRIMACE UPON PALPATION. TF VITAL 1.2 INFUSING @ 60 ML/HR VIA LUQ PEG WITH 100 ML Q4 FWF. 30 ML RESIDUAL REPLACED. SPONGE DRAIN APPLIED TO GT SITE. AYALA STATLOCKED TO R THIGH AND DRAINING YELLOW URINE TO GRAVITY. SIMIN PICC WITH DUAL PORTS. BOTH FLUSHED AND PATENT. GEN WEAKNESS. BUE/BLE CONTRACTURES. AIR MATTRESS IN PLACE. REPOSITIONING Q2H. BLANCHABLE ERYTHEMA TO FARRAH HEELS AND BUTTOCKS. HEEL RAISERS. CALL LIGHT WITHIN REACH, BED AT LOWEST POSITION. WILL CONTINUE TO MONITOR.
[2019-09-11 19:42] LABS: UA SPECIFIC GRAVITY 1.015 (1.005-1.035); microscopic required? YES; urine erythrocyte 3+ (NEGATIVE)
--- NOTE | 2019-09-11 21:41 | NUR ---
PT RESTLESS AND MOANING OCCASIONALLY. TYLENOL GIVEN FOR FLACC 12/21.
[2019-09-11 22:34] VITALS: BP 120/75
--- NOTE | 2019-09-12 00:56 | NUR ---
PT AWAKE AND RESTING IN BED. HOB UP. RESPIRATIONS EVEN/SHALLOW/TACHYPNEIC. RR 36. SPO2 97% ON 2L NC. CONGESTED COUGH. LUNG SOUNDS COARSE CRACKLES/RALES. HR STILL 100-120'S. DR. GAINES MADE AWARE AND REQUESTED TO CHANGE ALBUTEROL TO XOPENEX WELL ADD MUCOMYST INH. REC'D ORDER. RT TO GIVE TREATMENTS ONCE MEDS VERIFIED BY PHARMACY.
--- NOTE | 2019-09-12 02:23 | NUR ---
PT RESTING IN BED. FALLING ASLEEP AND WAKING UP. NO COUGHING AT THIS TIME. RESP REMAIN SHALLOW AND TACHYPNEIC ON 2L NC. NO AUDIBLE CONGESTION. HR 100-130. CALL LIGHT WITHIN REACH, BED AT LOWEST POSITION. WILL CONTINUE TO MONITOR.
--- NOTE | 2019-09-12 04:20 | NUR ---
PT APPEARS TO BE IN MODERATE DISTRESS. RESPIRATIONS SHALLOW AND TACHYPNEIC, RR 50. SPO2 100% ON 2L NC. AUDIBLE CONGESTION. LUNG SOUNDS RALES/COARSE CRACKLES. RT NOTIFIED. RT TO DEEP SUCTION BUT RECOMMENDED TO PREMEDICATE WITH ATIVAN. NOTED FACIAL FLUSHING. TEMP 101.4. TYLENOL PRN GIVEN VIA PEG. WANG URINE DRAINING FROM AYALA. SPOKE TO DR. GAINES AND MADE AWARE OF CONGESTION AND TACHYPNEA, ELEVATED TEMP, CONCENTRATED URINE, AND RT'S REC OF ATIVAN PREMEDICATION. REQUESTED ONE TIME ATIVAN, TORADOL, AND IVF TO BE CONTINUED (SINCE PT CURRENTLY NOT ON TF). REC'D ORDERS.
--- NOTE | 2019-09-12 04:54 | NUR ---
RT AT BEDSIDE TO ATTEMPT DEEP SUCTION. PT CURRENTLY SLEEPING. RR 40. FAILED DEEP SUCTION ATTEMPT. PT KEEPS THRASHING HEAD AROUND AND UNABLE TO ADVANCE CATHETER INTO NOSTRIL DEEP ENOUGH.
[2019-09-12 05:25] VITALS: BP 116/67
--- NOTE | 2019-09-12 06:19 | NUR ---
PT RESTING IN BED SLEEPING. STILL TACHYPNEIC BUT DOES NOT APPEAR TO BE IN DISTRESS. RR 36. CURRENTLY AFEBRILE. HR 99. NO S/SX OF PAIN. COOLING MEASURES IN PLACE. PT CLEANSED WITH CHG WIPES, AYALA CARE PROVIDED, AND LINENS CHANGED. PLAN FOR J TUBE INSERTION TODAY. CONSENTS SIGNED AND CHECKLIST IN PROGRESS. CALL LIGHT WITHIN REACH, BED AT LOWEST POSITION, BED ALARM ON. WILL ENDORSE TO DAY NURSE.
[2019-09-12 06:29] LABS: RED CELL DISTRIBUTION WIDTH 13.5 % (11.5-14.5)
[2019-09-12 06:36] LABS: CALCIUM 8.4 mg/dL (8.5-10.1); CHLORIDE SERUM 101 mmol/L (98-107); CREATININE SERUM 0.5 mg/dL (0.7-1.3); GFR1 > 60 mL/min; GLUCOSE SERUM 86 mg/dL (74-106); POTASSIUM SERUM 3.8 mmol/L (3.5-5.1); SODIUM SERUM 136 mmol/L (136-145)
[2019-09-12 07:04] LABS: PLATELET COUNT 118 x10^3mcL (130-400)
[2019-09-12 07:48] VITALS: BP 110/66
--- NOTE | 2019-09-12 08:00 | NUR ---
RECEIVED PATIENT SLEEPING AND WITH SOME NOTED SHALLOW BREATHING AND ON 02 AT 2 LITERS. NO COUGH NOTED AND PATIENT HAS BEEN DEEP SUCTIONED PRIOR AND CONTINUED ON HHN TREATMENTS INDICATED. PATIENT IS FOR PROCEDDURE TO PLACE THE J TUBE THE G TUBE IS BELIEVED TO BE CAUSING HIS FREQUENT HISTORY OF ASPIRATION. IV TO PICC LINE TO THE LEFT SIDE ARM AND HAS A AYALA TO GRAVITY AND URINE IS WANG IN COLOR. NOTED PATIENT WITH NEUROGENIC BLADDER AND HAS BEEN ON BACLOPHEN AND IS WITH SEIZURE PRECAUTIONS AND IS AND ON VALPORIC ACID INDICATED. PATIENT HAS BEEN ON ANTIBIOTIC AND HHN AND FOR DX OF SPESIS THIS TIME AROUND. HE HAS HAD HX OF CHRONIC CONSTIPATION. PATIENT IS CONTRACTED AND HAS BEEN ON BEDREST AND WITH EDEMA TO THE LOWER EXTREMTIS AND HAS BEEN NON VERBAL AND HE SAMANIEGO IN THE PAST BEEN RESPONSIVE TO VERBAL QUES BUT IS LETHARGIC TODAY AND IS COLOR IS MORE SULLEN THAN USUAL. VITALS AT THIS TIME AT 97.8, 114, 32, 116/67, 100% ON THE 2 LITERS VIA NASAL CANNULA CONSENTS FOR THE J TUB SIGNED AND THE CHECKLIST WAS COMPLETED. THE REPORT TO THE OR STAFF WAS GIVEN BY RECEIVING OPERATOR AND AWAITING TRACK RIDER FOR THE PROCEDURE AROUND 0830 OR 900AM. PATIENT IS WITH OUT ANY THING VIA THE G TUBE AT THIS TIME.
[2019-09-12 09:47] LABS: MONOCYTE 40 % (0-7); SEGMENTED NEUTROPHILS 45 % (37-75)
[2019-09-12 09:48] LABS: BAND NEUTROPHIL 1 % (0-10)
[2019-09-12 09:49] LABS: PLATELET MORPHOLOGY PLATELETS DECREASED; rbc morphology (normal/abnorm) ABNORMAL (NORMAL)
--- NOTE | 2019-09-12 12:02 | NUR ---
Follow-up Nutrition Assessment: /B MOIZ WOOD HR Dx: Asthma, sepsis, UTI PMHx: cerebral palsy, spastic quadriplegia, asthma, epilepsy, mental retardation, G tube in place Labs: (09/12) CREAT 0.5L Meds: Colace, lactulose, milk of magnesia, miralax, norco, reglan, zofran Diet: (09/12) NPO for Sx, (09/04-) Vital AF 1.2 @ 35 ml/hr, goal 60 ml/hr, advance 10 ml Q1H, FWF 100 cc Q4H PO Intake: NPO Weights: (09/03) 68 kg, (09/07) 70 kg, (09/12) I/Os: (09/11) 1694/1400 (294) Skin: erythema to BL heels Elvis: 11 Edema: none GI: Last BM: 09/11 RD Note (09/12): Patient had gone down to OR for J-tube placement. Per CIERRA Morel, patient had fever before going down to surgery. RD will put in recommendations or J-tube feedings. Estimated Nutritional Needs Based on body weight (68 kg) Energy: 5825-2045 kcal/day (25-30 kcal/kg for maintenance, chronic illness) Protein: 68-82 g/day (1.0-1.2 g/kg to preserve LBM) Fluid: 0624-2724 mL/day (1 mL/kcal) or per MD Nutrition Diagnosis: 1. Altered GI function related to multiple, frequent PNA as evidenced by new J tube placement consideration. (ongoing) Intervention: 1. Recommend (via J-tube) Vital AF 1.2 @ 10 ml/hr, goal rate of 60 ml/hr, advance by 10 ml Q6H, FWF 100 cc Q4H. This provides 1730 kcal and 108g protein. This meets 100% calorie and protein needs of the patient. Paged RISK ASSESSOR Adali, waiting for call back. Monitor/Evaluate: Goal: Have pt meet at least 75% of estimated needs Monitor: PO intake, Labs, GI function F/U in 2-3 days as high risk 1/2- 3
--- NOTE | 2019-09-12 12:02 | NUR ---
1. Recommend (via J-tube) Vital AF 1.2 @ 10 ml/hr, goal rate of 60 ml/hr, advance by 10 ml Q6H, FWF 100 cc Q4H. This provides 1730 kcal and 108g protein. This meets 100% calorie and protein needs of the patient. Paged PRIVATE MORTGAGE BANKER SAFE Adali, waiting for call back.
--- NOTE | 2019-09-12 13:59 | NUR ---
RECEIVED POST PROCEDURE AND TOLERATED THE TRANSFER WELL. PATIETN AHS BEEN PLACED ON INTERMITTANT SUCTION AT THIS ITME AND GREENISH BILE LIKE OUTPUT OTED. THE J TUBE IS CLAMPED AND PATIENT AHS A LARGE DRESSING TO [facility] ABDOMEN COVERING PER THE OR FOUR SITES. PATIENT HAD AN OPEN J TUBE PLACEMENT. PATIENT ON 02 VIA MASK AND IS VERY SLEEPY BUT NOT IN ANY ACUTE DISTRESS AT THIS TIME. I
--- NOTE | 2019-09-12 15:45 | NUR ---
SPOKE WITH THE SURGEON AND TO NOT USE THE J TUBE FOR TODAY. PATEINT LUZMA SMYTH AND THE MERREN ORDERED. PATIENT HAS IV FLUIDS AT 70CC PER HOUR. CONTINUED ON 02 VIA MASK AND TOLERATED WELL.
[2019-09-12 16:44] VITALS: BP 140/87
--- NOTE | 2019-09-12 17:42 | NUR ---
CALLED DR COELLO FOR CONFORMATION OF ORDERS. PATIENT IS TO GET MEDICATIONS VIA THE G TUBE AND BE ON INTERMITTANT SUCTION POST DIGESTION AND NOT TO USE THE J TUBE FOR NOW. PATIENT IS TO START THE FEEDING PROBALLY TOMORROW THIS IS A WAIT AND SEE HOW HE DOES. PATIENT IS MORE AWAKE NOW. WILL CONTINUE TO MONITOR INDICATED.
--- NOTE | 2019-09-12 19:15 | NUR ---
REPORT RECEIVED FROM DAY SHIFT RN. PATIENT WAS SEEN RESTING IN BED W/ SIMPLE FACE MASK ON AT 6L. BREATHING EVEN AND UNLABORED. NO SOB OR RESP DISTRESS NOTED. PICC LINE TO THE SIMIN-DOUBLE LUMEN. ALL PORTS PATENT AND INTACT. NO REDNESS OR SWELLING NOTED. FACIAL GRIMACING AND SLIGHT MOANING NOTED. LUQ GTUBE IN PLACE TO LIS. GREEN BILE NOTED IN SUCTION CANISTER. JTUBE IN PLACE RIGHT BELOW GTUBE; NOT IN USE AT THIS TIME. LARGE ABD DRESSING NOTED, CDI. NONVERBAL. COMFORT AND SAFETY MEASURES IN PLACE. BED IS LOCKED AND IN THE LOWEST POSITION. SIDE RAILS UP X2. CALL LIGHT IS WITHIN REACH. WILL CONTINUE TO MONITOR.
[2019-09-12 20:09] VITALS: BP 112/68
--- NOTE | 2019-09-12 20:29 | NUR ---
PRN NORCO WAS ADMINISTERED PRESCRIBED. USING FLACC SCALE PAIN 6/10. ADMINISTERED THROUGHOUT GTUBE. SUCTIONED STOPPED AT THIS TIME. NO DISTRESS NOTED. BREATHING EVEN AND UNLABORED. ON 4L NC. CALL LIGHT IS WITHIN REACH. WILL CONTINUE TO MONITOR.
--- NOTE | 2019-09-12 22:10 | NUR ---
PATIENT IS NPO. ASKED DR GAINES TO CHANGES FLUIDS TO D5NS. AWAITING ORDERS.
--- NOTE | 2019-09-13 02:09 | NUR ---
PATIENT MOANING, FACIAL GRIMACING, AND KICKING EXTREMITIES. USING FLACC SCALE PAIN 6/10 NOTED. PRN NORCO ADMINISTERED PRESCRIBED. SUCTION TURNED OFF. WILL CONTINUE TO MONITOR.
--- NOTE | 2019-09-13 02:29 | NUR ---
RR 43; CALLED RT FOR BREATHING TREATMENT; LABORERED BREATHING NOTED.
--- NOTE | 2019-09-13 02:55 | NUR ---
PLACED CONTINUOUS PULSE OX ON PATIENT. SATING 97%. BREATHING TREATMENT IN PROGRESS. RT OBTAINED BLOOD FOR ABGS.
[2019-09-13 05:11] VITALS: BP 108/65
--- NOTE | 2019-09-13 05:30 | NUR ---
AUDIBLE CROASE CRACKLES HEARD. NOTIFIED DR GAINES, STAT CHEST XRAY ORDERED. SATING 91-93% ON 2L NC.
[2019-09-13 06:41] LABS: BASOPHIL % 0.2 % (0-2); RED CELL DISTRIBUTION WIDTH 12.7 % (11.5-14.5)
[2019-09-13 06:51] LABS: CALCIUM 8.5 mg/dL (8.5-10.1); CARBON DIOXIDE 31.3 mmol/L (21-32); CHLORIDE SERUM 101 mmol/L (98-107); CREATININE SERUM 0.4 mg/dL (0.7-1.3); GFR1 > 60 mL/min; GLUCOSE SERUM 92 mg/dL (74-106); SODIUM SERUM 137 mmol/L (136-145)
--- NOTE | 2019-09-13 07:30 | NUR ---
RECEIVED PATIENT AWAKE AND WITH HIGH RESPIRATIONS. THE LUNGS BILATERALLY ARE CONGESTED AND RALES AND RHONCHI HEARD. PATIENT HAS G TUBE TO SUCTION INTERMITTANT AND THE OUTPUT IS BROWNISH IN COLOR AND OILY IN APPEARANCE, THE J TUBE REMAINS CLAMPED AT THIS ITME. PATIENT HAS NO SEIZURE ACTIVETY AND HAS THE PRECAUTIONS IN PLACE. ON MERREN AND HAS BEEN TOLERATING WELL. STATUS POST J TUBE PLACEMENT YESTERDAY. VITALS AT THIS TIME ARE AT 108 HEARTRATE AND THE 02 SATURATION AT 93% AND RESPIRATIONS AT 24 AND THE TEMPERATURE AT 99.2, THE BP IS WITHIN NORMAL RANGE AND PATIENT COLOR IS PALE AND HE HAS SOME DIAPHORESIS BUT NOT PROFUSE. PATIENT HAS OVERNIGHT HAD BEEN WITH HIGH RESPIRATIONS AND THE 02 SATURATION WAS MAINTAINED IN THE 90'S. ON NASAL CANNULA OVERNIGHT AT 2 LITERS. CALLED RT FOR TREATMENT AND POSSIBLE SUCTIONING INDICATED. URINE OUTPUT AT 200 AT THIS TIME.
--- NOTE | 2019-09-13 07:36 | NUR ---
RESTING IN LONG INTERVALS THROUGHOUT THE NIGHT. NO ACUTE CHANGES NOTED. BREATHING EVEN AND LABORED. AUDIBLE COARSE CRACKLES HEARD. MILD DISTRESS NOTED. IVF INFUSING WELL. 100ML OUT OF NGT SUCTION. BROWN BILE NOTED. ABD DRESSING, CDI. GOOD UOP THROUGHOUT THE NIGHT; AROUND 1500 OUT. AWAITING STAT CHEST XRAY RESULTS. SAFETY MEASURES IN PLACE. ALL NEEDS AND CONCERNS ADDRESSED. CALL LIGHT IS WITHIN REACH. WILL ENDORSE CARE TO DAY SHIFT RN.
--- NOTE | 2019-09-13 07:45 | NUR ---
CALLED FOR RT TO TREAT. PLACED PATIENT ON 02 VIA SIMPLE MASK AND ATTEMPTED TO SUCTION. PATIENT VITALS SHOW HIGH RESPIRATIONS AT 39. 02 SAT IS STABLE. HEAD UP AND PATIENT WAS PLACED BACK ON SUCTION TO THE G TUBE.
[2019-09-13 07:55] VITALS: BP 130/93
--- NOTE | 2019-09-13 08:00 | NUR ---
CALLED PERMIT SPECIALIST TO ADVISED OF PATIENT CONDITION. SHE ARRIVED TO ASSESS. CALLED RT AGAIN AND THEY ARRIVED TO TREAT. SEEMS TO RESPOND TO 02 VIA MASK AT THIS TIME AT 5 LITERS. XRAY STILL PENDING AT THIS TIME.
--- NOTE | 2019-09-13 08:02 | NUR ---
GAVE LASIX ORDERED AND WILL CONTINUE TO [facility] FOR OUTPUT. THE XRAY IS BACK AND INFILTRATES AND ATELECTASIS NOTED. EMISSIONS ENGINEER AT BEDSIDE AND AWARE. PLACED BACK ON SIMPLE MASK AND CALLED RT AND AT BESIDE AND NOTED 02 AT AT94 BUT HE IS WAS STRUGGLING AND RESPIRATIONS ARE HIGH. PATIENT HAS BREATHING TREATMENTS ORDERED AND PATIENT HAS BEEN ANXIOUS BUT NOW A LITTLE LESS AND STAFF WAS ABLE TO CALM HIM SOME. ON CONTINUOUS PULSE OX AND NOW HAVING TREATMENT INDICATED. AUDIBLE RALES AND COARSE IN NATURE WITH RHONCHI. STAFF AT BEDSIDE AND MONITORING CLOSELY. EMISSIONS ENGINEER ORDERED VERBALLY TO STOP ANY FLUIDS RUNNING. PATIENT HAS G TUBE TO SUCTION INDICATED AND THE J TUBE IS CLAMPED ORDERED.
[2019-09-13 08:41] LABS: PLATELET COUNT 120 x10^3mcL (130-400)
--- NOTE | 2019-09-13 10:47 | NUR ---
NOW ON BI PAP AND TOLERATED WELL. PATIENTS OUTPUT AT THIS TIME AT 1500CC. WILL CONTINUE TO MONITOR INDICATED.
[2019-09-13 12:12] VITALS: BP 114/81
[2019-09-13 16:10] VITALS: BP 109/74
--- NOTE | 2019-09-13 16:24 | NUR ---
ON BI PAP AND PATIENT TOLERATED SO FAR WELL. HE HAS LESS URINE OUTPUT NOW AND HAS BEEN BREATHING EASIER WITH THE LASIX GIVEN. PATIENT HAS OUTPUT OF THE GI TUBE THAT REMAINS DARK BROWN AND MOSTLY LIQUID. THE TYENOL GIVEN WAS EFFECTIVE AND PATIENT HAS BEEN LESS RESTLESS. WILL CONTINUE TO MONITOR INDICATED.
--- NOTE | 2019-09-13 17:35 | NUR ---
CONTINUED ON BI PAP ORDERED AND PATIENT IN NO RESPIRATORY DISRESS AT THIS TIME.
--- NOTE | 2019-09-13 19:15 | NUR ---
REPORT RECEIVED FROM DAY SHIFT RN. PATIENT WAS SEEN RESTING IN BED COMFORTABLY IN BED. NO DISTRESS NOTED. BREATHING EVEN AND UNLABORED ON BIPAP. NO SOB OR RESP DISTRESS NOTED. TELE #35 SR; HR80. ON CONTINUOUS PULSE OX SATING 96% ON BIPAP. NO INDICATIONS OF CHEST PAIN. CRACKLES HEARD BILATERALLY W/ DIMINISHED BREATH SOUNDS. NO S/S OF PAIN NOTED; NO MOANING OR FACIAL GRIMACING. PICC LINE TO THE LUE; DOUBLE LUMEN; BOTH PORTS PATENT AND INTACT. NO REDNESS OR SWELLING NOTED. AYALA CATHETER IN PLACE DRAINING WANG URINE BY GRAVITY. ON AIRMATTRESS. HEELS ARE OFF LOADED. COMFORT AND SAFETY MEASURES IN PLACE. BED IS LOCKED AND IN THE LOWEST POSITION. SIDE RAILS UP X2. CALL LIGHT IS WITHIN REACH. WILL CONTINUE TO MONITOR.
--- NOTE | 2019-09-13 19:15 | NUR ---
REPORT RECEIVED FROM DAY SHIFT RN. PATIENT WAS SEEN RESTING IN BED COMFORTABLY IN BED. LABORED BREATHING ON BIPAP. TACHYPNEIC. TELE #35 SR; HR80. ON CONTINUOUS PULSE OX SATING 96% ON BIPAP. NO INDICATIONS OF CHEST PAIN. CRACKLES HEARD BILATERALLY W/ DIMINISHED BREATH SOUNDS. NO S/S OF PAIN NOTED; NO MOANING OR FACIAL GRIMACING. PICC LINE TO THE LUE; DOUBLE LUMEN; BOTH PORTS PATENT AND INTACT. NO REDNESS OR SWELLING NOTED. AYALA CATHETER IN PLACE DRAINING WANG URINE BY GRAVITY. ON AIRMATTRESS. HEELS ARE OFF LOADED. GTUBE TO LOW INTERMITTEN SUCTION; BROWNISH OUTPUT NOTED IN CANNISTER. TUBE FEEDING ON HOLD. PATIENT IS NPO. ASPIRATION PRECAUTIONS IN PLACE. HIGH FOLWERS POSITION.COMFORT AND SAFETY MEASURES IN PLACE. BED IS LOCKED AND IN THE LOWEST POSITION. SIDE RAILS UP X2. CALL LIGHT IS WITHIN REACH. WILL CONTINUE TO MONITOR.
[2019-09-13 20:16] VITALS: BP 116/81
--- NOTE | 2019-09-13 21:31 | NUR ---
PRN TYLENOL FOR 3/10 MILD PAIN GIVEN ORDERED WITH SCHEDULED MEDS. USED FLACC SCALE. SUCTION STOPPED AT THIS TIME. NO ACUTE DISTRESS NOTED. WILL CONTINUE TO MONITOR
--- NOTE | 2019-09-13 22:30 | NUR ---
SUCTION RESUMED. NO DISTRESS NOTED. LAYING IN BED WITH EYES CLOSED. NO DISTRESS NOTED. ON BIPAP. NO S/S OF PAIN NOTED. IVF INFUSING WELL. SAFETY MEASURES IN PLACE. CALL LIGHT IS WITHIN REACH. WILL CONTINUE TO MONITOR
[2019-09-14] VITALS (7 sets, daily range): BP systolic 112–148; BP diastolic 62–99
--- NOTE | 2019-09-14 02:03 | NUR ---
LAYING IN BED WITH EYES CLOSED. NO DISTRESS NOTED. ON BIPAP. NO S/S OF PAIN NOTED. IVF INFUSING WELL. SAFETY MEASURES IN PLACE. CALL LIGHT IS WITHIN REACH. WILL CONTINUE TO MONITOR
--- NOTE | 2019-09-14 06:26 | NUR ---
RESTED IN LONG INTERVALS THROUGHOUT THE NIGHT. BREATHING LABORED. ON BIPAP. NO S/S OF PAIN AT THIS TIME. IVF INFUSING WELL. 100 ML OUT FROM GTUBE SUCTION. ABD DRESSING IN PLACE, CDI. 500 ML OF WANG URINE OUT FROM AYALA. SAFETY MEASURES IN PLACE. NPO. CALL LIGHT IS WITHIN REACH. WILL CONTINUE TO MONITOR.
[2019-09-14 06:30] LABS: BASOPHIL % 0.1 % (0-2); PLATELET COUNT 134 x10^3mcL (130-400); RED CELL DISTRIBUTION WIDTH 12.9 % (11.5-14.5)
[2019-09-14 06:32] LABS: CHLORIDE SERUM 101 mmol/L (98-107); CREATININE SERUM 0.4 mg/dL (0.7-1.3); GFR1 > 60 mL/min; GLUCOSE SERUM 112 mg/dL (74-106); POTASSIUM SERUM 4.2 mmol/L (3.5-5.1); SODIUM SERUM 140 mmol/L (136-145)
--- NOTE | 2019-09-14 06:54 | NUR ---
PATIENT ON BIPAP; RR35; ACUTE RESP DISTRESS NOTED; RT CALLED. WILL CONTINUE TO MONITOR AND ENDORSE TO DAY SHIFT RN
--- NOTE | 2019-09-14 07:30 | NUR ---
RECEIVED HAND OFF REPORT FROM NIGHT NURSE. PATIENT NONVERBAL, ON BIPAP, RR 38. TOLLERATING BIPAP WELL, GTUBE AND JTUBE IN PLACE, DRESSING CDI. LIS TO GTUBE. PAITENT ON CONTINUOUS PULSE OX, TELE [address] ON CHEST SHOWING SINUS TACHYCARDIA, SATUATION 93%. HEAD OF BED RAISED TO FULL HEIGHT. AYALA PRESENT DRAINING WANG COLORED URINE. WILL CONTINUE TO MONITOR PATIENT
--- NOTE | 2019-09-14 10:00 | NUR ---
ADMINSTERED MEDICATIONS THROUGH PEG TUBE PER HAND OFF REPORT. SUCTION TO PEG TUBE HELD AFTER MEDICATION ADMINISTRATION. CONNOR BYRDERATED MEDICATION PASS WELL, BIPAP MASK ADJUSTED TO FIT PATIENT FACE
--- NOTE | 2019-09-14 11:17 | NUR ---
DR COELLO ROUNDED ON PATIENT AND CONSULTED WITH GILBERTO TO BEGING SLOWLY FEEDING PATIENT THROUGH NEW J-TUBE. MEDICATIONS CAN CONTINUE TO BE GIVEN THROUGH G-TUBE WITH LOW INTERMITTENT SUCTION WHEN NOT GIVING MEDICAITONS. GILBERTO, GIOVANA AWARE AND TO ENTER ORDERS BASED ON NUTRITION CONSULT
--- NOTE | 2019-09-14 12:06 | NUR ---
UTE RT, ADMINSTERED BREATHING TREATMENT AND INFORMED ME THAT SHE INCREASED THE FiO2 PATIENT 02 SATURATION IS 93%. MASK SECURLY IN PLACE. TOLLERATING BIPAP
--- NOTE | 2019-09-14 12:30 | NUR ---
TUBE FEEDING (VITAL A.F.) STARTED TO J-TUBE AT 10ML PER HOUR PER ORDER.
--- NOTE | 2019-09-14 14:13 | NUR ---
ADMINSTERED MEDICATIONS THROUGH G-TUBE PER DR COELLO'S INSTRUCTIONS SUCTION HELD FOR MEDICATIONS. APPLIED SKIN BARRIER PER HARIKA RN RECOMMENDATIONS. BREATHING TREATMENT WAS GIVEN PER RT PATIENT IS TOLLERATING BIPAP WELL. SATURATIONS REMAIN IN LOW 90S PATIENT TUNRED AND REPOSITIONED
--- NOTE | 2019-09-14 15:50 | NUR ---
PATIENT FIGHTING BIPAP, BREATHING AT 45-50. 02 SAT AT 88%. WITH RT, REMOVED PATIENT FROM BIPAP AND CHANGED TO NASAL CANNULA AT 4LPM. PATIENT TOLLERATING WELL, O2 SAT 93%,
--- NOTE | 2019-09-14 16:24 | NUR ---
SPOKE WITH GILBERTO, SHARPLES MACHINE OPERATOR AND UPDATED ON PATIENT CONDITION, LUNG SOUNDS, RATE AND WORK OF BREATHING AND NOW IS ON 2LPM NC. RECEIVED ORDERS FOR LASIX 20MMG IVP ONCE AND FOR A REPEAT ABG
--- NOTE | 2019-09-14 16:43 | NUR ---
RECEIVED A CALL FROM AND SHE IS INQUIRING OF Bell WOOD STATUS. UPDATED HER OF CURRENT STATUS OF PT BEING TACHYPNEIC AGAIN RR-51 THAT I COUNTED MYSELF FOR ONE FULL MINUTE. MERCEDES NORTON HAD RECEIVED ORDER FROM GILBERTO OF ONE TIME DOSE OF LASIX AND SAYS OKAY WITH IT. MADE HER AWARE THAT R.T. HAD CURRENTLY PLACE THE PT ON NASAL CANNULA AT 4L [facility] EPT HAD BEEN FIGHTING WITH IS BIPAP. SAYS TO PLACE PT BACK ON BIPAP, MADE DEBBIE Correia KNOW TO PLACE PT ON BIPAP PER 'S ORDER. ABG OBTAINED BY DEBBIE LONG RN AWARE OF ABOVE.
--- NOTE | 2019-09-14 17:08 | NUR ---
PATIENT BACK ON BIPAP PER DR IRWIN ORDER. BLOOD GAS TAKEN BY RTS. NASAL SUCTION DONE PER RT. ADMINISTERED LASIX 20MG PER ISABELA ORDER. FAMILY AT BEDSIDE.
--- NOTE | 2019-09-14 18:08 | NUR ---
ORAL CARE PRIOVIDED. PATIENT TURNED, CLEANED AND REPOSITIONED. TOLLERATIED NASAL CANNULA AT 4LPM. AYALA CARE PROVIDED, REDNESS NOTED TO GROIN, HYDROGUARD APPLIED. TUBE FEEDING ADVANCED TO 20ML/H FAMILY AT BEDSIDE. CALL IGHT WITHIN REACH OF FAMILY
--- NOTE | 2019-09-14 19:05 | NUR ---
REPORT RECEIVED FROM DAY SHIFT RNMERCEDES. PATIENT SEEN RESTING IN BED W/ FAMILY AT BEDSIDE. PATIENT ON BIPAP. BREATHING LABORED. RR 30. TACHYPENIC. FINE CRACKLES HEARD BILATERALLY WITH DIMINISHED BREATH SOUNDS. COUNTINOUS PULSE OX IN PLACE. GTUBE IN PLACE ON LIS. JTUBE WITH TUBE FEEDING VITAL AF 1.2 AT 20ML/HR W/ FWF 100ML Q4H. TOLERATING WELL; 0 ML OF RESIDUALS NOTED. AYALA IN PLACE W/ WANG URINE DRAINING BY GRAVITY. LARGE ABD DRESSING; MINIMAL DRAINGAGE NOTED AROUND GTUBE AND JTUBE SITE. PICC LINE TO LUE; DOUBLE LUMEN. BOTH PORTS PATENT AND INTACT. NO REDNESS OR SWELLING NOTED. SEIZURE PRECAUTIONS IN PLACE. BED IS LOCKED AND IN THE LOWEST POSITION. SIDE RAILS UP X2. CALL LIGHT IS WITHIN REACH. WILL CONTINUE TO MONITOR.
--- NOTE | 2019-09-14 19:30 | NUR ---
GAVE HAND OFF REPORT TO NIGHT NURSE. UPDATED ON PATIETN CONDITIONS. EMPTIED AYALA, 55O ML OUT AFTER LASIX. PATIENT ON BIPAP, FIO2 AT 35%, PATIENT FIGHTING BIPAP AT TIMES. COUNTED 34 RESPIRATIONS FOR 1 MINUTE. FAMILY AT BEDSIDE. MOTHER, FATHER AND 12 YEAR OLD SISTER. FAMILY EDUCATED ABOUT FLU SEASON AND RISKS OF YOUNG PEOPLE IN HOSPITAL AND RISK OF ILLNESS. EDUCATED FAMILY ABOUT CALL LIGHT AND NEED TO CALL IF NEEDING ASSISTANCE
--- NOTE | 2019-09-14 20:24 | NUR ---
RT REPORTED INCREASED FIO2 FROM 35-50%.
--- NOTE | 2019-09-14 21:05 | NUR ---
UPDATED DR SOLITARIO ON PATIENT STATUS. RECEIVED ORDERS FOR ABX CEFEPIME 1G IVPB Q12. WILL INPUT AND CARRY OUT ORDERS.
--- NOTE | 2019-09-14 21:27 | NUR ---
PHARMACY CALLED SAYING PATIENT CANNOT HAVE CEFEPIME DUE TO ZOSYN ALLERGY. PAGED DR SOLITARIO. AWAITING CALL BACK.
--- NOTE | 2019-09-14 21:29 | NUR ---
CALL BACK RECEIVED FROM DR SOLITARIO. PER DR SOLITARIO, D/C CEFEPIME AND RESTART PATIENT ON MERREM 1G IVPB Q8H. WILL INPUT AND CARRY OUT ORDERS
--- NOTE | 2019-09-14 21:37 | NUR ---
IN TO GIVE SCHEDULED MEDS. FAMILY LEFT. ASSESSED TUBE FEEDING RESIDUALS VIA JTUBE; 0 RESIDUALS NOTED. RESUMED FEEDING. MED GIVEN THROUGHOUT GTUBE PER DR COELLO. 0 RESIDUALS NOTED FROM GTUBE WELL. WILL CONTINUE TO MONITOR.
--- NOTE | 2019-09-14 22:20 | NUR ---
MT CALLED SAYING PATIENT SATING 89%. PULSE OX OFF PATIENT. APPLIED NEW PULSE OX. SATING 94%. PRN TYLENOL FOR PAIN; USING FLACC SCALE. PATIENT ALSO TOOK OFF BIPAP. REATTACHED. PATIENT IN ACUTE RESP DISTRESS, DOES NOT SEEM LIKE PATIENT IS TOLERATING BIPAP. RESPIRATIONS AIR 41 ON BIPAP 40L 50% FIO2. DR GREWAL CALLED TO ASSESS PATIENT.
--- NOTE | 2019-09-14 22:20 | NUR ---
MT CALLED SAYING PATIENT SATING 89%. PULSE OX OFF PATIENT. APPLIED NEW PULSE OX. SATING 94%. PRN TYLENOL FOR PAIN; USING FLACC SCALE. PATIENT ALSO TOOK OF BIPAP. REATTACHED. PATIENT IN ACUTE RESP DISTRESS, DOES NOT SEEM LIKE PATIENT IS TOLERATING BIPAP. RESPIRATIONS ARE 41 ON BIPAP 50% FIO2. DR GREWAL CALLED TO ASSESS PATIENT. COUNTED RESPIRATIONS FOR 1 FULL MINUTE
--- NOTE | 2019-09-14 22:30 | NUR ---
DR GREWAL IN TO SEE PATIENT, SHE SAID SHE WILL PLACE ORDERS FOR ABG AND STAT CXR. RT CALLED. JTUBE LEAKING; SURRONDING DRESSING WET; TUBE FEEDING STOPPED AT THIS TIME. WILL NOTIFY DR COELLO.
--- NOTE | 2019-09-14 22:33 | NUR ---
CHARGE NURSE VALERIA CALLED DR COLELO TO NOTIFY HER ABOUT JTUBE LEAKING. PER HER, KEEP TUBE FEEDING STOPPED.
--- NOTE | 2019-09-14 22:34 | NUR ---
per dr neal hold tube feeding at this time.
--- NOTE | 2019-09-14 22:44 | NUR ---
RT IN TO SEE PATIENT AND NASAL TRACHEAL SUCTIONS PATIENT. 50ML OUT OF SANGUINEOUS OUTPUT. PATIENT BACK ON BIPAP W/ FI02 50% SATING AT 97% ON CONTINUOUS PULSE OX. RT OBTAINED ABGS. WILL CONTINUE TO CLOSELY MONITOR PATIENT.
--- NOTE | 2019-09-14 22:50 | NUR ---
PATIENT NASOTRACHEAL SUCTIONED WITH RN AT BEDSIDE. MODERATE AMOUNT OF THICK BLOOD TINGED SECRETIONS SUCTIONED. ABG DRAWN POST SUCTION.
--- NOTE | 2019-09-14 23:28 | NUR ---
RESTING IN BED NOW W/ EYES CLOSED. ON BIPAP 40L, FIO2 50%. RESPIRATIONS ARE 23 (COUNTED FOR 1 FULL MINUTE). SATING 95%. NOTIFIED DR GREWAL THAT ABGS RESULTS ARE BACK.
--- NOTE | 2019-09-14 23:28 | NUR ---
RESTING IN BED NOW W/ EYES CLOSED. ON BIPAP FIO2 50%. RESPIRATIONS ARE 23 (COUNTED FOR 1 FULL MINUTE). SATING 95%. NOTIFIED DR GREWAL THAT ABGS RESULTS ARE BACK.
--- NOTE | 2019-09-15 00:35 | NUR ---
RT REPORTS HE DECREASED FIO2 FROM 50% TO 40%.
--- NOTE | 2019-09-15 01:10 | NUR ---
PAGE GATED DR GREWAL ABOUT STAT CXR RESULTS PER HER REQUEST
--- NOTE | 2019-09-15 01:33 | NUR ---
RESTING IN BED WITH EYES CLOSED ON BIPAP. RESPIRATIONS ARE 24; OBSERVED AD COUNTED FOR 1 FULL MINUTE. HR 69. CONTINUOUS PULSE AT 94%. HOB ELEVATED FOR ASPRIATION PRECAUTIONS. SEIZURE PRECAUTIONS IN PLACE. CALL LIGHT IS WITHIN REACH. WILL CONTINUE TO MONITOR.
--- NOTE | 2019-09-15 03:10 | NUR ---
RESTING IN BED W/ EYES CLOSED. ON BIPAP. SATING 97%. NO S/S OF PAIN NOTED. SAFETY MEASURES IN PLACE. IVF INFUSING WELL. SAFETY MEASURES IN PLACE. WILL CONTINUE TO MONITOR.
--- NOTE | 2019-09-15 03:32 | NUR ---
PATIENT AWAKE IN BED. RESTING. NO ACUTE DISTRESS NOTED. BREATHING ON BIPAP. RESPIRATIONS ARE 19; COUNTED FOR 1 FULL MINUTE. SATING 97% ON BIPAP W/ FI02 40%. SAFETY MEASURES IN PLACE. CALL LIGHT IS WITHIN REACH. WILL CONTINUE TO MONITOR.
[2019-09-15 06:01] VITALS: BP 98/65
--- NOTE | 2019-09-15 06:04 | NUR ---
RESTING IN SHORT PERIODS THROUGHOUT THE NIGHT. NO ACUTE CHANGES NOTED. BREATHING ON BIPAP W/ FIO2 OF 40. TOLERATING WELL AT THIS TIME. RR 24, SATING 97%. NO MORE AUDIBLE CRACKLES HEARD. FINE CRACKLES AND DIM BREATH SOUNDS HEARD BILATERALLY. RESPIRATIONS IMPROVED AT THIS TIMENO S/S OF PAIN AT THIS TIME. PICC LINE TO LUE INFUSING WELL. GTUBE TO LUQ W/ 50 ML OF SUCTION OUT. STOPPED AT THIS TIME DUE TO MEDS GIVEN. JTUBE TO LLQ; NOT IN USE AT THIS TIME; TUBE FEEDING STOPPED DUE TO LEAKAGE AROUND SITE. AYALA CATH IN PLACE W/ ONLY [address] GREWAL NOTIFIED. TURNED Q2H. ON AIR MATTRESS. COMFORT AND SAFETY MEASURES IN PLACE. CALL LIGHT IS WITHIN REACH. WILL ENDORSE CARE TO DAY SHIFT RN.
[2019-09-15 06:19] LABS: BASOPHIL % 0.2 % (0-2); PLATELET COUNT 131 x10^3mcL (130-400)
[2019-09-15 06:52] LABS: CALCIUM 8.8 mg/dL (8.5-10.1); CARBON DIOXIDE 33.5 mmol/L (21-32); CHLORIDE SERUM 104 mmol/L (98-107); CREATININE SERUM 0.5 mg/dL (0.7-1.3); GFR1 > 60 mL/min; GLUCOSE SERUM 185 mg/dL (74-106); POTASSIUM SERUM 3.4 mmol/L (3.5-5.1); SODIUM SERUM 143 mmol/L (136-145)
--- NOTE | 2019-09-15 07:15 | NUR ---
RECEIVED PT FROM CHARTER REPRESENTATIVE. PT AWAKE, ALERT, NON VERBAL. PT ON BIPAP AT THIS TIME WITH CONTINUOUS PULSE OX. DIMINISHED LUNG SOUNDS NOTED. PT ON TELE 35 WITH NO CHEST PAIN NOTED. IV ACCESS LUE PICC, CDI INFUSING D5NS AT 20ML/HR. PERIPHERAL PULSES PALPABLE, TRACE EDEMA NOTED. HYPOACTIVE BS NOTED. PT HAS GTUBE TO LOW INTERMITTANT SUCTION. PT HAS JTUBE CLAMPED AT THIS TIME. BANDAGES TO BOTH TUBES NOTED TO HAVE DRAINAGE. WILL CHANGE. PT HAS LARGE ABD PAD TO RIGHT ABDOMEN, CDI. PT HAS AYALA CATHETER WITH DARK WANG URINE DRAINING. PT WITH GENERALIZED WEAKNESS, BUE/BLE CONTRACTURES WITH HEEL BOOT PROTECTORS. PT HAS BILATERAL SCDS. PT NOTED TO HAVE SKIN TEAR TO NOSE BRIDGE WITH PROTECTOR. SAFETY MEASURES IN PLACE, BED LOW AND LOCKED. CALL LIGHT WITHIN REACH.
--- NOTE | 2019-09-15 08:00 | NUR ---
BANDAGES TO JTUBE AND GTUBE SATURATED WITH FEEDING AND DRIED BLOOD. BANDAGES CHANGED AT THIS TIME. WILL MONITOR. NO REDNESS/BLEEDING NOTED AT THIS TIME, WILL MONITOR.
[2019-09-15 08:41] VITALS: BP 109/77
--- NOTE | 2019-09-15 08:45 | NUR ---
PT OFF BIPAP AT THIS TIME. NO RESP DISTRESS NOTED. O2 SAT 91-93%
--- NOTE | 2019-09-15 11:38 | NUR ---
DR COELLO AT BEDSIDE. PT SURGICAL WOUNDS CLEANED AND RE-BANDAGED. 15 CARLOS NOTED TO RIGHT ABDOMEN VERTICAL WITH 5 CARLOS TO LOWER RIGHT ABDOMEN AND 2 CARLOS TO LOWER LEFT ABDOMEN. NO S/S OF INFECTION OR DRAINAGE NOTED. BANDAGES CDI. PT GIVEN A BEDBATH, LOOSE STOOL NOTED AT THIS TIME. PT CLEANED AND REPOSITIONED WITH SMALL BRAKE FORM OPERATOR.
--- NOTE | 2019-09-15 12:00 | NUR ---
PER DR IRWIN, PLACE PT ON HUMIDIFIER AND LOWER O2 TO 3L, RT AWARE AT BEDSIDE. PT O2 SAT97%
--- NOTE | 2019-09-15 12:07 | NUR ---
Follow-up Nutrition Assessment: T/B MOIZ WOOD HR Dx: Asthma, sepsis, UTI PMHx: cerebral palsy, spastic quadriplegia, asthma, epilepsy, mental retardation, G tube in place Labs: (09/15) CREAT 0.5L, BUN 20H, BG 185H, K 3.4L Meds: Colace, lactulose, milk of magnesia, miralax, norco, reglan, zofran Diet: (J-tube) Vital AF 1.2 @ 10 ml/hr, goal 60 ml/hr, advance 10 ml Q6H, FWF 100 cc Q4H PO Intake: NPO Weights: (09/03) 68 kg, (09/07) 70 kg, (09/15) unable to access I/Os: (09/14) 940/2550 (-2610) Skin: large abd dressing, minimal drainage around g-tube and j-tube site, erythema to heels and buttock Elvis: 11 Edema: trace BLE GI: watery stools Last BM: 09/14 RD Note (09/15): Per RN Jennifer, pt's J-tube feedings are off as the site was leaking. Waiting for surgeon's recommendations. Per progress note (09/15), patient is awake, noninteractive remains on BIPAP. Late afternoon patient became tachypneic, lasix iv was ordered. At this time patient is comfortable on bipap no distress. JT leaking. Estimated Nutritional Needs Based on body weight (68 kg) Energy: 1815-0353 kcal/day (25-30 kcal/kg for maintenance, chronic illness) Protein: 68-82 g/day (1.0-1.2 g/kg to preserve LBM) Fluid: 1996-1259 mL/day (1 mL/kcal) or per MD Nutrition Diagnosis: 1. Altered GI function related to multiple, frequent PNA as evidenced by new J tube placement consideration. (ongoing). 2. Inadequate enteral nutrition related to leaking J-tube as evidenced by patient not receiving nay tube feedings currently. Intervention: 1. When medically appropriate, recommend (via J-tube) Vital AF 1.2 @ 10 ml/hr, goal rate of 60 ml/hr, advance by 10 ml Q6H, FWF 100 cc Q4H. This provides 1730 kcal and 108g protein. This meets 100% calorie and protein needs of the patient. Monitor/Evaluate: Goal: Have pt meet at least 75% of estimated needs Monitor: PO intake, Labs, GI function F/U in 2-3 days as high risk 09/17-6
--- NOTE | 2019-09-15 12:26 | NUR ---
PT CHECKLIST COMPLETE. PT TAKEN BY BED DOWN TO OR FOR REPLACEMENT OF PEG BY DR COELLO.
[2019-09-15 12:33] VITALS: BP 116/73
--- NOTE | 2019-09-15 14:00 | NUR ---
PT IN OR AT THIS TIME. UNABLE TO GIVE DUE MEDICATION.
--- NOTE | 2019-09-15 14:35 | NUR ---
PT BACK FROM PROCEDURE. NO NEW INCISIONS. BANDAGES CDI. PER DR. COELLO, CARLI TO USE JTUBE. FEEDING STARTED AT 10ML/HR WITH WATER FLUSH 100ML O1VSYSH. NO RESIDUAL NOTED AT THIS TIME. HOB AT 35 DEGREES. DUE MEDS ADMINISTERED IN GTUBE. GTUBE CLAMPED AT THIS TIME FOR ABSORPTION OF MEDS. FAMILY AT BEDSIDE REQUESTING MOUTH CARE. PT NOTED TO BE NONCOMPLIANT IN OPENING MOUTH FOR CARE. SOME CARE RENDERED. VSS AT THIS TIME TEMP 97.4, HR 67, BP 132/71, O2 SAT 97% ON 3LNC, RR 18. SAFETY MAINTAINED.
[2019-09-15 16:39] VITALS: BP 119/83
--- NOTE | 2019-09-15 17:47 | NUR ---
DUE MEDICATIONS ADMINISTERED THROUGH GTUBE. NO GASTRIC RESIDUAL NOTED AT THIS TIME. NO RESIDUAL NOTED FROM JTUBE AT THIS TIME. INFUSING AT 10ML/HR. PT HAD BM, CLEANED AND REPOSITIONED WITH HEALTHCARE MANAGEMENT CONSULTANT. ZGUARD APPLIED. HOB AT 35 DEGREES. SAFETY MEASURES MAINTAINED.
--- NOTE | 2019-09-15 18:37 | NUR ---
PT WITH LOOSE BM, CLEANED AND REPOSITIONED WITH KEY WORKER. PT NOTED TO HAVE 150ML URINE OUTPUT FOR 12 HOURS. GILBERTO Solano ELECTRIC POWER LINE REPAIRER AWARE, NEW TELEPHONE ORDER TO INCREASE IV FLUIDS TO D5NS AT 40ML/HR. PT STABLE AT THIS TIME. ALL NEEDS TENDED TO THROUGHOUT SHIFT. WILL CONTINUE TO MONITOR AND ENDORSE CARE TO NET WEB APPLICATION DEVELOPER.
--- NOTE | 2019-09-15 19:45 | NUR ---
RECEIVED REPORT FROM DAY SHIFT RN. PT RESTING IN HIGH NORRIS'S POSITION. PT AWAKE AND ALERT. NONVERBAL. ON O2 4L VIA NC WITH HUMIDIFIER. NO SOB NOTED. NO FACIAL GRIMACING. NO DISTRESS NOTED. PICC LINE TO LUE, D5NS INFUSING. GTUBE TO LUQ, LOW INTERMITTENT SUCTION. JTUBE TO LLQ, TUBE FEEDING VITAL 1.2 AT 10 ML/HR. ABD DRESSING, C/D/I. AYALA CATHETER IN PLACE DRAINING WANG URINE BY GRAVITY. OFF LOADING BOOTS TO BLE. SAFETY MEASURES IN PLACE. BED IN LOWEST POSITION. SIDE RAILS WITH PADS. AIR MATTRESS IN PLACE.
--- NOTE | 2019-09-15 20:00 | NUR ---
BIPAP IN PLACE: IPAP 12 EPAP 6 RATE 12 FIO2 40%. NO RESP DISTRESS NOTED.
[2019-09-15 20:58] VITALS: BP 135/87
--- NOTE | 2019-09-15 21:55 | NUR ---
PATIENT TAKEN OFF OF BIPAP. PLACED PATIENT BACK ON 3L/M VIA NASAL CANNULA. SPO2 94%. NO RESPIRATORY DISTRESS AT THIS TIME. RN AWARE. WILL CONTINUE TO MONITOR.
[2019-09-16 05:41] VITALS: BP 120/69
[2019-09-16 06:23] LABS: BASOPHIL % 0.2 % (0-2); PLATELET COUNT 132 x10^3mcL (130-400); RED CELL DISTRIBUTION WIDTH 12.9 % (11.5-14.5)
[2019-09-16 06:45] LABS: CALCIUM 8.6 mg/dL (8.5-10.1); CHLORIDE SERUM 105 mmol/L (98-107); CREATININE SERUM 0.4 mg/dL (0.7-1.3); GFR1 > 60 mL/min; GLUCOSE SERUM 111 mg/dL (74-106); POTASSIUM SERUM 3.8 mmol/L (3.5-5.1); SODIUM SERUM 141 mmol/L (136-145)
--- NOTE | 2019-09-16 07:30 | NUR ---
PT RESTED IN INTERVALS DURING SHIFT. NO SOB ON O2 3L VIA NC. O2 SAT 97%. NO ACUTE DISTRESS NOTED. GTUBE TO LOW INTERMITTENT SUCTION. JTUBE FEEDING VITAL 1.2 AT 20 ML/HR. PICC LINE TO LUE, PATENT AND INTACT. AYALA CATHETER IN PLACE. AYALA CARE DONE. WATERY STOOL X1. CLEANED AND MADE PT COMFORTABLE. TURNED Q2H. SAFETY MEASURES MAINTAINED. NEEDS ANTICIPATED. ENDORSED CONTINUITY OF CARE TO DAY SHIFT RN.
--- NOTE | 2019-09-16 08:00 | NUR ---
SHIFT ASSESSMENT DONE. PATIENT HX OF M.R. AND SEIZURE. SEIZURE PRECAUTION IN PLACE. TELE#35; NSR; HR = 75; BREATHING SOUND DIMINISHED FARRAH; RR = 20' O2 SAT 94% ON 3L VIA N/C. RT PROTOCOL. NON-VERBRAL. APHAGIC. J-T FEEDING WITH VITAL AF 1.2 20CC/HR WITH WATER FLUSH 100 CC/Q4H. RESUDUAL= 0.G TUBE TO LUQ ABD WITH L/I SUCTION. SCANT BROWNISH DRAIANGE IN TUBE. ABD DRSG C/D/I. NO S/S OF PAIN. IVF OF D5NS 40CC/HR. 2 PORTS PICC LINE TO LUE, BOTH PATENT. SITE CLEAN. DRSG INTACT. LAST PICC LINE CARE GIVEN 09/11. AYALA CATH PATENT WITH WANG URINE OUTPUT.PATIENT ON AIR MATTRESS. ALL EXTREMITIES CONTRACTURED. FOOT PROTECTORS IN PLACE; SCD FARRAH. TOTAL CARE. ALL SIDE RAILS UP. SAFETY PLACAUTION IN PLACE.
--- NOTE | 2019-09-16 09:10 | NUR ---
PATIENT HAD LARGE LOOSE/WATERY BM, INCONT. UNBLANCHEBLE REDNESS TO GROIN AREA. Z-GUARD APPLIED.
[2019-09-16 09:26] VITALS: BP 100/61
[2019-09-16 12:36] VITALS: BP 103/68
--- NOTE | 2019-09-16 14:11 | NUR ---
PATIENT TOLERATED J TUBE FEEDING W/ VITAL 1.2 AT 20CC/HR SINCE THIS QUALIFICATION ENGINEER. ADVANCED FEEDING RATE TO 30CC/HR.
[2019-09-16 17:09] VITALS: BP 107/66
--- NOTE | 2019-09-16 17:31 | NUR ---
HAD 2ND BM. LOOSE TO WATERY. URINE OUTPUT 650CC VIA AYALA. CLOUDY AND WANG COLOR.
--- NOTE | 2019-09-16 17:41 | NUR ---
AYALA CARE GIVEN. PATIENT'S FAMILY AT BED SIDE NOW.
--- NOTE | 2019-09-16 19:30 | NUR ---
RECEIVED REPORT FROM DAY SHIFT RN. PT RESTING IN BED, ON HIGH NORRIS'S POSITION. PT AWAKE, ALERT. NONVERBAL. NO SOB NOTED ON O2 3L VIA NC. NO DISTRESS NOTED. GTUBE TO LUQ, LOW INTERMITTENT SUCTION. JTUBE TO LLQ, TUBE FEEDING VITAL 1.2 30 ML/HR. PICC LINE DOUBLE LUMEN TO LUE, D5 NS INFUSING, DRESSING C/D/I. ABD DRESSING C/D/I. AYALA CATHETER IN PLACE DRAINING WANG URINE BY GRAVITY. AIR MATTRESS IN PLACE. OFF LOADING BOOTS TO BLE. SAFETY MEASURES IN PLACE. BED IN LOWEST POSITION. SIDE RAILS UP WITH PADS. FAMILY AT BEDSIDE.
[2019-09-16 21:10] VITALS: BP 117/69
--- NOTE | 2019-09-17 02:00 | NUR ---
INCREASED TUBE FEEDING TO 40 ML/HR. NO DISTRESS NOTED.
--- NOTE | 2019-09-17 04:00 | NUR ---
PT COUGHING. CRACKLES LUNG SOUNDS NOTED. TACHYPNEIC. NASOTRACHEAL SUCTION DONE BY R.T. WITH SCANT OUTPUT. 02 SAT 95% ON O2 3L VIA NC.
[2019-09-17 04:49] VITALS: BP 110/67
[2019-09-17 06:20] LABS: CALCIUM 8.6 mg/dL (8.5-10.1); CARBON DIOXIDE 30.6 mmol/L (21-32); CHLORIDE SERUM 104 mmol/L (98-107); CREATININE SERUM 0.4 mg/dL (0.7-1.3); GFR1 > 60 mL/min; GLUCOSE SERUM 108 mg/dL (74-106); POTASSIUM SERUM 3.7 mmol/L (3.5-5.1); SODIUM SERUM 139 mmol/L (136-145)
[2019-09-17 06:23] LABS: BASOPHIL % 0.2 % (0-2); PLATELET COUNT 137 x10^3mcL (130-400); RED CELL DISTRIBUTION WIDTH 12.6 % (11.5-14.5)
--- NOTE | 2019-09-17 07:00 | NUR ---
PT RESTING ON HIGH NORRIS'S POSITION. TACHYPNEIC. O2 SAT 96% ON O2 3L VIA NC. TUBE FEEDING HELD SINCE 399. DR FLEMING MADE AWARE. GTUBE FEEDING ON LOW INTERMITTENT SUCTION WITH 50 ML OUTPUT. SAFETY MEASURES MAINTAINED. WILL ENDORSE CONTINUITY OF CARE TO DAY SHIFT RN.
--- NOTE | 2019-09-17 07:45 | NUR ---
RECEIVED PATIENT MENTAL RETARDED. NON-VERBRAL. PATIENT HAD LABORED BREATHING WITH COUGHING. RR = 44/MIN. FINE AND COARSED CRAKLES FARRAH LUNG. O2 SAT 88-92% ON 3L VIA N/C. J-T FEEDING HOLD BY HYDRAULIC ELEVATOR CONSTRUCTOR. G TUBE ON I/L SUCTION. FEEDING FOMULA GAVE TO J-T AND OUT TO G-TUBE NOTED. GILBERTO, QUALITATIVE FIELD COORDINATOR, NOTIFED. F/C PATENT. IVF OF D5NS 40CC/HR VITOR PICC LINE TO LUE. ON AIR MATTRESS. CALLED R.T. FOR RESP TREATMENT.
[2019-09-17 09:04] VITALS: BP 127/68
--- NOTE | 2019-09-17 09:30 | NUR ---
PATIENT HAD MOD LOOSE BM. AYALA CARE GIVEN.
[2019-09-17 11:09] VITALS: BP 127/68
--- NOTE | 2019-09-17 11:30 | NUR ---
ABD DRSG OPENED WITH GILBERTO, N.P.; J TUBE SITE LEAKING NOTED. ABD INCISION X3, CARLOS INTACT. G-T SITE CLEAN. PHOTO TAKEN AND FILED. ISLAND DRSG TO RLQ ABD INCISION. BANDAID TO RLQ ABD INCISION. T GAUZE APPLIED TO JT AND GT SITE. ABD PAD TO MID ABD INCISION.
[2019-09-17 12:19] VITALS: BP 128/69
[2019-09-17 17:12] VITALS: BP 102/63
--- NOTE | 2019-09-17 17:30 | NUR ---
CALLED AND VERIFIED WITH Archana MACIAS WITH PATIENT UNTOLERATED J-T FEEDING. TELEPHONE ORDER - TO HOLD J -T FEEDING GIVEN.
--- NOTE | 2019-09-17 19:00 | NUR ---
PATIENT NO RESP DISTRESS NOW. O2 SAT 95% ON 3L VIA N/C. RR=20. TELE#35; HR 62. HAD BM X2 THIS SHIFT. UOP 600CC VIA AYALA. WANG COLOR. J T FEEDING HOLD DUE TO PATIENT WAS NOT TOLERATED AND HAD ASPIRATION. G T SUCTION 100CC OUT. IVF OF D5NS 40CC/HR. ENDOSED CARE TO NOC NURSE.
--- NOTE | 2019-09-17 19:35 | NUR ---
RECEIVED REPORT FROM DAY SHIFT RN. PT RESTING IN BED ON HIGH NORRIS'S POSITION. AWAKE AND ALERT. BREATHING EVEN AND UNLABORED ON O2 3L VIA NC. NO SOB NOTED. NO FACIAL GRIMACING. NO DISTRESS NOTED. PICC LINE DOUBLE LUMEN TO LUE, PATENT AND INTACT. D5NS INFUSING. JTUBE CLAMPED. JTUBE FEEDING ON HOLD. GTUBE ON LOW INTERMITTENT SUCTION. ABD DRESSING WITH SMALL STAIN TO LEFT LOWER PORTION. AYALA CATHETER DRAINING BY GRAVITY. SAFETY MEASURES IN PLACE. BED IN LOWEST POSITION. SIDE RAILS WITH PADS. ON AIR MATTRESS. OFF LOADING BOOTS IN PLACE.
[2019-09-17 20:51] VITALS: BP 98/63
[2019-09-18 05:23] VITALS: BP 102/64
[2019-09-18 06:48] LABS: BASOPHIL % 0.2 % (0-2); PLATELET COUNT 131 x10^3mcL (130-400); RED CELL DISTRIBUTION WIDTH 12.9 % (11.5-14.5)
--- NOTE | 2019-09-18 06:51 | NUR ---
PT RESTED IN LONG INTERVALS DURING SHIFT. NO SOB NOTED ON O2 3L VIA NC. BREATHING EVEN AND UNLABORED. NO ACUTE DISTRESS NOTED. GTUBE TO LOW INTERMITTENT SUCTION WITH 50 ML OUTPUT. JTUBE SITE LEAKING. JTUBE FEEDING HELD PER ORDER. PICC LINE TO LUE, D5NS INFUSING. AYALA CATHETER IN PLACE. AYALA CARE GIVEN. ABD DRESSING CHANGED. SAFETY MEASURES MAINTAINED. WILL ENDORSE CONTINUITY OF CARE TO DAY SHIFT RN.
--- NOTE | 2019-09-18 07:20 | NUR ---
PT IS ORIENTED TO SELF ONLY, NONVERBAL. [id number] TO VERBALLY STIMULI BUT UNABLE TO FOLLOW COMMANDS. ALL NEEDS WILL BE ANTICIPATED BY STAFF. SEIZURE PRECAUTIONS IN PLACE D/T HX OF EPILEPSY. TELE [address] READING NSR. RESP EVEN AND UNLABORED. LUNG SOUNDS DIMINISHED BILATERAL BASES, FINE CRACKLES NOTED TO BILATARAL UPPER LOBES. ON 02 N/C AT 3 LPM. NO COUGH OR SOB NOTED. SKIN WARM, PERIPHERAL PULSES MOD PALPABLE. NO EDEMA, CAP REFILL < 3 SEC. PICC LINE TO LUE DOUBLE LUMEN, BOTH LUMENS FLUSHED AND PATENT. SITE WNL. NO S/S OF INFECTION NOTED. PT HAS LUQ GTUBE FLUSHED AND PATENT WITH INTERMITTNENT SUCTION APPLIED. PT HAS J-TUBE TO LLQ, FLUSHED AND PATENT WITH NO RESIDUAL. FEEDING HELD AT THIS TIME DUE J-TUBE LEAKING. AYALA CATH IN PLACE WITH STAT LOCK TO R THIGH. AYALA IS PATENT WITH DARK YELLOW URINE FOLLOWING TO GRAVITY. PT HAS MID ABDOMEN SURGICAL INCISION CLOSED WITH CARLOS AND COVERED WITH ABDOMINAL PAD. NO S/S OF INFECTION NOTED. PT HAS L SX INCISION 2 CM AND R SX INCISION 2 CM BOTH CLOSED WITH CARLOS AND COVERED WITH BANDAID. NO S/S OF INFECTION NOTED. HOB ELEVATED TO 35 DEGREES. NO S/S OF PAIN AND DISCOMFORT. PT WILL BE TURNED AND REPOSITIONED Q 2 HOURS AND PRN. AIR MATRESS IN PLACE. CALL LIGHT WITHIN REACH. BED IN LOWEST POSITION. BED ALARM ON.
[2019-09-18 07:24] LABS: CALCIUM 8.8 mg/dL (8.5-10.1); CARBON DIOXIDE 31.4 mmol/L (21-32); CHLORIDE SERUM 106 mmol/L (98-107); CREATININE SERUM 0.4 mg/dL (0.7-1.3); GFR1 > 60 mL/min; GLUCOSE SERUM 83 mg/dL (74-106); SODIUM SERUM 143 mmol/L (136-145)
--- NOTE | 2019-09-18 09:59 | NUR ---
REPORTED TO GILBERTO BODREN NP, THAT MANY OF PT'S MED ARE ORDERED PO, COULD SHE CHANGE THEM TO PEG TUBE. GILBERTO STATED YES SHE WOULD, AWAITING ORDER CHANGE, ALL SCHEDULED MEDS ORDERED PO HAVE BEEN HELD AT THIS TIME (ROBINAL, LACULOSE, VALPROIC, AND MIRALAX. PT HOB ELEVATED TO 40 DEGREES, NO RESIDUAL NOTED IN G-TUBE. GTUBE FLUSED AND PATENT, AUSCULTATED PLACEMENT CONFIRMED. NO S/S OF PAIN OR DISCOMFORT. O2 N/C AT [address] CALL LIGHT WITHIN REACH.
[2019-09-18 10:47] VITALS: BP 107/65
--- NOTE | 2019-09-18 11:10 | NUR ---
SCHEDULED MED GIVEN. GTUBE SUCTION WILL BE HELD FOR ONE HOUR. PT HOB ELEVATED TO 40 DEGREES. ASPIRATION PRECAUTIONS MAINTAINED. CALL LIGHT WITHIN REACH.
--- NOTE | 2019-09-18 12:09 | NUR ---
Follow-up Nutrition Assessment: /B MOIZ WOOD HR Dx: Asthma, sepsis, UTI PMHx: cerebral palsy, spastic quadriplegia, asthma, epilepsy, mental retardation, G tube in place Labs: (09/18) CREAT 0.4L, K 3.0L Meds: Colace, lactulose, milk of magnesia, miralax, reglan, zofran Diet: (J-tube) Vital AF 1.2 @ 10 ml/hr, goal 20 ml/hr, advance 10 ml Q6H, FWF 90 cc Q4H PO Intake: NPO Weights: (09/03) 68 kg, (09/07) 70 kg, (09/15) unable to access, (09/18) 68.1 kg I/Os: (09/17) 2190/1800 (390) Skin: large abd dressing, minimal drainage around g-tube and j-tube site, erythema to heels and buttock Elvis: 11 Edema: trace BLE GI: watery stools Last BM: 09/17 RD Note (09/18): Patient is non-verbal. Per RN Donna, Patient's J-tube is leaking and therefore the feedings are on hold. Dr. Denise will come and evaluate the patient per RN. Per progress note (09/18), Awake nonverbal patient had an episode of SOB earlier today, after HHN given patients respirations improved. Estimated Nutritional Needs Based on body weight (68 kg) Energy: 9151-3790 kcal/day (25-30 kcal/kg for maintenance, chronic illness) Protein: 68-82 g/day (1.0-1.2 g/kg to preserve LBM) Fluid: 4271-3899 mL/day (1 mL/kcal) or per MD Nutrition Diagnosis: 1. Altered GI function related to multiple, frequent PNA as evidenced by new J tube placement consideration. (ongoing). 2. Inadequate enteral nutrition related to leaking J-tube as evidenced by patient not receiving any tube feedings currently. (ongoing) Intervention: 1. When medically appropriate, recommend (via J-tube) Vital AF 1.2 @ 10 ml/hr, goal rate of 60 ml/hr, advance by 10 ml Q6H, FWF 100 cc Q4H. This provides 1730 kcal and 108g protein. This meets 100% calorie and protein needs of the patient. 2. No new recommendations Monitor/Evaluate: Goal: Have pt meet at least 75% of estimated needs Monitor: PO intake, Labs, GI function F/U in 2-3 days as high risk 09/20-
--- NOTE | 2019-09-18 13:12 | NUR ---
POTASSIUM CL SOLUTION 20MEG GIVEN VIA G-TUBE, SCHEDULED MEDS GIVEN AND TOLERATED WELL. INTERMITTENT SUCTION TO G-TUBE HELD FOR ONE HOUR S/P MED ADMINISTRATION. HOB ELEVATED 40 DEGREES. ASPIRATION PRECAUTIONS MAINTAINED. AYALA CATH CARE AND PERINEAL CARE GIVEN. STAT LOCK REMOVED FROM R THIGH AND PLACE ON L THIGH. PT TOLERATED PROCEDURE WELL. CALL LIGHT WITHIN REACH. BED ALARM ON.
--- NOTE | 2019-09-18 13:35 | NUR ---
PER DR. IRWIN CALLED R/T AND REQUESTED PRN BREATHING TX WITH SUCTIONING AFTERWARDS. THERAPIST STATED SHE IS NO HER WAY HERE. REPORTED TO GILBERTO BORDEN THAT PT'S URINE OUTPUT HAS BEEN 45ML/HOUR SINCE BEGINNING OF SHIFT. NO NEW ORDERS AT THIS TIME.
--- NOTE | 2019-09-18 14:10 | NUR ---
CALLED TO CHECK PT FOR PRN RESP TX. HR 64. RR 18. PT RESTING COMFORTABLE IN BED. NO TX GIVEN AT THIS TIME. VELOCITY SHOOTER CRYSTAL AWARE AND WILL CALL ME IF NEEDED BEFORE NEXT SCHEDULED TX.
--- NOTE | 2019-09-18 17:01 | NUR ---
TYLENOL 650MG PEG TUBE GIVEN FOR MID ABDOMEN INCISION PAIN. PT FAMILY STATES PT LOOKS UNEASY, UNABLE TO ASSESS PAIN LEVEL, PT IS NONVERBAL. SCHEDULED MEDS GIVEN AND TOLERATED WELL. DRESSING CHANGE PERFORMED TO L AND R INCISION, MID ABDOMEN INCISION, JTUBE AND GTUBE. ALL AREAS CLEASNED WITH N/S AND PATTED DRY, DRESSINGS APPLIED. JTUBE NOTED WITH ACTIVE DRAINAGE, CLEAR DARK YELLOW. ALL WOUNDS WELL APPROXIMATED WITH NO S/S OF INFECTION NOTED. PT TOLERATED PROCEDURE WELL. R/T AT BESIDE PROVIDING DEEP SUCTION AND BREATHING TX. CALL LIGHT WITHIN REACH. BED IN LOWEST POSITION.
[2019-09-18 18:09] VITALS: BP 102/49
--- NOTE | 2019-09-18 18:22 | NUR ---
PT IS NONVERBAL, ORIENTED TO SELF ONLY. CAN FOLLOW VERY MINIMAL COMMANDS, RESPONDS WELL TO MOTHER. SEIZURE AND ASPIRATION PRECAUTIONS IN PLACE. TELE [address] READING NSR. HOB ELEVATED 40 DEGREES. GTUBE TO INTERMITTENT SUCTION DRAINING GREEN FLUID. JTUBE LOCKED AT THIS TIME. BOTH SITES COVERED WITH DRAIN DRESSING. ABDOMINAL WOUND COVERD WITH CDI ABDOMINAL PAD. L AND R SX INCISION COVERED WITH CDI BANDAIDS. JTUBE NOTED WITH CONSTANT SLOW LEAK OR YELLOW GREEN CLEAR FLUID. PICC LINE PLACED TO LUE BOTH LUMENS PATENT. SITE COVERED WITH CDI DRESSING. ON N/C IN PLACE AT 3LPM. RESP SHALLOW WITH BILATERAL FINE CRACKLES NOTED. PT SUCTIONED THROUGH OUT THE DAY. AYALA CATH IN PLACE, PATENT, 450 OUT PUT THIS SHIFT. PARENTS AT BESIDE. CALL LIGHT WITHIN REACH. BED IN LOWEST POSITION. WILL CONTINUE TO MONITOR.
--- NOTE | 2019-09-18 19:40 | NUR ---
RECEIVED PT FROM AM NURSE, PT LAYING DOWN IN BED WITH FAM AT BEDISDE. PT AWAKE BUT NONVERBAL. SZ PRECAUTIONS IN PLACE. TELE#[id number] READING SR. NO S/S OF PAIN NOTED. PALPABLE PULSES TO ALL EXTREMETIES. NO EDEMA NOTED. FARRAH HEAL PROTECTORS TO BLE IN PLACE. FINE CRACKLES TO BUL. BREATHING EVEN AND UNLABORED ON 3L NC. NO ACUTE RESP DISTRESS NOTED. AND SOFT AND NONDISTENED. ACTIVE BS X4 QUAD. NO N/V NOTED. PT HAD AN EPISODE OF WATERY STOOLS TODAY. LUQ G-TUBE CONNECTED TO L/I SUCTION, NO DRAINAGE NOTED. LLQ J-TUBE CLAMPED AT THIS TIME DUE TO LEAKAGE. AYALA CATH IN PLACE, DRAINING YELLOW URINE TO GRAVITY. GENERALIZED WEAKNESS. BEDBOUND. CONTRACTED BUE AND BLE. ABD INCISIONS X3 WITH CARLOS AND DRESSING. DRESSIMG CDI. ERYTHEMA TO GROIN AREA, MOTOR VEHICLE EXAMINER. SCRATCHES TO BUE. SKIN TEAR TO NOSE, MOTOR VEHICLE EXAMINER. PICC LINE TO LUE, PORTS X2 PATENT AND INTACT. SITE WNL. BED AT LOWEST SETTING. SIDE RAILS X2 UP. CALL LIGHT WITHING REACH. WILL CONT TO MONITOR.
[2019-09-18 20:31] VITALS: BP 104/62
--- NOTE | 2019-09-18 21:00 | NUR ---
PT O2 SAT AT 89% ON 3L NC, NO RESP DISTRESS NOTED. PT AWAKE, RESP 20/MIN. INCREASED O2 TO 4L NC, PT O2 AT 94% TOLERATING WELL. NO ACUTE DISTRESS NOTED. WILL CONT TO MONITOR.
--- NOTE | 2019-09-19 01:04 | NUR ---
PT LAYING DOWN IN BED WITH EYES CLOSED, BRETHING EVEN AND UNLABORED ON 4L NC. O2 SAT AT 95%. NO ACUTE RESP DISTRESS NOTED. BED AT LOWEST SETTING. SIDE RAILS X2 UP. CALL LIGHT WITHIN REACH. WILL CONT TO MONITOR.
[2019-09-19 06:05] VITALS: BP 115/69
[2019-09-19 06:15] LABS: BASOPHIL % 0.2 % (0-2); PLATELET COUNT 150 x10^3mcL (130-400); RED CELL DISTRIBUTION WIDTH 12.5 % (11.5-14.5)
--- NOTE | 2019-09-19 06:22 | NUR ---
PT SLEPT AT INTERVALS THROUGHOUT THE NIGHT, BREATHING EVEN AND UNLABORED ON 4L NC. O2 SAT AT 95%. NO ACUTE RESP DISTRESS NOTED. G-TUBE CONNECTED TO L/I SUCTION WITH 50CC OUTPUT, GREEN LIQUID. NO SIGNIFICANT CHANGES DURING SHIFT. ALL NEEDS ASSESSED AND ATTENED TO. BED AT LOWEST SETTING. SZ PRECAUTIONS IN PLACE. WILL CONT TO MONITOR AND ENDORSE CARE TO AM NURSE.
[2019-09-19 06:24] LABS: CALCIUM 9.2 mg/dL (8.5-10.1); CARBON DIOXIDE 32.9 mmol/L (21-32); CHLORIDE SERUM 108 mmol/L (98-107); CREATININE SERUM 0.5 mg/dL (0.7-1.3); GFR1 > 60 mL/min; GLUCOSE SERUM 84 mg/dL (74-106); POTASSIUM SERUM 3.9 mmol/L (3.5-5.1); SODIUM SERUM 146 mmol/L (136-145)
--- NOTE | 2019-09-19 07:20 | NUR ---
SEEN AWAKE, RESPONSIVE TO TOUCH, O2 AT 3LPM VIA NC, SPASTIC QUADRIPLEGIA, COGNITIVE DELAY, RRR, PALPABLE PULSES, CTA ON BLF, HYPOACTIVE BS, +G-TUBE PATENT, AT LOW INTERMITTENT SUCTION, J - TUBE LEAK WITH GREENISH DRAINAGE NOTED, + ABD CDI DRESSING AT MIDLINE OF ABD, + BANDAGE CDI BILATERALLY, ABD LOWER QUADRANTS, D5NS INFUSING WELL AT 40CC/HR AT SIMIN PICC LINE, NO REDNESS OR INFILTRATION, AYALA CATHETER IN PLACE WITH NO SIGNS OF INFECTION. CALL LIGHT WITHIN REACH. BED AT LOWEST POSITION.
[2019-09-19 07:44] VITALS: BP 115/62
--- NOTE | 2019-09-19 09:29 | NUR ---
SEEN AWAKE, NOT IN DISTRESS,CHECKED FOR PATENCY OF G TUBE, NO RESIDUAL VOLUME, MEDICATIONS GIVEN PRESCRIBED VIA G TUBE. FLUSHED WITH STERILE WATER SOLUTION 100ML. SOLUMEDROL IVP GIVEN. SEIZURE PRECAUTION MAINTAINED, BED AT LOWEST POSITION.
--- NOTE | 2019-09-19 09:37 | NUR ---
PICC LINE SIMIN CHECKED FOR PATENCY AND FLUSHED AFTER ADMINISTRATION OF SOLUMEDROL.
[2019-09-19 11:50] VITALS: BP 114/72
--- NOTE | 2019-09-19 13:30 | NUR ---
SEEN AWAKE, RESPONSIVE TO TOUCH, G TUBE PATENCY CHECKED, 10 ML RESIDUAL VOLUME, MEDICATIONS GIVEN VIA G TUBE, BACLOFEN GIVEN FOR SPASTIC QUADRIPLEGIA, METOCLOPRAMIDE GIVEN. BED AT LOWEST POSITION. SEIZURE PRECAUTIONS MAINTAINED.
[2019-09-19 15:29] VITALS: BP 99/60
--- NOTE | 2019-09-19 16:30 | NUR ---
RECEIVED PATIENT AOX4, NOT IN DISTRESS, COMPLAINTS OF L FOOT PAIN, MEDSURG, PALPABLE PULSES, L FOOT EDEMA, CTA ON BLF, +BS, LAST BM 09/17/19, VOIDS WITH NO DYSURIA , NO WEAKNESS, LIMITED ROM ON LLE, L FOOT BLISTER , L GREAT TOE DISCOLORATION, R FOOT SCAB, NS INFUSING WELL AT 130CC/HR AT LAC , G20. NO REDNESS OR INFILTRATION. CALL LIGHT WITHIN REACH. BED AT LOWEST POSITION.
--- NOTE | 2019-09-19 18:03 | NUR ---
SEEN AWAKE , NOT IN DISTRESS, TYLENOL PO MEDICATIONS GIVEN. CALL LIGHT WITHIN REACH. BED AT LOWEST POSITION.
--- NOTE | 2019-09-19 19:10 | NUR ---
RECEIVED REPORT FROM JULES NORTON. PT IS AWAKE AND NONVERBAL. PT HAS HX OF CEREBRAL PALSY AND BEING NONVERBAL AT BASELINE. ASPRIRATION AND SEIZURE PRECAUTIONS ARE IN PLACE. PT IS ON TELE #35, NSR WITH HR 60 AND CONT. PULSE OX OF 93% AT THIS TIME. PT PULSES PALPABLE AND CAP REFILL <3 SEC. PT HAS FINE CRACKLES TO LUNG SOUNDS UPON AUSCULATION. PT IS ON 4LPM NC. NO S/S OF SOB OR RESPIRATORY DISTRESS OBSERVED AT THIS TIME. PT ABD SOFT AND ROUND. PT BOWEL SOUNDS ACTIVE X4. PT HAS LUQ G-TUBE TO LOW INTERMITTENT SUCTION. PT HAS J-TUBE FOR FEEDING TO LLQ. PT TUBE FEED IS ON HOLD AT THIS TIME DUE TO J-TUBE LEAKING. SKIN AROUND J-TUBE WAS CLEANSED AND NEW DRESSING WAS APPLIED. PT HAS AYALA CATH IN PLACE DRAINING WANG COLORED URINE. PT IS BEDBOUND AT THIS TIME AND IS TOTAL CARE PT. PT HAS CONTRACTURES TO BUE AND BLE. PT IS ON AIR MATTRESS WITH BILATERAL HEEL PROTECTORS IN PLACE. PT HAS ABD DRESSING TO ABD INCISIONS WITH CARLOS, CDI. PT LUE PICC LINE DOUBLE LUMEN IS PATENT, INTACT, AND IVF INFUSING WELL AT THIS TIME. CALL LIGHT WITHIN REACH. BED IN LOWEST POSITION. SIDE RAILS X2 UP. WILL CONTINUE TO MONITOR.
[2019-09-19 21:04] VITALS: BP 100/67
[2019-09-20 06:03] VITALS: BP 96/54
[2019-09-20 06:23] LABS: BASOPHIL % 0.4 % (0-2); PLATELET COUNT 154 x10^3mcL (130-400); RED CELL DISTRIBUTION WIDTH 12.7 % (11.5-14.5)
[2019-09-20 06:35] LABS: CALCIUM 8.7 mg/dL (8.5-10.1); CARBON DIOXIDE 31.7 mmol/L (21-32); CHLORIDE SERUM 107 mmol/L (98-107); CREATININE SERUM 0.4 mg/dL (0.7-1.3); GFR1 > 60 mL/min; GLUCOSE SERUM 86 mg/dL (74-106); SODIUM SERUM 145 mmol/L (136-145)
--- NOTE | 2019-09-20 06:47 | NUR ---
PT SLEPT INTERMITTENTLY THROUGHOUT THE SHIFT. PER NOV, ADMINISTERED TYLENOL 1X FOR PAIN. PT COMPLIED WITH NURSING CARE THROUGHOUT THE SHIFT. SAFETY AND COMFORT MEASURES WERE MAINTAINED DURING THE SHIFT. CALL LIGHT WITHIN REACH. BED IN LOWEST POSITION. SIDE RAILS X2 UP. WILL CONTINUE TO MONITOR. WILL ENDORSE CARE TO DAY SHIFT NURSE.
--- NOTE | 2019-09-20 07:32 | NUR ---
ENDORSED CARE TO CHIOMA NORTON. ALL QUESTIONS AND CONCERNS ANSWERED.
[2019-09-20 07:56] VITALS: BP 107/69
--- NOTE | 2019-09-20 08:00 | NUR ---
RECEIVED PATIENT ALERT. NON-VERBRAL. HX OF MR AND SEIZURE. SZ PRECAUTION IN PLACE. TELE#35; NSR; HR 74. BREATHING SOUND DIMINISHED WITH CONGESTED COUGHING. CHROCHI FARRAH ON AND OFF. O2 SAT 95% ON 2L VIA N/C. PATIENT APHAGIC. HAD YELLOW WATERY BM THIS AM. NPO. NO N/V. L/I SUCTION VIA G-TUBE TO LUQ ABD. J-TUBE TO LLQ ABD LEAKING WITH YELLOW /BROWN DRAINAGE. SMALL AMOUNT. SKIN REDNESS AROUND J T SITE. WOUND CARE GIVEN AND DRSG CHANGED. HARDNESS UNDER SKIN AT 2 TO 4 O'CLOCK AT J- TUBE SITE. SIZE 4CM TO 5 CM. ABD INCISION X3, MID 11 CM, RLQ ABD 5CM AND LLQ ABD 2 CM. ALL CLEAN AND DRAIANGE. CLOSED WITH CARLOS INTACT, COVERED WITH DRSG. G TUBE TO LUQ ABD, SITE CLEAN. NO REDNESS AND DRAINGE. AYALA IN PLACE WITH WANG UOP. ALL EXTREMITIES CONTRACTURED. ON AIR MATTRESS. HEEL PROTECTORS APPLIED. IVF OF D5NS 40CC/HR VIA PICC LINE TO LUE. SITE CLEAN. LASR PICC LINE CARE ON 09/11/19. NO S/S OF PAIN. SAFETY PRECAUTION IN PLACE. 4CM X 5CM U
--- NOTE | 2019-09-20 10:00 | NUR ---
K RIDER 40 EMQ IV STARTED. PATIENT'S POTASSIUM LEVEL 3.0 THIS AM.
[2019-09-20 12:40] VITALS: BP 124/72
--- NOTE | 2019-09-20 14:15 | NUR ---
PICC LINE CARE TO LUE GIVEN. SITE CLEAN. NO REDNESS AND NO DRAIANGE.
[2019-09-20 15:33] VITALS: BP 124/72
[2019-09-20 16:56] VITALS: BP 113/64
--- NOTE | 2019-09-20 17:05 | NUR ---
1534 - G T SUCTION WAS HOLD FOR MEDS. PATIENT HAD YELOOW FLUID DRAINAGE FRON J TUSE SITE. ESTIMATED 50 -60 CC. DRSG CHANGED. CHARGE NURSE, ALYCE PONCE OF.
--- NOTE | 2019-09-20 17:50 | NUR ---
AFTER TALKED WITH DR. COELLO. PATIENT'S MOTHER AGREED SURGERY TOMORROW. CONSENT SIGNED.
--- NOTE | 2019-09-20 19:49 | NUR ---
RECEIVED PATIENT IN BED AWAKE WITH NO SIGN OF ACUTE RESPIRATORY DISTRESS. BREATHING EASY AND NONLABOR SATTING AT 97% ON O2 AT 2L VIA NC. TELE#35 NSR ON MONITOR. FINE CRACKLES NOTED, PT ON RT PROTOCOL. ABDOMEN ROUND AND NONTENDER WITH JTUBE LEAKING, FOR REVISION OF TUBE PLACEMENT TOMORROW. G TUBE INTACT AND CDI. AYALA TO GRAVITY WITH WANG URINE OUTPUT. D5NS INFUSING AT 40ML/HR CONNECTED TO PICC LINE TO LUE. ON AIR LOSS MATTRESS. WITH FARRAH. HEEL PROTECTORS IN PLACE. WILL CONTINUE TO MONITOR.
[2019-09-20 21:27] VITALS: BP 108/66
--- NOTE | 2019-09-20 22:52 | NUR ---
REPOSITIONED FOR COMFORT, NO DISTRESS NOTED. ON CONTINOUS PULSE OX SATTING AT 95% ON O2 AT 2L VIA NC. WILL CONTINUE TO MONITOR.
--- NOTE | 2019-09-21 00:28 | NUR ---
K-3.0 DR GREWAL MADE AWARE, K RIDER 40MEQ GIVEN PRESCRIBED.
--- NOTE | 2019-09-21 05:08 | NUR ---
CHECKED AT INTERVALS FOR NEEDS AND SAFETY. O2 SAT 96% ON O2 AT 3L VIA NC. REPOSITIONED FOR COMFORT. ALL NEEDS ATTENDED.
[2019-09-21 05:25] VITALS: BP 112/79
--- NOTE | 2019-09-21 05:50 | NUR ---
HAD BM X1 SOFT IN MODERATED AMOUNT. REPOSITIONED FOR COMFORT. ALL NEEDS ATTENDED.
[2019-09-21 06:16] LABS: BASOPHIL % 0.2 % (0-2); CALCIUM 8.8 mg/dL (8.5-10.1); CARBON DIOXIDE 30.7 mmol/L (21-32); CHLORIDE SERUM 111 mmol/L (98-107); CREATININE SERUM 0.5 mg/dL (0.7-1.3); GFR1 > 60 mL/min; GLUCOSE SERUM 78 mg/dL (74-106); PLATELET COUNT 158 x10^3mcL (130-400); POTASSIUM SERUM 4.3 mmol/L (3.5-5.1); RED CELL DISTRIBUTION WIDTH 12.5 % (11.5-14.5); SODIUM SERUM 147 mmol/L (136-145)
--- NOTE | 2019-09-21 07:22 | NUR ---
RECEIVED REPORT FROM KARLA NORTON. PATIENT RESTING IN BED WITH AIR MATTRESS AND SEIZURE PRECAUTIONS IN PLACE. HEEL FLOATING BOOTS AND SCDS IN PLACE. TELE # [address] WITH CONTINUOUS PULSE OX MONITORING. PT ON O2 2L NC. NO RESPIRATORY DISTRESS NOTED. AYALA IN PLACE DRAINING DARK YELLOW URINE. PICC NOTED TO SIMIN WITH DRESSING CDI AND INFUSING D5NS @ 40 ML/HR. G-TUBE CONNECTED TO LOW INTERMITTENT SUCTION. J-TUBE IN PLACE AND OFF TO PATIENT. MINIMAL LIGHT PINK DRAINAGE AT J-TUBE SITE. INCISIONS X3 TO ABDOMEN ARE COVERED WITH ISLAND DRESSING AND BANDAID. ALL DRESSINGS CDI. ALL QUESTIONS AND CONCERNS ADDRESSED.
[2019-09-21 09:09] VITALS: BP 108/67
--- NOTE | 2019-09-21 11:50 | NUR ---
RT AT BEDSIDE FOR BREATING TREATMENT.
--- NOTE | 2019-09-21 11:52 | NUR ---
Follow-up Nutrition Assessment: /B MOIZ WOOD HR Dx: Asthma, sepsis, UTI PMHx: cerebral palsy, spastic quadriplegia, asthma, epilepsy, mental retardation, G tube in place Labs: (09/21) CREAT 0.5L, NA 147H Meds: Colace, lactulose, lioresal, milk of magnesia, miralax, reglan, zofran Diet: (NPO- Sx), (09/14) (J-tube) Vital AF 1.2 @ 10 ml/hr, goal 20 ml/hr, advance 10 ml Q6H, FWF 90 cc Q4H PO Intake: NPO Weights: (09/03) 68 kg, (09/07) 70 kg, (09/15) unable to access, (09/18) 68.1 kg, (09/21) 67.9 kg I/Os: (09/20) 1080/1595 (-515) Skin: large abd dressing, minimal drainage around g-tube and j-tube site, erythema to heels and buttock Elvis: 11 Edema: trace BLE GI: watery stools Last BM: 09/20 RD Note (09/20): Per discussion in bed huddles, pt is going to OR for J-tube revision at 1pm today. J -tube feedings are turned off. Per progress note (09/20), Patient on NC 4 lpm with no s/s of SOB patient is nonverbal. Follow up with Dr. Denise regarding JT and awaiting return call, repaged again today. Started enteral feeding at 10cc/hr and reduced h2o flush to 50cc q 6 hours Estimated Nutritional Needs Based on body weight (68 kg) Energy: 9465-9181 kcal/day (25-30 kcal/kg for maintenance, chronic illness) Protein: 68-82 g/day (1.0-1.2 g/kg to preserve LBM) Fluid: 4013-1828 mL/day (1 mL/kcal) or per MD Nutrition Diagnosis: 1. Altered GI function related to multiple, frequent PNA as evidenced by new J tube placement consideration. (ongoing). 2. Inadequate enteral nutrition related to leaking J-tube as evidenced by patient not receiving any tube feedings currently. (ongoing) Intervention: 1. When medically appropriate, recommend (via J-tube) Vital AF 1.2 @ 10 ml/hr, goal rate of 20 ml/hr. If patient tolerates, advance goal rate to 60 ml/hr, advance by 10 ml Q6H, FWF 100 cc Q4H. This provides 1730 kcal and 108g protein. This meets 100% calorie and protein needs of the patient. Discussed with GIOVANA Lorenzo. Monitor/Evaluate: Goal: Have pt meet at least 75% of estimated needs Monitor: TF intake/ tolerance, Labs, GI function F/U in 2-3 days as high risk 09/23-
--- NOTE | 2019-09-21 11:52 | NUR ---
REPORT GIVEN TO JAZMINE NORTON IN OR. ALL QUESTIONS AND CONCERNS ADDRESSED.
--- NOTE | 2019-09-21 11:56 | NUR ---
PATIENT TAKEN DOWNSTAIRS FOR SURGERY VIA BED ACCOMPANIED BY FLAKO NORTON.
--- NOTE | 2019-09-21 13:34 | NUR ---
RECEIVED REPORT FROM POST OP RN. AWAITING PATIENT RETURN TO FLOOR.
[2019-09-21 13:45] VITALS: BP 121/75
--- NOTE | 2019-09-21 13:45 | NUR ---
PATIENT RETURNED TO FLOOR. VITALS TAKEN (SEE DOCUMENTATION). FLUIDS RESUMED. G-TUBE PLACED ON LOW INTERMITTENT SUCTION. AIR MATTRESS INFLATED AND SCDS APPLIED. TELE # 35 REAPPLIED. O2 2L NC REAPPLIED. PREVIOUS INCISIONS TO ABDOMEN ARE NOW IT SECURITY ADMINISTRATOR. NO DRAINAGE AND NO REDNESS NOTED. SUTURES AND DRESSING NOTED J-TUBE SITE. REQUESTED CLAIRIFICATION FROM SANTIAGO IF PATIENT WAS OK TO RESUME TUBE FEED? VIA G OR J TUBE? SANTIAGO TO CONSULT WITH DR COELLO AND CALL ME BACK. ALL QUESTIONS AND CONCERNS ADDRESSED.
--- NOTE | 2019-09-21 14:00 | NUR ---
RECEIVED CALL FROM SANTIAGO IN POST OP. PER DR COELLO, CONTINUE G-TUBE TO LOW INTERMITTENT SUCTION AND MEDS ONLY. OK TO RESUME TUBE FEED TO J-TUBE.
--- NOTE | 2019-09-21 14:30 | NUR ---
SPOKE WITH FISCAL ACCOUNTING CLERK KATHY TO NOTIFY THAT DR COELLO IS OK TO RESUME TUBE FEED AND REQUEST ORDERS. KATHY ORDERED TO REINSTATE TUBE FEED BEFORE. VITAL AF @ 10 ML/HR WITH A GOAL OF 20 ML/HR. INCREASE AT 6 HOURS IF TOLERATED. FWF OF 50 ML Q6H.
--- NOTE | 2019-09-21 16:12 | NUR ---
CALLED TO BEDSIDE FOR LEAKING AYALA. BLOOD NOTED IN BAG AND TUBING. POSSIBLE PULLING BY PATIENT. CHECKED BALLOON 6ML REMOVED AND REPLACED WITH 10 ML. PATIENT CLEANED UP.
[2019-09-21 17:49] VITALS: BP 109/63
--- NOTE | 2019-09-21 18:15 | NUR ---
IN TO BEGIN TUBE FEED PER ORDER. VITAL AF STARTED @ 10 ML/HR W 50 ML FWF Q6H.
--- NOTE | 2019-09-21 19:27 | NUR ---
REPORT GIVEN TO KARLA NORTON. PATIENT RESTING COMFORTABLY IN BED. ALL NEEDS MET. ALL QUESTIONS AND CONCERNS ADDRESSED. ALL CARES ENDORSED.
--- NOTE | 2019-09-21 19:39 | NUR ---
RECEIVED PATIENT IN BED AWAKE NON VERBAL WITH NO SIGN OFACUTE RESPIRATORY DISTRESS. BREATHING EASY AND NONLABOR ON CONTINOUS PULSE OX SATTING AT 94% ON O2 AT 3L VIA NC WITH FINE CRACKLES NOTED. TELE#35 NSR ON MONITOR. J TUBE INTACT WITH FEEDING VITAL AF 1.2 AT 10ML/HR (GOAL 20ML/HR) WITH FWF OF 50ML/HR Q 6HRS. G TUBE IN PLACE CONNECTED TO INTERMITTENT SUCTION WITH SMALL AMOUNT OF YELLOW OUTPUT. INCISION WITH STAPLED TO ABDOMEN CDI. AYALA TO GRAVITY WITH WANG URINE OUTPUT. PICC LINE TO LUPPER ARM INTACT AND INFUSING WELL. WILL CONTINUE TO MONITOR. BED TO LOWEST POSITION.
[2019-09-21 21:03] VITALS: BP 111/58
--- NOTE | 2019-09-21 23:35 | NUR ---
RECEIVED PT AT THIS TIME. PT RESTING. NONVERBAL. NC AT 3L/MIN NO SOB NOTED. PICC LINE TO SIMIN, INFUSING WELL. JT FEEDING VITAL AF 1.2 INFUSING WELL AT 10ML/HR. F/C IN PLACE. ASPIRATION PRECAUTIONS. SEIZURE/SSAFETY PRECAUTIONS IN PLACE. WILL CONTINUE TO MONITOR.
--- NOTE | 2019-09-22 04:27 | NUR ---
RT AT BEDSIDE.
--- NOTE | 2019-09-22 05:03 | NUR ---
PT AWAKE. NO ACUTE DISTRESS NOTED. BREATHING EVEN AND UNLABORED ON NC 3L/MIN, NO SOB NOTED. RT PROTOCOL. PT PICC LINE INFUSING WELL. J-TUBE FEEDING RATE AT 10 ML/HR, TOLERATING WELL. GT TO LOW INTERM SUCTION. PT MEDICATED PER EMAR. TURN AND REPOSITIONED NEEDED. PT SLEPT ON AND OFF THROGUHOUT THE NIGHT. ALL NEEDS MET. CALL BUTTON WITHIN REACH. ASPIRATION/SAFETY/SEIZURE PRECAUTIONS IN PLACE. WILL COTNINUE TO MONITOR AND ENDORSE CARE TO DAY SHIFT RN.
[2019-09-22 05:41] VITALS: BP 108/58
--- NOTE | 2019-09-22 07:40 | NUR ---
RECEIVED FROM JACQUARD FIXER RN. AWAKRE, NONVERBAL. TELE#35. RESPIRATIONS EQUAL AND UNLABORED ON 4L NC. NO ACUTE RESP DISTRESS NOTED, 02 SAT ON CONTINUOUS PULSE OX 97%. LLQ J-TUBE IN PLACE WITH MINIMAL SEROSANGINEOUS DRAINAGE FROM INSERTION SITE. TUBE FEEDINGS RUNNING AT GOAL TO 20 ML/HR. 5 CC OF RESIDUAL VOLUME NOTED, REPLACED. LUQ G TUBE IN PLACE, SET UP TO LOW INTERMITTENT SUCTION. LUE DOUBLE LUMEN PICC LINE, FLUSHED WELL, GOOD BLOOD RETURN, DRESSING CDI. RIGHT AND LEFT ABDOMINAL INCISION WITH CARLOS, CREDIT AND COLLECTION MANAGER, NO SWELLING OR DRAINAGE NOTED. AIR MATTRESS IN PLACE, PREVALON BOOTIES IN PLACE. WILL CONTINUE TO MONITOR. CALL LIGHT IN REACH. BED IN LOWEST POSITION.
[2019-09-22 08:01] LABS: BASOPHIL % 0.4 % (0-2); PLATELET COUNT 173 x10^3mcL (130-400); RED CELL DISTRIBUTION WIDTH 12.7 % (11.5-14.5)
--- NOTE | 2019-09-22 08:02 | NUR ---
PT IN NO ACUTE DISTRESS. ENDORSED CARE TO DAY SHIFT RN, ALL QUESTIONS ADDRESSED.
[2019-09-22 08:03] LABS: CALCIUM 8.9 mg/dL (8.5-10.1); CARBON DIOXIDE 28.7 mmol/L (21-32); CHLORIDE SERUM 110 mmol/L (98-107); CREATININE SERUM 0.5 mg/dL (0.7-1.3); GFR1 > 60 mL/min; GLUCOSE SERUM 85 mg/dL (74-106); POTASSIUM SERUM 3.3 mmol/L (3.5-5.1); SODIUM SERUM 147 mmol/L (136-145)
[2019-09-22 08:08] VITALS: BP 108/69
[2019-09-22 12:36] VITALS: BP 111/65
--- NOTE | 2019-09-22 13:31 | NUR ---
SPOKE WITH DR. COELLO REGARDING LOW INTERMITTENT SUCTIONS TO G TUBE, PER DR. COELLO NO NEED TO KEEP G-TUBE CONTINUALLY CONNECTED TO SUCTION. PER DR. COELLO IF RESIDUAL VOLUME BEGINS TO INCREASE THEN LOW INTERMITTENT SUCTION CAN BE SET UP. KATHY AKHTAR MADE AWARE.
[2019-09-22 16:12] VITALS: BP 105/60
--- NOTE | 2019-09-22 19:35 | NUR ---
RECEIVED PT FROM DAY SHIFT RN. PT AWAKE, NONVERBAL. BREATHING EVEN AND UNLABORED ON NC 2.5L/MIN, NO SOB NOTED. RT PROTOCOL. 99% 02SAT. TELE #35 SR ON MONITOR. ABD INCISION WITH CARLOS, FILLING HAND. JT IN PLACE WITH TUBE FEEDING VITAL AF 1.2 AT 20ML/HR, GRV 10CC. GT IN PLACE. F/C IN PLACE. PICC LINE TO SIMIN INFUSING WELL. NO ACUTE DISTRESS NOTED. PREVALON BOOTS, TURN AND REPOSITIONED. SAFETY/SEIZURE PRECAUTIONS IN PLACE. WILL CONTINUE TO MONITOR.
[2019-09-22 20:35] VITALS: BP 94/64
--- NOTE | 2019-09-23 01:07 | NUR ---
PT RESTING. BREATHING EVEN AND UNLABORED ON NC 2.5L/MIN NO SOB NOTED. CALL BUTTON WITHIN REACH. SAFETY PRECAUTIONS IN PLACE. WILL CONTINUE TO MONITOR.
--- NOTE | 2019-09-23 04:48 | NUR ---
PT AWAKE. NO ACUTE DISTRESS NOTED. BREATHING EVEN AND UNLABORED ON NC 2.5L/MIN, NO SOB NOTED. RT PROTOCOL. PT PICC LINE INFUSING WELL. J-TUBE FEEDING RATE AT 20 ML/HR, TOLERATING WELL. GT IN PLACE WITH MINIMAL DRAINAGE. ERYTHEMA AT SITE. PT MEDICATED PER EMAR. TURN AND REPOSITIONED NEEDED. PT SLEPT ON AND OFF THROGUHOUT THE NIGHT. ALL NEEDS MET. CALL BUTTON WITHIN REACH. ASPIRATION/SAFETY/SEIZURE PRECAUTIONS IN PLACE. WILL COTNINUE TO MONITOR AND ENDORSE CARE TO DAY SHIFT RN.
[2019-09-23 05:42] VITALS: BP 103/60
[2019-09-23 06:23] LABS: BASOPHIL % 0.3 % (0-2); PLATELET COUNT 166 x10^3mcL (130-400); RED CELL DISTRIBUTION WIDTH 12.8 % (11.5-14.5)
[2019-09-23 07:08] LABS: CALCIUM 8.9 mg/dL (8.5-10.1); CARBON DIOXIDE 30.5 mmol/L (21-32); CHLORIDE SERUM 101 mmol/L (98-107); CREATININE SERUM 0.5 mg/dL (0.7-1.3); GFR1 > 60 mL/min; GLUCOSE SERUM 72 mg/dL (74-106); POTASSIUM SERUM 3.6 mmol/L (3.5-5.1); SODIUM SERUM 138 mmol/L (136-145)
--- NOTE | 2019-09-23 07:20 | NUR ---
RECEIVED PT FROM TELEGRAPH OFFICE MANAGER RN. AWAKE/NONVERBAL. TELE#35. RESPIRATIONS EQUAL AND UNLABORED ON 2L NC. O2 SAT 95%, NO ACUTE RESP DISTRESS NOTED. LLQ J-TUBE IN PLACE, MINIMAL SEROUS DRAINAGE NOTED, CLEANSED WITH NS. TUBE FEEDING RUNNING AT GOAL OF 20 ML/HR WITH FWF OF 50 ML. G-TUBE RESIDUALS CHECKED NO RESIDUAL VOLUME NOTED. AYALA CATHETER IN PLACE, SECURED TO THIGH, DRAINING WANG COLORED URINE. LUE PICC LINE IN PLACE, DRESSING CDI, FLUSHED WELL, WITH GOOD BLOOD RETURN. ABDOMINAL INCISIONS X3 WITH CARLOS, CLERICAL WAREHOUSE WORKER, INTACT, NO DRAINAGE NOTED. AIR MATTRESS IN PLACE WITH PREVALON BOOTIES. PT POSITIONED SUPINE. WILL CONTINUE TO MONITOR. CALL LIGHT IN REACH. BED IN LOWEST POSITION.
--- NOTE | 2019-09-23 07:31 | NUR ---
PT IN NO ACUTE DISTRESS. ENDORSED CARE TO DAY SHIFT RN, ALL QUESTIONS ADDRESSED.
[2019-09-23 09:21] VITALS: BP 114/68
--- NOTE | 2019-09-23 09:32 | NUR ---
PT SITTING UP IN BED. ACTIVE, MOVING AROUND MORE. PICC INFUSING IV FLUIDS ORDERED, DRESSING CDI, NO INFILTRATION NOTED. RESIDUAL VOLUME TO G-TUBE CHECKED NO RESIDUAL NOTED, GIVEN MEDICATIONS VIA G-TUBE TOLERATED WELL, FLUSHED WELL A TOTAL OF 50 ML OF STERILE WATER. CLEANSES JTUBE SITE WITH NS AND DRIED WITH GAUZED, NOTED MINIMAL SEROUS DRAINAGE, LEFT ROAD SUPERVISOR OF ENGINES. ATTEMPTED ORAL CARE AND SUCTION, PT BITTING AND MOVING HEAD. WILL REATTEMPT AGAIN. WILL CONTINUE TO MONITOR. CALL LIGHT IN REACH. BED IN LOWEST POSITION.
--- NOTE | 2019-09-23 10:40 | NUR ---
MOM AT BEDSIDE. ALL QUESTIONS AND CONCERNS ADDRESSED.
[2019-09-23 12:40] VITALS: BP 102/65
[2019-09-23 17:25] VITALS: BP 98/56
--- NOTE | 2019-09-23 19:34 | NUR ---
PT SEEN, RESTING IN BED WITH HOB @ 60 DEGREE, AWAKE WITH NON-VERBAL, HX OF MR AND CP, SZ PRECAUTION IN PLACE, BREATHING EVEN AND UNLABORED, LUNG SOUNDS DIMINISHED, ON O2 2L VIA NC WITH NO RESP DISTRESS NOTED, ON TELE#35 NSR, DENIES CHEST PAIN, IVF INFUSING WELL, PULSES PALPABLE, NO EDEMA NOTED, SCD TO BLE, GENERALIZED WEAKNESS, TOTAL CARE, AIR MATTRESS, G-TUBE IN PLACE, CLAMP AT THIS TIME, TF VIA J-TUBE WITH VITAL AF 1.2 @ 20 ML/HR, FWF 100 ML Q6HRS, NO RESIDUAL NOTED, ABD SOFT WITH ACTIVE BS, SOME ERYTHEMA NOTED AROUND J-TUBE SITE, INTERDRY IN PLACE, ABD INCISIONS WITH CARLOS LOW PRESSURE BOILER OPERATOR, AYALA VIA GRAVITY DRAINING WANG COLOR URINE, NO DISTRESS NOTED, WILL KEEP TO MONITOR.
[2019-09-23 20:53] VITALS: BP 95/62
--- NOTE | 2019-09-24 02:28 | NUR ---
DECREASED OXYGEN TO 1L VIA NC AND PT IS TOLERATING WELL, SPO2 ABLE TO MAINTAIN ABOVE 95%.
[2019-09-24 05:11] VITALS: BP 112/68
--- NOTE | 2019-09-24 05:44 | NUR ---
PT ASLEEP AND APPEARS COMFORTABLE, SLEPT MOST OF NIGHT, BREATHING EVEN AND UNLABORED ON 1L VIA NC AND ABLE TO MAINTAIN SPO2 > 95%, HOB, TOLERATING WELL WITH J-TUBE FEEDING VITAL AF 1.2 @ 20 ML/HR, NO RESIDUAL NOTED, ASP PRECAUTION IN PLACE, AYALA CARE GIVEN.
[2019-09-24 06:45] LABS: BASOPHIL % 0.3 % (0-2); PLATELET COUNT 160 x10^3mcL (130-400); RED CELL DISTRIBUTION WIDTH 12.7 % (11.5-14.5)
--- NOTE | 2019-09-24 07:10 | NUR ---
RECEIVED PT FROM CHEMISTRY RESEARCH ASSISTANT RN. AWAKE/ALERT. TELE#35. RESPIRATIONS EQUAL AND UNLABORED ON 1L NC. NO ACUTE RESP DISTRESS NOTED. O2 SAT 95%. LUQ G-TUBE IN PLACE, NO RESIDUAL VOLUME NOTED, CLAMPED AT THIS TIME. LLQ J-TUBE IN PLACE RUNNING TUBE FEEDINGS AT 20 ML WITH FWF OF 90 ML Q4HR. PT TOLERATING WELL. PERRY PICC LINE IN PLACE, DRESSING CDI, NO DRAINAGE NOTED. J-TUBE SITE CLEANSED WITH NS, LEFT NODULIZER. WILL CONTINUE TO MONITOR. CALL LIGHT IN REACH. BED IN LOWEST POSITION.
[2019-09-24 07:14] LABS: CALCIUM 8.7 mg/dL (8.5-10.1); CARBON DIOXIDE 29.1 mmol/L (21-32); CHLORIDE SERUM 104 mmol/L (98-107); CREATININE SERUM 0.5 mg/dL (0.7-1.3); GFR1 > 60 mL/min; GLUCOSE SERUM 86 mg/dL (74-106); POTASSIUM SERUM 3.5 mmol/L (3.5-5.1); SODIUM SERUM 143 mmol/L (136-145)
--- NOTE | 2019-09-24 07:14 | NUR ---
BEDSIDE HANDOFF REPORT GIVEN TO SUNIL-RN, ALL QUESTIONS ANSWERED AND CONCERNS ADDRESSED.
[2019-09-24 08:53] VITALS: BP 105/63
--- NOTE | 2019-09-24 09:27 | NUR ---
PT SITTING UP IN BED. AWAKE/ALERT. SIMIN PICC FLUSHED WELL WITH GOOD BLOOD RETURN. PT GIVEN MEDICATIONS VIA G-TUBE, NO RESIDUAL VOLUME NOTED. TOLERATED WELL. J-TUBE SITE CLEANSED WITH NS, LEFT LAY OUT DRAFTER. PT O2 SAT 95% ON 1L NC. NO ACUTE RESP DISTRESS NOTED. WILL CONTINUE TO MONITOR. CALL LIGHT IN REACH. BED IN LOWEST POSITION.
--- NOTE | 2019-09-24 11:00 | NUR ---
KATHY AKHTAR MADE AWARE OF DARK WANG URINE OUTPUT, PER KATHY TUBE FEEDINGS HAVE BEEN CHANGED WITH FWF OF 90 ML Q4HR, CONTINUE TO MONITOR, NO OTHER CHANGES IN ORDERS AT THIS TIME.
[2019-09-24 13:42] VITALS: BP 102/54
--- NOTE | 2019-09-24 14:53 | NUR ---
PT SITTING UP IN BED. NO ACUTE RESP DISTRESS NOTED ON 1L NC. PT PLACED ON RA. NO ACUTE RESP DISTRESS NOTED. PT 02 SAT ON RA 94%. WILL CONTINUE TO MONITOR. GIVEN MEDICATIONS VIA G-TUBE TOLERATED WELL, NO RESIDUAL VOLUME NOTED. PICC LINE DRESSING CHANGED WITH STERILE TECHNIQUE, PT TOLERATED WELL. WILL CONTINUE TO MONITOR. CALL LIGHT IN REACH. BED IN LOWEST POSITION.
--- NOTE | 2019-09-24 14:53 | NUR ---
Follow-up Nutrition Assessment- Jung Maldonado 207T-B Dx: SOB Labs: (09/24) Hct:41L Meds: Colace, D5 NS, Lactulose, Milk of Magnesia, Protonix, Reglan, Singulair, Solumedrol, Tylenol, Valporic acid, Zofran Current nutrition support: Vital AF 1.2 at 20ml/hr increase rate every 4 hrs FWF:90ml q 4hr via J-tube per ROCKET MOTOR TESTER orders. GRV: (09/22) 5ml (09/23) 0ml (09/24) 0ml Weights: (09/21) 67.9kg (09/24) 74.2kg, 163# Note: equipment on bed and pt on air mattress Skin: abd incision x3 with margarita PRIYA, skin tear noted to bridge of nose Edema: none Last BM: 09/23 Per progress note 09/24, pt is on 2L NC with no s/s of SOB. Plan is for discharge back to facility that patient came from on Wednesday. During visit, pt was seen with TF running as ordered. Per RN, pt is tolerating with no GRV. Pt is on 20ml/hr,FWF:90ml q 4hr. Pt is on low rate due to aspirating per RN. Estimated Nutritional Needs actual body weight: 68kg Energy: 1700-2040kcal/day (25-30kcal/kg for maintenance) Protein:68-82g/day (1-1.2g/kg for preservation of LBM) Fluid: 1700-2040ml/day Nutrition Diagnosis 1. Inadequate enteral nutrition related to low TF rate as evidenced by pt only meeting 34% caloric needs and 53% protein needs. Intervention/RDN Recommendation(s): 1. Recommend advance as tolerated to 60ml/hr. to provide 1730kcal, 108g protein to better meet pts estimated needs. Monitor/Evaluate Monitor/Evaluate Previous goal: TF intakes to meet at least 75% of estimated needs with tolerance (not met) Goal: TF intakes to meet at least 75% of estimated needs with tolerance. Monitor: PO intake, Labs, GI function, Skin integrity, Weights. F/U in 2-3 days as high risk (09/26-)
--- NOTE | 2019-09-24 14:54 | NUR ---
1. Recommend advance as tolerated to 60ml/hr. to provide 1730kcal, 108g protein to better meet pts estimated needs.
[2019-09-24 17:09] VITALS: BP 109/64
--- NOTE | 2019-09-24 18:15 | NUR ---
PT SITTING UP IN BED. NO ACUTE RESP DISTRESS NOTED ON RA. CHANGED TUBING TO FEEDINGS JEVITY 1.2 RUNNING AT 20 ML/HR WITH FWF OF 90 ML Q4HR VIA J-TUBE. GIVEN MEDICATIONS VIA G-TUBE, TOLERARTED WELL, NO RESIDUAL VOLUME NOTED. EMPTIED 350 ML OF DARK WANG URINE FROM AYALA. WILL ENDORSE TO MOBILE SALES CONSULTANT RN. CALL LIGHT IN REACH. BED IN LOWEST POSITION.
--- NOTE | 2019-09-24 19:07 | NUR ---
REPORT GIVEN TO MICHELLE SENIOR CYTOGENETIC TECHNOLOGIST RN. ALL QUESTIONS AND CONCERNS ADDRESSED.
[2019-09-24 20:00] VITALS: BP 112/67
--- NOTE | 2019-09-24 20:00 | NUR ---
PATIENT RECEIVED IN BED AWAKE,ALERT, NON VERBAL,HX: MR, CEREBRAL PALSY. PATIENT BREATHING EVEN AND UNLABORED BS CLEAR DIMINISHED BASES, FOUND ON ROOM AIR SAT 96-97%. NO SIGNS ANDF SYMPTOMS NOR INDICATION OF CHEST PAINS, HR= 65BPM, RHYHTM REGHULAR, NSR ON THE MONITOR TELE#35. ABDOMEN SOFT NON DISTENDED ACTIVE BS ALL QUAD, NO DIARRHEA AT THIS TIME, JTUBE FEEDING OF VITAL AF 1.2 AT GOAL OF 20ML/HR, FWF AT 90ML Q4HRS, GTUBE CLAMPED FOR MEDS ONLY.AYALA CATHETER DRAINING YELLOW UA, NO DEPENDENT LOOPS, AYALA BAG OFF THE FLOOR, HX; SPASTIC QUAD. 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 ON AIR MATTRESS, BEDBOUND, TURN Q2HRS, PREVOLON BOOTS IN USE. NO S/S OF PAIN. SAFETY/FALL/SZ PRECAUTIONS MAINTAINED. WILL CONTINUE TO MONITOR.
--- NOTE | 2019-09-24 22:10 | NUR ---
HS CARE RENDERED, PATIENT TURNED TO TO HIS RT SIDE THIS TIME, KEEPING HOB ELEVATED AT ALL TIME, NOTED ERYTHEMA AROUND JUBE SITE INTERDRY APPLIED. NO RESIDUAL TO GTUBE, KEPT CLAMPED.Z-GUARD APPLIED TO GROIN AREA WHERE ERYTHEMA NOTED. PREVALON BOOTS IN US.
--- NOTE | 2019-09-25 | NUR ---
ROUNDS MADE PATIENT WITH EYES CLOSED,NO RESP. DISTRESS NOTED, CHECKED SAT WAS 96%, TURNED AND REPOSITIONED TO HIS BACK. TOLERATING FEEDING VIA JTUBE AT 20 ML/HR, CHECKED GTUBE RESIDUAL WAS ZERO, KEPT CLAMPED. SAFETY/SZ/FALL PRECAUTIONS MAINTAINED. WILL CONTINUE TO MONITOR.
--- NOTE | 2019-09-25 | NUR ---
CHECKED GTUBE RESIDUAL ZERO,CLAMPED GT PER ORDER.
--- NOTE | 2019-09-25 02:00 | NUR ---
TURNED TO HIS LEFT SIDE THIS TIME,PHOTOGRAPH ABDOMINAL INCISION, BILAT GROIN AREA PER HOSP PROTOCOL.
--- NOTE | 2019-09-25 03:15 | NUR ---
ROUNDS MADE PATIENT NOTED TO BE AWAKE, GRIMACING, SMELLED STOOL. CHECKED AND NOTED LOOSE BROWN STOOL. CLEANED AND KEPT DRY, APPLIED Z-GUARD TO ERYTHEMA ON GROIN AREA. KEPT HOB ELEVATED AFTER CARE RENDERED. WILL CONTINUE TO MONITOR. REPLACED PULSE OXINMETRY PROBE SINCE IT WAS LOOSE.
[2019-09-25 05:43] VITALS: BP 122/74
--- NOTE | 2019-09-25 06:53 | NUR ---
PATIENT SLEPT OFF AND ON DURING THE SHIFT. NO RESIDUAL FROM GTUBE, TOLERATED JTUBE FEEDING AT 20ML/HR. TURNED AND REPOSITIONED Q2HRS. TOLERATED BEING ON ROOM SATURATING AT 96-100%. AYALA DRAINED CONCENTRATED UA, NOTED ON TUBING THIS AM BLOODY OUTPUT. WILL ENDORSE TO AM NURSE TO REPORT TO MD.NO NAVARRO ACTIVITTY. WILL ENDORSE CONTINUITY OF CARE TO INCOMING NURSE.
[2019-09-25 06:59] LABS: CARBON DIOXIDE 31.8 mmol/L (21-32); CHLORIDE SERUM 105 mmol/L (98-107); CREATININE SERUM 0.6 mg/dL (0.7-1.3); GFR1 > 60 mL/min; GLUCOSE SERUM 85 mg/dL (74-106); POTASSIUM SERUM 4.6 mmol/L (3.5-5.1); SODIUM SERUM 145 mmol/L (136-145)
[2019-09-25 07:13] LABS: BASOPHIL % 0.2 % (0-2); PLATELET COUNT 178 x10^3mcL (130-400); RED CELL DISTRIBUTION WIDTH 12.6 % (11.5-14.5)
--- NOTE | 2019-09-25 07:20 | NUR ---
RECEIVED REPORT FROM NIGHT NURSE PATIENT LYING IN BED NON VERBAL HX OF CEREBRAL PALSEY LUNGS CLEAR/DIMINSHED BILAT ON RA 100% NO S/S OF ANY RESPIRATORY DISTRESS. ACTIVE BOWEL SOUNDS IN ALL 4 QUADS . ABD INCISIONS C/D/I WITH CARLOS INTACT.G TUBE AND J TUBE INTACT NO LEAKING NOTED AT THIS TIME. FEEDING THROUGH JTUBE INFUSING AT GOAL OF 20ML/HR. PICC LINE INTACT NO EDEMA OR REDNESS NOTED. ON TELE 35 NO S/S OF ANY CHEST PAIN OR PRESSURE. PATIENT HAD A LOOSES BOWEL MOVEMENT CLEANED AND REPOSITIONED. AYALA DRAINING TO GRAVITY BLOOD IN URINE NOTED VIKTORIYA AKHTAR NOTFIFIED ORDER TO IRRIGATE WILL FOLLOW DIRECTED. ALL NEEDS ATTENDED TO AT THIS TIME. BED IN LOWEST POSITION SAFETY PRECAUTIONS IN PLACE. WILL CONTINUE TO MONITOR.
--- NOTE | 2019-09-25 07:51 | NUR ---
BEDSIDE HANDSOFF AND INTRODUCTION PERFORMED WITH INCOMING NURSE VAL-RN.
[2019-09-25 09:15] VITALS: BP 110/75
--- NOTE | 2019-09-25 09:18 | NUR ---
ADMINISTERED SCHEDULED MEDS PER MAR VIA G TUBE AND IV PATIENT TOLERATED WELL NO RESIDUAL VOL AND FLUSHED WELL. IRRIGATED AYALA PER KATHY AKHTAR NO CLOTS OR RESISTANCE NOTED. PATIENT SITTING UP IN BED WITH EYES CLOSED. NO ACUTE DISTRESS NOTED. ALL NEEDS ATTENDED TO AT THIS TIME. BED IN LOWEST POSITON HOB AT 45 DEGREE ANGLE. WILL CONTINUE TO MONITOR.
--- NOTE | 2019-09-25 12:12 | NUR ---
Administered scheduled med per mar through g tube. No residual vol patient tolerated well. Family at bedside no s/s of any respiratory distress. Patient lying in bed awake and alert. All questions and concerns addressed at this time.Bed in lowest position safety precautions in place. Will continue to monitor.
[2019-09-25 12:55] VITALS: BP 102/49
--- NOTE | 2019-09-25 15:30 | NUR ---
PATIENT LYING IN BED WATCHING TV NO S/S OF ANY RESPIRATORY DISTRESS AT THIS TIME. NO LEAKING AT J TUBE SITE. REPOSITIONED PATIENT. ALL NEEDS ATTENDED TO. BED IN LOWEST POSITION CALL LIGHT WITHIN REACH. WILL CONTINUE TO MONITOR.
[2019-09-25 17:44] VITALS: BP 97/58
--- NOTE | 2019-09-25 18:43 | NUR ---
Patient sitting up in bed at 45 degree angle J tube infusing at 20ml scant leaking noted. G tube patent and intact no residual vol on either tube. Bolaños catheter draining to gravity clear yellow urine output 1200. Picc line infusing at 40ml patent and intact no redness or edema. No s/s of any respiratory distress noted on RA sp02 95%. Repositioned and cleaned patient. All needs attended to at this time. Bed in lowest position all safety precautions in place. Will endorse care to night nurse.
[2019-09-25 19:50] VITALS: BP 107/61
--- NOTE | 2019-09-25 19:50 | NUR ---
PATIENT RECEIVED IN BED AWAKE,ALERT,NON VERBAL, EYES TRACKING. BREATHING EVEN AND UNLABORED BS FINE CRACKLES BASES, FOUND ON RA SAT 95-96%, OCC NON PRODUCTIVE COUGH. TELE#35 SR, HR=63BPM, RHYTHM REGULAR. ABDOMEN SOFT NON DISTENDED ACTIVE BS ALL QUAD, HAD LOOSE BM THIS AM, CLEAN THIS TIME, GTUBE SITE SS SCANT DISCHARGE NOTED, GT CLAMPED FOR MEDS ONLY,CHECKED RESIDUAL ZERO. JTUBE SITE SUTURES INTACT TO SKIN, SITE WITH ERYTHEMA NOTED, SS DISCHARGE NOTED INTERDRY APPLIED, RECEIVING TF OF VITAL AF 1.2 AT 20ML/HR, WITH FWF 90 ML Q 4HRS, PATIENT TOLERATING FEEDING. AYALA CATHETER DRAINING YELLOW UA, STAT LOCK TO LEFT THIGH INTACT NO DEPENDENT LOOPS, AYALA BAG OFF THE FLOOR.CONTRACTED BUE AND BLE,MAX ASSIST,BED BOUND AND TOTAL CARE, TURNED Q2HRS, HOB ELEVATED, PREVALON BOOTS IN USE, AIR MATTRESS, BLANCHABLE REDNESS TO BILAT HEELS, OFF LOADING. NO S/S OF PAIN. SIMIN PICC LINE SITE CLEAR NO REDNESS, ALL PORTS PATENT AND FLUSHED WELL NO RESISTANCE ENCOUNTERED. DRESSING CDI WAS CHANGED 09/24. SAFETY/FALL/SEIZURE PRECAUTIONS MAINTAINED. WILL CONTINUE TO MONITOR.
[2019-09-25 21:14] VITALS: BP 110/53
--- NOTE | 2019-09-25 23:56 | NUR ---
ROUNDS MADE PATIENT WITH EYES CLOSED ,SLEEPING COMFORTABLY. AWAKEN WITH TACTILE STIMULI,TURNED AND REPOSITIONED TO HIS SIDE, KEPT HOB ELEVATED . CHECCKED GTUBE RESIDUAL WAS ZERO,JTUBE FEEDING TUBE AND NEW FEEDING FORMULA HANGED THIS TIME, LABELLED TUBING. PATIENT DRY THIS TIME. SAFETU PRECAUTIONS MAINATINED. COMFORTABLE. WILL CONTINUE TO MONITOR.
--- NOTE | 2019-09-26 02:00 | NUR ---
PATIENT TURNED AND REPOSITIONED, NO RESP. DISTRESSS.
--- NOTE | 2019-09-26 04:00 | NUR ---
PATIENT TURNED AND REPOSITIONED, CHECKED GT RESOIDUAL ZERO. NO DISTRESS NOTED.
[2019-09-26 05:26] VITALS: BP 104/54
[2019-09-26 06:21] LABS: BASOPHIL % 0.4 % (0-2); PLATELET COUNT 163 x10^3mcL (130-400); RED CELL DISTRIBUTION WIDTH 12.9 % (11.5-14.5)
--- NOTE | 2019-09-26 06:41 | NUR ---
PATIENT HAD A BROWN LARGE LOOSE STOOL, CLEANED AN D KEPT DRY, APPLIED Z-GUARD TO ERYTHEMA TO GROIN AREA, AYALA CATH CARE RENDERED. REPOSITIONED AND TURNED. NO DISTRESS. BREATHING EVEN AND UNLABORED, REMAINED ON ROOM AIR SAT 95-98%.KEPT HOB ELEVATED, TOLERATED FEEDING NO RESIDUAL FROM GTUBE DURING THE ENTIRE SHIFT.NO SZ ACTIVITY DURING THE SHIFT. SAFETY/FALL/SZ PRECAUTIONS MAINTAINED. WILL ENDORSE CONTINUITY OF CARE TO INCOMING NURSE.
--- NOTE | 2019-09-26 07:28 | NUR ---
BEDSIDE HANDS OFF REPORT AND INTRODUCTION PERFORMED WITH INCOMING NURSE ESTEPHANIE.
[2019-09-26 07:29] LABS: CALCIUM 8.6 mg/dL (8.5-10.1); CARBON DIOXIDE 31.2 mmol/L (21-32); CHLORIDE SERUM 106 mmol/L (98-107); CREATININE SERUM 0.6 mg/dL (0.7-1.3); GFR1 > 60 mL/min; GLUCOSE SERUM 78 mg/dL (74-106); MAGNESIUM 1.9 mg/dL (1.8-2.4); POTASSIUM SERUM 3.7 mmol/L (3.5-5.1); SODIUM SERUM 145 mmol/L (136-145)
--- NOTE | 2019-09-26 07:30 | NUR ---
RECEIVED PATIENT RESTING IN BED, NO ACUTE DISTRESS NOTED. PATIENT IS AWAKE/ALERT, UNABLE TO ASSESS ORIENTATION, PT NON VERBAL. TELE MONITOR IN PLACE. DENIES PAIN USING, FLACC PAIN SCALE. NO SOB NOTED, FINES CRACKLES AND WHEEZES NOTED BILATERALLY. PREVIOUS NURSE REPORT LOOSE STOOLS, K TRENDING DOWN FROM 4.6 TO 3.7, WILL HOLD LACTULOSE, MILK OF MAG, AND MIRALAX. GTUBE NOTED TO LUQ, CLAMPED AT THIS TIME, TUBE USED FOR MEDS ONLY. J LUCASDE NOTED TO LLQ AND IS USED FOR TUBE FEEDINGS; TP VITAL AF 1.2 AT 20ML/HR, FWF AT 90ML Q4H. AYALA CATH DRAINING TO GRAVITY, YELLOW URINE NOTED. ABDOMINAL INCISIONS X3 INNER DIAMETER GRINDER TOOL;CDI. PATIENT BED BOUND, WILL REPOSITION Q2HR AND NEEDED. AIR MATRESS IN PLACE, HOB ELEVATED. D5NS INFUSING TO SIMIN PICC LINE (X3 PORTS) AT 40ML/HR, IV SITE CDI&PATENT. CALL LIGHT WITHIN REACH, BED IN LOW POSITION, WILL CONTINUE TO MONITOR FOR CHANGES.
[2019-09-26 09:14] VITALS: BP 103/63
--- NOTE | 2019-09-26 09:50 | NUR ---
PEG TUBE MEDICATIONS GIVEN AT THIS TIME TO LUQ PEG. PATIENT TOLERATED WELL; PEG TUBE WAS FLUSHED AND CLAMPED AT THIS TIME. WILL CONTINUE TO MONITOR.
--- NOTE | 2019-09-26 11:40 | NUR ---
PATIENT IS TO BE D/C TODAY, RECEIVED ORDERS TO D/C AYALA CATHETER. AYALA CATH D/C AT THIS TIME, 300ML OF DARK WANG URINE NOTED. PATIENT TOLERATED WELL. WILL CONTINUE TO MONITOR PATIENT.
--- NOTE | 2019-09-26 11:47 | NUR ---
PICC LINE D/C AT THIS TIME BY REDSIDENT, PATIENT TOLERATED WELL. NO BLEEDING NOTED AT SITE. DRESSING APPLIED; CDI. WILL CONTINUE TO MONITOR FOR CHANGES. CALL LIGHT WITHIN REACH, BED IN LOW POSITION.
[2019-09-26 11:56] VITALS: BP 103/63
--- NOTE | 2019-09-26 12:15 | NUR ---
MOTHER JOSHUA WOOD MADE AWARE OF PATIENT DISHARGED; AND GAVE CONSENT FOR D/C. VERIFIED WITH CIERRA GROVER.
--- NOTE | 2019-09-26 14:20 | NUR ---
CAREGIVER AND MOTHER RECEIVED COPY OF D/C INSTRUCTIONS. CAREGIVER AND MOTHER UNDERSTAND AND AGREE WITH D/C INSTRUCTIONS AND PLAN OF CARE, INCLUDING FOLLOW UP AND MEDICATIONS AND WOUND CARE. ALL NEEDS MET AT THIS TIME, FAMILY AND CAREGIVER WILL BE TRANSPORTING FAMILY.
[2019-10-03] MEDS ORDERED: NEOUD TOP (10:46)
[2019-10-03] MEDS ORDERED: LOT1C TOP (10:46)
[2019-10-03] MEDS ORDERED: LEV500PM IV (10:56)
[2019-10-03] MEDS ORDERED: LEVAQUIN500 M1 PO (11:37)
== END 2019-09-26 14:40 | DRG 710 ==
LOC: ED 08:58 → DU 12:10
PROVIDERS: Emergency Medicine; General Practice; Internal Medicine; Surgery; ADMIT Family Medicine
PROC: 0DNU0ZZ Release Omentum, Open Approach (ICD-10-PCS; 2019-09-12)
PROC: 0DHA3UZ Insertion of Feeding Device into Jejunum, Percutaneous Approach (ICD-10-PCS; 2019-09-15)
PROC: 0DPDXUZ Removal of Feeding Device from Lower Intestinal Tract, External Approach (ICD-10-PCS; principal; 2019-09-21 12:00)
DX: A41.9 Sepsis, unspecified organism (principal); J96.01 Acute respiratory failure with hypoxia; J69.0 Pneumonitis due to inhalation of food and vomit; G80.0 Spastic quadriplegic cerebral palsy; F72 Severe intellectual disabilities; D69.6 Thrombocytopenia, unspecified; K94.13 Enterostomy malfunction; K66.0 Peritoneal adhesions (postprocedural) (postinfection); J45.901 Unspecified asthma with (acute) exacerbation; K56.41 Fecal impaction; K21.9 Gastro-esophageal reflux disease without esophagitis; G40.909 Epilepsy, unspecified, not intractable, without status epilepticus; Z74.01 Bed confinement status; Z68.26 Body mass index [BMI] 26.0-26.9, adult
CPT/HCPCS: 36600; 82962; 83880; 87804; A4628; C1751; C1758; C9113; G0378; J0132; J0330; J1885; J1940; J1956; J2060; J2185; J2250; J2405; J2704; J2710; J2765; J2920; J2930; J3010; J3370; J3480; J3490; J7030; J7042; J7050; J7120; J7620; J8597; Q0092; Q9967

== ENCOUNTER 2019-10-10 13:08 | Inpatient (IN) | payer MEDICAID ==
[~2019-10-10] VITALS: Ht 165.1 cm; Wt 61.0 kg
[~2019-10-10 13:08] MED LIST changes: +LEV500PM IV; +LEVAQUIN500 M1 PO; +LOT1C TOP; +NEOUD TOP
--- NOTE | 2019-10-10 15:03 | NUR ---
PT BIB [facility] FOR EVAL AND REPLACEMENT OF J-TUBE; OLD TUBE BROUGHT IN FOR EVAL AND COMPARE FOR REPLACEMENT
--- NOTE | 2019-10-10 15:35 | NUR ---
PT EVALUATED BY DR FU, PT TO BE ADMITTED FOR SURGICAL INTERVENTION OF REPLACEMENT OF J TUBE; ORDERS REC'D
[2019-10-10 16:12] LABS: BASOPHIL % 0.2 % (0-2); PLATELET COUNT 179 x10^3mcL (130-400); RED CELL DISTRIBUTION WIDTH 14.1 % (11.5-14.5)
--- NOTE | 2019-10-10 16:20 | NUR ---
UNABLE TO PLACE PERPHERAL LINE AFTER MULTIPLE ATTEMPTS, R EJ PLACED BY DR FU AND LABS DRAWN VIA 10ML SYRINGE, SAMPLES GIVEN TO PHLEBOTOMY
[2019-10-10 16:59] LABS: CALCIUM 9.2 mg/dL (8.5-10.1); CARBON DIOXIDE 29.4 mmol/L (21-32); CHLORIDE SERUM 104 mmol/L (98-107); CREATININE SERUM 0.4 mg/dL (0.7-1.3); GFR1 > 60 mL/min; GLUCOSE SERUM 81 mg/dL (74-106); POTASSIUM SERUM 3.9 mmol/L (3.5-5.1); SODIUM SERUM 140 mmol/L (136-145)
[2019-10-10 17:05] LABS: ALBUMIN 2.9 g/dL (3.4-5.0); ALKALINE PHOSPHATASE 96 U/L (46-116); ALT/SGPT 29 U/L (16-63); AST/SGOT 19 U/L (15-37); BILIRUBIN TOTAL 0.4 mg/dL (0.20-1.00); TOTAL PROTEIN, SERUM 6.9 g/dL (6.4-8.2)
--- NOTE | 2019-10-10 17:11 | NUR ---
PT LOLLY IV FLUIDS WELL, REMAINS WAITING ON BED ASSIGNMENT
--- NOTE | 2019-10-10 17:54 | NUR ---
DR COELLO, GENERAL SURGERY ATTEMPTED TO REPLACE J TUBE, UNABLE TO PLACE, 10FR AYALA PLACED TO KEEP STOMA OPEN
--- NOTE | 2019-10-10 18:05 | NUR ---
RADIOLGY AT BEDSIDE FOR EVALUATION OF CONTRAST
--- NOTE | 2019-10-10 18:33 | NUR ---
PT LOLLY CONTRAST INSTILLATION WELL, OBTAIN XRAY; PT CONT TO LOLLY IV FLUIDS WELL; WARM BLANKETS GIVEN.PT RESTING WELL
--- NOTE | 2019-10-10 19:01 | NUR ---
REPORT RECEIVED FROM CIERRA GRAHAM.
--- NOTE | 2019-10-10 19:11 | NUR ---
PT LAYING IN GURNEY, SMILING WHEN SPOKEN TO, ACTING APPROPRIATELY FOR SELF, RESP E/U, NAD NOTED.
[2019-10-10] MEDS ORDERED: ENULOSE10 GM/151 GT (19:32)
[2019-10-10] MEDS ORDERED: PROAIR HFA8.5 GM INH (19:35)
[2019-10-10] MEDS ORDERED: KEPPRA100 MG/M1 GT (19:35)
[2019-10-10] MEDS ORDERED: MONTELUKAST SOD10 M1 GT (19:37)
[2019-10-10] MEDS ORDERED: SYMBICORT1 AE3 (19:37)
[2019-10-10] MEDS ORDERED: GLYCOPYRROLATE2 MG GT (19:38)
[2019-10-10] MEDS ORDERED: ESOMEPRAZOLE MA40 MG GT (19:39)
[2019-10-10] MEDS ORDERED: ACETAMINOPHEN500 M5 GT (19:39)
[2019-10-10] MEDS ORDERED: DERMASEPTIN OI113 GM TP (19:40)
--- NOTE | 2019-10-10 20:51 | NUR ---
ATTEMPTED TO CALL REPORT TO CIERRA AMBROSIO, WILL CALL ME BACK.
--- NOTE | 2019-10-10 20:57 | NUR ---
REPORT CALLED TO CIERRA MELISSA TO ASSUME CARE OF PT.
--- NOTE | 2019-10-10 21:27 | NUR ---
RECEIVED FROM ED,PUT IN ROOM 242,TOTAL CARE,MADE COMFORTABLE,ELY WILL ADMIT PATIENT,THANKS.[facility].
--- NOTE | 2019-10-10 21:46 | NUR ---
PATIENT HAS AYALA TUBE ON HIS STOMAC,PUT IN ER,BUT THEY LEFT IT OPEN,PUT A PLUG ON IT NOW.
[2019-10-10 23:00] VITALS: BP 102/72
--- NOTE | 2019-10-10 23:24 | NUR ---
RECEIVED PT FROM ER, PT ADMIT FOR J TUBE PLACEMENT. PT IS ALERT BUT NONVERBAL. UNABLE TO ANSER QUESTIONS, UNABLE TO FOLLOW COMMAND. DUE TO HX MR. LUNG SOUND CRACKLES FARRAH, NO S/S OF RESPIRATORY DISTRESS. BOWEL SOUND PRESENT ALL 4 QUADRANTS, THERE IS OLD G TUBE AND NEW TUBE (AYALA) AT NEXT TO OLD ONE. DRESSING INTACT, PEDAL PULSE PRESENT BOTH FEET, NO EDEMA, QUADRIPLEGIA. IV AT RIGHT EJ, ALL ADLS ASSIST, ALL NEED MET, CALL LIGHT IN REACH, WILL CONTINUE TO MONITOR.
--- NOTE | 2019-10-10 23:45 | NUR ---
CHECKED AT THIS TIME,ADMIT ORDER FOLLOWED UP,DR COELLO CONSULT,AND DR Urvashi SIDHU.ADMISSION COMPLETED BY BRIAN GRAVES.
--- NOTE | 2019-10-11 03:31 | NUR ---
REPOSITIONED FOR COMFORT,VERY CONTRACTED EXT.GOOD SKIN CARE PROVIDED.
--- NOTE | 2019-10-11 05:51 | NUR ---
IVF D5NS AT 50 CC/ HOUR.IV SITE R EXTERNAL JUGULAR HEPLOCK,FLUSHES WELL,EXTENSION TUBING APPLIED,NO INCIDENT.PATIENT ALL EXT CONTRACTED,WILL ENDORSE TO NEXT SHIFT.
[2019-10-11 06:21] VITALS: BP 108/68
[2019-10-11 06:57] LABS: BASOPHIL % 0.2 % (0-2); PLATELET COUNT 166 x10^3mcL (130-400); RED CELL DISTRIBUTION WIDTH 13.7 % (11.5-14.5)
--- NOTE | 2019-10-11 07:20 | NUR ---
RECEIVED PT FROM JOSE ALBERTO RN. PT FOUND RESTING IN BED WITH BOTH EYES CLOSED. AROUSABLE TO TACTILE STIMULI. NONVERBAL. HX MR, QUADRALPEGIA. WILL ASSIST TO TURN [id number]. SEIZURE PREC IN PLACE. MED SURG. NO SOB ON ROOM AIR. FOELY IN TACT DRAINING TO GRAVITY. NPO. ASPIRATION PREC IN PLACE, SUCTION AT BEDSIDE. PEG TUBE IN PLACE TO LEFT ABD. FALL PREC IN PLACE. IV WNL TO REJ. PATENT AND FLUSHES WELL. IVF FLOWING. BED IN LOW POSITION. CALL LIGHT WITHIN REACH. WILL CONT. TO MONITOR.
[2019-10-11 07:27] LABS: CALCIUM 9.2 mg/dL (8.5-10.1); CARBON DIOXIDE 29.8 mmol/L (21-32); CHLORIDE SERUM 107 mmol/L (98-107); CREATININE SERUM 0.4 mg/dL (0.7-1.3); GFR1 > 60 mL/min; GLUCOSE SERUM 95 mg/dL (74-106); MAGNESIUM 2.1 mg/dL (1.8-2.4); PHOSPHOROUS 4.2 mg/dL (2.5-4.9); POTASSIUM SERUM 4.4 mmol/L (3.5-5.1); SODIUM SERUM 144 mmol/L (136-145)
[2019-10-11 09:53] VITALS: BP 94/66
--- NOTE | 2019-10-11 10:43 | NUR ---
ATTEMPTED TO CONTACT MOTHER JOSHUA WOOD VIA TELEPHONE, NO ANSWER X3.
--- NOTE | 2019-10-11 10:50 | NUR ---
PT LAYING IN BED. DROWSY BUT AROUSABLE TO TACTILE STIMULI. NO S/S OF ACUTE DISTRESS. NO SOB ON ROOM AIR. FALL PREC/SZ PREC/ASPIRATION PREC IN PLACE. NO N/V. NPO. SUCTION AT BEDSIDE. IV WNL TO RIGHT JUGULAR, IV FLUIDS FLOWING. NO REDNESS, NO SWELLING, NO INFILTRATION. BLE ELEVATED W/ PILLOWS. BED IN LOW POSITION. CALL LIGHT WITHIN REACH. WILL CONT. TO MONITOR.
[2019-10-11 13:20] VITALS: BP 115/56
--- NOTE | 2019-10-11 15:01 | NUR ---
Initial Nutrition Assessment: 242A MOIZ WOOD, 29 M, HR IA Dx: J tube replacement PMHx:cerebral palsy, spastic quadriplegia, epilepsy, asthma, GERD, G-tube in place, bedbound and nonverbal. PSHx: G tube placement Labs: 10/11/19 Cr 0.4L, 10/10/19 albumin 2.9L Meds: Colace, dextrose, omnipaque, Tylenol elixir, Zofran, Diet: NPO except Meds PO intake since admission: N/A. Pt NPO and will be on tube feeding. Ht: 165.1cm/5'5" Wt: 134lb/60.78kg BMI: 22.4(WNL) Bed scale: 60kg/132.4lbs. IBW: 56kg (adjusted for quadriplegic) %IBW: 109% UBW: unable to obtain Age: 29 Food Allergies: unable to obtain Skin: Warm, dry, intact Elvis: 10 Edema: no edema GI: bowel sounds are present and active, ABD is soft, [+]G-tube Last BM: 10/10/19 RD Note Pt was lying in bed with no signs of distress. Per shift reassessment note, J tube in place, no nausea, vomiting and diarrhea. Problem with: N/V/D/C: no per shift reassessment notes. Problems with: Chewing: Swallowing: N/A Current appetite: N/A Recent wt change: unable to obtain %wt change: unable to obtain Vitamin/Supplement use: unable to obtain Special diet at home: Tube feeding Physical activity: N/A Nutrition education given (specify specific nutrition education and handout given): N/A Food-drug interactions? Education given? N/A Estimated Nutritional Needs Based on body weight (56 kg) Energy:2407-9808 kcal/day (25-30kcal/kg) Protein:44-56 g/day (0.8-1g/kg) Fluid:0342-7704 mL/day (1 mL/kcal) Nutrition Diagnosis: 1. Altered GI function r/t pathophysiological cause a/e/b pt dependence on tube feeding. Intervention 1. Recommend Jevity 1.2 @ 55 ml/hr. -this will provide a volume of 1320 ml, 1584 kcal, 73.26 grams protein. It will meet 100% of the estimated energy and protein needs. Initiate tube feed at 10 ml/hr and advance 10 ml/hr q4h with 55 ml/hr as goal rate. 2. Recommend FWF 90 ml q6h 3. Patient cannot be bolus feeding d/t J-tube Recommendation was communicated to Dr. Joya, and Dr. Joya acknowledged. Monitor/Evaluate Goal: Nutrition support meeting at least 75% of estimated needs Monitor: Nutrition support tolerance, Labs, GI function F/U in 2-3 days as high risk
--- NOTE | 2019-10-11 15:02 | NUR ---
1. Continue Glucerna 1.2 at 60 ml/hr x 24 hr -This provides a volume of 1440 ml, 1728 kcal, 86.4 grams of protein. It meets 98% of the estimated energy needs and 72% of the estimated protein needs. 2. Continue free H2O flush 50 ml Q3H 3. Continue ProSource BID to meet estimated protein needs. -This will provide additional 120 kcal and 30 grams of protein.
--- NOTE | 2019-10-11 15:51 | NUR ---
Discount pharmacy card and list to low cost medical clinics given to patient by Teresa.
[2019-10-11 17:21] VITALS: BP 114/70
--- NOTE | 2019-10-11 17:37 | NUR ---
AYALA TO JTUBE ABDOMINAL SITE FOUND REMOVED ON BED WHILE PERFORMING PERINEAL CARE. PT FOUND PULLING ON LINES. NUTRITION TECH PATRICIA MADE AWARE. NO S/S OF ACUTE DISTRESS. NO BLEEDING FROM SITE. PERINEAL CARE PROVIDED BY BUILDING CUSTODIAN, LINEN CHANGED. REPOSITIONED. IV WNL TO RIGHT JUGULAR. IVF FLOWING. FALL PREC/SZ PREC/ASPIRATION PREC IN PLACE. BED IN LOW POSITION. CALL LIGHT WITHIN REACH. WILL CONT. TO MONITOR
--- NOTE | 2019-10-11 18:31 | NUR ---
PT LAYING IN BED. NO S/S OF ACUTE DISTRESS. NO SOB ON ROOM AIR. IV WNL TO RIGHT JUGULAR, IVF FLOWING. CALM/COOPERATIVE AT THIS TIME. NO N/V. NO S/S OF PAIN. NPO. ASPIRATION/SEIZURE/FALL PREC IN PLACE. SIDE RAILS UP X2. BED IN LOW POSITION. CALL LIGHT WITHIN REACH. HOB ELEVATED. WILL ENDORSE TO ONCOMING SHIFT.
--- NOTE | 2019-10-11 19:00 | NUR ---
RECEIVED PT FROM PREVIOUS SHIFT NURSE. PT AWAKE, ALERT, NONVERBAL. NO S/S DISCOMFORT NOTED. MED SURG PT. NO S/S SOB/DIFFICULTY BREATHING. PEG TUBE NOTED, CLAMPED. J TUBE OPEN STOMA NOTED WITH DSG IN PLACE. PER PREVIOUS SHIFT J TUBE FOUND DISLODGED AT APPROX. 1800. R. JUGULAR, INTACT AND PATENT. BED IN LOWEST POSITION. CALL LIGHT WITHIN REACH. WILL CONTINUE TO MONITOR.
[2019-10-11 19:54] VITALS: BP 104/70
--- NOTE | 2019-10-11 20:00 | NUR ---
NOTIFIED DR. COELLO OF DISLODGED J TUBE.
--- NOTE | 2019-10-11 20:00 | NUR ---
NOTIFIED DR. COELLO OF DISLODGED J TUBE.
--- NOTE | 2019-10-11 20:20 | NUR ---
DR. GREWAL AT BEDSIDE TO INSERT AYALA CATH TUBING INTO J TUBE SITE. TUBING SECURED WITH TEGADERM AND TAPE. ABD BINDER APPLIED.
--- NOTE | 2019-10-12 02:14 | NUR ---
ENTERED PT ROOM, PT R. JUGULAR IV INFILTRATED. NO ERYTHEMA NOTED. IV REMOVED, TIP INTACT. WILL ATTEMPT TO PLACE NEW IV.
[2019-10-12 04:55] VITALS: BP 149/68
[2019-10-12 06:19] LABS: BASOPHIL % 0.3 % (0-2); PLATELET COUNT 175 x10^3mcL (130-400)
--- NOTE | 2019-10-12 06:52 | NUR ---
UNABLE TO PLACE NEW IV. WILL ENDORSE TO ONCOMING SHIFT NURSE.
[2019-10-12 06:54] LABS: CARBON DIOXIDE 28.4 mmol/L (21-32); CHLORIDE SERUM 104 mmol/L (98-107); CREATININE SERUM 0.4 mg/dL (0.7-1.3); GFR1 > 60 mL/min; GLUCOSE SERUM 85 mg/dL (74-106); POTASSIUM SERUM 3.6 mmol/L (3.5-5.1); SODIUM SERUM 140 mmol/L (136-145)
[2019-10-12 06:55] LABS: CALCIUM 8.9 mg/dL (8.5-10.1); MAGNESIUM 1.9 mg/dL (1.8-2.4); PHOSPHOROUS 4.5 mg/dL (2.5-4.9)
--- NOTE | 2019-10-12 07:20 | NUR ---
RECEIVED PT FROM JOSE ALBERTO RN. PT HX MR, CEREBRAL PALSY, SPASTIC QUADRAPLEGIA, SZ, SZ PREC IN PLACE. FALL PREC IN PLACE. NONVERBAL. UNABLE TO FOLLOW SIMPLE COMMANDS. AWAKE AND ALERT, FLEXES TO PAIN. NO S/S OF PAIN. NO S/S OF ACUTE DISTRESS. ASPIRATION PREC IN PLACE. J TUBE/AYALA IN TACT TO LEFT ABD. ABDOMINAL BINDER IN PLACE. NO IV ACCESS AT THIS TIME. BED IN LOW POSITION. CALL LIGHT WITHIN REACH. SIDE RAILS UP X2. WILL CONT. TO MONITOR CLOSELY.
--- NOTE | 2019-10-12 08:48 | NUR ---
IV INSERTED TO LH 22 GAUGE, PATENT WITH BLOOD RETURN AND IV INSERTED TO LAC, 22 GAUGE, PATENT WITH BLOOD RETURN. IVF FLOWING TO LH. PT LAYING IN BED. AWAKE/ALERT. NO S/S OF ACUTE DISTRESS. FALL PREC IN PLACE. J TUBE INTACT TO ABD. ATTEMPTED TO CONTACT MOTHER JOSHUA WOOD, LEFT MESSAGE ON ANSWERING MACHINE. NO RESPONSE. WILL CONTINUE TO ATTEMPT TO CONTACT MOTHER. BED IN LOW POSITION. CALL LIGHT WITHIN REACH. BED ALARM ON. ASPIRATION/SZ PREC IN PLACE. WILL CONT. TO MONITOR.
[2019-10-12 09:02] VITALS: BP 103/69
--- NOTE | 2019-10-12 09:55 | NUR ---
SKIN ASSESSMENT DONE FOR LOW NANCI SCALE AT RISK SKIN ASSESSED NO SKIN BREAKS. UPON OPENING THE ABDOMINAL BINDER NOTICE OF TIP OF F/C 10FR/5ML WITH NO BALLON AND FOUND OUT SIDE OF SURGICAL TAPE. PRIMARY RN AND CHARGE NURSE NOTIFY, PER CHARGE NURSE BALLON WAS NOT INFLATED BY DR. COELLO YESTERDAY, CHARGE NURSE RE-INSERT F/C 10 FR/5ML. SPOKK TO , ABOVE FINDING REPORTED AND DUE TO PERISTALSIS THE F/C MAY MOVE OUT PER , HE WILL ORDER FOR PLACEMENT CHECK AND DO NOT USE J TUBE AT THIS TIME, CHARGE NURSE NOTIFIED, LLQ ABDOMINAL J TUBE SITE, KJ STOMA SKIN INTACT LUQ ABDOMEN GT SITE KJ STOMA SKIN INTACT. CONTINUE PRESSURE ULCER PREVENTION INTERVENTIONS: -TURN AND REPOSITION PATIENT Q 2H OFFLOAD LEFT AND RIGHT HIPS -ASSESS AND MONITOR SKIN CONDITION DURING POSITION CHANGE -OFFLOAD BILATERAL HEELS BY PLACING PILLOWS UNDER CALVES AT ALL TIMES, UNLESS OTHERWISE CONTRAINDICATED -PRESSURE REDISTRIBUTION SURFACE THERAPY WITH PILLOWS/WEDGE POSITIONER -KEEP SKIN CLEAN AND DRY AT ALL TIMES.
[2019-10-12 12:41] VITALS: BP 106/72
[2019-10-12 16:22] VITALS: Ht 165.1 cm; Wt 61.0 kg
[2019-10-12 16:24] VITALS: BP 101/73
--- NOTE | 2019-10-12 18:25 | NUR ---
PT LAYING IN BED WITH HOB ELEVATED. NO S/S OF ACUTE DISTRESS, NO S/S OF PAIN. IVS WNL TO LAC/LH. PATENT AND FLUSH WELL. SALINE LOCKED TO LAC. IVF FLOWING TO LH. AYALA/GTUBE IN TACT TO LEFT ABD. WITH GREEN DRAINAGE, SCANT OUTPUT NOTED. NO N/V. ASPIRATION/SZ/FALL PREC IN PLACE. AWAKE AND ALERT. BED IN LOW POSITION. CALL LIGHT WITHIN REACH. WILL ENDORSE TO ONCOMING SHIFT.
--- NOTE | 2019-10-12 19:05 | NUR ---
RECEIVED PT FROM PREVIOUS SHIFT NURSE. PT AWAKE, ALERT, NONVERBAL. MED SURG PT. NO S/S DISCOMFORT AT THIS TIME. NO S/S SOB/DIFFICULTY BREATHING. IV TO L. HAND, LAC INTACT AND PATENT. BED IN LOWEST POSITION. CALL LIGHT WITHIN REACH. WILL CONTINUE TO MONITOR.
--- NOTE | 2019-10-12 19:45 | NUR ---
UPON ASSESSMENT, FOUND J TUBE AYALA DISLODGED. SITE COVERED WITH DSG AND ABD BINDER. NOTIFIED DR. CORTÉS AND DR. GREWAL. AWAITING FURTHER ORDERS.
[2019-10-12 20:36] VITALS: BP 108/69
--- NOTE | 2019-10-12 21:49 | NUR ---
DR. CORTÉS REPLACED AYALA CATH IN J TUBE SITE. CATHETER SECURED WITH TEGADERM, TAPE AND ABD BINDER. X RAY ORDERED TO VERIFY PLACEMENT.
--- NOTE | 2019-10-13 02:30 | NUR ---
PT RESTING IN BED. RR EVEN AND UNLABORED. IN NO ACUTE DISTRESS. CALL LIGHT WITHIN REACH. BED IN LOWESTS POSITION. WILL CONTINUE TO MONITOR.
[2019-10-13 05:50] VITALS: BP 105/64
[2019-10-13 06:49] LABS: BASOPHIL % 0.2 % (0-2); PLATELET COUNT 156 x10^3mcL (130-400); RED CELL DISTRIBUTION WIDTH 13.6 % (11.5-14.5)
--- NOTE | 2019-10-13 07:20 | NUR ---
RECEIVED PT IN BED AWAKE, NONVERBAL. H/O CEREBRAL PALSY, UNABLE TO FOLLOW COMMANDS. RESPONDS TO TACTILE STIMULUS. PT IS NON TELE, NO S/S DISCOMFORT OR PAIN. LUNGS SOUNDS CLEAR TO AUSCULTATION. IV NOTED ON L ACC 22G, D5NS INFUISNG WELL. PEG TUBE ON LUQ AND AYALA ON L MID ABD WRAPPED WITH ADBOMINAL BINDER. PT CURRENTLY NPO D/T UPCOMING J TUBE REPLACEMENT TODAY. BED IN LOW POSITION, SIDE RAILS UP X 2. ROOM CLOSE TO [facility] FOR BETTER MONITORING.
[2019-10-13 07:50] LABS: CALCIUM 8.5 mg/dL (8.5-10.1); CARBON DIOXIDE 26.5 mmol/L (21-32); CHLORIDE SERUM 106 mmol/L (98-107); CREATININE SERUM 0.4 mg/dL (0.7-1.3); GFR1 > 60 mL/min; GLUCOSE SERUM 98 mg/dL (74-106); MAGNESIUM 1.8 mg/dL (1.8-2.4); PHOSPHOROUS 4.1 mg/dL (2.5-4.9); POTASSIUM SERUM 3.3 mmol/L (3.5-5.1); SODIUM SERUM 140 mmol/L (136-145)
[2019-10-13 08:46] VITALS: BP 103/62
--- NOTE | 2019-10-13 12:01 | NUR ---
PT WENT DOWN IN OR VIA HOSP BED FOR SURGERY.REPORT GIVEN TO CIERRA MCQUEEN
--- NOTE | 2019-10-13 12:38 | NUR ---
PT BACK FR O.R.S/P J-TUBE PLACEMENT.PT AWAKE.V/S STABLE.WILL CONTINUE TO MONITOR.
[2019-10-13 13:20] VITALS: BP 101/66
--- NOTE | 2019-10-13 14:56 | NUR ---
Follow-up Nutrition Assessment: 242A MOIZ WOOD 29 M HR FU Dx: J-tube placement PMHx: G-tube placement Labs: 10/13 K 3.3L, Cr 0.4L Meds: Colace, D5, KCL, Tylenol, Zofran Diet: NPO d/t scheduled procedure today 10/13 PO Intake: NPO Weights: (10/13) 61kg/134lbs (no significant wt change) I/Os: 970/0 ml = 970 ml Skin: WNL, intact Elvis: 10 Edema: WNL GI: [+] G-tube Last BM: 10/12/19 RD Note (10/13): Per MD on 10/13, pt's J-tube placement procedure was schedule on today (10/13) afternoon, and if J-tube placement is successful without complication, pt will be discharged. MD consulted RD for tube feeding recommendation, and RD informed MD that recommendation was input in notes. During bedside visit, pt was back from the procedure. Per RN, pt did not exhibit any GI symptoms. Estimated Nutritional Needs Based on adjusted body weight for quadriplegic (56 kg) Energy:8338-1819 kcal/day (25-30kcal/kg) for adult maintenance Protein:56-67 g/day (1-1.2/kg) for adult maintenance Fluid:2774-5504 mL/day (1 mL/kcal) Nutrition Diagnosis: (continue) . 1. Altered GI function r/t pathophysiological cause a/e/b pt dependence on tube feeding. Intervention: 1. Recommend Jevity 1.2 @ 55 ml/hr. -this will provide a volume of 1320 ml, 1584 kcal, 73.26 grams protein. It will meet 100% of the estimated energy and protein needs. Initiate tube feed at 10 ml/hr and advance 10 ml/hr q4h with 55 ml/hr as goal rate. 2. Recommend FWF 90 ml q6h 3. Patient cannot be bolus feeding d/t J-tube Recommendation was discussed with Dr. Joya during last visit. No new recommendation. Monitor/Evaluate: Goal: Have pt meet at least 75% of estimated needs Monitor: PO intake, Labs, GI function F/U in 2-3 days as high risk 2/2-2/3
[2019-10-13 15:39] VITALS: BP 101/66
[2019-10-13 16:08] VITALS: BP 105/78
--- NOTE | 2019-10-13 16:24 | NUR ---
TALKED TO BLAYNE IN CASE MGT. PER BLAYNE NO AVAILABLE TRANSPORT TO CHIEF PHARMACIST PT AFTER 3 PM.MINI THE [employer] [facility] [facility] WILL CHIEF PHARMACIST PT AT 10 AM TOMORROW.INFORMED BLAYNE THAT RN ALSO TALKED TO DESIREE TO GIVE REPORT ON PT.ALSO INFORMED CHARGE NURSE ABOUT PT BEING D/C'D AT 10 AM TOMORROW.
--- NOTE | 2019-10-13 17:58 | NUR ---
PT STARTED TUBE FEEDING VIA J TUBE. PT ON JEVITY 1.2 INITIALLY RUNNING AT 10ML/HR, AND TO ADVANCE BY 10ML/HR Q4 HRS TIL GOAL OF 55ML/HR IS REACHED.
--- NOTE | 2019-10-13 19:40 | NUR ---
DURING SHIFT END REPORT, PT NOTED HAVING SEIZURE LASTING FOR [address] GREWAL NOTIFIED, ORDERED ATIVAN 1MG IVP. ENDORSED TO NOC SHIFT RN.
--- NOTE | 2019-10-13 20:03 | NUR ---
GAVE ATIVAN 1 MG IVP ORDERED FOR SEIZURE,
[2019-10-13 22:45] VITALS: BP 106/77
--- NOTE | 2019-10-14 03:08 | NUR ---
2000-PT PRESENTED SEIZURE WHICH LASTED 1 MINUTE.DAY SHIFT ADMINISTERED ATIVAN. WILL CONTINUE TO MONITOR.
--- NOTE | 2019-10-14 03:10 | NUR ---
0000- PT IS RESTING WITH EYES CLOSED. WHEN SELINS ATTEMPTED TO SUCTION ,PT IS RESISTIVE.
--- NOTE | 2019-10-14 04:44 | NUR ---
0400- PT HAS SLEPT QUITE WELL SINCE MIDNIGHT
[2019-10-14 05:35] VITALS: BP 92/63
--- NOTE | 2019-10-14 07:30 | NUR ---
EYES ARE CLOSED BUT ROUSABLE AND TO PAINFUL STIMULI. PT IS NONVERBAL AND BEDFAST. HX OF QUADRIPHLEGIA. O2 AT 2L/NC IN USE. NO SOB. CONTINOUS GT FEEDING OF JEVITY AT 40 ML/HR ONGOING; NO RESIDUAL. ASPIRATION PRECAUTION OBSERVED. SEIZURE PRECAUTION IN PLACE. NSG ASSESSMENT DONE; FALL AND SAFETY PRECAUTION REINFORCED. WILL CONTINUE TO MONITOR STATUS.
[2019-10-14 09:08] VITALS: BP 92/52
--- NOTE | 2019-10-14 11:21 | NUR ---
CALLED MINI JAVED, DEPALLETIZER OPERATOR, TO INFORM OF THE PT'S DISCHARGE.
--- NOTE | 2019-10-14 12:57 | NUR ---
MINI JAVED, TROUBLE LINEMAN CAME TO VASCULAR NURSE PT. PT LEFT THE UNIT BY FACILITY'S WHEELCHAIR. NO SEIZURE NOTED THIS SHIFT. GT FEED WAS INCREASED TO 50 ML/HR AT 1030 WAS AND WAS STOPPED AT 1130. NO RESIDUAL NOTED. PT HAD BIG SOFT TO LOOSE BM. IVF SITES X2 ON THE LH AND LAC TAKEN OUT; CATH INTACT. NO SOB AT RM AIR. VERBAL AND WRITTEN DC INSTRUCTIONS GIVEN TO MINI WITH VERBAL UNDERSTANDING; COPIES PROVIDED.
== END 2019-10-14 13:00 | DRG 254 ==
LOC: ED 13:08 → MU 19:15
PROVIDERS: Emergency Medicine; Surgery; ADMIT Family Medicine
PROC: 0D2DXUZ Change Feeding Device in Lower Intestinal Tract, External Approach (ICD-10-PCS; principal; 2019-10-13 11:40)
DX: Z46.59 Encounter for fitting and adjustment of other gastrointestinal appliance and device (principal); E43 Unspecified severe protein-calorie malnutrition; F72 Severe intellectual disabilities; G80.0 Spastic quadriplegic cerebral palsy; Z93.1 Gastrostomy status; R13.10 Dysphagia, unspecified; J45.909 Unspecified asthma, uncomplicated; G40.909 Epilepsy, unspecified, not intractable, without status epilepticus; K21.9 Gastro-esophageal reflux disease without esophagitis; K59.00 Constipation, unspecified; Z74.01 Bed confinement status; Z68.27 Body mass index [BMI] 27.0-27.9, adult
CPT/HCPCS: 82542; C1769; G0378; J1953; J2060; J3480; J3490; J7042; Q0092; Q9967

== ENCOUNTER 2019-10-22 19:46 | Inpatient (IN) | payer MEDICAID ==
[~2019-10-22] VITALS: Ht 147.3 cm; Wt 64.6 kg
[~2019-10-22 19:46] MED LIST changes: +ACETAMINOPHEN500 M5 GT; +DERMASEPTIN OI113 GM TP; +ENULOSE10 GM/151 GT; +ESOMEPRAZOLE MA40 MG GT; +GLYCOPYRROLATE2 MG GT; +PROAIR HFA8.5 GM INH; +SYMBICORT1 AE3
[2019-10-22 19:54] VITALS: Ht 147.3 cm; Wt 64.6 kg
[2019-10-22 21:37] LABS: BASOPHIL % 0.3 % (0-2); PLATELET COUNT 148 x10^3mcL (130-400); RED CELL DISTRIBUTION WIDTH 13.6 % (11.5-14.5)
[2019-10-22 21:55] LABS: ALBUMIN 3.4 g/dL (3.4-5.0); ALKALINE PHOSPHATASE 116 U/L (46-116); ALT/SGPT 27 U/L (16-63); AST/SGOT 19 U/L (15-37); BILIRUBIN TOTAL 0.5 mg/dL (0.20-1.00); CALCIUM 9.2 mg/dL (8.5-10.1); CARBON DIOXIDE 28.8 mmol/L (21-32); CREATININE SERUM 0.5 mg/dL (0.7-1.3); GFR1 > 60 mL/min; GLUCOSE SERUM 73 mg/dL (74-106); MAGNESIUM 2.2 mg/dL (1.8-2.4); TOTAL PROTEIN, SERUM 7.9 g/dL (6.4-8.2)
[2019-10-22 22:18] LABS: CHLORIDE SERUM 102 mmol/L (98-107); POTASSIUM SERUM 4.2 mmol/L (3.5-5.1); SODIUM SERUM 141 mmol/L (136-145)
[2019-10-22 22:41] LABS: UA SPECIFIC GRAVITY 1.015 (1.005-1.035); microscopic required? YES; urine erythrocyte NEGATIVE (NEGATIVE)
[2019-10-23] VITALS (7 sets, daily range): BP systolic 98–159; BP diastolic 45–80
[2019-10-23 06:57] LABS: PLATELET COUNT 130 x10^3mcL (130-400); RED CELL DISTRIBUTION WIDTH 13.4 % (11.5-14.5)
[2019-10-23 07:37] LABS: CALCIUM 8.3 mg/dL (8.5-10.1); CARBON DIOXIDE 27.2 mmol/L (21-32); CHLORIDE SERUM 104 mmol/L (98-107); CREATININE SERUM 0.5 mg/dL (0.7-1.3); GFR1 > 60 mL/min; GLUCOSE SERUM 100 mg/dL (74-106); MAGNESIUM 1.9 mg/dL (1.8-2.4); SODIUM SERUM 139 mmol/L (136-145)
[2019-10-23 14:26] LABS: BAND NEUTROPHIL 1 % (0-10); BASOPHIL 0 % (0-2); MONOCYTE 35 % (0-7); SEGMENTED NEUTROPHILS 38 % (37-75)
[2019-10-23 14:27] LABS: PLATELET MORPHOLOGY PLATELETS DECREASED; rbc morphology (normal/abnorm) ABNORMAL (NORMAL)
[2019-10-23] MEDS ORDERED: BACO TOP (18:08)
== END 2019-10-23 19:40 | DRG 254 ==
LOC: ED 19:46 → DU 23:36 → MU 10-23 10:37
PROVIDERS: Emergency Medicine; ADMIT Internal Medicine
PROC: 0D2DXUZ Change Feeding Device in Lower Intestinal Tract, External Approach (ICD-10-PCS; principal; 2019-10-23)
DX: Z46.59 Encounter for fitting and adjustment of other gastrointestinal appliance and device (principal); G80.0 Spastic quadriplegic cerebral palsy; E86.0 Dehydration; F79 Unspecified intellectual disabilities; G40.909 Epilepsy, unspecified, not intractable, without status epilepticus; J45.909 Unspecified asthma, uncomplicated; Y83.8 Other surgical procedures as the cause of abnormal reaction of the patient, or of later complication, without mention of misadventure at the time of the procedure
CPT/HCPCS: 82962; G0378; J1953; J3490; J7030; Q0092; Q9967

== ENCOUNTER 2019-10-23 23:21 | Inpatient (IN) | payer MEDICAID ==
[~2019-10-23] VITALS: Ht 162.6 cm; Wt 60.0 kg
[~2019-10-23 23:21] MED LIST changes: +BACO TOP
[2019-10-23 23:39] VITALS: Ht 162.6 cm; Wt 60.0 kg
[2019-10-24] VITALS (7 sets, daily range): BP systolic 101–109; BP diastolic 62–70
[2019-10-24 00:25] LABS: CALCIUM 8.7 mg/dL (8.5-10.1); CARBON DIOXIDE 26.7 mmol/L (21-32); CHLORIDE SERUM 106 mmol/L (98-107); CREATININE SERUM 0.6 mg/dL (0.7-1.3); GFR1 > 60 mL/min; GLUCOSE SERUM 75 mg/dL (74-106); POTASSIUM SERUM 3.9 mmol/L (3.5-5.1); SODIUM SERUM 142 mmol/L (136-145)
[2019-10-24 00:29] LABS: ALKALINE PHOSPHATASE 107 U/L (46-116); ALT/SGPT 37 U/L (16-63); AST/SGOT 34 U/L (15-37); BILIRUBIN TOTAL 0.4 mg/dL (0.20-1.00); TOTAL PROTEIN, SERUM 7.6 g/dL (6.4-8.2)
[2019-10-24 00:31] LABS: BASOPHIL % 0.3 % (0-2); PLATELET COUNT 130 x10^3mcL (130-400)
[2019-10-24 00:33] LABS: ALBUMIN 3.1 g/dL (3.4-5.0)
[2019-10-24 00:42] LABS: CK-MB < 0.5 ng/mL (0-3.6); CREATINE KINASE 37 U/L (39-308)
[2019-10-24 01:51] LABS: microscopic required? YES; urine erythrocyte 1+ (NEGATIVE)
[2019-10-24 04:29] LABS: BASOPHIL % 0.2 % (0-2); RED CELL DISTRIBUTION WIDTH 13.2 % (11.5-14.5)
[2019-10-24 04:31] LABS: PLATELET COUNT 118 x10^3mcL (130-400)
[2019-10-24 04:42] LABS: CALCIUM 8.4 mg/dL (8.5-10.1); CARBON DIOXIDE 26.9 mmol/L (21-32); CHLORIDE SERUM 106 mmol/L (98-107); CREATININE SERUM 0.5 mg/dL (0.7-1.3); GFR1 > 60 mL/min; GLUCOSE SERUM 105 mg/dL (74-106); MAGNESIUM 1.8 mg/dL (1.8-2.4); POTASSIUM SERUM 4.1 mmol/L (3.5-5.1); SODIUM SERUM 143 mmol/L (136-145)
[2019-10-25 05:52] VITALS: BP 121/52
[2019-10-25 06:26] LABS: RED CELL DISTRIBUTION WIDTH 13.2 % (11.5-14.5)
[2019-10-25 06:41] LABS: CALCIUM 8.4 mg/dL (8.5-10.1); CHLORIDE SERUM 104 mmol/L (98-107); CREATININE SERUM 0.5 mg/dL (0.7-1.3); GFR1 > 60 mL/min; GLUCOSE SERUM 111 mg/dL (74-106); PLATELET COUNT 113 x10^3mcL (130-400); POTASSIUM SERUM 3.9 mmol/L (3.5-5.1); SODIUM SERUM 140 mmol/L (136-145)
[2019-10-25 08:18] VITALS: BP 103/56
[2019-10-25] MEDS ORDERED: ROB1 GT (09:53)
[2019-10-25] MEDS ORDERED: CIPRO500 MG PO (09:54)
[2019-10-25 09:56] LABS: BAND NEUTROPHIL 0 % (0-10); MONOCYTE 21 % (0-7); SEGMENTED NEUTROPHILS 65 % (37-75)
[2019-10-25 09:57] LABS: PLATELET MORPHOLOGY PLATELETS DECREASED; rbc morphology (normal/abnorm) ABNORMAL (NORMAL)
[2019-10-25 11:40] VITALS: BP 98/54
[2019-10-25 16:34] VITALS: BP 112/72
[2019-10-25 20:06] VITALS: BP 98/64
[2019-10-26 05:41] VITALS: BP 132/66
[2019-10-26 08:24] VITALS: BP 109/59
[2019-10-26 12:11] VITALS: BP 102/59
[2019-10-26 16:40] VITALS: BP 92/56
[2019-10-26 20:21] VITALS: BP 88/49
[2019-10-26 22:00] VITALS: BP 97/69
[2019-10-27 05:48] VITALS: BP 98/44
[2019-10-27 06:40] LABS: BASOPHIL % 0.4 % (0-2); RED CELL DISTRIBUTION WIDTH 13.2 % (11.5-14.5)
[2019-10-27 06:53] LABS: CALCIUM 8.5 mg/dL (8.5-10.1); CHLORIDE SERUM 107 mmol/L (98-107); CREATININE SERUM 0.4 mg/dL (0.7-1.3); GFR1 > 60 mL/min; GLUCOSE SERUM 128 mg/dL (74-106); POTASSIUM SERUM 3.5 mmol/L (3.5-5.1); SODIUM SERUM 142 mmol/L (136-145)
[2019-10-27 07:16] LABS: PLATELET COUNT 102 x10^3mcL (130-400)
[2019-10-27 09:10] VITALS: BP 108/61
[2019-10-27] MEDS ORDERED: BACDS GT (10:10)
[2019-10-27 12:37] VITALS: BP 108/61
[2019-10-27 13:18] VITALS: BP 93/52
[2019-10-27 13:34] VITALS: BP 93/52
== END 2019-10-27 15:18 | DRG 720 ==
LOC: ED 23:21 → DU 10-24 02:07
PROVIDERS: Emergency Medicine; Student in an Organized Health Care Education/Training Program; ADMIT Internal Medicine
DX: A41.9 Sepsis, unspecified organism (principal); F72 Severe intellectual disabilities; G80.0 Spastic quadriplegic cerebral palsy; R13.10 Dysphagia, unspecified; Z93.1 Gastrostomy status; N39.0 Urinary tract infection, site not specified; B96.4 Proteus (mirabilis) (morganii) as the cause of diseases classified elsewhere; K21.9 Gastro-esophageal reflux disease without esophagitis; J45.909 Unspecified asthma, uncomplicated; G40.909 Epilepsy, unspecified, not intractable, without status epilepticus; Z74.01 Bed confinement status; Z68.21 Body mass index [BMI] 21.0-21.9, adult; Z93.4 Other artificial openings of gastrointestinal tract status
CPT/HCPCS: 87804; G0378; J0696; J1956; J2185; J3370; J7030; J7040; J7050; Q0092; Q9966

== ENCOUNTER 2020-02-02 14:34 | Emergency (ER) | payer MEDICAID ==
[~2020-02-02] VITALS: Ht 157.5 cm; Wt 61.2 kg
[~2020-02-02 14:34] MED LIST changes: +BACDS GT; +CIPRO500 MG PO
[2020-02-02 15:20] VITALS: Ht 157.5 cm; Wt 61.2 kg
[2020-02-02 17:32] VITALS: BP 105/63
== END 2020-02-02 17:30 | disposition home or self-care (01) ==
LOC: ED 14:34
DX: Z43.1 Encounter for attention to gastrostomy (principal); J45.909 Unspecified asthma, uncomplicated; K21.9 Gastro-esophageal reflux disease without esophagitis; Z88.0 Allergy status to penicillin
CPT/HCPCS: Q9967

== ENCOUNTER 2020-03-05 18:22 | Inpatient (IN) | payer MEDICAID ==
[~2020-03-05] VITALS: Ht 152.4 cm; Wt 62.6 kg
[2020-03-05 18:52] LABS: BASOPHIL % 0.3 % (0-2); PLATELET COUNT 141 x10^3mcL (130-400)
[2020-03-05 18:53] LABS: RED CELL DISTRIBUTION WIDTH 16.2 % (11.5-14.5)
[2020-03-05 19:12] LABS: CALCIUM 8.6 mg/dL (8.5-10.1); CARBON DIOXIDE 28.7 mmol/L (21-32); CHLORIDE SERUM 103 mmol/L (98-107); CREATININE SERUM 0.5 mg/dL (0.7-1.3); GFR1 > 60 mL/min; GLUCOSE SERUM 74 mg/dL (74-106); POTASSIUM SERUM 3.8 mmol/L (3.5-5.1); SODIUM SERUM 139 mmol/L (136-145)
[2020-03-05 19:17] LABS: ALBUMIN 3.3 g/dL (3.4-5.0); ALKALINE PHOSPHATASE 127 U/L (46-116); ALT/SGPT 25 U/L (16-63); AST/SGOT 25 U/L (15-37); BILIRUBIN TOTAL 0.5 mg/dL (0.20-1.00); TOTAL PROTEIN, SERUM 7.5 g/dL (6.4-8.2)
[2020-03-05 23:13] VITALS: BP 100/61
[2020-03-06 01:54] VITALS: BP 100/61
[2020-03-06 05:43] VITALS: BP 96/49
[2020-03-06 07:10] LABS: CALCIUM 8.7 mg/dL (8.5-10.1); CARBON DIOXIDE 29.1 mmol/L (21-32); CHLORIDE SERUM 103 mmol/L (98-107); CREATININE SERUM 0.6 mg/dL (0.7-1.3); GFR1 > 60 mL/min; GLUCOSE SERUM 108 mg/dL (74-106); PHOSPHOROUS 4.6 mg/dL (2.5-4.9); POTASSIUM SERUM 4.2 mmol/L (3.5-5.1); SODIUM SERUM 141 mmol/L (136-145)
[2020-03-06 07:27] LABS: BASOPHIL % 0.4 % (0-2)
[2020-03-06 07:43] LABS: PLATELET COUNT 123 x10^3mcL (130-400); RED CELL DISTRIBUTION WIDTH 15.8 % (11.5-14.5)
[2020-03-06 09:25] VITALS: BP 103/60
[2020-03-06 12:41] VITALS: BP 95/62
[2020-03-06 17:30] VITALS: BP 113/62
[2020-03-06 19:23] LABS: microscopic required? NO
[2020-03-06 19:34] LABS: UA SPECIFIC GRAVITY 1.015 (1.005-1.035); urine erythrocyte NEGATIVE (NEGATIVE)
[2020-03-06 21:03] VITALS: BP 98/65
[2020-03-07 05:41] VITALS: BP 96/66
[2020-03-07 07:49] LABS: BASOPHIL % 0.4 % (0-2)
[2020-03-07 08:10] LABS: CALCIUM 8.4 mg/dL (8.5-10.1); CARBON DIOXIDE 25.9 mmol/L (21-32); CHLORIDE SERUM 105 mmol/L (98-107); CREATININE SERUM 0.4 mg/dL (0.7-1.3); GFR1 > 60 mL/min; GLUCOSE SERUM 78 mg/dL (74-106); MAGNESIUM 1.9 mg/dL (1.8-2.4); PHOSPHOROUS 4.2 mg/dL (2.5-4.9); POTASSIUM SERUM 3.5 mmol/L (3.5-5.1); SODIUM SERUM 140 mmol/L (136-145)
[2020-03-07 08:20] LABS: PLATELET COUNT 126 x10^3mcL (130-400); RED CELL DISTRIBUTION WIDTH 15.8 % (11.5-14.5)
[2020-03-07 08:29] VITALS: BP 109/66
[2020-03-07 17:45] VITALS: BP 109/76
[2020-03-07 21:54] VITALS: BP 113/73
[2020-03-08 05:24] VITALS: BP 114/70
[2020-03-08 08:13] LABS: CALCIUM 8.3 mg/dL (8.5-10.1); CARBON DIOXIDE 25.2 mmol/L (21-32); CHLORIDE SERUM 103 mmol/L (98-107); CREATININE SERUM 0.5 mg/dL (0.7-1.3); GFR1 > 60 mL/min; GLUCOSE SERUM 113 mg/dL (74-106); POTASSIUM SERUM 3.5 mmol/L (3.5-5.1); SODIUM SERUM 139 mmol/L (136-145)
[2020-03-08 08:28] LABS: BASOPHIL % 0.4 % (0-2); PLATELET COUNT 126 x10^3mcL (130-400); RED CELL DISTRIBUTION WIDTH 15.9 % (11.5-14.5)
[2020-03-08 08:44] VITALS: BP 105/63
[2020-03-08 12:26] VITALS: BP 101/61
[2020-03-08 17:35] VITALS: BP 95/59
[2020-03-08 21:07] VITALS: BP 112/70
[2020-03-09 05:39] VITALS: BP 119/60
[2020-03-09 08:31] VITALS: BP 110/70
[2020-03-09 12:20] VITALS: BP 108/58
[2020-03-09 16:06] VITALS: BP 115/59
[2020-03-09 20:13] VITALS: BP 110/75
[2020-03-10 05:40] VITALS: BP 100/68
[2020-03-10 08:16] VITALS: BP 112/71
[2020-03-10 12:00] VITALS: BP 139/65
[2020-03-10 16:16] VITALS: BP 109/70
[2020-03-10 19:54] VITALS: BP 122/64
[2020-03-11 04:48] VITALS: BP 100/58
[2020-03-11 08:14] VITALS: BP 112/55
[2020-03-11 09:14] VITALS: BP 112/55
== END 2020-03-11 09:28 | disposition home or self-care (01) | DRG 252 ==
LOC: ED 18:22 → MU 20:54
PROVIDERS: Specialist; Surgery; ADMIT Family Medicine; ATTEND Family Medicine
PROC: 0DHA3UZ Insertion of Feeding Device into Jejunum, Percutaneous Approach (ICD-10-PCS; 2020-03-07)
PROC: 0DPDXUZ Removal of Feeding Device from Lower Intestinal Tract, External Approach (ICD-10-PCS; principal; 2020-03-07 10:30)
DX: K94.13 Enterostomy malfunction (principal); F72 Severe intellectual disabilities; G80.0 Spastic quadriplegic cerebral palsy; T85.528A Displacement of other gastrointestinal prosthetic devices, implants and grafts, initial encounter; Z86.69 Personal history of other diseases of the nervous system and sense organs; Z20.828 Contact with and (suspected) exposure to other viral communicable diseases; Z88.8 Allergy status to other drugs, medicaments and biological substances; J45.909 Unspecified asthma, uncomplicated; K21.9 Gastro-esophageal reflux disease without esophagitis; G40.909 Epilepsy, unspecified, not intractable, without status epilepticus; Y83.8 Other surgical procedures as the cause of abnormal reaction of the patient, or of later complication, without mention of misadventure at the time of the procedure
CPT/HCPCS: C1769; G0378; J1953; J3490; J7042; J7050; J7120; Q0092; Q9967; U0003-CS

== ENCOUNTER 2020-08-26 08:56 | Inpatient (IN) | payer MEDICAID ==
[~2020-08-26] VITALS: Ht 165.1 cm; Wt 64.9 kg
[~2020-08-26 08:56] MED LIST changes: +DECADRON6 MG PO; +MEDI-FIRST ASP325 MG PO; +MEDROL DOSEPAK4 MG PO
[2020-08-26 10:12] VITALS: Ht 165.1 cm; Wt 64.9 kg
[2020-08-26 11:59] LABS: UA SPECIFIC GRAVITY 1.025 (1.005-1.035); microscopic required? YES; urine erythrocyte 1+ (NEGATIVE)
[2020-08-26 13:36] LABS: CALCIUM 8.2 mg/dL (8.5-10.1); CHLORIDE SERUM 104 mmol/L (98-107); CREATININE SERUM 0.7 mg/dL (0.7-1.3); GFR1 > 60 mL/min; GLUCOSE SERUM 100 mg/dL (74-106); POTASSIUM SERUM 3.9 mmol/L (3.5-5.1); SODIUM SERUM 141 mmol/L (136-145)
[2020-08-26 13:41] LABS: ALKALINE PHOSPHATASE 100 U/L (46-116); ALT/SGPT 30 U/L (16-63); AST/SGOT 24 U/L (15-37); BILIRUBIN TOTAL 0.5 mg/dL (0.20-1.00); C REACTIVE PROTEIN 3.6 mg/dL (<=0.9); LACTIC DEHYDROGENASE (LDH) 173 U/L (100-190); TOTAL PROTEIN, SERUM 6.8 g/dL (6.4-8.2)
[2020-08-26] MEDS ORDERED: PEPCID AC20 M2 GT (13:50)
[2020-08-26] MEDS ORDERED: SYMBICORT1 AE3 (13:52)
[2020-08-26] MEDS ORDERED: ZINC SULFATE220 M2 GT (13:53)
[2020-08-26 14:02] LABS: ALBUMIN 2.9 g/dL (3.4-5.0)
[2020-08-26 17:41] LABS: BASOPHIL % 0.2 % (0.2-1.5)
[2020-08-26 17:43] LABS: PLATELET COUNT 116 x10^3mcL (152-348); RED CELL DISTRIBUTION WIDTH 14.7 % (12.1-16.2)
[2020-08-27 07:15] LABS: BASOPHIL % 0.4 % (0.2-1.5)
[2020-08-27 07:17] LABS: PLATELET COUNT 52 x10^3mcL (152-348); RED CELL DISTRIBUTION WIDTH 14.8 % (12.1-16.2)
[2020-08-27 08:25] LABS: ALKALINE PHOSPHATASE 97 U/L (46-116); ALT/SGPT 34 U/L (16-63); AST/SGOT 30 U/L (15-37); BILIRUBIN TOTAL 0.9 mg/dL (0.20-1.00); C REACTIVE PROTEIN 11.2 mg/dL (<=0.9); CALCIUM 8.7 mg/dL (8.5-10.1); CARBON DIOXIDE 29.3 mmol/L (21-32); CHLORIDE SERUM 103 mmol/L (98-107); CREATININE SERUM 0.6 mg/dL (0.7-1.3); GFR1 > 60 mL/min; GLUCOSE SERUM 79 mg/dL (74-106); POTASSIUM SERUM 3.4 mmol/L (3.5-5.1); SODIUM SERUM 142 mmol/L (136-145); TOTAL PROTEIN, SERUM 7.1 g/dL (6.4-8.2)
[2020-08-27 08:27] LABS: ALBUMIN 3.1 g/dL (3.4-5.0)
[2020-08-27 14:19] VITALS: BP 102/62
[2020-08-27 17:51] VITALS: BP 127/71
[2020-08-27 20:30] VITALS: BP 123/77
[2020-08-28 05:25] VITALS: BP 93/74
[2020-08-28 07:35] LABS: RED CELL DISTRIBUTION WIDTH 14.5 % (12.1-16.2)
[2020-08-28 08:15] LABS: ALKALINE PHOSPHATASE 97 U/L (46-116); ALT/SGPT 46 U/L (16-63); AST/SGOT 51 U/L (15-37); BILIRUBIN TOTAL 0.62 mg/dL (0.20-1.00); C REACTIVE PROTEIN 6.6 mg/dL (<=0.9); CALCIUM 8.4 mg/dL (8.5-10.1); CHLORIDE SERUM 110 mmol/L (98-107); CREATININE SERUM 0.3 mg/dL (0.7-1.3); GFR1 > 60 mL/min; GLUCOSE SERUM 122 mg/dL (74-106); MAGNESIUM 1.8 mg/dL (1.8-2.4); PHOSPHOROUS 2.8 mg/dL (2.5-4.9); POTASSIUM SERUM 3.7 mmol/L (3.5-5.1); TOTAL PROTEIN, SERUM 6.5 g/dL (6.4-8.2)
[2020-08-28 08:23] LABS: ALBUMIN 2.8 g/dL (3.4-5.0)
[2020-08-28 08:24] LABS: SODIUM SERUM 143 mmol/L (136-145)
[2020-08-28 09:05] VITALS: BP 96/53
[2020-08-28 09:12] LABS: PLATELET COUNT 110 x10^3mcL (152-348)
[2020-08-28 13:07] VITALS: BP 107/63
[2020-08-28 13:47] LABS: BAND NEUTROPHIL 1 % (0-10); MONOCYTE 17 % (0-7); SEGMENTED NEUTROPHILS 51 % (37-75); rbc morphology (normal/abnorm) NORMAL (NORMAL)
[2020-08-28 17:23] VITALS: BP 102/63
[2020-08-28 20:51] VITALS: BP 110/59
[2020-08-29 05:32] VITALS: BP 99/53
[2020-08-29 08:40] LABS: BASOPHIL % 0.2 % (0.2-1.5)
[2020-08-29 08:47] VITALS: BP 102/62
[2020-08-29 08:52] LABS: RED CELL DISTRIBUTION WIDTH 15.1 % (12.1-16.2)
[2020-08-29 10:42] LABS: CALCIUM 8.9 mg/dL (8.5-10.1); CARBON DIOXIDE 23.5 mmol/L (21-32); CHLORIDE SERUM 107 mmol/L (98-107); CREATININE SERUM 0.4 mg/dL (0.7-1.3); GFR1 > 60 mL/min; GLUCOSE SERUM 107 mg/dL (74-106); MAGNESIUM 2.2 mg/dL (1.8-2.4); PHOSPHOROUS 3.3 mg/dL (2.5-4.9); SODIUM SERUM 146 mmol/L (136-145)
[2020-08-29 12:13] LABS: rbc morphology (normal/abnorm) NORMAL (NORMAL)
[2020-08-29 12:14] LABS: PLATELET COUNT 116 x10^3mcL (152-348)
[2020-08-29 12:24] VITALS: BP 100/67
[2020-08-29 18:20] VITALS: BP 97/59
[2020-08-29 21:13] VITALS: BP 1106/52
[2020-08-30 06:36] VITALS: BP 103/57
[2020-08-30 09:31] VITALS: BP 98/56
[2020-08-30 12:04] VITALS: BP 108/63
[2020-08-30 16:45] VITALS: BP 99/36
[2020-08-30 21:47] VITALS: BP 114/54
[2020-08-31 05:17] VITALS: BP 110/69
[2020-08-31 08:34] VITALS: BP 119/49
[2020-08-31 11:11] LABS: CALCIUM 9.5 mg/dL (8.5-10.1); CARBON DIOXIDE 29.7 mmol/L (21-32); CHLORIDE SERUM 105 mmol/L (98-107); CREATININE SERUM 0.5 mg/dL (0.7-1.3); GFR1 > 60 mL/min; GLUCOSE SERUM 101 mg/dL (74-106); MAGNESIUM 2.2 mg/dL (1.8-2.4); PHOSPHOROUS 3.5 mg/dL (2.5-4.9); POTASSIUM SERUM 4.6 mmol/L (3.5-5.1); SODIUM SERUM 141 mmol/L (136-145)
[2020-08-31 11:20] LABS: BASOPHIL % 0.5 % (0.2-1.5); PLATELET COUNT 148 x10^3mcL (152-348)
[2020-08-31 11:56] LABS: RED CELL DISTRIBUTION WIDTH 14.8 % (12.1-16.2)
[2020-08-31 12:13] VITALS: BP 114/56
[2020-08-31 17:19] VITALS: BP 109/63
[2020-08-31 20:40] VITALS: BP 132/70
[2020-09-01 05:40] VITALS: BP 105/65
[2020-09-01 07:29] LABS: BASOPHIL % 0.4 % (0.2-1.5); PLATELET COUNT 137 x10^3mcL (152-348)
[2020-09-01 07:43] LABS: CALCIUM 9.4 mg/dL (8.5-10.1); CARBON DIOXIDE 28.5 mmol/L (21-32); CHLORIDE SERUM 104 mmol/L (98-107); CREATININE SERUM 0.4 mg/dL (0.7-1.3); GFR1 > 60 mL/min; GLUCOSE SERUM 88 mg/dL (74-106); POTASSIUM SERUM 3.7 mmol/L (3.5-5.1); SODIUM SERUM 142 mmol/L (136-145)
[2020-09-01 09:02] LABS: RED CELL DISTRIBUTION WIDTH 14.7 % (12.1-16.2)
[2020-09-01 09:39] VITALS: BP 102/42
[2020-09-01 13:00] VITALS: BP 116/65
[2020-09-01 21:16] VITALS: BP 118/69
[2020-09-02 05:19] VITALS: BP 133/75
[2020-09-02 08:53] VITALS: BP 118/51
[2020-09-02 12:38] LABS: BASOPHIL % 0.7 % (0.2-1.5); PLATELET COUNT 174 x10^3mcL (152-348)
[2020-09-02 12:43] LABS: CARBON DIOXIDE 25.9 mmol/L (21-32); CHLORIDE SERUM 101 mmol/L (98-107); CREATININE SERUM 0.4 mg/dL (0.7-1.3); GFR1 > 60 mL/min; GLUCOSE SERUM 82 mg/dL (74-106); MAGNESIUM 2.2 mg/dL (1.8-2.4); SODIUM SERUM 136 mmol/L (136-145)
[2020-09-02 12:54] LABS: POTASSIUM SERUM 4.5 mmol/L (3.5-5.1)
[2020-09-02 13:03] VITALS: BP 118/51
[2020-09-02 14:54] LABS: RED CELL DISTRIBUTION WIDTH 14.7 % (12.1-16.2)
[2020-09-02 16:36] VITALS: BP 110/58
== END 2020-09-02 15:00 | DRG 720 ==
LOC: ED 08:56 → DU 14:29
PROVIDERS: Emergency Medicine; ADMIT Family Medicine; ATTEND Family Medicine
DX: A41.9 Sepsis, unspecified organism (principal); J18.9 Pneumonia, unspecified organism; E44.0 Moderate protein-calorie malnutrition; N31.9 Neuromuscular dysfunction of bladder, unspecified; Z93.1 Gastrostomy status; G80.9 Cerebral palsy, unspecified; R65.20 Severe sepsis without septic shock; Z20.828 Contact with and (suspected) exposure to other viral communicable diseases; Z88.1 Allergy status to other antibiotic agents; J45.909 Unspecified asthma, uncomplicated; K21.9 Gastro-esophageal reflux disease without esophagitis; G40.909 Epilepsy, unspecified, not intractable, without status epilepticus; N39.0 Urinary tract infection, site not specified
CPT/HCPCS: 36600; 83880; 85378; 87804; G0378; J1956; J2185; J7040; J7060; U0003